=== PATIENT | female | born 1960 | race Hispanic/Latino ===

== ENCOUNTER 2019-09-16 14:41 | Outpatient (CLI) | payer OTHER, SELFPAY ==
--- NOTE | ~2019-09-16 | XR_ITS ---
EXAMINATION: XR abdomen/kub 1V DATE: 09/16/2019 15:12 INDICATION: Malfunctioning peritoneal dialysis catheter. TECHNIQUE: A supine view of the abdomen on 2 radiographs was obtained. COMPARISON: CT abdomen and pelvis 07/09/2017 FINDINGS: There are no dilated loops of bowel. There are phleboliths in the pelvis. A peritoneal dial ysis catheter overlies right pelvis. IMPRESSION: 1. Unremarkable peritoneal dialysis catheter. Reviewed, dictated and finalized at location A.
== END 2019-09-16 14:42 | disposition home or self-care (01) ==
LOC: ANHIMG 14:50
PROVIDERS: PCP Internal Medicine; Visit Provider Internal Medicine Nephrology
DX: T85.691A Other mechanical complication of intraperitoneal dialysis catheter, initial encounter (principal)
CPT/HCPCS: 74018

== ENCOUNTER 2020-05-30 14:43 | Inpatient (IN) | payer OTHER, SELFPAY ==
[2020-05-30] VITALS (25 sets, daily range): BP systolic 145–209; BP diastolic 48–135; PULSE 66–111; RESP 14–34; TEMP 36.6–37.1; O2SAT 95–100
--- NOTE | ~2020-05-30 | XR_ITS ---
XR chest 1V portable DATE: 05/30/2020 17:12 INDICATION: Shortness of breath. Covid-positive patient. TECHNIQUE: Portable AP chest on 05/30/2020 at 1708 hours COMPARISON: 07/23/2017 two-view chest FINDINGS: There are prominent diffuse patchy bilateral pulmonary infiltrates, greater in the lower sary ng zones. These are new since . Differential diagnosis includes pneumonia and less likely p ulmonary edema. There is minimal if any pleural effusion. No pneumothorax. Diffuse osteopenia. Heart size is likely within normal range considering magnification associated with AP projection. IMPRESSION: Extensive bilateral pulmonary infiltrates Reviewed, dictated and finalized at location A. 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
[2020-05-30] MEDS: NITROGLYCERIN SL 0.4 MG TABLET (14:57)
[2020-05-30] MEDS: NITROGLYCERIN SL 0.4 MG TABLET SUBLINGUAL (15:05)
[2020-05-30] MEDS: LABETALOL HCL INJ 100 MG/20 ML VIAL 20 MG IV PUSH ×3 (15:21→18:24)
[2020-05-30] MEDS: hydrALAZINE HCL 20 MG/ML VIAL 10 MG IV PUSH ×3 (15:21→17:33)
[2020-05-30] MEDS: FUROSEMIDE INJ 100 MG/10 ML VIAL 80 MG IV PUSH (15:21)
--- NOTE | 2020-05-30 16:21 | ECG_ITS ---
Measurements Intervals [place] Rate: 112 P: 40 DC: 132 QRS: 57 QRSD: 92 T: 90 QT: 349 QTc: 478 Interpretive Statements SINUS TACHYCARDIA BORDERLINE R WAVE PROGRESSION, ANTERIOR LEADS BORDERLINE ST-T WAVE ABNORMALITY- HIGH LATERAL LEADS BASELINE ARTIFACT- I, II, III, AVR, AVL, AVF, V1-V6 ABNORMAL ECG Electronically Signed On 05-30-2020 19:27:35 BACK SEAM STITCHER by Eric Domínguez D.O.
[2020-05-30] MEDS: NITROGLYCERIN OINTMENT 1 INCH DOSE TRANSDERM ×2 (16:26→23:28)
[2020-05-30 16:38] LABS: Basophils Absolute Auto 0.1 K/mm3 (0.0-0.1); Basophils Percent Auto 0.6 % (0.2-1.2); Eosinophils Absolute Auto 0.2 K/mm3 (0-0.3); Eosinophils Percent Auto 2.1 % (0-4.4); Hemoglobin 9.8 g/dL (12.0-15.0); Immature Granulocyte Absolute 0.04 K/mm3 (0.00-0.031); Immature Granulocyte Percent A 0.4 % (0-0.5); Lymphocytes Absolute Auto 1.95 K/mm3 (0.9-3.2); Lymphocytes Percent Auto 21.5 % (18.3-44.2); Mean Corpuscular Hemoglobin 32.3 pg (26-34); Mean Corpuscular Volume 92.4 fl (80-100); Mean Platelet Volume 10.1 fl (7.4-10.4); Monocytes Absolute Auto 0.5 K/mm3 (0.1-0.6); Monocytes Percent Auto 5.4 % (2.6-8.5); Neutrophils Absolute Auto 6.4 K/mm3 (1.3-6.7); Platelet Count Result 308 k/mm3 (150-375); Red Blood Count 3.03 M/mm3 (4.2-5.4); Red Cell Distribution Width 12.2 % (11.5-14.5); White Blood Count 9.1 K/mm3 (4.5-10.0)
[2020-05-30 16:51] LABS: Alanine Aminotransferase 21 U/L (4-35); Albumin Level 3.2 g/dL (3.5-5.1); Alkaline Phosphatase 137 U/L (38-126); Anion Gap 12 mmol/L (8-16); Aspartate Amino Transferase 47 U/L (14-36); Bilirubin,Total 0.5 mg/dL (0.2-1.3); Blood Urea Nitrogen 55 mg/dL (7-17); Calcium 6.7 mg/dL (8.4-10.2); Carbon Dioxide 26 mmol/L (22-30); Chloride 93 mmol/L (98-107); Estimated CRCL calculation 5 ml/min; Estimated Glomerular Filt Rate 4; Glucose 102 mg/dL (65-105); Potassium 3.6 mmol/L (3.4-5.0); Sodium 131 mmol/L (137-145)
[2020-05-30] MEDS: ONDANSETRON INJ 4 MG/2 ML VIAL IV PUSH (18:24)
--- NOTE | 2020-05-30 18:35 | ED.SOB ---
HPI - SOB/Dyspnea General Chief Complaint: Shortness of Breath/Dyspnea Stated Complaint: sob, elevated BP Time Seen by Provider: 05/30/20 14:46 Source: patient, family, EMS and other (PCP) Mode of arrival: EMS Limitations: clinical condition History of Present Illness HPI Narrative: 60-year-old female History of chronic renal failure on nightly peritoneal dialysis and hypertension Presented to the office today for a follow-up visit after a recent hospitalization She had been hospitalized about 10 days ago for hypoglycemia and was Covid positive at that time In the office her blood sugar was fine but her sats were 88 to 90% on room air she was tachypneic and dyspneic and her blood pressure was very high greater than 200 systolic over 100 diastolic and she was referred to the ER for evaluation and treatment Here, she is anxious and hyperventilating even has her sat on 2 L of oxygen is in the mid 90s She denies fever or cough, she denies increased pedal edema, and she denies chest pain She took labetalol this morning but she did not take her other blood pressure medicines MD elicited complaint: shortness of breath Severity: severe Related Data Home Medications Medication Instructions Recorded Confirmed insulin aspart U-100 [Novolog 1 sliding scale dose SUBCUT 04/29/19 05/30/20 PenFill U-100 Insulin] USEASDIRECTD aspirin 81 mg tablet,delayed 81 mg PO DAILY 10/11/19 05/30/20 release calcium acetate 667 mg tablet PO TID 01/10/20 05/30/20 diphenhydramine HCl 25 mg capsule 25 mg PO Q6H PRN 01/10/20 05/30/20 furosemide 40 mg tablet 40 mg PO BID 01/10/20 05/30/20 calcitriol 0.25 mcg capsule 0.25 mcg PO DAILY 05/30/20 05/30/20 ergocalciferol (vitamin D2) 1,250 1,250 mcg PO WEEKLY 05/30/20 05/30/20 mcg (50,000 unit) capsule ferric citrate 210 mg iron tablet 210 mg PO BID tablet 05/30/20 05/30/20 hydralazine 100 mg tablet 100 mg PO TID tablet 05/30/20 05/30/20 labetalol 200 mg tablet 200 mg PO BID tablet 05/30/20 05/30/20 ondansetron HCl 4 mg tablet 4 mg PO Q4H tablet 05/30/20 05/30/20 Allergies Allergy/AdvReac Type Severity Reaction Status Date / Time No Known Allergies Allergy Unknown Verified 05/30/20 13:27 Review of Systems Review of Systems: All systems reviewed & are unremarkable except as noted in HPI and below Constitutional: Constitutional: Denies chills, Reports fatigue, Denies fever(s), Denies headache(s) and Reports weakness Eyes: Eyes: Reports no additional eye complaints and Reports change in vision (Feels like her vision has been dark for a few days) ENT: Denies headache(s), Denies epistaxis, Denies nasal congestion and Denies sore throat Cardiovascular: Cardiovascular: Denies chest pain, Denies leg edema, Denies palpitations and Denies dyspnea Respiratory: Respiratory: Reports as per HPI Gastrointestinal: Gastrointestinal: Denies abdominal pain, Denies diarrhea, Denies nausea and Denies vomiting Genitourinary: Genitourinary: Denies hematuria, Denies urinary frequency and Denies dysuria Musculoskeletal: Musculoskeletal: Denies deformity, Denies arthralgias, Denies joint swelling, Denies muscle weakness and Denies numbness Integumentary/Breasts: Skin/Breast: Denies rash and Denies wounds Neurologic: Denies headache(s), Denies focal weakness, Denies numbness and Denies weakness Psychiatric: Psychiatric: Reports no additional psychiatric complaints and Reports anxiety Endocrine: Endocrine: Denies fatigue and Denies palpitations Hematologic/Lymphatic: Hematologic/Lymphatic: Denies easy bleeding and Denies easy bruising Allergic/Immunologic: Allergic/Immunologic: Denies wheezing PMFSH Past Medical History Medical History (Updated 05/30/20 @ 19:04 by Armando Rodgers MD) Bone spur DM renal manif type II End stage renal disease on dialysis Hemorrhoids History of Richmond's palsy HLD (hyperlipidemia) HTN (hypertension) Lumbar radiculopathy Mumps Osteoarthritis Pituitary abscess Surg
[2020-05-30] MEDS: metOLazone 5 MG TABLET PO (19:10)
[2020-05-30] MEDS: hydrALAZINE HCL 50 MG TABLET 100 MG PO (19:10)
[2020-05-30] MEDS: LABETALOL HCL 100 MG TABLET 200 MG PO (19:10)
[2020-05-30 19:29] LABS: Glucose Point of Care 162 (65-105)
[2020-05-30 20:55] LABS: NT Pro B Type Natriuretic Pept > 35000 PG/ML (5-100)
--- NOTE | 2020-05-30 22:38 | PM.IMHP ---
H&P: HPI History of Present Illness Date/Time: 05/30/20 22:38 Chief complaint: sob, elevated BP Narrative: Rufina Saravia is a 60 year old female who has end-stage renal disease. She has newly diagnosed this last September. She has been doing peritoneal dialysis since then. She does not every night. The patient stated that she recently was admitted to [facility]. She has multiple bruises to her abdomen where she had been given subcu heparin. Is also diabetic and has hypertension. The patient was hospitalized about 10 days ago for hypoglycemia and was COVID positive at that time. The patient presented to her regular primary care doctor's office today for a follow-up visit from hospitalization. In the office her blood sugars were okay per O2 saturations were 88-90% she was tachycardic and dyspneic. Her systolic blood pressures were over 200 and her diastolic was 100. She was sent to the emergency room for evaluation. She is very anxious and hyperventilating. She was placed on oxygen at 2 L per nasal cannula. No no cough no fever no chills. The patient took labetalol this morning for her blood pressure. The patient was given nitroglycerin, labetalol, hydralazine, Lasix, and Zofran in the emergency room. The patient is being boarded in the ER at this time. She is awaiting and IMU bed. Equipment with her for dialysis. Her chest x-ray was read as extensive bilateral pulmonary infiltrates. Nephrology has been consulted. The patient had been NPO for some time due to her high blood sugar and fluid overload and hypertension. Her blood pressure is now 176/80. Patient is currently on 3 L per nasal cannula. She typically is not on any oxygen at home. The patient is making some urine. She is asking to be able to eat. I explained that she could be on a renal diet but would have to limit her fluid intake. H&H is 9.8 and 28.0. Sodium was 131. BUN 55 creatinine is 10.9. GFR is 4. BNP is greater than 35,000. AST is 47 alkaline phosphatase 137. Repeat COVID is pending. She tested positive over 10 days ago. Is felt that this is more of a fluid overload and pulmonary emboli. Patient is outside the window for antiviral and Decadron. And plus she is diabetic as well. The patient is being admitted to inpatient status on the date of service of 05/30/2020 Review of Systems Review of Systems: All systems reviewed & are unremarkable except as noted in HPI and below Constitutional: Constitutional: Reports as per HPI and Reports no additional constitutional complaints Eyes: Eyes: Reports as per HPI and Reports no additional eye complaints ENT: Reports system reviewed and no additional complaints, except as documented and Reports Normal hearing present Cardiovascular: Cardiovascular: Reports no additional cardiovascular complaints Respiratory: Respiratory: Reports no additional respiratory complaints and Reports no additional respiratory complaints Gastrointestinal: Gastrointestinal: Reports as per HPI and Reports no additional gastrointestinal complaints Musculoskeletal: Musculoskeletal: Reports no additional musculoskeletal complaints Integumentary/Breasts: Skin/Breast: Reports system reviewed and no additional complaints, except as docu and Reports as per HPI Neurologic: Reports system reviewed and no additional complaints, except as documented, Reports as per HPI and Reports Normal hearing present Psychiatric: Psychiatric: Reports no additional psychiatric complaints and Reports as per HPI Endocrine: Endocrine: Reports no additional endocrine complaints Hematologic/Lymphatic: Hematologic/Lymphatic: Reports no additional hematologic/lymphatic complaints Allergic/Immunologic: Allergic/Immunologic: Reports no additional allergic/immunologic complaints [facility] Past Medical History Medical History (Updated 05/30/20 @ 22:46 by Jo Browne NP) Bone spur DM renal manif type II End stage renal disease on dialysis Hemorrhoids Hist
[2020-05-30] MEDS: FUROSEMIDE INJ 40 MG/4 ML VIAL 80 MG IV PUSH (23:27)
--- NOTE | 2020-05-30 23:31 | PC.NURSE ---
previous nitro patch removed and cleaned, new patch applied opposite chest area.
[2020-05-31] VITALS (18 sets, daily range): BP systolic 165–221; BP diastolic 68–85; PULSE 67–102; RESP 20–24; TEMP 35.8–36.5; O2SAT 96–100; BMI 37.8; BMI 38.3
--- NOTE | 2020-05-31 02:03 | ADMGEN ---
This patient, Rufina Saravia, was admitted to IMU Room 232-01. Patient/family oriented to hospital policies and general routines including ID bracelet, bed and alarms, visiting hours, pain management, procedures, bathroom and other care routines, personal items, smoking policy, room service/diet, and visiting hours. Information on how to activate the Rapid Response Team has been discussed. Patient/Family are encouraged to report perceived risks to care and to ask questions if they do not understand what they are told or what they should do. report from Jayne FERRARO approx [id number]
[2020-05-31 02:25] LABS: Hemoglobin A1C 4.8 % (<5.7)
[2020-05-31 05:21] LABS: Basophils Percent Auto 0.5 % (0.2-1.2); Eosinophils Absolute Auto 0.1 K/mm3 (0-0.3); Hematocrit 24.3 % (37.0-47.0); Hemoglobin 8.6 g/dL (12.0-15.0); Immature Granulocyte Absolute 0.04 K/mm3 (0.00-0.031); Immature Granulocyte Percent A 0.6 % (0-0.5); Lymphocytes Absolute Auto 1.21 K/mm3 (0.9-3.2); Lymphocytes Percent Auto 18.7 % (18.3-44.2); Mean Corpuscular HGB Conc 35.4 g/dl (32-36); Mean Corpuscular Hemoglobin 32.7 pg (26-34); Mean Corpuscular Volume 92.4 fl (80-100); Mean Platelet Volume 9.9 fl (7.4-10.4); Monocytes Absolute Auto 0.4 K/mm3 (0.1-0.6); Monocytes Percent Auto 6.6 % (2.6-8.5); Neutrophils Absolute Auto 4.6 K/mm3 (1.3-6.7); Neutrophils Percent Auto 71.6 % (45.5-73.1); Platelet Count Result 292 k/mm3 (150-375); Red Blood Count 2.63 M/mm3 (4.2-5.4); Red Cell Distribution Width 12.1 % (11.5-14.5); White Blood Count 6.5 K/mm3 (4.5-10.0)
[2020-05-31 05:39] LABS: Anion Gap 9 mmol/L (8-16); Blood Urea Nitrogen 57 mg/dL (7-17); Calcium 6.6 mg/dL (8.4-10.2); Carbon Dioxide 26 mmol/L (22-30); Chloride 96 mmol/L (98-107); Estimated CRCL calculation 5 ml/min; Estimated Glomerular Filt Rate 4; Glucose 152 mg/dL (65-105); Potassium 3.7 mmol/L (3.4-5.0); Sodium 131 mmol/L (137-145)
[2020-05-31] MEDS: NITROGLYCERIN OINTMENT 1 INCH DOSE TRANSDERM ×4 (06:02→23:35)
[2020-05-31] MEDS: HEPARIN SODIUM 5,000 UNITS/ML VIAL 5000 UNITS SUB-Q ×3 (06:02→21:11)
[2020-05-31 08:49] LABS: Glucose Point of Care 228 (65-105)
[2020-05-31] MEDS: INSULIN ASPART (*BKC) 100 UNITS/ML SUB-Q (10:35)
[2020-05-31] MEDS: FUROSEMIDE INJ 100 MG/10 ML VIAL 80 MG IV PUSH ×2 (11:00→21:11)
[2020-05-31 13:15] LABS: Glucose Point of Care 143 (65-105)
[2020-05-31 14:21] LABS: SARS-CoV-2 RNA PCR Negative
[2020-05-31 17:01] LABS: Glucose Point of Care 175 (65-105)
[2020-05-31] MEDS: hydrALAZINE HCL 20 MG/ML VIAL 10 MG IV PUSH ×2 (17:09→23:34)
--- NOTE | 2020-05-31 18:29 | P.CONNP_ITS ---
Assessment and Plan Assessment and plan (1) End stage renal disease: Code(s): N18.6 - End stage renal disease Status: Chronic Assessment and Plan: * continue CCPD tonight * adjust peritoneal dialysis for more aggressive fluid removal * continue IV diuretics for n * follow electrolytes, volume status, and clearance (2) Acute respiratory failure with hypoxia: Code(s): J96.01 - Acute respiratory failure with hypoxia Status: Acute Assessment and Plan: * likely due to a combination of pulmonary edema and possible COVID-19 * some improvement with IV diuretics and PD treatmement * continue supplement oxygen and wean as tolerated * follow CXR results (3) Severe hypertension: Code(s): I10 - Essential (primary) hypertension Status: Acute Assessment and Plan: * quite high on admission * element of flash pulmonary edema with her BP being so elevated on admission(?) * follow trend but will increase labetalol to 300mg bid * suspect may need another BP medication (terzosin perhaps) * follow trend of hemodynamics (4) Anemia: Code(s): D64.9 - Anemia, unspecified Status: Chronic Assessment and Plan: * due to ESRD * check iron studies * holding Epogen given her high BP * follow H/H (5) COVID-19: Code(s): U07.1 - COVID-19 Status: Acute Assessment and Plan: * was positive about 10 days ago * repeat testing in progress * supportive therapy Will continue to follow. History of Present Illness Reason for Consult Consult date: 05/31/20 Reason for consult: end stage renal disease Chief Complaint Chief complaint: pulmonary edema, severa hypertension History of Present Illness Narrative: The patient is a 60-year-old female with a significant past medical history as outlined below who presented to [facility] Emergency room from her primary care physician's office for further evaluation of shortness of breath. The patient was recently hospitalized about 10 days ago with issues relating to hypoglycemia as well as COVID 19 positivity. She was treated with supportive measures and eventually discharged from the hospital. She went to see her primary care physician today for routine follow-up after this hospitalization but it was discovered upon her presentation that she was tachycardic, tach ypneic, and had O2 saturations in the 88-90 percentile range on room air. Given these findings, she was referred to the ER for further evaluation. Workup and evaluation emergency room demonstrated the patient to be in [id number] respiratory distress complicated by her severe anxiety. Supple mental oxygen was applied which did improve her oxygen saturations but she was also noted to be severely hypertensive as well. She was given multiple rounds of IV medications to treat her blood pressure and eventually came down into the 180 systolic her overall respiratory status seemed to improve as well. Her chest x-ray demonstrated a combination of changes consistent with fluid overload as well as possible COVID-19. She was continued on IV diuretics and subsequent admitted to the hospital for further evaluation and therapy. Since her admission, she received peritoneal dialysis overnight and had about 1400 cc of fluid removal. Her breathing appears to be significantly better. Renal consultation was requested due to her end-stage renal disease. The patient is well familiar to me as I take care of her outpatient dialysis needs. She does nightly peritoneal dialysis under my care through [facility]
--- NOTE | 2020-05-31 18:29 | PM.CNNEP ---
Assessment and Plan Assessment and plan (1) End stage renal disease: Code(s): N18.6 - End stage renal disease Status: Chronic Assessment and Plan: continue CCPD tonight adjust peritoneal dialysis for more aggressive fluid removal continue IV diuretics for n follow electrolytes, volume status, and clearance (2) Acute respiratory failure with hypoxia: Code(s): J96.01 - Acute respiratory failure with hypoxia Status: Acute Assessment and Plan: likely due to a combination of pulmonary edema and possible COVID-19 some improvement with IV diuretics and PD treatmement continue supplement oxygen and wean as tolerated follow CXR results (3) Severe hypertension: Code(s): I10 - Essential (primary) hypertension Status: Acute Assessment and Plan: quite high on admission element of flash pulmonary edema with her BP being so elevated on admission(?) follow trend but will increase labetalol to 300mg bid suspect may need another BP medication (terzosin perhaps) follow trend of hemodynamics (4) Anemia: Code(s): D64.9 - Anemia, unspecified Status: Chronic Assessment and Plan: due to ESRD check iron studies holding Epogen given her high BP follow H/H (5) COVID-19: Code(s): U07.1 - COVID-19 Status: Acute Assessment and Plan: was positive about 10 days ago repeat testing in progress supportive therapy Will continue to follow. History of Present Illness Reason for Consult Consult date: 05/31/20 Reason for consult: end stage renal disease Chief Complaint Chief complaint: pulmonary edema, severa hypertension History of Present Illness Narrative: The patient is a 60-year-old female with a significant past medical history as outlined below who presented to [facility] Emergency room from her primary care physician's office for further evaluation of shortness of breath. The patient was recently hospitalized about 10 days ago with issues relating to hypoglycemia as well as COVID 19 positivity. She was treated with supportive measures and eventually discharged from the hospital. She went to see her primary care physician today for routine follow-up after this hospitalization but it was discovered upon her presentation that she was tachycardic, tachypneic, and had O2 saturations in the 88-90 percentile range on room air. Given these findings, she was referred to the ER for further evaluation. Workup and evaluation emergency room demonstrated the patient to be in [id number] respiratory distress complicated by her severe anxiety. Supplemental oxygen was applied which did improve her oxygen saturations but she was also noted to be severely hypertensive as well. She was given multiple rounds of IV medications to treat her blood pressure and eventually came down into the 180 systolic her overall respiratory status seemed to improve as well. Her chest x-ray demonstrated a combination of changes consistent with fluid overload as well as possible COVID-19. She was continued on IV diuretics and subsequent admitted to the hospital for further evaluation and therapy. Since her admission, she received peritoneal dialysis overnight and had about 1400 cc of fluid removal. Her breathing appears to be significantly better. Renal consultation was requested due to her end-stage renal disease. The patient is well familiar to me as I take care of her outpatient dialysis needs. She does nightly peritoneal dialysis under my care through [facility] and has been on dialysis for a little less than a year. From a dialysis perspective, she has had some issues and problems with excessive cramping during her dialysis treatments without a clear etiology as multiple interventions have been done to try in curb this problem/issue. Her blood pressure is always been somewhat difficult to control although her blood pressure readin
--- NOTE | 2020-05-31 18:29 | PM.IMPN ---
Progress Note: A&P Assessment and Plan (1) COVID-19: Code(s): U07.1 - COVID-19 Status: Acute Assessment and Plan: The patient was diagnosed over 10 days ago. She is now on oxygen but I believe this is more due to pulmonary edema. She is outside the window for antiviral and Decadron. Blood she is diabetic. I did not start her on any the medication. We continued with diuretics. The patient was hypoxic I doubt this to be related to the COVID most likely is pulmonary edema and I doubt that this is a PE is she had been on subcu heparin for DVT prophylaxis is at the previous hospital. (2) End stage renal disease on dialysis: Code(s): N18.6 - End stage renal disease; Z99.2 - Dependence on renal dialysis Status: Acute Assessment and Plan: The patient has peritoneal dialysis and she has a catheter to the left mid abdomen. She has been doing the treatments herself every night. Dr. Harrington has been consulted. Continue to monitor electrolytes. Patient is currently on oxygen due to the pulmonary edema. She does make some urine. (3) HTN (hypertension): Code(s): I10 - Essential (primary) hypertension Status: Chronic Assessment and Plan: Patient's blood pressure was very elevated today she was given multiple blood pressure medications. (4) DM renal manif type II: Qualifiers: Diabetes mellitus half-way insulin use: with terminal system operator use Diabetes mellitus complication detail: with chronic kidney disease Chronic kidney disease stage: stage 3 (moderate) Chronic kidney disease stage 3 subtype: stage 3a (GFR 45-59) Qualified Code(s): E11.21 - Type 2 diabetes mellitus with diabetic nephropathy; N18.31 - Chronic kidney disease, stage 3a; Z79.4 - long-term (current) use of insulin Code(s): E11.29 - Type 2 diabetes mellitus with other diabetic kidney complication Status: Chronic Assessment and Plan: Accu-Cheks AC and HS at this time. Check A1c. She has nephropathy due to her diabetes. She has anemia of chronic disease as well. (5) Pneumonia: Code(s): J18.9 - Pneumonia, unspecified organism Status: Acute Assessment and Plan: 05/31/20 18:29 Patient is 66-year-old female with end-stage renal disease on peritoneal dialysis patient was recently admitted and [facility] COVID-19 and was there for 2 weeks, patient was seen by her primary care physician yesterday and patient was quite distress with hypoxia no sent to emergency department for further evaluation, patient blood pressure was elevated patient states this he has not been compliant with home regimen, patient was tested for COVID-19 here and is negative, chest x-ray here showed extensive bilateral infiltrate, will start patient on levaquin, patient be seen by her ham facer and will have scheduled peritoneal dialysis daily. Will have a PT OT evaluate the patient and further recommendation to follow Subjective Date/time seen: 05/31/20 18:29 Patient is 66-year-old female with end-stage renal disease on peritoneal dialysis patient was recently admitted and [place] [id number] and was there for 2 weeks, patient was seen by her primary care physician yesterday and patient was quite distress with hypoxia no sent to emergency department for further evaluation, patient blood pressure was elevated patient states this he has not been compliant with home regimen, patient was tested for COVID-19 here and is negative, chest x-ray here showed extensive bilateral infiltrate, will start patient on levaquin, patient be seen by her ham facer and will have scheduled peritoneal dialysis daily. Will have a PT OT evaluate the patient and further recommendation to follow Review of Systems Review of Systems: All systems reviewed & are unremarkable except as noted in HPI and below Exam Narrative: Exam Narrative: Moderately obese Patient is comfortable, NAD HEENT: eyes are clear and none icter
[2020-05-31] MEDS: ONDANSETRON INJ 4 MG/2 ML VIAL IV PUSH (23:34)
[2020-06-01] VITALS (16 sets, daily range): BP systolic 180–214; BP diastolic 65–82; PULSE 70–97; RESP 18–22; TEMP 35.8–36.8; O2SAT 95–100
[2020-06-01 05:03] LABS: Hematocrit 24.4 % (37.0-47.0); Hemoglobin 8.7 g/dL (12.0-15.0); Mean Corpuscular HGB Conc 35.7 g/dl (32-36); Mean Corpuscular Hemoglobin 32.3 pg (26-34); Mean Corpuscular Volume 90.7 fl (80-100); Mean Platelet Volume 9.4 fl (7.4-10.4); Platelet Count Result 327 k/mm3 (150-375); Red Blood Count 2.69 M/mm3 (4.2-5.4); Red Cell Distribution Width 12.1 % (11.5-14.5); White Blood Count 7.9 K/mm3 (4.5-10.0)
[2020-06-01 05:16] LABS: Albumin Level 2.9 g/dL (3.5-5.1); Anion Gap 10 mmol/L (8-16); Blood Urea Nitrogen 56 mg/dL (7-17); Calcium 6.9 mg/dL (8.4-10.2); Carbon Dioxide 26 mmol/L (22-30); Chloride 95 mmol/L (98-107); Estimated CRCL calculation 5 ml/min; Estimated Glomerular Filt Rate 4; Glucose 200 mg/dL (65-105); Magnesium 1.9 mg/dL (1.6-2.3); Phosphorus 7.9 mg/dL (2.5-4.5); Potassium 3.6 mmol/L (3.4-5.0); Sodium 131 mmol/L (137-145)
[2020-06-01] MEDS: NITROGLYCERIN OINTMENT 1 INCH DOSE TRANSDERM ×4 (05:55→23:53)
[2020-06-01] MEDS: HEPARIN SODIUM 5,000 UNITS/ML VIAL 5000 UNITS SUB-Q ×3 (05:55→20:24)
[2020-06-01] MEDS: ONDANSETRON INJ 4 MG/2 ML VIAL IV PUSH (05:57)
[2020-06-01] MEDS: LABETALOL HCL INJ 100 MG/20 ML VIAL 10 MG IV PUSH (06:21)
[2020-06-01 09:26] LABS: Glucose Point of Care 147 (65-105)
[2020-06-01] MEDS: hydrALAZINE HCL 20 MG/ML VIAL 10 MG IV PUSH (09:52)
[2020-06-01] MEDS: FUROSEMIDE INJ 100 MG/10 ML VIAL 80 MG IV PUSH (09:52)
[2020-06-01 12:11] LABS: Glucose Point of Care 189 (65-105)
--- NOTE | 2020-06-01 13:11 | P.PNNP_ITS ---
Progress Note: A&P Assessment and Plan (1) End stage renal disease: Code(s): N18.6 - End stage renal disease Status: Chronic Assessment and Plan: * continue CCPD tonight * adjust peritoneal dialysis for more aggressive fluid removal * continue IV diuretics for now * follow electrolytes, volume status, and clearance (2) Acute respiratory failure with hypoxia: Code(s): J96.01 - Acute respiratory failure with hypoxia Status: Acute Assessment and Plan: * likely due to a combination of pulmonary edema and possible COVID-19 * some improvement with IV diuretics and PD treatmement * continue supplement oxygen and wean as tolerated * follow CXR results (3) Severe hypertension: Code(s): I10 - Essential (primary) hypertension Status: Acute Assessment and Plan: * quite high on admission * element of flash pulmonary edema with her BP being so elevated on admission(?) * follow trend but will increase labetalol to 300mg bid * suspect may need another BP medication (terzosin perhaps) - will start today * follow trend of hemodynamics (4) Anemia: Code(s): D64.9 - Anemia, unspecified Status: Chronic Assessment and Plan: * due to ESRD * check iron studies * holding Epogen given her high BP * follow H/H (5) COVID-19: Code(s): U07.1 - COVID-19 Status: Acute Assessment and Plan: * was positive about 10 days ago * repeat testing in progress * supportive therapy Will continue to follow. Subjective Date/time seen: 06/01/20 13:11 Tolerated peritoneal dialysis last night without any issues or problems; states she felt sick last night due to too much PD fluid with her dialysis treatment; however, her respiratory status has improved significantly but her blood pressuer still quite high Exam Narrative: Exam Narrative: General: WD/WN female in mild respiratory distress Heart: normal S1 and S2; no rub Lungs: coarse with bibasilar crackels Abdomen: soft, nontender, nondistended, positive bowel sounds Extremities: no cyanosis or clubbing; 1+ edema Skin: warm and dry Objective Data Vital Signs Vital Signs: Vital Signs Temp Pulse Resp BP Pulse Ox 06/01/20 11:30 35.8 C L 74 18 200/75 H 99 06/01/20 08:00 36.8 C 73 20 201/75 H 95 12/10/20 06:21 84 06/01/20 06:12 84 211/75 H 06/01/20 06:00 70 06/01/20 04:00 36.0 C L 82 22 H 207/82 H 97 06/01/20 02:00 81 06/01/20 00:00 82 20 98 05/31/20 23:31 35.8 C L 91 20 196/78 H 100 05/31/20 22:00 78 05/31/20 20:00 36.1 C L 95 22 H 191/69 H 97 05/31/20 18:43 183/69 H 05/31/20 18:00 89 05/31/20 17:17 36.3 C L 84 20 221/85 H 100 05/31/20 16:00 81 100 05/31/20 14:00 75 05/31/20 13:26 36.4 C L 73 24 H 165/81 H 100 Intake/Output Intake/Output: Intake & Output 05/29/20 05/30/20 05/31/20 06/01/20 23:59 23:59 23:59 23:59 Intake Total 600 200 Output Total 1025 Balance -425 200 Meds/Results Medications: Active Medications Generic Name Dose Route Start Last Admin Trade Name Freq PRN Reason Stop Dose Admin Acetaminophen 650 mg 05/30/20 18:30
--- NOTE | 2020-06-01 13:11 | PM.PNNEP ---
Progress Note: A&P Assessment and Plan (1) End stage renal disease: Code(s): N18.6 - End stage renal disease Status: Chronic Assessment and Plan: continue CCPD tonight adjust peritoneal dialysis for more aggressive fluid removal continue IV diuretics for now follow electrolytes, volume status, and clearance (2) Acute respiratory failure with hypoxia: Code(s): J96.01 - Acute respiratory failure with hypoxia Status: Acute Assessment and Plan: likely due to a combination of pulmonary edema and possible COVID-19 some improvement with IV diuretics and PD treatmement continue supplement oxygen and wean as tolerated follow CXR results (3) Severe hypertension: Code(s): I10 - Essential (primary) hypertension Status: Acute Assessment and Plan: quite high on admission element of flash pulmonary edema with her BP being so elevated on admission(?) follow trend but will increase labetalol to 300mg bid suspect may need another BP medication (terzosin perhaps) - will start today follow trend of hemodynamics (4) Anemia: Code(s): D64.9 - Anemia, unspecified Status: Chronic Assessment and Plan: due to ESRD check iron studies holding Epogen given her high BP follow H/H (5) COVID-19: Code(s): U07.1 - COVID-19 Status: Acute Assessment and Plan: was positive about 10 days ago repeat testing in progress supportive therapy Will continue to follow. Subjective Date/time seen: 06/01/20 13:11 Tolerated peritoneal dialysis last night without any issues or problems; states she felt sick last night due to too much PD fluid with her dialysis treatment; however, her respiratory status has improved significantly but her blood pressuer still quite high Exam Narrative: Exam Narrative: General: WD/WN female in mild respiratory distress Heart: normal S1 and S2; no rub Lungs: coarse with bibasilar crackels Abdomen: soft, nontender, nondistended, positive bowel sounds Extremities: no cyanosis or clubbing; 1+ edema Skin: warm and dry Objective Data Vital Signs Vital Signs: Vital Signs Temp Pulse Resp BP Pulse Ox 06/01/20 11:30 35.8 C L 74 18 200/75 H 99 06/01/20 08:00 36.8 C 73 20 201/75 H 95 06/01/20 06:21 84 06/01/20 06:12 84 211/75 H 06/01/20 06:00 70 06/01/20 04:00 36.0 C L 82 22 H 207/82 H 97 06/01/20 02:00 81 06/01/20 00:00 82 20 98 05/31/20 23:31 35.8 C L 91 20 196/78 H 100 05/31/20 22:00 78 05/31/20 20:00 36.1 C L 95 22 H 191/69 H 97 05/31/20 18:43 183/69 H 05/31/20 18:00 89 05/31/20 17:17 36.3 C L 84 20 221/85 H 100 05/31/20 16:00 81 100 05/31/20 14:00 75 05/31/20 13:26 36.4 C L 73 24 H 165/81 H 100 Intake/Output Intake/Output: Intake & Output 05/29/20 05/30/20 05/31/20 06/01/20 23:59 23:59 23:59 23:59 Intake Total 600 200 Output Total 1025 Balance -425 200 Meds/Results Medications: Active Medications Generic Name Dose Route Start Last Admin Trade Name Freq PRN Reason Stop Dose Admin Acetaminophen 650 mg 05/30/20 18:30 Acetaminophen 325 Mg Tablet PO Q4H PRN Mild Pain (1-3) or Fever Aspirin 81 mg 06/02/20 09:00 Aspirin 81 Mg Enteric Tablet PO DAILY [facility] Calcitriol 0.25 mcg 06/02/20 09:00 Calcitriol 0.25 Mcg Capsule PO DAILY [facility] Calcium Acetate 667 mg 06/01/20 12:00 Calcium Acetate 667 Mg Tablet PO TIDWM [facility] Dextrose 12.5 gm 05/30/20 22:51 Dextrose 50% 25 Gm/50 Ml Syringe IV PUSH PRN PRN Hypoglycemia Protocol Diphenhydramine HCl 25 mg 06/01/20 12:24 Diphenhydramine Hcl Cap 25 Mg Capsule PO Q6H PRN Allergic Reaction Ergocalciferol unit 06/08/20 09:00 Ergocalciferol 50,000 Unit Capsule PO WEEKLY [facility] Furosemide 80 mg 05/31/20 09:00 06/01/20 09:52 Furosemide Inj 10
[2020-06-01] MEDS: hydrALAZINE HCL 50 MG TABLET 100 MG PO ×2 (13:35→17:07)
[2020-06-01] MEDS: CALCIUM ACETATE 667 MG TABLET PO ×2 (13:36→17:06)
[2020-06-01 17:08] LABS: Glucose Point of Care 185 (65-105)
[2020-06-01] MEDS: FUROSEMIDE 40 MG TABLET PO (17:40)
--- NOTE | 2020-06-01 18:10 | PM.IMPN ---
Progress Note: A&P Assessment and Plan (1) COVID-19: Code(s): U07.1 - COVID-19 Status: Acute Assessment and Plan: The patient was diagnosed over 10 days ago. She is now on oxygen but I believe this is more due to pulmonary edema. She is outside the window for antiviral and Decadron. Blood she is diabetic. I did not start her on any the medication. We continued with diuretics. The patient was hypoxic I doubt this to be related to the COVID most likely is pulmonary edema and I doubt that this is a PE is she had been on subcu heparin for DVT prophylaxis is at the previous hospital. (2) End stage renal disease on dialysis: Code(s): N18.6 - End stage renal disease; Z99.2 - Dependence on renal dialysis Status: Acute Assessment and Plan: The patient has peritoneal dialysis and she has a catheter to the left mid abdomen. She has been doing the treatments herself every night. Dr. Harrington has been consulted. Continue to monitor electrolytes. Patient is currently on oxygen due to the pulmonary edema. She does make some urine. (3) HTN (hypertension): Code(s): I10 - Essential (primary) hypertension Status: Chronic Assessment and Plan: Patient's blood pressure was very elevated today she was given multiple blood pressure medications. (4) DM renal manif type II: Qualifiers: Diabetes mellitus prison insulin use: with prison use Diabetes mellitus complication detail: with chronic kidney disease Chronic kidney disease stage: stage 3 (moderate) Chronic kidney disease stage 3 subtype: stage 3a (GFR 45-59) Qualified Code(s): E11.21 - Type 2 diabetes mellitus with diabetic nephropathy; N18.31 - Chronic kidney disease, stage 3a; Z79.4 - senior care (current) use of insulin Code(s): E11.29 - Type 2 diabetes mellitus with other diabetic kidney complication Status: Chronic Assessment and Plan: Accu-Cheks AC and HS at this time. Check A1c. She has nephropathy due to her diabetes. She has anemia of chronic disease as well. (5) Pneumonia: Code(s): J18.9 - Pneumonia, unspecified organism Status: Acute Assessment and Plan: 06/01/20 18:10 Patient is 66-year-old female with end-stage renal disease on peritoneal dialysis patient was recently admitted and [id number] and was there for 2 weeks, patient was seen by her primary care physician yesterday and patient was quite distress with hypoxia no sent to emergency department for further evaluation, patient blood pressure was elevated patient states this he has not been compliant with home regimen, patient was tested for COVID-19 here and is negative, chest x-ray here on 05/31 showed extensive bilateral infiltrate, started patient on levaquin, also resume patient's home medical, today patient states feeling little better compared to when she arrived patient will be seen by her electronic field service engineer and will have scheduled peritoneal dialysis daily. Patient states unable to sleep very well during peritoneal dialysis at night, Will have a PT OT evaluate the patient and further recommendation to follow Subjective Date/time seen: 06/01/20 18:10 Patient is 66-year-old female with end-stage renal disease on peritoneal dialysis patient was recently admitted and [place] [id number] and was there for 2 weeks, patient was seen by her primary care physician yesterday and patient was quite distress with hypoxia no sent to emergency department for further evaluation, patient blood pressure was elevated patient states this he has not been compliant with home regimen, patient was tested for COVID-19 here and is negative, chest x-ray here on 05/31 showed extensive bilateral infiltrate, started patient on levaquin, also resume patient's home medical, today patient states feeling little better compared to when she arrived patient will be seen by her electronic field service engineer and will have scheduled peritoneal dialysis
[2020-06-01] MEDS: LABETALOL HCL 100 MG TABLET 300 MG PO (20:25)
[2020-06-01] MEDS: TERAZOSIN HCL 1 MG CAPSULE 2 MG PO (20:25)
[2020-06-01 21:23] LABS: Glucose Point of Care 197 (65-105)
[2020-06-01] MEDS: CALCIUM CARBONATE (TUMS) 500 MG (200 MG ELEMENTAL) 400 MG PO (21:49)
[2020-06-02] VITALS (11 sets, daily range): BP systolic 157–202; BP diastolic 64–74; PULSE 64–84; RESP 18; TEMP 36–36.6; O2SAT 94–99
[2020-06-02] MEDS: NITROGLYCERIN OINTMENT 1 INCH DOSE TRANSDERM (05:31)
[2020-06-02] MEDS: HEPARIN SODIUM 5,000 UNITS/ML VIAL 5000 UNITS SUB-Q (05:31)
[2020-06-02 05:43] LABS: Hematocrit 22.3 % (37.0-47.0); Hemoglobin 7.8 g/dL (12.0-15.0); Mean Corpuscular Hemoglobin 32.5 pg (26-34); Mean Corpuscular Volume 92.9 fl (80-100); Mean Platelet Volume 9.7 fl (7.4-10.4); Platelet Count Result 315 k/mm3 (150-375); Red Cell Distribution Width 12.3 % (11.5-14.5)
[2020-06-02 05:50] LABS: Albumin Level 2.6 g/dL (3.5-5.1); Anion Gap 10 mmol/L (8-16); Blood Urea Nitrogen 58 mg/dL (7-17); Calcium 7.2 mg/dL (8.4-10.2); Carbon Dioxide 28 mmol/L (22-30); Chloride 93 mmol/L (98-107); Estimated CRCL calculation 5 ml/min; Estimated Glomerular Filt Rate 4; Glucose 191 mg/dL (65-105); Phosphorus 7.3 mg/dL (2.5-4.5); Potassium 3.3 mmol/L (3.4-5.0); Sodium 131 mmol/L (137-145)
[2020-06-02 08:09] LABS: Glucose Point of Care 179 (65-105)
[2020-06-02] MEDS: calcitrioL 0.25 MCG CAPSULE PO (08:47)
[2020-06-02] MEDS: ASPIRIN 81 MG ENTERIC TABLET PO (08:48)
[2020-06-02] MEDS: CALCIUM ACETATE 667 MG TABLET PO ×2 (08:48→12:12)
[2020-06-02] MEDS: hydrALAZINE HCL 50 MG TABLET 100 MG PO ×2 (08:48→12:12)
[2020-06-02] MEDS: FUROSEMIDE 40 MG TABLET PO (08:48)
[2020-06-02] MEDS: LABETALOL HCL 100 MG TABLET 300 MG PO (08:48)
[2020-06-02] MEDS: POTASSIUM CHLORIDE 20 MEQ TABLET PO (11:00)
--- NOTE | 2020-06-02 11:35 | PM.PNNEP ---
Progress Note: A&P Assessment and Plan (1) End stage renal disease: Code(s): N18.6 - End stage renal disease Status: Chronic Assessment and Plan: continue CCPD have adjusted peritoneal dialysis for more aggressive fluid removal continue diuretics (on oral lasix) follow electrolytes, volume status, and clearance (2) Acute respiratory failure with hypoxia: Code(s): J96.01 - Acute respiratory failure with hypoxia Status: Acute Assessment and Plan: likely due to a combination of pulmonary edema and possible COVID-19 improvement with diuretics and PD treatment oxygen weaned off (3) Severe hypertension: Code(s): I10 - Essential (primary) hypertension Status: Acute Assessment and Plan: quite high on admission element of flash pulmonary edema with her BP being so elevated on admission(?) increased labetalol to 300mg bid started terazosin yesterday as well follow trend of hemodynamics (4) Anemia: Code(s): D64.9 - Anemia, unspecified Status: Chronic Assessment and Plan: due to ESRD dose with Epogen now that BP is better follow H/H (5) COVID-19: Code(s): U07.1 - COVID-19 Status: Acute Assessment and Plan: was positive about 10 days ago repeat testing negative supportive therapy Will continue to follow. Subjective Date/time seen: 06/02/20 11:35 Breathing continues to improve if not back to baseline; BP seems better controlled with the addition of terazosin and higher dose of labetalol; no other acute issue or problems voiced at this time; no acute distress. Exam Narrative: Exam Narrative: General: WD/WN female in NAD Heart: normal S1 and S2; no rub Lungs: clear but decreased at bases Abdomen: soft, nontender, nondistended, positive bowel sounds Extremities: no cyanosis or clubbing; trace edema Skin: warm and intact Objective Data Vital Signs Vital Signs: Vital Signs Temp Pulse Resp BP Pulse Ox 06/02/20 10:00 73 06/02/20 08:07 162/64 H 06/02/20 08:06 36.6 C 77 18 202/73 H 99 06/02/20 08:00 36.3 C L 76 18 174/72 H 06/02/20 06:00 81 06/02/20 05:32 76 174/72 H 06/02/20 04:00 36.0 C L 80 18 180/74 H 96 06/02/20 02:00 68 06/02/20 00:00 36.1 C L 72 18 176/69 H 95 06/01/20 22:00 77 06/01/20 20:25 97 06/01/20 20:00 36.0 C L 89 18 180/65 H 95 06/01/20 18:00 91 06/01/20 17:41 95 06/01/20 16:00 36.3 C L 87 18 214/74 H 100 06/01/20 14:00 89 Intake/Output Intake/Output: Intake & Output 05/30/20 05/31/20 06/01/20 06/02/20 23:59 23:59 23:59 23:59 Intake Total 600 960 400 Output Total 1022 906 -8163 Balance -897 84 0673 Meds/Results Medications: Active Medications Generic Name Dose Route Start Last Admin Trade Name Freq PRN Reason Stop Dose Admin Acetaminophen 650 mg 05/30/20 18:30 Acetaminophen 325 Mg Tablet PO Q4H PRN Mild Pain (1-3) or Fever Aspirin 81 mg 06/02/20 09:00 06/02/20 08:48 Aspirin 81 Mg Enteric Tablet PO 81 mg DAILY MICHAELA Administration Calcitriol 0.25 mcg 06/02/20 09:00 06/02/20 08:47 Calcitriol 0.25 Mcg Capsule PO 0.25 mcg DAILY MICHAELA Administration Calcium Acetate 667 mg 06/01/20 12:00 06/02/20 12:12 Calcium Acetate 667 Mg Tablet PO 667 mg TIDWM MICHAELA Administration Calcium Carbonate 400 mg 06/01/20 21:45 06/01/20 21:49 Calcium Carbonate (Tums) 500 Mg (200 Mg Elemental) PO 400 mg Q8H PRN Administration Indigestion Dextrose 12.5 gm 05/30/20 22:51 Dextrose 50% 25 Gm/50 Ml Syringe IV PUSH PRN PRN Hypoglycemia Protocol Diphenhydramine HCl 25 mg 06/01/20 12:24 Diphenhydramine Hcl Cap 25 Mg Capsule PO Q6H PRN Allergic Reaction Ergocalciferol 50,000 unit 06/07/20 09:00 Ergocalciferol 50,000 Unit Capsule PO We@0900 MICHAELA Furosemide 40 mg 06/01/20 17:00 1
--- NOTE | 2020-06-02 11:35 | P.PNNP_ITS ---
Progress Note: A&P Assessment and Plan (1) End stage renal disease: Code(s): N18.6 - End stage renal disease Status: Chronic Assessment and Plan: * continue CCPD * have adjusted peritoneal dialysis for more aggressive fluid removal * continue diuretics (on oral lasix) * follow electrolytes, volume status, and clearance (2) Acute respiratory failure with hypoxia: Code(s): J96.01 - Acute respiratory failure with hypoxia Status: Acute Assessment and Plan: * likely due to a combination of pulmonary edema and possible COVID-19 * improvement with diuretics and PD treatment * oxygen weaned off (3) Severe hypertension: Code(s): I10 - Essential (primary) hypertension Status: Acute Assessment and Plan: * quite high on admission * element of flash pulmonary edema with her BP being so elevated on admission(?) * increased labetalol to 300mg bid * started terazosin yesterday as well * follow trend of hemodynamics (4) Anemia: Code(s): D64.9 - Anemia, unspecified Status: Chronic Assessment and Plan: * due to ESRD * dose with Epogen now that BP is better * follow H/H (5) COVID-19: Code(s): U07.1 - COVID-19 Status: Acute Assessment and Plan: * was positive about 10 days ago * repeat testing negative * supportive therapy Will continue to follow. Subjective Date/time seen: 06/02/20 11:35 Breathing continues to improve if not back to baseline; BP seems better controlled with the addition of terazosin and higher dose of labetalol; no other acute issue or problems voiced at this time; no acute distress. Exam Narrative: Exam Narrative: General: WD/WN female in NAD Heart: normal S1 and S2; no rub Lungs: clear but decreased at bases Abdomen: soft, nontender, nondistended, positive bowel sounds Extremities: no cyanosis or clubbing; trace edema Skin: warm and intact Objective Data Vital Signs Vital Signs: Vital Signs Temp Pulse Resp BP Pulse Ox 06/02/20 10:00 73 06/02/20 08:07 162/64 H 06/02/20 08:06 36.6 C 77 18 202/73 H 99 06/02/20 08:00 36.3 C L 76 18 174/72 H 06/02/20 06:00 81 06/02/20 05:32 76 174/72 H 06/02/20 04:00 36.0 C L 80 18 180/74 H 96 06/02/20 02:00 68 06/02/20 00:00 36.1 C L 72 18 176/69 H 95 06/01/20 22:00 77 06/01/20 20:25 97 06/01/20 20:00 36.0 C L 89 18 180/65 H 95 06/01/20 18:00 91 06/01/20 17:41 95 06/01/20 16:00 36.3 C L 87 18 214/74 H 100 06/01/20 14:00 89 Intake/Output Intake/Output: Intake & Output 05/30/20 05/31/20 06/01/20 06/02/20 23:59 23:59 23:59 23:59 Intake Total 600 960 400 Output Total 1028 176 -7866 Balance -601 11 1034 Meds/Results Medications: Active Medications Generic Name Dose Route Start Last Admin Trade Name Freq PRN Reason Stop Dose Admin Acetaminophen 650 mg 05/30/20 18:30 Acetaminophen 325 Mg Tablet PO Q4H PRN Mild Pain (1-3) or Fever Aspirin 81 mg 06/02/20 09:00 06/02/20 08:48 Aspirin 81 Mg Enteric Tablet PO 81 mg DAILY MICHAELA Administration Calcitriol 0.2
--- NOTE | 2020-06-02 12:18 | PM.DS ---
DS: Admitting Diagnosis Admitting Diagnosis Admitting Diagnosis: pulmonary edema, severa hypertension DS: Discharge Diagnosis Discharge Diagnosis (1) COVID-19: Code(s): U07.1 - COVID-19 Status: Acute Assessment and Plan: The patient was diagnosed over 10 days ago. She is now on oxygen but I believe this is more due to pulmonary edema. She is outside the window for antiviral and Decadron. Blood she is diabetic. I did not start her on any the medication. We continued with diuretics. The patient was hypoxic I doubt this to be related to the COVID most likely is pulmonary edema and I doubt that this is a PE is she had been on subcu heparin for DVT prophylaxis is at the previous hospital. (2) End stage renal disease on dialysis: Code(s): N18.6 - End stage renal disease; Z99.2 - Dependence on renal dialysis Status: Acute Assessment and Plan: The patient has peritoneal dialysis and she has a catheter to the left mid abdomen. She has been doing the treatments herself every night. Dr. Harrington has been consulted. Continue to monitor electrolytes. Patient is currently on oxygen due to the pulmonary edema. She does make some urine. (3) HTN (hypertension): Code(s): I10 - Essential (primary) hypertension Status: Chronic Assessment and Plan: Patient's blood pressure was very elevated today she was given multiple blood pressure medications. (4) DM renal manif type II: Qualifiers: Chronic kidney disease stage: stage 3 (moderate) Chronic kidney disease stage 3 subtype: stage 3a (GFR 45-59) Diabetes mellitus complication detail: with chronic kidney disease Diabetes mellitus shelter insulin use: with shelter use Qualified Code(s): E11.21 - Type 2 diabetes mellitus with diabetic nephropathy; N18.31 - Chronic kidney disease, stage 3a; Z79.4 - termite control servicer (current) use of insulin Code(s): E11.29 - Type 2 diabetes mellitus with other diabetic kidney complication Status: Chronic Assessment and Plan: Accu-Cheks AC and HS at this time. Check A1c. She has nephropathy due to her diabetes. She has anemia of chronic disease as well. (5) Pneumonia: Code(s): J18.9 - Pneumonia, unspecified organism Status: Acute Assessment and Plan: 06/01/20 18:10 Patient is 66-year-old female with end-stage renal disease on peritoneal dialysis patient was recently admitted and [facility] COVID-19 and was there for 2 weeks, patient was seen by her primary care physician yesterday and patient was quite distress with hypoxia no sent to emergency department for further evaluation, patient blood pressure was elevated patient states this he has not been compliant with home regimen, patient was tested for COVID-19 here and is negative, chest x-ray here on 05/31 showed extensive bilateral infiltrate, started patient on levaquin, also resume patient's home medical, today patient states feeling little better compared to when she arrived patient will be seen by her coin purse assembler and will have scheduled peritoneal dialysis daily. Patient states unable to sleep very well during peritoneal dialysis at night, Will have a PT OT evaluate the patient and further recommendation to follow DS: Summary Hospital Course Reason for hospitalization: Chief complaint: sob, elevated BP Narrative: Rufina Saravia is a 60 year old female who has end-stage renal disease. She has newly diagnosed this last September. She has been doing peritoneal dialysis since then. She does not every night. The patient stated that she recently was admitted to [facility]. She has multiple bruises to her abdomen where she had been given subcu heparin. Is also diabetic and has hypertension. The patient was hospitalized about 10 days ago for hypoglycemia and was COVID positive at that time. The patient presented to her regular primary care doctor's office today for a follow-up visit from [facility]
== END 2020-06-02 13:24 | disposition home or self-care (01) | DRG 682 ==
LOC: ANHED 19:04 → ANHIMU 05-31 11:30
PROVIDERS: Nurse Practitioner; Admitting Provider Internal Medicine; Emergency Provider Emergency Medicine; PCP Internal Medicine; Visit Provider Family Medicine
DX: I12.0 Hypertensive chronic kidney disease with stage 5 chronic kidney disease or end stage renal disease (principal); N18.6 End stage renal disease; J96.01 Acute respiratory failure with hypoxia; J15.9 Unspecified bacterial pneumonia; J81.1 Chronic pulmonary edema; Z20.828 Contact with and (suspected) exposure to other viral communicable diseases; E11.22 Type 2 diabetes mellitus with diabetic chronic kidney disease; D63.1 Anemia in chronic kidney disease; Z99.2 Dependence on renal dialysis; Z79.4 Long term (current) use of insulin
CPT/HCPCS: 36415; 71045; 80048; 80053; 80069; 82948; 83036; 83735; 83880; 85025; 85027; 87635; 90945; 93005; 97161; 97165; 99285; A9270; C9803; J0360; J1644; J1815; J1940; J1956; J2405; U0003

== ENCOUNTER 2020-06-08 15:58 | Inpatient (IN) | payer OTHER, SELFPAY ==
[2020-06-08] VITALS (11 sets, daily range): BP systolic 179–263; BP diastolic 40–137; PULSE 73–105; RESP 16–32; TEMP 36.1–36.5; O2SAT 85–100; BMI 37.0
--- NOTE | ~2020-06-08 | NM_ITS ---
EXAMINATION: NM pulmonary perfusion DATE: 06/09/2020 13:23 INDICATION: Hypoxia. COVID-19 pneumonia. TECHNIQUE: 5 mCi Tc-99m MAA was administered intravenously for perfusion images. Scintigraphic image s of the chest were obtained. COMPARISON: Chest CT 06/09/2020, chest single view 06/08/2020 FINDINGS: Perfusion images show large defect in laterobasal segment left lower lobe. There are small defects in the lower lobes and upper lobes. ] IMPRESSION: 1. Nondiagnostic. (Intermediate probability for pulmonary embolism). Reviewed, dictated and finalized at location A. Y COUNTER CLERK
--- NOTE | ~2020-06-08 | CT_ITS ---
EXAMINATION:CT chest high resolution wo ms DATE: 06/09/2020 11:45 INDICATION: Interstitial lung disease. COVID-19 positive on 05/19/20 TECHNIQUE: Computed tomography (CT) of the chest was performed without intravenous contrast. Automate d exposure control and iterative reconstruction technique were employed. The dose-length product (DLP ) was 423.13 mGy-cm. COMPARISON: CT abdomen and pelvis 07/09/2017 FINDINGS: There are small pleural effusions. There is smooth septal thickening in the lungs, consiste nt with mild pulmonary edema. There are peripheral mild airspace opacities in all lobes with subpleur al bands. No bronchiectasis or honeycombing. There is a 2.7 cm nodule in left thyroid lobe. The heart size is normal. There is a small pericardial effusion. There are gallstones in the gallbladder. Ther e is a moderate volume of ascites. There is mild thoracic spondylosis. IMPRESSION: 1. Mild pulmonary edema. 2. Peripheral airspace opacities with subpleural bands in all lobes, consistent with pneumonia versus chronic lung disease. 3. Small pleural effusions. 4. Moderate volume of ascites. 5. Small pericardial effusion. 6. Left thyroid nodule. Consider thyroid ultrasound for stratification. Reviewed, dictated and finalized at location A. H WORK INSPECTOR
--- NOTE | ~2020-06-08 | US_ITS ---
EXAMINATION: US venous doppler LE EXAM DATE: 06/08/2020 17:18 INDICATION: elevated dimer, shortness of breath . TECHNIQUE: Multiple grayscale, color flow and Doppler images of the lower extremity deep venous syste ms bilaterally were obtained and reviewed. There is no prior study for comparison. FINDINGS: Right side: The right common femoral, femoral and profunda veins demonstrate normal color flow, respi ratory variation, augmentation and compressibility. Compressibility, color flow confirmed within the right popliteal, posterior tibial, peroneal, and greater saphenous veins. Left side: The left common femoral, femoral and profunda veins demonstrate normal color flow, respira tory variation, augmentation and compressibility. Compressibility, color flow confirmed within the l eft popliteal, posterior tibial, peroneal, and greater saphenous veins. IMPRESSION: No lower extremity deep venous thrombosis bilaterally. Reviewed, dictated and finalized at location A. R RELATIONS TEACHER
--- NOTE | ~2020-06-08 | XR_ITS ---
EXAMINATION: XR chest 1V portable EXAM DATE: 06/08/2020 16:55 INDICATION: sob/covid dx 14 days, unable to speak in sentences, hx HTN. TECHNIQUE: Portable AP frontal chest x-ray was obtained. Comparison is made to prior examination from 05/30/2020. FINDINGS: Again there is diffuse abnormal reticulation, with some more confluent peripheral opacities . Could be COVID 19 pneumonia given history provided. There is mild improvement compared to prior jennifer dy. No pneumothorax or pleural effusion. Cardiomediastinal silhouette is normal. IMPRESSION: Moderate amount of peripheral predominant airspace disease, abnormal reticulation. Could be COVID pneumonia given distribution. Mild interval improvement. Reviewed, dictated and finalized at location A. E CAMERA OPERATOR IMPRESSION: Moderate amount of peripheral predominant airspace disease, abnorma l reticulation. Could be COVID pneumonia given distribution. Mild interval impr ovement.
--- NOTE | 2020-06-08 16:09 | ECG_ITS ---
Measurements Intervals [place] Rate: 89 P: 48 VT: 179 QRS: -7 QRSD: 88 T: 97 QT: 387 QTc: 472 Interpretive Statements SINUS RHYTHM ANTERIOR INFARCT, AGE INDETERMIANTE BORDERLINE ST-T WAVE ABNORMALITY- HIGH LATERAL LEADS BASELINE ARTIFACT- I, III, AVR, AVL, V1, V4-V6 ABNORMAL ECG Electronically Signed On 06-08-2020 16:36:20 TURPENTINER by Eric Domínguez D.O.
[2020-06-08 16:35] LABS: Basophils Absolute Auto 0.1 K/mm3 (0.0-0.1); Basophils Percent Auto 0.7 % (0.2-1.2); Eosinophils Absolute Auto 0.2 K/mm3 (0-0.3); Eosinophils Percent Auto 1.8 % (0-4.4); Hematocrit 29.6 % (37.0-47.0); Hemoglobin 9.7 g/dL (12.0-15.0); Immature Granulocyte Absolute 0.06 K/mm3 (0.00-0.031); Immature Granulocyte Percent A 0.6 % (0-0.5); Lymphocytes Absolute Auto 1.85 K/mm3 (0.9-3.2); Lymphocytes Percent Auto 18.9 % (18.3-44.2); Mean Corpuscular HGB Conc 32.8 g/dl (32-36); Mean Corpuscular Hemoglobin 32.9 pg (26-34); Mean Corpuscular Volume 100.3 fl (80-100); Mean Platelet Volume 9.4 fl (7.4-10.4); Monocytes Absolute Auto 0.7 K/mm3 (0.1-0.6); Monocytes Percent Auto 7.3 % (2.6-8.5); Neutrophils Absolute Auto 6.9 K/mm3 (1.3-6.7); Neutrophils Percent Auto 70.7 % (45.5-73.1); Platelet Count Result 317 k/mm3 (150-375); Red Blood Count 2.95 M/mm3 (4.2-5.4); Red Cell Distribution Width 13.3 % (11.5-14.5); White Blood Count 9.8 K/mm3 (4.5-10.0)
[2020-06-08 16:38] LABS: Alveolar/Arterial O2 Gradient 120.6 mmHg; Base Excess ABG -2.2 mEq/l (+/-2.0); Carboxyhemoglobin 0.3 % THb (0-2.0); Fractional Inspired Oxygen 32 %; HCO3 ABG 21.8 mEq/l (22.0-26.0); Methemoglobin ABG 0.3 %THb (0-1.5); Oxygen Content ABG 12.7 %vol (16.0-22.0); Oxygen Saturation ABG 94.1 % (95.0-100.0); Oxyhemoglobin 91.5 % THb (90.0-100.0); PCO2 ABG 34.1 mmHg (35.0-45.0); PO2 ABG 67.7 mmHg (80.0-100.0); PO2 FiO2 Ratio Arterial Blood 2.12 %; Reduced Hemoglobin 7.9 %THb (0-5.0); Total Hemoglobin 9.8 g/dL (12.0-18.0); pH ABG 7.423 (7.350-7.450)
[2020-06-08 16:39] LABS: Device ROOM AIR; Modified Allen's Test Pass; Site Drawn LEFT RADIAL
[2020-06-08 16:45] LABS: Prothrombin Time 13.9 Seconds (11.1-14.7)
[2020-06-08 16:46] LABS: Partial Thromboplastin Time 35.6 SECONDS (22.3-36.8)
[2020-06-08 16:48] LABS: D Dimer 2.99 ug/mL (<0.48)
--- NOTE | 2020-06-08 16:51 | ED.SOB ---
HPI - SOB/Dyspnea General Chief Complaint: Shortness of Breath/Dyspnea <Indigo Lowery PA-C - Last Filed: 06/08/20 18:35> Stated Complaint: shortness of breath <Indigo Lowery PA-C - Last Filed: 06/08/20 18:35> Time Seen by Provider: 06/08/20 16:24 <Indigo Lowery PA-C - Last Filed: 06/08/20 18:35> Source: patient <NICK Henriquez Last Filed: 06/08/20 18:35> Mode of arrival: wheelchair <NICK Henriquez Last Filed: 06/08/20 18:35> Limitations: no limitations <Indigo Lowery PA-C - Last Filed: 06/08/20 18:35> History of Present Illness HPI Narrative: This is a 60 year old female that presents to the ER for worsening shortness of breath today. Reports she was recently admitted for fluid overload and pneumonia. Was discharged 6 days ago. Started feeling short of breath again today. Reports one episode of nausea and vomiting today. She is ESRD on peritoneal dialysis. Did complete for dialysis last night. Her grinder set up operator gear tool is Dr. Harrington. Reports a cough and lower extremity edema. Reports she recently had covid-19 in the end of April. Denies fever, or chest pain. <Indigo Lowery PA-C - Last Filed: 06/08/20 18:35> Related Data Home Medications: Home Medications Medication Instructions Recorded Confirmed insulin aspart U-100 [Novolog 1 sliding scale dose SUBCUT 04/29/19 05/31/20 PenFill U-100 Insulin] USEASDIRECTD aspirin 81 mg tablet,delayed 81 mg PO DAILY 10/11/19 05/31/20 release calcium acetate 667 mg tablet 667 tablet PO TID 01/10/20 05/31/20 diphenhydramine HCl 25 mg capsule 25 mg PO Q6H PRN 01/10/20 05/31/20 furosemide 40 mg tablet 40 mg PO BID 01/10/20 05/31/20 calcitriol 0.25 mcg capsule 0.25 mcg PO DAILY 05/30/20 05/31/20 ergocalciferol (vitamin D2) 1,250 1,250 mcg PO WEEKLY 05/30/20 05/31/20 mcg (50,000 unit) capsule ferric citrate 210 mg iron tablet 210 mg PO BID tablet 05/30/20 05/31/20 hydralazine 100 mg tablet 100 mg PO TID tablet 05/30/20 05/31/20 ondansetron HCl 4 mg tablet 4 mg PO Q4H tablet 05/30/20 05/31/20 <Indigo Lowery PA-C - Last Filed: 06/08/20 18:35> Allergies/Adverse Reactions: Allergies Allergy/AdvReac Type Severity Reaction Status Date / Time No Known Allergies Allergy Unknown Verified 05/30/20 13:27 <Indigo Lowery PA-C - Last Filed: 06/08/20 18:35> Review of Systems Review of Systems: Narrative: CONSTITUTIONAL: Denies fever CARDIOVASCULAR: Reports edema. Denies chest pain RESPIRATORY: Reports cough and dyspnea. GASTROINTESTINAL: Reports nausea and vomiting. Denies abdominal pain <Indigo Lowery PA-C - Last Filed: 06/08/20 18:35> All systems reviewed & are unremarkable except as noted in HPI and below <Indigo Lowery PA-C - Last Filed: 06/08/20 18:35> [facility] Past Medical History Medical History: Medical History (Updated 06/08/20 @ 17:48 by Indigo Lowery PA-C) Bone spur DM renal manif type II End stage renal disease on dialysis Hemorrhoids History of Richmond's palsy HLD (hyperlipidemia) HTN (hypertension) Lumbar radiculopathy Mumps Osteoarthritis Pituitary abscess <Indigo Lowery PA-C - Last Filed: 06/08/20 18:35> Surgical History Surgical History: Surgical History H/O: hysterectomy History of delivery X3 <Indigo Lowery PA-C - Last Filed: 06/08/20 18:35> Family History Family History: Family History Mother Diabetes mellitus Sibling Diabetes mellitus <Indigo Lowery PA-C - Last Filed: 06/08/20 18:35> Social History Social History: Social History (Updated 05/30/20 @ 22:47 by Jo Browne NP) 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 He is the durable power roller staker for healthcare. She has 3 children. Her 1 daughter works here. The patient was undecided but thinks she wants to be a full
[2020-06-08 16:52] LABS: Lactic Acid Reflex 2.7 mmol/L (0.7-2.1)
[2020-06-08] MEDS: LABETALOL HCL INJ 100 MG/20 ML VIAL 20 MG IV PUSH ×2 (16:53→18:38)
[2020-06-08] MEDS: hydrALAZINE HCL 20 MG/ML VIAL 10 MG IV PUSH (16:53)
--- NOTE | 2020-06-08 16:55 | PC.NURSE ---
patient resting on stretcher. on monitor car operator. BP meds given. patient then to ultrasound via wheelchair.
[2020-06-08 16:56] LABS: Anion Gap 14 mmol/L (8-16); Blood Urea Nitrogen 61 mg/dL (7-17); CRP 2.3 mg/dL (<1.0); Calcium 7.9 mg/dL (8.4-10.2); Carbon Dioxide 25 mmol/L (22-30); Chloride 99 mmol/L (98-107); Estimated CRCL calculation 5 ml/min; Estimated Glomerular Filt Rate 4; Glucose 132 mg/dL (65-105); Potassium 4.7 mmol/L (3.4-5.0); Sodium 138 mmol/L (137-145)
[2020-06-08 17:01] LABS: Alanine Aminotransferase 31 U/L (4-35); Albumin Level 3.5 g/dL (3.5-5.1); Alkaline Phosphatase 168 U/L (38-126); Aspartate Amino Transferase 62 U/L (14-36); Bilirubin,Total 0.5 mg/dL (0.2-1.3); Lactate Dehydrogenase 636 U/L (313-618); NT Pro B Type Natriuretic Pept > 35000 PG/ML (5-100)
[2020-06-08] MEDS: FUROSEMIDE INJ 100 MG/10 ML VIAL 80 MG IV PUSH (17:42)
--- NOTE | 2020-06-08 17:42 | PC.NURSE ---
lasix given as ordered. covid and flu swabs done. patient now has BSC next to [facility].
--- NOTE | 2020-06-08 18:41 | PC.NURSE ---
patient given labetalol as ordered. sitting on BSC right now. on environmental monitoring specialist. aware of plan for admission.
[2020-06-08 19:30] LABS: Reflex Lactic Acid Yes or No Add Lactic
[2020-06-08 20:10] LABS: Glucose Point of Care 140 (65-105)
[2020-06-08] MEDS: LABETALOL HCL 100 MG TABLET 300 MG PO (20:15)
--- NOTE | 2020-06-08 22:17 | PM.IMHP ---
H&P: HPI History of Present Illness Date/Time: 06/08/20 22:17 Chief Complaint: Shortness of breath Narrative: Rufina Saravia is a 60 year old femaleWho has end-stage renal disease. She was newly diagnosed this past September this year. She has been doing peritoneal dialysis every night since then. Recently they have changed her length of time that she does peritoneal dialysis. Her last admission here was 05/30/2020. She is also diabetic. Prior to the 05/30/2020 admission the patient was hospitalized 10 days prior to that with COVID-19. We recheck to her COVID status on 05/30/2020 and she was found to be negative. The patient stated that she has been tachypneic and dyspneic since then. The patient cannot lay down flat. She has been anxious and hyperventilating. The patient stated that she has been short of breath since then. The patient had been treated for a extensive bilateral fluid overload and hypertension was placed on oxygen per 3 L per nasal cannula last admission. Patient was outside the window for any antiviral or Decadron at that time. Today the patient return to this emergency room for where worsening shortness of breath the patient stated that she needs oxygen at home and feels like she needs to be evaluated by graining machine operator. Her gum scoring machine operator is Dr. magan knight. She has an have any fever chills. The patient was swabbed for influenza and was found to be negative. And her COVID test is negative for today. Today's chest x-ray was read as moderate amount of peripheral predominant airspace disease abnormal reticulation could be COVID pneumonia given distribution mild interval improvement. Patient had been given diuretics and she has been connected to her peritoneal dialysis. Patient is typically on oral Lasix at home. Blood pressures well as Apresoline and Lasix in the emergency room. Patient is being admitted to inpatient status on the date of service 06/08/2020 Review of Systems Review of Systems: All systems reviewed & are unremarkable except as noted in HPI and below Constitutional: Constitutional: Reports as per HPI and Reports no additional constitutional complaints Eyes: Eyes: Reports as per HPI and Reports no additional eye complaints ENT: Reports system reviewed and no additional complaints, except as documented and Reports Normal hearing present Cardiovascular: Cardiovascular: Reports no additional cardiovascular complaints Respiratory: Respiratory: Reports no additional respiratory complaints and Reports no additional respiratory complaints Gastrointestinal: Gastrointestinal: Reports as per HPI and Reports no additional gastrointestinal complaints Musculoskeletal: Musculoskeletal: Reports no additional musculoskeletal complaints Integumentary/Breasts: Skin/Breast: Reports system reviewed and no additional complaints, except as docu and Reports as per HPI Neurologic: Reports system reviewed and no additional complaints, except as documented, Reports as per HPI and Reports Normal hearing present Psychiatric: Psychiatric: Reports no additional psychiatric complaints and Reports as per HPI Endocrine: Endocrine: Reports no additional endocrine complaints Hematologic/Lymphatic: Hematologic/Lymphatic: Reports no additional hematologic/lymphatic complaints Allergic/Immunologic: Allergic/Immunologic: Reports no additional allergic/immunologic complaints [facility] Past Medical History Medical History Bone spur DM renal manif type II End stage renal disease on dialysis Hemorrhoids History of Richmond's palsy HLD (hyperlipidemia) HTN (hypertension) Lumbar radiculopathy Mumps Osteoarthritis Pituitary abscess Surgical History Surgical History H/O: hysterectomy History of delivery X3 Family History Family History Mother Diabetes mellitus Sibling
[2020-06-09] VITALS (21 sets, daily range): BP systolic 145–217; BP diastolic 72–92; PULSE 68–91; RESP 16–20; TEMP 35.9–36.6; O2SAT 95–100
[2020-06-09 06:04] LABS: Hemoglobin A1C 4.8 % (<5.7)
[2020-06-09] MEDS: hydrALAZINE HCL 20 MG/ML VIAL 10 MG IV PUSH (06:04)
[2020-06-09 07:56] LABS: Glucose Point of Care 296 (65-105)
--- NOTE | 2020-06-09 08:33 | PM.CNNEP ---
Assessment and Plan Assessment and plan (1) Pneumonia: Code(s): J18.9 - Pneumonia, unspecified organism Status: Acute Assessment and Plan: Rufina has pulmonary infiltrates on her chest x-ray. Her weight was only up 4 lb yesterday yet she was much more short of breath. I would think that if this were pulmonary edema she would have more swelling and more weight gain. Interestingly however doing dialysis with 4.25% Dianeal has made her feel better. This may be a combination of fluid plus some parenchymal lung disease whether it this is acute pneumonia or just left overs of COVID. We can take as much fluid off as possible and then recheck her chest x-ray and see if it is any better. Then we can recheck a chest x-ray to see if the infiltrates have cleared up. Then possibly a high-resolution CT if not. I am also going to order an echocardiogram to be sure she does not have a poor LV. (2) End-stage renal disease on peritoneal dialysis: Code(s): N18.6 - End stage renal disease; Z99.2 - Dependence on renal dialysis Status: Acute Assessment and Plan: Patient received dialysis last night. (3) Anemia: Code(s): D64.9 - Anemia, unspecified Status: Chronic Assessment and Plan: Patient has anemia. Treat with Epogen (4) Person under investigation for severe acute respiratory syndrome coronavirus 2 (SARS-CoV-2) infection: Code(s): Z20.828 - Contact with and (suspected) exposure to other viral communicable diseases Status: Acute Assessment and Plan: COVID test is pending (5) HTN (hypertension): Code(s): I10 - Essential (primary) hypertension Status: Chronic Assessment and Plan: Her blood pressure is high. The high blood pressure could be increasing afterload and causing some of the pulmonary infiltrates. Or the high fluid burden could be causing the high blood pressure. Or both. Will continue to remove fluid with dialysis. She is currently on labetalol, hydralazine, furosemide. Will add an Artemio inhibitor. See what the echocardiogram shows. (6) DM renal manif type II: Qualifiers: Diabetes mellitus ferry terminal supervisor insulin use: with ferry terminal supervisor use Diabetes mellitus complication detail: with chronic kidney disease Chronic kidney disease stage: stage 3 (moderate) Chronic kidney disease stage 3 subtype: stage 3a (GFR 45-59) Qualified Code(s): E11.21 - Type 2 diabetes mellitus with diabetic nephropathy; N18.31 - Chronic kidney disease, stage 3a; Z79.4 - group home (current) use of insulin Code(s): E11.29 - Type 2 diabetes mellitus with other diabetic kidney complication Status: Chronic Assessment and Plan: On Accu-Cheks and sliding-scale insulin History of Present Illness Reason for Consult Consult date: 06/09/20 Chief Complaint Chief complaint: Acute respiratory failure with hypoxia, History of Present Illness Narrative: Rufina is a very pleasant 60-year-old lady who has multiple medical problems including end-stage renal disease on peritoneal dialysis nightly, hypertension, hyperlipidemia, diabetes, pituitary abscess in the past. The patient was recently burdened with COVID. She was quite sick with that but improved and cleared. Since then she has had some weakness but that has been getting better. She also has had some shortness of breath. She was in the hospital a couple of weeks ago with volume overload. At that time she had been having cramps. To treat the cramps she was drinking quinine water, eating pickle juice, and using sea salt on her food. She was instructed to stop all of this. She weighs herself daily at home and her weight has been about 192. Yesterday her weight was 196. She became short of breath and so came to the emergency room. In the ER she was evaluated and found to have pulmonary infiltrates and signs of volume overload. She was admitted. She had peritoneal dialysis last night with 4.25% Dianeal
[2020-06-09] MEDS: FUROSEMIDE INJ 40 MG/4 ML VIAL IV PUSH ×2 (08:42→22:33)
[2020-06-09] MEDS: HEPARIN SODIUM 5,000 UNITS/ML VIAL 5000 UNITS SUB-Q ×2 (08:42→22:33)
[2020-06-09] MEDS: CALCIUM ACETATE 667 MG TABLET PO ×3 (08:43→17:47)
[2020-06-09] MEDS: LABETALOL HCL 100 MG TABLET 300 MG PO ×2 (08:43→22:33)
[2020-06-09] MEDS: calcitrioL 0.25 MCG CAPSULE PO (08:43)
[2020-06-09] MEDS: INSULIN ASPART (*BKC) 100 UNITS/ML SUB-Q (08:44)
[2020-06-09] MEDS: ASPIRIN 81 MG ENTERIC TABLET PO (08:44)
[2020-06-09] MEDS: hydrALAZINE HCL 50 MG TABLET 100 MG PO ×3 (08:44→17:48)
--- NOTE | 2020-06-09 08:51 | PM.EVENT ---
Event Note Event Note Event Note: Patient is on peritoneal dialysis. She is tolerating it well. Will continue 4.25% Dianeal. She was seen at 8:30 a.m.
[2020-06-09 11:11] LABS: Glucose Point of Care 190 (65-105)
--- NOTE | 2020-06-09 11:12 | PM.IMPN ---
Progress Note: A&P Assessment and Plan (1) ILD (interstitial lung disease): Code(s): J84.9 - Interstitial pulmonary disease, unspecified Status: Acute Assessment and Plan: Likely to have some exacerbation due to superimposed Covid 19 Novel SARS virus Breathing treatments. Stared Dexamethasone Continue to monitor. (2) Person under investigation for severe acute respiratory syndrome coronavirus 2 (SARS-CoV-2) infection: Code(s): Z20.828 - Contact with and (suspected) exposure to other viral communicable diseases Status: Acute (3) Acute respiratory failure with hypoxia: Code(s): J96.01 - Acute respiratory failure with hypoxia Status: Acute Assessment and Plan: Continue supplemental Oxygen Continue pulse ox (4) Pneumonia: Qualifiers: Laterality: bilateral Lung location: lower lobe of lung Pneumonia type: due to unspecified organism Qualified Code(s): J18.9 - Pneumonia, unspecified organism Code(s): J18.9 - Pneumonia, unspecified organism Status: Acute Assessment and Plan: Started Vanc + Cefepime due to recent hospitalization Chest xr reviewed as well CT high resolution reviewed as well ID consult for antibiotic choice (5) End-stage renal disease on peritoneal dialysis: Code(s): N18.6 - End stage renal disease; Z99.2 - Dependence on renal dialysis Status: Acute Assessment and Plan: On Peritoneal dialysis Appreciate Nephrology note (6) Pneumonia: Code(s): J18.9 - Pneumonia, unspecified organism Status: Acute (7) Severe hypertension: Code(s): I10 - Essential (primary) hypertension Status: Acute Assessment and Plan: Re start home meds Continue to monitor. Subjective Date/time seen: 06/09/20 11:12 I feel sob. No issues overnight. Review of Systems Review of Systems: Narrative: Worsening sob. Constitutional: Comments: no fevers, no rigors, no chills. Eyes: Comments: no vision changes. ENT: Reports nasal obstruction Comments: no ear ache, no throat pain. Cardiovascular: Cardiovascular: Reports dyspnea Respiratory: Respiratory: Reports cough Gastrointestinal: Gastrointestinal: Reports nausea Musculoskeletal: Comments: no muscle aches or pains. Integumentary/Breasts: Comments: No rashes. Neurologic: Comments: no sensory motor deficit. Hematologic/Lymphatic: Comments: No LAP Exam Narrative: Exam Narrative: Chronically ill looking. Const: General: comfortable, no acute distress, alert, awake, Physically active and ill appearing Nutritional Appearance: average body habitus Orientation/consciousness: patient oriented x3 Limitations: no limitations HENMT: Head: normal to inspection and normocephalic General nose exam: Normal external nose present Face and sinus: normal facial exam Eyes: General: appearance normal, both eyes and all related structures Pupils: Equal, round and reactive pupils present EOM: EOMs intact bilaterally Neck: Neck: normal visual inspection, no lymphadenopathy, supple and no JVD Resp: Auscultation: diminished lung sounds Cardio: Rate: regular rate Rhythm: regular rhythm GI: GI Palp: Yes Soft to palpation and Yes No hepatosplenomegaly present Skin: Rashes: no rashes Neuro: General: patient oriented x3 and CN's II-XI intact bilaterally Cranial nerves: Yes CN's II-XII intact bilaterally and Yes Equal, round and reactive pupils present Cognition (Neuro): normal cognition Speech: normal speech Gait exam (Neuro): Normal gait present Motor exam (neuro): 5/5 motor strength present throughout Extrem: General: pedal edema (2+) bilaterally Objective Data Vital Signs Vital Signs: Vital Signs - 24 hr 06/08/20 16:05 06/08/20 17:08 06/08/20 17:32 Temperature 97.2 F L Pulse Rate 105 H 102 H 78 Respiratory Rate 32 H 16 Blood Pressure 263/107 H 207/40 H Pulse Oximetry 85 L 98 06/08/20 17:33 06/08/20 18:34 06/08/20 18:57 Temper
--- NOTE | 2020-06-09 11:18 | PCRCNOTE ---
HOME O2 EVAL COMPLETE, NO REQUIREMENTS
--- NOTE | 2020-06-09 11:33 | PM.CNPUL ---
Assessment and Plan Assessment and plan (1) ILD (interstitial lung disease): Code(s): J84.9 - Interstitial pulmonary disease, unspecified Status: Acute Assessment and Plan: It is likely that she developed post COVID ILD/pulmonary fibrosis and the 5lb weight gain may have caused some pulmonary edema and exacerbated her breathing especially in light of diastolic dysfunction. - She is about 4 weeks out from her COVID infection and hence would not benefit from Dexamethsone at this point so I've discontinued this medication - peritoneal dialysate concentration has been increased to allow more fluid removal and a return to baseline weight - home oxygen assessment. If sats remain > 88% on RA she would not benefit from home oxygen therapy - she may benefit from pulmonary rehab which I will order for her as an outpatient. History of Present Illness History of Present Illness Consult date: 06/09/20 Chief complaint: Acute respiratory failure with hypoxia, Narrative: 60 y/o female who developed symptoms of COVID-19 on 05/13 and tested positive on 05/18 has come back to hospital with acute dyspnea and cough. She was not treated with Dexamethasone at last visit. She has ESRD and is on night peritoneal dialysis. She tells me that she gained about 5lbs on the day before she became short of breath. She denies any history of smoking or lung diseases prior to developing COVID-19. Her CXR shows bilateral interstitial opacities likely representing permanent ILD/pulmonary fibrosis from COVID-19 Review of Systems Review of Systems: All systems reviewed & are unremarkable except as noted in HPI and below PMFSH Past Medical History Medical History Bone spur DM renal manif type II End stage renal disease on dialysis Hemorrhoids History of Richmond's palsy HLD (hyperlipidemia) HTN (hypertension) Lumbar radiculopathy Mumps Osteoarthritis Pituitary abscess Surgical History Surgical History H/O: hysterectomy History of delivery X3 Family History Family History Mother Diabetes mellitus Sibling Diabetes mellitus Social History Social History 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 He is the durable power ip technology transactions attorney for healthcare. She has 4 children. Her 1 daughter works here. The patient thinks she wants to be a full code. She does not use alcohol or illicit drugs. Smoking status: Never smoker Alcohol intake: never Substance use: never Gender identity (if verbalized by the patient): Female Spiritual care concerns: No Meds Home Medications and Allergies Home Medications Medication Instructions Recorded Confirmed Type insulin aspart U-100 [Novolog 1 sliding scale dose SUBCUT 04/29/19 06/08/20 History PenFill U-100 Insulin] USEASDIRECTD aspirin 81 mg tablet,delayed 81 mg PO DAILY 10/11/19 06/08/20 History release calcium acetate 667 mg tablet 667 tablet PO TID 01/10/20 06/08/20 History diphenhydramine HCl 25 mg capsule 25 mg PO Q6H PRN 01/10/20 06/08/20 History furosemide 40 mg tablet 40 mg PO BID 01/10/20 06/08/20 History calcitriol 0.25 mcg capsule 0.25 mcg PO DAILY 05/30/20 06/08/20 History ergocalciferol (vitamin D2) 1,250 1,250 mcg PO WEEKLY 05/30/20 06/08/20 History mcg (50,000 unit) capsule ferric citrate 210 mg iron tablet 210 mg PO BID tablet 05/30/20 06/08/20 History hydralazine 100 mg tablet 100 mg PO TID tablet 05/30/20 06/08/20 History ondansetron HCl 4 mg tablet 4 mg PO Q4H tablet 05/30/20 06/08/20 History labetalol 300 mg PO Q12HR #180 tablet 06/02/20 06/08/20 Rx Allergies Allergy/AdvReac Type Severity Reaction Status Date / Time No Known Allergies Allergy Unknown Verified 05/30/20 13:27 Vital Signs Vital Signs - 24 hr
[2020-06-09] MEDS: lisinopriL 20 MG TABLET PO (12:43)
[2020-06-09 12:47] LABS: NT Pro B Type Natriuretic Pept > 35000 PG/ML (5-100)
--- NOTE | 2020-06-09 15:31 | WPDINFPN2 ---
Progress Note: A&P Assessment and Plan (1) COVID-19: Code(s): U07.1 - COVID-19 Status: Acute Assessment and Plan: 1. Recent CoVid infection with viral pneumonia, there is no active viral nor bacterial infection, her present illness is aseptic inflammatory 2. CRF REC No antibacterials, no antivirals nor adjunctive treatment. Call if other Qs Subjective Date/time seen: 06/09/20 15:31 Objective Data Vital Signs Vital Signs: Vital Signs - 24 hr 06/08/20 16:05 06/08/20 17:08 06/08/20 17:32 Temperature 36.2 C L Pulse Rate 105 H 102 H 78 Respiratory Rate 32 H 16 Blood Pressure 263/107 H 207/40 H Pulse Oximetry 85 L 98 06/08/20 17:33 06/08/20 18:34 06/08/20 18:57 Temperature Pulse Rate 80 89 82 Respiratory Rate 20 22 H 16 Blood Pressure 207/80 H 207/73 H 179/107 H Pulse Oximetry 97 98 98 06/08/20 19:38 06/08/20 20:05 06/08/20 20:15 Temperature 36.1 C L Pulse Rate 87 84 87 Respiratory Rate 27 H 22 H Blood Pressure 214/72 H 193/137 H Pulse Oximetry 97 100 06/08/20 22:00 06/08/20 23:53 06/09/20 00:00 Temperature 36.5 C Pulse Rate 73 73 74 Respiratory Rate 20 Blood Pressure 213/78 H Pulse Oximetry 100 06/09/20 02:00 06/09/20 04:00 06/09/20 06:00 Temperature 36.1 C L Pulse Rate 76 78 85 Respiratory Rate 20 Blood Pressure 217/81 H Pulse Oximetry 100 06/09/20 08:00 06/09/20 08:43 06/09/20 10:00 Temperature 36.6 C Pulse Rate 86 87 73 Respiratory Rate 18 Blood Pressure 181/92 H Pulse Oximetry 100 06/09/20 10:30 06/09/20 10:35 06/09/20 10:45 Temperature Pulse Rate 76 88 71 Respiratory Rate Blood Pressure Pulse Oximetry 95 97 95 06/09/20 11:04 06/09/20 12:00 06/09/20 14:00 Temperature Pulse Rate 68 71 73 Respiratory Rate 16 Blood Pressure 145/72 H Pulse Oximetry 98 Intake/Output Intake/Output: Intake & Output 06/06/20 06/07/20 06/08/20 06/09/20 23:59 23:59 23:59 23:59 Intake Total 440 Output Total 100 2840 Balance -100 -2400 Meds/Results Medications: Active Medications Generic Name Dose Route Start Last Admin Trade Name Freq PRN Reason Stop Dose Admin Albuterol 2 puff 06/08/20 22:21 Albuterol Sulfate (*Sp) Aerosol 1 Puff INHALATION Q6HRT PRN Shortness Of Breath Aspirin 81 mg 06/09/20 09:00 06/09/20 08:44 Aspirin 81 Mg Enteric Tablet PO 81 mg DAILY MICHAELA Administration Calcitriol 0.25 mcg 06/09/20 09:00 06/09/20 08:43 Calcitriol 0.25 Mcg Capsule PO 0.25 mcg DAILY MICHAELA Administration Calcium Acetate 667 mg 06/09/20 08:00 06/09/20 12:42 Calcium Acetate 667 Mg Tablet PO 667 mg TIDWM MICHAELA Administration Dextrose 12.5 gm 06/08/20 22:22 Dextrose 50% 25 Gm/50 Ml Syringe IV PUSH PRN PRN Hypoglycemia Protocol Diphenhydramine HCl 25 mg 06/08/20 22:32 Diphenhydramine Hcl Cap 25 Mg Capsule PO Q6H PRN Allergic Reaction Ergocalciferol 50,000 unit 06/14/20 09:00 Ergocalciferol 50,000 Unit Capsule PO WEEKLY MICHAELA Furosemide 40 mg 06/09/20 09:00 06/09/20 08:42 Furosemide Inj 40 Mg/4 Ml Vial IV PUSH 40 mg Q12HR MICHAELA Administration Glucagon 1 mg 06/08/20 22:22 Glucagon For Inj 1 Mg Vial IM PRN PRN Hypoglycemia Protocol Glucose 15 gm 06/08/20 22:22 Glucose Oral Gel 15 Gm Of Glucse In 37.5 Gm Tube PO PRN PRN Hypoglycemia Protocol Heparin Sodium (Porcine) 5,000 units 06/09/20 09:00 06/09/20 08:42 Heparin Sodium 5,000 Units/Ml Vial SUB-Q 5,000 units Q12HR MICHAELA Administration Hydralazine HCl 100 mg 06/09/20 08:00 06/09/20 12:42 Hydralazine Hcl 50 Mg Tablet PO 100 mg TIDWM MICHAELA Administration Dextrose 1,000 mls @ 100 mls/hr 12/17/20 22:22 Dextrose 5% 1,000 Ml IVPB PRN PRN Hypoglycemia Protocol Cefepime HCl 1 gm in 50 mls @ 100 mls/hr 06/09/20 13:30 Maxipime 1 Gm/D5w 50 Ml IVPB Q8H [facility] Cefepime HCl
[2020-06-09 16:33] LABS: Glucose Point of Care 166 (65-105)
[2020-06-09 20:01] LABS: SARS-CoV-2 RNA PCR Negative
[2020-06-09 20:08] LABS: Glucose Point of Care 265 (65-105)
--- NOTE | 2020-06-09 20:42 | CONS_ITS ---
DATE OF CONSULTATION: 06/08/2020 REASON FOR CONSULTATION: Coronavirus infection. HISTORY OF PRESENT ILLNESS: A 60-year-old female with a history of Richmond's palsy. She was originally diagnosed with coronavirus infection approximately 05/19. She did use oxygen while there, apparently was discharged home. She does not recall receiving steroids at home. She presented to the hospital here on 05/30 with 1 day of shortness of breath, dyspnea on exertion, sensation of air hunger, and elevated blood pressure. She was hyperventilating on admission here and was given labetalol. Our initial impression here was one of pulmonary edema and she had been treated accordingly. She was discharged on 06/02, but then returned here 6 days later with recurrent shortness of breath, her influenza screen was nonreactive. The patient has been started on cefepime and vancomycin and consultation requested. She has had some sputum production. No hemoptysis. She has had no desaturations. No chest pain and no fever, chills, or sweats. No prior history of pneumonia. ALLERGIES: NONE KNOWN. HABITS: No alcohol. No illicit drugs and nonsmoker. MEDICATIONS: Present medications: Single dose of dexamethasone has been given, not ongoing. PAST MEDICAL HISTORY: Hysterectomy, , osteoarthritis, Richmond's palsy affecting the right side, lumbar radiculopathy, hypertension, hyperlipidemia, peritoneal dialysis, type 2 diabetes mellitus. REVIEW OF SYSTEMS: Edema, easy bruisability, generalized weakness 14-point review otherwise negative. FAMILY HISTORY: Not pertinent to her present illness. SOCIAL HISTORY: She lives locally. . Does not work outside the home. Four children. PHYSICAL EXAMINATION: GENERAL: This is a middle-aged female who appears her actual age. No acute distress, afebrile since arrival. VITAL SIGNS: 68, 16, 145/72, and saturations all normal except for a single reading of 85%, and IR in 17 minutes later was 98% without intervention. SKIN: No rashes, warm and dry. EENT: The pupils equal, round, reactive. The conjunctivae are normal. Mucous membranes well hydrated. NECK: No masses, thyromegaly, or stridor. LUNGS: Clear to auscultation and percussion. No egophony, no fremitus changes. Breath sounds are vesicular. CARDIAC: Regular rate and rhythm without murmur, gallop, or rub. ABDOMEN: Obese, nontender. No masses. No organomegaly. EXTREMITIES: No clubbing, cyanosis, edema. NEUROLOGIC: She is awake, alert, oriented, appropriate. RADIOLOGY: I personally reviewed her chest x-rays. She has bilateral peripheral interstitial marking increase. I also reviewed the radiologist's interpretation of the chest x-ray as well as her chest CT, which shows some peripheral infiltrates bilaterally. Her perfusion scan shows nondiagnostic for PE. LABORATORY DATA: Blood cultures, no growth after 1 day's incubation. Her white blood cell count consistently normal 9.8 yesterday, hemoglobin 9.7, platelets are 317. D-dimer is elevated. Blood gases 7.42, 34, 68, 22, 94%. AA gradient of 121. Chemistry panel normal except for BUN 21, creatinine 10.2, glucose 132. Hemoglobin A1c 4.8%. Ferritin, AST, alkaline phosphatase, LDH all high. CRP 2.3. BNP greater than the upper limits of normal. ASSESSMENT: 1. Recent coronavirus infection with viral pneumonia, this was several weeks ago and I do not believe that she has active viral replication in the nasopharynx nor in the lung parenchyma. 2. Dyspnea and lung infiltrates as a result of her recent monroy virus pneumonia. She has no bacterial superinfection. 3. Chronic renal failure. 4. Obesity. 5. Past Richmond's palsy. RECOMMENDATIONS: 1. No further antibacterials. 2. Similarly, I see no benefi
[2020-06-10] VITALS (16 sets, daily range): BP systolic 143–196; BP diastolic 57–86; PULSE 66–87; RESP 18; TEMP 36.1–36.5; O2SAT 95–100
--- NOTE | 2020-06-10 | ECHO_ITS ---
Patient Info Name: Rufina Saravia Age: 60 years : 1960 Gender: Female Ht: 60 in Wt: 190 lbs BSA: 1.96 m2 HR: 71 bpm BP: 196 / 61 mmHg Heart Rhythm: Sinus Rhythm Technical Quality: Good Exam Date: 06/10/2020 9:28 AM Exam Location: [facility] Pulmonary Exam Room: 210 Patient Status: Inpatient Admit Date: 06/08/2020 Staff Ordering Physician: Les Anguiano MD Tube Fitter: Jewels Harmon RDCS Attending Provider: Ravin Patel MD Referring Physician: Silvio TORRES; Exam Type: CA echo doppler color flow Study Info Indications - COVID - VOLUME OVERLOAD DIALYSIS ESRD HYPOXIA RAMIREZ Complete two-dimensional, color flow and Doppler transthoracic echocardiogram is performed. Summary 1. Complete two-dimensional, color flow and Doppler transthoracic echocardiogram is performed. 2. Left ventricular chamber dimension is normal. 3. Left ventricular systolic function is hyperdynamic, estimated at >70%. 4. There is moderately increased left ventricular wall thickness. 5. The left ventricular diastolic function is grade II diastolic dysfunction. 6. Left atrial chamber dimension is mildly enlarged. 7. There is mild mitral valve regurgitation. 8. There is mild tricuspid valve regurgitation. 9. Mild pulmonary hypertension, estimated pulmonary arterial systolic pressure is 43 mmHg. 10. There is mild pulmonic regurgitation. 11. Cannot rule out aortic valve vegetation visualized. 12. Thickening of the aortic valve leaflets and possible vegetation is seen on the aortic valve. Clinical correlation and transesophageal echocardiogram is recommended if clinically indicated. Left Ventricle Left ventricular chamber dimension is normal. Left ventricular systolic function is hyperdynamic, estimated at >70%. There is moderately increased left ventricular wall thickness. The left ventricular diastolic function is grade II diastolic dysfunction. Right Ventricle Right ventricular chamber dimension is normal. Right ventricular systolic function is normal. Left Atria Left atrial chamber dimension is mildly enlarged. Right Atria Right atrial chamber dimension is normal. Atrial Septum Intact interatrial septum visualized by color flow imaging. Aortic Valve The aortic valve is trileaflet. There is no aortic valve stenosis. There is trace aortic valve regurgitation. Cannot rule out aortic valve vegetation visualized. Thickening of the aortic valve leaflets and possible vegetation is seen on the aortic valve. Clinical correlation and transesophageal echocardiogram is recommended if clinically indicated. Pulmonic Valve The pulmonic valve is normal. There is no pulmonic valve stenosis. There is mild pulmonic regurgitation. Mitral Valve The mitral valve has calcified annulus. There is no mitral valve stenosis. There is mild mitral valve regurgitation. Tricuspid Valve The tricuspid valve leaflets are normal. There is no significant tricuspid valve stenosis. There is mild tricuspid valve regurgitation. Mild pulmonary hypertension, estimated pulmonary arterial systolic pressure is 43 mmHg. Pericardium/Pleural The pericardium appears normal. There is trivial pericardial effusion. Inferior Vena Cava Normal inferior vena cava with >50% collapse upon inspiration consistent with elevated right atrial pressure, 10 mmHg. Aorta The aortic root size at the sinus of Valsalva is normal. The prox ascending aorta size is normal. Le
[2020-06-10] MEDS: hydrALAZINE HCL 20 MG/ML VIAL 10 MG IV PUSH (05:04)
[2020-06-10 06:27] LABS: Albumin Level 2.9 g/dL (3.5-5.1); Anion Gap 11 mmol/L (8-16); Blood Urea Nitrogen 52 mg/dL (7-17); Calcium 8.2 mg/dL (8.4-10.2); Carbon Dioxide 26 mmol/L (22-30); Chloride 102 mmol/L (98-107); Estimated CRCL calculation 5 ml/min; Estimated Glomerular Filt Rate 4; Glucose 253 mg/dL (65-105); Potassium 4.2 mmol/L (3.4-5.0); Sodium 139 mmol/L (137-145)
[2020-06-10 08:06] LABS: Glucose Point of Care 263 (65-105)
[2020-06-10] MEDS: ONDANSETRON HCL ODT 4 MG TABLET PO (08:20)
[2020-06-10] MEDS: LABETALOL HCL 100 MG TABLET 300 MG PO ×2 (08:21→20:19)
[2020-06-10] MEDS: CALCIUM ACETATE 667 MG TABLET PO ×3 (08:22→16:48)
[2020-06-10] MEDS: FUROSEMIDE INJ 40 MG/4 ML VIAL IV PUSH ×2 (08:22→20:18)
[2020-06-10] MEDS: hydrALAZINE HCL 50 MG TABLET 100 MG PO ×3 (08:22→16:24)
[2020-06-10] MEDS: HEPARIN SODIUM 5,000 UNITS/ML VIAL 5000 UNITS SUB-Q ×2 (08:22→20:16)
[2020-06-10] MEDS: INSULIN ASPART (*BKC) 100 UNITS/ML SUB-Q ×2 (08:22→12:58)
[2020-06-10] MEDS: ASPIRIN 81 MG ENTERIC TABLET PO (08:22)
[2020-06-10] MEDS: calcitrioL 0.25 MCG CAPSULE PO (08:22)
[2020-06-10] MEDS: LOSARTAN POTASSIUM 25 MG TABLET PO (10:48)
[2020-06-10 13:35] LABS: Glucose Point of Care 234 (65-105)
--- NOTE | 2020-06-10 14:33 | PC.NURSE ---
This patient, Rufina Saravia, was received from IMU on 06/10/20 at 1433. Patient/family oriented to unit policies and routines. Report received from JASMINE Upton.
--- NOTE | 2020-06-10 14:45 | PM.PNPUL ---
Progress Note: A&P Assessment and Plan (1) ILD (interstitial lung disease): Code(s): J84.9 - Interstitial pulmonary disease, unspecified Status: Acute Assessment and Plan: It is likely that she developed post COVID ILD/pulmonary fibrosis and the 5lb weight gain may have caused some pulmonary edema and exacerbated her breathing, especially in light of diastolic dysfunction. - She is about 4 weeks out from her COVID infection and hence would not benefit from Dexamethsone. - peritoneal dialysate concentration has been increased to allow more fluid removal and a return to baseline weight - home oxygen assessment. She is now on room air; If sats remain > 88% on RA she would not benefit from home oxygen therapy - she may benefit from pulmonary rehab which I will order for her as an outpatient. (2) Murmur: Code(s): R01.1 - Cardiac murmur, unspecified Status: Acute Assessment and Plan: She has a new cardiac murmur and an echo showing possible vegetation on the aortic valve. I am ordering blood cultures for concerns about endocarditis. I have spoken with Dr Vasquez, and she agrees. She is requesting a cardiology consult for a JOLANTA. She is contacting Dr Peter regarding vanco or other treatment while we await the blood cultures. Subjective Date/time seen: 06/10/20 14:45 This 60 year-old female is seen for shortness of breath and infiltrates due to recent COVID pneumonia with post-COVID interstitial lung disease.She is on peritoneal dialysis, has moderate effusions on her chest CT. Echo today shows a possible vegetation on her aortic valve and hseh as a new murmur. Echo Jun 10, 2020 Complete two-dimensional, color flow and Doppler transthoracic echocardiogram is performed. 2. Left ventricular chamber dimension is normal. 3. Left ventricular systolic function is hyperdynamic, estimated at >70%. 4. There is moderately increased left ventricular wall thickness. 5. The left ventricular diastolic function is grade II diastolic dysfunction. 6. Left atrial chamber dimension is mildly enlarged. 7. There is mild mitral valve regurgitation. 8. There is mild tricuspid valve regurgitation. 9. Mild pulmonary hypertension, estimated pulmonary arterial systolic pressure is 43 mmHg. 10. There is mild pulmonic regurgitation. 11. Cannot rule out aortic valve vegetation visualized. 12. Thickening of the aortic valve leaflets and possible vegetation is seen on the aortic valve. Clinical correlation and transesophageal echocardiogram is recommended if clinically indicated. Review of Systems Review of Systems: All systems reviewed & are unremarkable except as noted in HPI and below Exam Const: General: cooperative, healthy appearing, comfortable, no acute distress, well developed, alert, awake and Physically active Nutritional Appearance: average body habitus and well nourished Orientation/consciousness: oriented to person, oriented to place, oriented to time and patient oriented x3 Limitations: no limitations HENMT: Head: normal to inspection, normocephalic and atraumatic Eyes: General: appearance normal, both eyes and all related structures Neck: Neck: normal visual inspection, trachea midline and supple Resp: Effort & Inspection: normal respiratory effort, able to speak in complete sentences and Actively coughing Auscultation: diminished lung sounds Cardio: Jugular venous distension: no JVD Rate: regular rate Rhythm: regular rhythm Heart sounds: S1 normal heart sound present, S2 normal heart sound present and Murmur heart sound present (III/ across precordium) systolic GI: Inspection: normal to inspection Auscultation: normal bowel sounds Skin: General skin exam: normal color and no rashes or lesions noted Neuro: General: oriented to person, oriented to pl
--- NOTE | 2020-06-10 15:27 | PC.NURSE ---
This patient, Rufina Saravia, was transferred to [facility] on 06/10/20 at 1428. Personal belongings sent with patient. Report given to Bhakti FERRARO. Appropriate documentation sent with patient.
[2020-06-10 16:39] LABS: Glucose Point of Care 170 (65-105)
[2020-06-10 16:57] LABS: Basophils Absolute Auto 0.1 K/mm3 (0.0-0.1); Basophils Percent Auto 0.7 % (0.2-1.2); Eosinophils Absolute Auto 0.2 K/mm3 (0-0.3); Eosinophils Percent Auto 2.2 % (0-4.4); Hematocrit 25.9 % (37.0-47.0); Hemoglobin 8.3 g/dL (12.0-15.0); Immature Granulocyte Absolute 0.03 K/mm3 (0.00-0.031); Immature Granulocyte Percent A 0.4 % (0-0.5); Lymphocytes Percent Auto 15.3 % (18.3-44.2); Mean Corpuscular Hemoglobin 32.7 pg (26-34); Mean Platelet Volume 9.2 fl (7.4-10.4); Monocytes Absolute Auto 0.6 K/mm3 (0.1-0.6); Monocytes Percent Auto 8.6 % (2.6-8.5); Neutrophils Absolute Auto 5.2 K/mm3 (1.3-6.7); Neutrophils Percent Auto 72.8 % (45.5-73.1); Platelet Count Result 268 k/mm3 (150-375); Red Blood Count 2.54 M/mm3 (4.2-5.4); Red Cell Distribution Width 13.5 % (11.5-14.5); White Blood Count 7.2 K/mm3 (4.5-10.0)
--- NOTE | 2020-06-10 16:59 | PM.IMPN ---
Progress Note: A&P Assessment and Plan (1) ILD (interstitial lung disease): Code(s): J84.9 - Interstitial pulmonary disease, unspecified Status: Acute Assessment and Plan: Continue present management Appreciate Pulmonology note. (2) Murmur: Code(s): R01.1 - Cardiac murmur, unspecified Status: Acute Assessment and Plan: 2DECHO with possible AV vegetation Blood cx x 2 if positive will obtain JOLANTA Discussed with Dr. Peter. (3) Acute respiratory failure with hypoxia: Code(s): J96.01 - Acute respiratory failure with hypoxia Status: Acute Assessment and Plan: Improved Follow Pulmonology recs. (4) End-stage renal disease on peritoneal dialysis: Code(s): N18.6 - End stage renal disease; Z99.2 - Dependence on renal dialysis Status: Acute Assessment and Plan: Continue PD Follow Nephro recs. Subjective Date/time seen: 06/10/20 16:59 I feel much better. Review of Systems Review of Systems: Narrative: Having cramps in her hands and feet. Constitutional: Comments: no fevers. Eyes: Comments: no vision changes. ENT: Comments: no ear ache, no throat pain. Cardiovascular: Comments: no chest pain. Respiratory: Comments: some sob. Gastrointestinal: Comments: no n/v/abdominal pain. Musculoskeletal: Comments: cramps in b/l hands and legs. Integumentary/Breasts: Comments: no rashes. Neurologic: Comments: b/l le and hands paresthesia Hematologic/Lymphatic: Comments: no LAP. Exam Narrative: Exam Narrative: Lying in bed. Const: General: other (Chronically ill looking.) Nutritional Appearance: average body habitus Limitations: no limitations HENMT: Head: normal to inspection and normocephalic Ears: hearing grossly normal bilaterally General nose exam: Normal external nose present Face and sinus: normal facial exam Mouth: Yes Normal oral and palatal mucosa present Eyes: General: appearance normal, both eyes and all related structures Pupils: Equal, round and reactive pupils present EOM: EOMs intact bilaterally Neck: Neck: no lymphadenopathy, supple and no JVD Resp: Auscultation: clear to auscultation bilaterally and diminished lung sounds Cardio: Rate: regular rate Rhythm: regular rhythm GI: GI Palp: Yes Soft to palpation and Yes No hepatosplenomegaly present Skin: Lesions: no lesions Wounds: no wounds Neuro: General: patient oriented x3 and CN's II-XI intact bilaterally Cranial nerves: Yes CN's II-XII intact bilaterally and Yes Equal, round and reactive pupils present Cognition (Neuro): normal cognition Speech: normal speech Motor exam (neuro): 5/5 motor strength present throughout Extrem: General: pedal edema (1+) bilaterally Objective Data Vital Signs Vital Signs: Vital Signs - 24 hr 06/09/20 18:00 06/09/20 18:22 06/09/20 19:40 Temperature 96.7 F L Pulse Rate 76 84 81 Respiratory Rate 20 18 Blood Pressure 202/73 H Pulse Oximetry 96 96 06/09/20 20:00 06/09/20 22:00 06/09/20 22:33 Temperature 96.7 F L Pulse Rate 82 85 88 Respiratory Rate 18 Blood Pressure 202/73 H Pulse Oximetry 97 95 06/09/20 23:39 06/10/20 00:00 06/10/20 02:00 Temperature 96.9 F L Pulse Rate 80 66 67 Respiratory Rate 18 Blood Pressure 164/78 H Pulse Oximetry 96 06/10/20 04:00 06/10/20 06:00 06/10/20 07:38 Temperature 97.1 F L 97.7 F Pulse Rate 76 82 72 Respiratory Rate 18 18 Blood Pressure 196/61 H 144/63 H Pulse Oximetry 95 100 06/10/20 08:00 06/10/20 08:17 06/10/20 08:21 Temperature 97.1 F L Pulse Rate 80 76 75 Respiratory Rate 18 Blood Pressure 196/61 H Pulse Oximetry 06/10/20 10:00 06/10/20 11:51 06/10/20 12:00 Temperature 97.4 F L Pulse Rate 71 68 71 Respiratory Rate 18 Blood Pressure 143/61 H Pulse Oximetry 99 06/10/20 16:00 Temperature 96.9 F L Pulse Rate 71 Respiratory Rate 18 Blood Pressure 168/65 H Pulse Oximetry 98 Intake/Output Intake/Ou
--- NOTE | 2020-06-10 17:03 | P.PNNP_ITS ---
Progress Note: A&P Assessment and Plan (1) End stage renal disease: Code(s): N18.6 - End stage renal disease Status: Chronic Assessment and Plan: * continue nightly peritoneal dialysis * adjusting dialysis prescription for more aggressive fluid removal * follow electrolytes, clearance, and volume status (2) Shortness of breath: Code(s): R06.02 - Shortness of breath Status: Acute Assessment and Plan: * multifactorial etiology: - fluid/pulmonary edema - resolving COVID-19 infection/lung changes - diastolic heart dysfunction with mild pulmonary HTN - pneumonia (?) - possible endocarditis (TTE results noted) -- Cardiology consulted for JOLANTA -- follow blood cultures * imaging (CXR and CT of chest) results noted * Pulmonary recommendations noted * continue current therapy/care (3) Anemia: Code(s): D64.9 - Anemia, unspecified Status: Chronic Assessment and Plan: * due to ESRD and acute illness * Epogen SQ while hosptialized * follow trend of H/H (4) Person under investigation for severe acute respiratory syndrome coronavirus 2 (SARS-CoV-2) infection: Code(s): Z20.828 - Contact with and (suspected) exposure to other viral communicable diseases Status: Acute Assessment and Plan: * repeat COVID testing is negative (5) HTN (hypertension): Code(s): I10 - Essential (primary) hypertension Status: Chronic Assessment and Plan: * appears to be doing better * suspect fluid removal and addition of losartan helping * follow trend of hemodynamics (6) DM renal manif type II: Qualifiers: Diabetes mellitus senior care insulin use: with senior care use Diabetes mellitus complication detail: with chronic kidney disease Chronic kidney disease stage: stage 3 (moderate) Chronic kidney disease stage 3 subtype: stage 3a (GFR 45-59) Qualified Code(s): E11.21 - Type 2 diabetes mellitus with diabetic nephropathy; N18.31 - Chronic kidney disease, stage 3a; Z79.4 - [facility] (current) use of 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 Subjective Date/time seen: 06/10/20 17:03 Tolerated peritoneal dialysis last night but had significant cramping with the treatment; breathing has improved significantly since admission (on room air); no acute distress voiced at this time; no events earlier today to report. Exam Narrative: Exam Narrative: General: WD/WN female in NAD Heart: normal S1 and S2; no rub Lungs: decreased at the bases Abdomen: soft, nontender, nondistended, positive bowel sounds Extremities: no cyanosis or clubbing; trace edema Skin: warm and dry Objective Data Vital Signs Vital Signs: Vital Signs Temp Pulse Resp BP Pulse Ox 06/10/20 16:00 36.1 C L 71 18 168/65 H 98 06/10/20 12:00 71 06/10/20 11:51 36.3 C L 68 18 143/61 H 99 06/10/20 10:00 71 06/10/20 08:21 75 06/10/20 08:17 36.2 C L 76 18 196/61 H 06/10/20 08:00 80 06/10/20 07:38 36.5 C 72 18 144/63 H 100 06/10/20 06:00 82 06/10/20 04:00 36.2 C L 76 18 196/61 H 95
--- NOTE | 2020-06-10 17:03 | PM.PNNEP ---
Progress Note: A&P Assessment and Plan (1) End stage renal disease: Code(s): N18.6 - End stage renal disease Status: Chronic Assessment and Plan: continue nightly peritoneal dialysis adjusting dialysis prescription for more aggressive fluid removal follow electrolytes, clearance, and volume status (2) Shortness of breath: Code(s): R06.02 - Shortness of breath Status: Acute Assessment and Plan: multifactorial etiology: - fluid/pulmonary edema - resolving COVID-19 infection/lung changes - diastolic heart dysfunction with mild pulmonary HTN - pneumonia (?) - possible endocarditis (TTE results noted) -- Cardiology consulted for JOLANTA -- follow blood cultures imaging (CXR and CT of chest) results noted Pulmonary recommendations noted continue current therapy/care (3) Anemia: Code(s): D64.9 - Anemia, unspecified Status: Chronic Assessment and Plan: due to ESRD and acute illness Epogen SQ while hosptialized follow trend of H/H (4) Person under investigation for severe acute respiratory syndrome coronavirus 2 (SARS-CoV-2) infection: Code(s): Z20.828 - Contact with and (suspected) exposure to other viral communicable diseases Status: Acute Assessment and Plan: repeat COVID testing is negative (5) HTN (hypertension): Code(s): I10 - Essential (primary) hypertension Status: Chronic Assessment and Plan: appears to be doing better suspect fluid removal and addition of losartan helping follow trend of hemodynamics (6) DM renal manif type II: Qualifiers: 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 Subjective Date/time seen: 06/10/20 17:03 Tolerated peritoneal dialysis last night but had significant cramping with the treatment; breathing has improved significantly since admission (on room air); no acute distress voiced at this time; no events earlier today to report. Exam Narrative: Exam Narrative: General: WD/WN female in NAD Heart: normal S1 and S2; no rub Lungs: decreased at the bases Abdomen: soft, nontender, nondistended, positive bowel sounds Extremities: no cyanosis or clubbing; trace edema Skin: warm and dry Objective Data Vital Signs Vital Signs: Vital Signs Temp Pulse Resp BP Pulse Ox 06/10/20 16:00 36.1 C L 71 18 168/65 H 98 06/10/20 12:00 71 06/10/20 11:51 36.3 C L 68 18 143/61 H 99 06/10/20 10:00 71 06/10/20 08:21 75 06/10/20 08:17 36.2 C L 76 18 196/61 H 06/10/20 08:00 80 06/10/20 07:38 36.5 C 72 18 144/63 H 100 06/10/20 06:00 82 06/10/20 04:00 36.2 C L 76 18 196/61 H 95 06/10/20 02:00 67 06/10/20 00:00 66 06/09/20 23:39 36.1 C L 80 18 164/78 H 96 06/09/20 22:33 88 06/09/20 22:00 85 95 06/09/20 20:00 35.9 C L 82 18 202/73 H 97 06/09/20 19:40 35.9 C L 81 18 202/73 H 96 06/09/20 18:22 84 20 96 06/09/20 18:00 76 Intake/Output Intake/Output: Intake & Output 06/07/20 06/08/20 06/09/20 06/10/20 23:59 23:59 23:59 23:59 Intake Total 1630 1770 Output Total 100 2840 822.0 Balance -100 -1210 948.0 Meds/Results Medications: Active Medications Generic Name Do
[2020-06-10 17:08] LABS: Anion Gap 11 mmol/L (8-16); Blood Urea Nitrogen 51 mg/dL (7-17); Calcium 8.1 mg/dL (8.4-10.2); Carbon Dioxide 28 mmol/L (22-30); Chloride 98 mmol/L (98-107); Estimated CRCL calculation 6 ml/min; Estimated Glomerular Filt Rate 4; Glucose 182 mg/dL (65-105); Potassium 4.2 mmol/L (3.4-5.0); Sodium 137 mmol/L (137-145)
[2020-06-10 21:26] LABS: Glucose Point of Care 160 (65-105)
[2020-06-11] VITALS (13 sets, daily range): BP systolic 133–173; BP diastolic 50–63; PULSE 64–77; RESP 16–20; TEMP 36.1–36.6; O2SAT 96–99
[2020-06-11] MEDS: diphenhydrAMINE HCl CAP 25 MG CAPSULE PO (03:40)
[2020-06-11 06:33] LABS: Anion Gap 4 mmol/L (8-16); Blood Urea Nitrogen 46 mg/dL (7-17); Calcium 8.1 mg/dL (8.4-10.2); Carbon Dioxide 32 mmol/L (22-30); Chloride 100 mmol/L (98-107); Estimated CRCL calculation 6 ml/min; Estimated Glomerular Filt Rate 4; Glucose 138 mg/dL (65-105); Potassium 4.3 mmol/L (3.4-5.0); Sodium 136 mmol/L (137-145)
[2020-06-11 07:43] LABS: Hepatitis B Surface Antigen Negative (Negative)
[2020-06-11 08:06] LABS: Hepatitis B Surface Anti Res Positive
[2020-06-11] MEDS: LABETALOL HCL 100 MG TABLET 300 MG PO ×2 (08:55→22:27)
[2020-06-11] MEDS: CALCIUM ACETATE 667 MG TABLET PO ×3 (08:55→16:27)
[2020-06-11] MEDS: hydrALAZINE HCL 50 MG TABLET 100 MG PO ×3 (08:56→16:27)
[2020-06-11] MEDS: LOSARTAN POTASSIUM 25 MG TABLET PO (08:57)
[2020-06-11] MEDS: calcitrioL 0.25 MCG CAPSULE PO (08:57)
[2020-06-11] MEDS: HEPARIN SODIUM 5,000 UNITS/ML VIAL 5000 UNITS SUB-Q ×2 (08:57→22:26)
[2020-06-11] MEDS: ASPIRIN 81 MG ENTERIC TABLET PO (08:57)
[2020-06-11] MEDS: FUROSEMIDE INJ 40 MG/4 ML VIAL IV PUSH ×2 (08:57→22:27)
[2020-06-11 08:59] LABS: Glucose Point of Care 105 (65-105)
--- NOTE | 2020-06-11 10:24 | PM.CNCAR ---
Assessment and Plan Assessment and plan (1) Abnormal echocardiogram: Code(s): R93.1 - Abnormal findings on diagnostic imaging of heart and coronary circulation Status: Acute Assessment and Plan: Cannot exclude vegetation on the aortic valve. I did talk to her about the risks benefits alternatives of the JOLANTA to define her aortic valve anatomy. She wishes to talk to her in think it over. Will tentatively keep her NPO for scheduled JOLANTA tomorrow unless she refuses. (2) HTN (hypertension): Code(s): I10 - Essential (primary) hypertension Status: Chronic Assessment and Plan: Still above goal but better than previous (3) End stage renal disease on dialysis: Code(s): N18.6 - End stage renal disease; Z99.2 - Dependence on renal dialysis Status: Acute Assessment and Plan: Followed by Nephrology (4) History of 2019 novel coronavirus disease (COVID-19): Code(s): Z86.19 - Personal history of other infectious and parasitic diseases Status: Acute Assessment and Plan: Her dyspnea is likely related to underlying COVID lung disease but if her symptoms do not improve, she obviously does have multiple risk factors for coronary disease and her dyspnea on exertion could be an anginal equivalent. Could consider eventual stress testing History of Present Illness History of Present Illness Consult date/time: 06/11/20 10:24 Requesting physician: Reid Vasquez MD Consult reason: Other (Abnormal echo, aortic valve mass) Reason For Visit: Acute respiratory failure with hypoxia, Narrative: Date of service 06/11/2020 Reason consultation: Abnormal echocardiogram History: Patient is a 60-year-old female who has a recent diagnosis of Coronavirus. She was admitted and discharged. Initial diagnosis was made on 05/19/2020. She started feeling poorly on 05/13/2020. She initially felt better but more recently has been progressively more short of breath with activity. This is progressively worsened to the point that she needed to come back to hospital for further evaluation. She did have an echocardiogram performed yesterday showed an abnormal appearing aortic valve. Endocarditis cannot be excluded. She has no clinical syndrome for endocarditis however with no fevers or chills. She denies any chest pain, syncope, presyncope, orthopnea, edema or palpitations. She does have occasional paroxysmal nocturnal dyspnea and states that she has sleep apnea but this is not being treated at this point. Review of Systems Review of Systems: All systems reviewed & are unremarkable except as noted in HPI and below Constitutional: Constitutional: Reports weakness Eyes: Eyes: Denies blurry vision ENT: Reports Normal hearing present Cardiovascular: Cardiovascular: Denies chest pain Respiratory: Respiratory: Reports dyspnea Gastrointestinal: Gastrointestinal: Denies abdominal pain Genitourinary: Genitourinary: Denies flank pain Musculoskeletal: Musculoskeletal: Denies neck pain Integumentary/Breasts: Skin/Breast: Denies dry skin Neurologic: Denies headache(s) Psychiatric: Psychiatric: Denies anxiety and Denies confusion Endocrine: Endocrine: Denies fatigue and Denies flushing Hematologic/Lymphatic: Hematologic/Lymphatic: Denies easy bleeding Allergic/Immunologic: Allergic/Immunologic: Denies GI upset with certain foods PMFSH Past Medical History Medical History Bone spur DM renal manif type II End stage renal disease on dialysis Hemorrhoids History of Richmond's palsy HLD (hyperlipidemia) HTN (hypertension) Lumbar radiculopathy Mumps Osteoarthritis Pituitary abscess Surgical History Surgical History H/O: hysterectomy History of delivery X3 Family History Family History Mother
[2020-06-11 12:13] LABS: Glucose Point of Care 146 (65-105)
--- NOTE | 2020-06-11 13:40 | P.PNNP_ITS ---
Progress Note: A&P Assessment and Plan (1) End stage renal disease: Code(s): N18.6 - End stage renal disease Status: Chronic Assessment and Plan: * continue nightly peritoneal dialysis * s/p aggressive fluid removal on day of admission and day after * adjusting dialysis prescription now for more consistent fluid removal * follow electrolytes, clearance, and volume status (2) Shortness of breath: Code(s): R06.02 - Shortness of breath Status: Acute Assessment and Plan: * multifactorial etiology: - fluid/pulmonary edema - resolving COVID-19 infection/lung changes - diastolic heart dysfunction with mild pulmonary HTN - pneumonia (?) - possible endocarditis (TTE results noted) -- Cardiology consulted for JOLANTA - recommendations noted -- follow blood cultures * imaging (CXR and CT of chest) results noted * Pulmonary recommendations reviewed * continue current therapy/care (3) Anemia: Code(s): D64.9 - Anemia, unspecified Status: Chronic Assessment and Plan: * due to ESRD and acute illness * Epogen SQ while hosptialized * follow trend of H/H (4) Person under investigation for severe acute respiratory syndrome coronavirus 2 (SARS-CoV-2) infection: Code(s): Z20.828 - Contact with and (suspected) exposure to other viral communicable diseases Status: Acute Assessment and Plan: * repeat COVID testing is negative (5) HTN (hypertension): Code(s): I10 - Essential (primary) hypertension Status: Chronic Assessment and Plan: * appears to be doing better * suspect fluid removal and addition of losartan helping - titrate losartan as needed (not using lisinopril due to cough per patient history) * follow trend of hemodynamics (6) DM renal manif type II: Qualifiers: Chronic kidney disease stage: stage 3 (moderate) Chronic kidney disease stage 3 subtype: stage 3a (GFR 45-59) Diabetes mellitus complication detail: with chronic kidney disease Diabetes mellitus half-way insulin use: with half-way use Qualified Code(s): E11.21 - Type 2 diabetes mellitus with diabetic nephropathy; N18.31 - Chronic kidney disease, stage 3a; 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 Subjective Date/time seen: 06/11/20 13:4 Tolerated peritoneal dialysis last night better than the night before; states that she feels that she is improving each day; breathing as well as hemodynamic have improved since admission; no other acute events overnight or earlier this AM. Exam Narrative: Exam Narrative: General: WD/WN female in NAD Heart: normal S1 and S2; no rub Lungs: decreased at the bases Abdomen: soft, nontender, nondistended, positive bowel sounds Extremities: no cyanosis or clubbing; trace edema Skin: warm and intact Objective Data Vital Signs Vital Signs: Vital Signs Temp Pulse Resp BP Pulse Ox 06/11/20 12:04 67 06/11/20 11:47 64 150/50 H 99 06/11/20 09:00 99 06/11/20 08:55 70 06/11/20 08:00 73 06/11/20 04:48 36.2 C L 65 16 158/54 H 96
--- NOTE | 2020-06-11 13:40 | PM.PNNEP ---
Progress Note: A&P Assessment and Plan (1) End stage renal disease: Code(s): N18.6 - End stage renal disease Status: Chronic Assessment and Plan: continue nightly peritoneal dialysis s/p aggressive fluid removal on day of admission and day after adjusting dialysis prescription now for more consistent fluid removal follow electrolytes, clearance, and volume status (2) Shortness of breath: Code(s): R06.02 - Shortness of breath Status: Acute Assessment and Plan: multifactorial etiology: - fluid/pulmonary edema - resolving COVID-19 infection/lung changes - diastolic heart dysfunction with mild pulmonary HTN - pneumonia (?) - possible endocarditis (TTE results noted) -- Cardiology consulted for JOLANTA - recommendations noted -- follow blood cultures imaging (CXR and CT of chest) results noted Pulmonary recommendations reviewed continue current therapy/care (3) Anemia: Code(s): D64.9 - Anemia, unspecified Status: Chronic Assessment and Plan: due to ESRD and acute illness Epogen SQ while hosptialized follow trend of H/H (4) Person under investigation for severe acute respiratory syndrome coronavirus 2 (SARS-CoV-2) infection: Code(s): Z20.828 - Contact with and (suspected) exposure to other viral communicable diseases Status: Acute Assessment and Plan: repeat COVID testing is negative (5) HTN (hypertension): Code(s): I10 - Essential (primary) hypertension Status: Chronic Assessment and Plan: appears to be doing better suspect fluid removal and addition of losartan helping - titrate losartan as needed (not using lisinopril due to cough per patient history) follow trend of hemodynamics (6) DM renal manif type II: Qualifiers: Chronic kidney disease stage: stage 3 (moderate) Chronic kidney disease stage 3 subtype: stage 3a (GFR 45-59) Diabetes mellitus complication detail: with chronic kidney disease Diabetes mellitus [facility] use: with [facility] use Qualified Code(s): E11.21 - Type 2 diabetes mellitus with diabetic nephropathy; N18.31 - Chronic kidney disease, stage 3a; Z79.4 - senior living (current) use of insulin Code(s): E11.29 - Type 2 diabetes mellitus with other diabetic kidney complication Status: Chronic Assessment and Plan: follow accu-cheks on sliding-scale insulin Will continue to follow. Subjective Date/time seen: 06/11/20 13:4 Tolerated peritoneal dialysis last night better than the night before; states that she feels that she is improving each day; breathing as well as hemodynamic have improved since admission; no other acute events overnight or earlier this AM. Exam Narrative: Exam Narrative: General: WD/WN female in NAD Heart: normal S1 and S2; no rub Lungs: decreased at the bases Abdomen: soft, nontender, nondistended, positive bowel sounds Extremities: no cyanosis or clubbing; trace edema Skin: warm and intact Objective Data Vital Signs Vital Signs: Vital Signs Temp Pulse Resp BP Pulse Ox 06/11/20 12:04 67 06/11/20 11:47 64 150/50 H 99 06/11/20 09:00 99 06/11/20 08:55 70 06/11/20 08:00 73 06/11/20 04:48 36.2 C L 65 16 158/54 H 96 06/11/20 04:00 67 06/11/20 00:00 36.2 C L 65 20 133/51 L 97 06/10/20 22:27 36.1 C L 72 18 179/86 H 100 06/10/20 20:19 72 06/10/20 20:00 72 06/10/20 18:39 152/57 H 06/10/20 16:00 36.1 C L 76 18 168/65 H 98 Intake/Output Intake/Output: Intake & Output 06/08/20 06/09/20 06/10/20 06/11/20 23:59 23:59 23:59 23:59 Intake Total 1630 2250 550 Output Total 100 2840 922.0 981 Balance -100 -1210 1328.0 -431 Meds/Results Medications: Active Medications Generic Name Dose Route Star
[2020-06-11] MEDS: polyethylene glycoL 3350 17 GM POWD.PACK PO (13:58)
[2020-06-11] MEDS: EPOETIN ALFA-EPBX 20,000 UNITS/ML VIAL 20000 UNITS SUB-Q (16:07)
[2020-06-11 16:25] LABS: Glucose Point of Care 118 (65-105)
--- NOTE | 2020-06-11 16:48 | PM.IMPN ---
Progress Note: A&P Assessment and Plan (1) History of 2019 novel coronavirus disease (COVID-19): Code(s): Z86.19 - Personal history of other infectious and parasitic diseases Status: Acute Assessment and Plan: Patient had recent Covid 19 infection. Stable (2) Abnormal echocardiogram: Code(s): R93.1 - Abnormal findings on diagnostic imaging of heart and coronary circulation Status: Acute Assessment and Plan: Questionable AV mass Blood cx are negative thus far Hold off JOLANTA Discussed with Dr. Peter (3) Shortness of breath: Code(s): R06.02 - Shortness of breath Status: Acute Assessment and Plan: Resolved. (4) End stage renal disease: Code(s): N18.6 - End stage renal disease Status: Chronic Assessment and Plan: On peritoneal dialysis. (5) ILD (interstitial lung disease): Code(s): J84.9 - Interstitial pulmonary disease, unspecified Status: Acute Assessment and Plan: Continue present management Follow Pulmonary recs. (6) Acute respiratory failure with hypoxia: Code(s): J96.01 - Acute respiratory failure with hypoxia Status: Acute Assessment and Plan: Resolved Continue to monitor. Subjective Date/time seen: 06/11/20 16:48 I feel fine. Review of Systems Review of Systems: Narrative: States that she feels much better. Constitutional: Comments: no fevers. no rigors, no chills. ENT: Comments: no throat pain, no ear ache, no nasal congestion. Cardiovascular: Comments: no chest pain. Gastrointestinal: Comments: Constipation. Musculoskeletal: Comments: cramps in b/l ue and le Integumentary/Breasts: Comments: no rashes. Neurologic: Comments: paresthesia Exam Narrative: Exam Narrative: Sitting in bed. Const: General: other (Chronically ill looking.) Nutritional Appearance: average body habitus HENMT: Head: normal to inspection and normocephalic Ears: hearing grossly normal bilaterally General nose exam: Normal external nose present Face and sinus: normal facial exam Eyes: General: appearance normal, both eyes and all related structures Pupils: Equal, round and reactive pupils present EOM: EOMs intact bilaterally Neck: Neck: no lymphadenopathy, supple and no JVD Resp: Effort & Inspection: normal respiratory effort Auscultation: clear to auscultation bilaterally and diminished lung sounds Cardio: Rate: regular rate GI: Inspection: normal to inspection and other (Peritoneal catheter in place.) GI Palp: Yes Soft to palpation and Yes No hepatosplenomegaly present Skin: General skin exam: normal color Lesions: no lesions Rashes: no rashes Neuro: General: patient oriented x3 and CN's II-XI intact bilaterally Cranial nerves: Yes CN's II-XII intact bilaterally and Yes Equal, round and reactive pupils present Cognition (Neuro): normal cognition Motor exam (neuro): 5/5 motor strength present throughout Extrem: General: no pedal edema Objective Data Vital Signs Vital Signs: Vital Signs - 24 hr 06/10/20 18:39 06/10/20 20:00 06/10/20 20:19 Temperature Pulse Rate 72 72 Respiratory Rate Blood Pressure 152/57 H Pulse Oximetry 06/10/20 22:27 06/11/20 00:00 06/11/20 04:00 Temperature 97 F L 97.2 F L Pulse Rate 72 65 67 Respiratory Rate 18 20 Blood Pressure 179/86 H 133/51 L Pulse Oximetry 100 97 06/11/20 04:48 06/11/20 08:00 06/11/20 08:55 Temperature 97.2 F L Pulse Rate 65 73 70 Respiratory Rate 16 Blood Pressure 158/54 H Pulse Oximetry 96 06/11/20 09:00 06/11/20 11:47 06/11/20 12:04 Temperature Pulse Rate 64 67 Respiratory Rate Blood Pressure 150/50 H Pulse Oximetry 99 99 06/11/20 14:00 Temperature 97.8 F Pulse Rate 68 Respiratory Rate 16 Blood Pressure 160/63 H Pulse Oximetry 98 Intake/Output Intake/Output: Intake & Output 06/08/20 06/09/20 06/10/20 06/11/20 23:59 23:59 23:59 23:59 Intake Total 1630 225
[2020-06-11 17:30] LABS: Basophils Absolute Auto 0.1 K/mm3 (0.0-0.1); Basophils Percent Auto 0.9 % (0.2-1.2); Eosinophils Absolute Auto 0.2 K/mm3 (0-0.3); Hematocrit 24.7 % (37.0-47.0); Hemoglobin 7.9 g/dL (12.0-15.0); Immature Granulocyte Absolute 0.02 K/mm3 (0.00-0.031); Immature Granulocyte Percent A 0.2 % (0-0.5); Lymphocytes Absolute Auto 1.39 K/mm3 (0.9-3.2); Lymphocytes Percent Auto 17.2 % (18.3-44.2); Mean Corpuscular Hemoglobin 32.8 pg (26-34); Mean Corpuscular Volume 102.5 fl (80-100); Mean Platelet Volume 9.3 fl (7.4-10.4); Monocytes Absolute Auto 0.7 K/mm3 (0.1-0.6); Monocytes Percent Auto 8.6 % (2.6-8.5); Neutrophils Absolute Auto 5.7 K/mm3 (1.3-6.7); Neutrophils Percent Auto 70.1 % (45.5-73.1); Platelet Count Result 243 k/mm3 (150-375); Red Blood Count 2.41 M/mm3 (4.2-5.4); Red Cell Distribution Width 13.5 % (11.5-14.5); White Blood Count 8.1 K/mm3 (4.5-10.0)
[2020-06-11 17:41] LABS: Anion Gap 9 mmol/L (8-16); Blood Urea Nitrogen 49 mg/dL (7-17); Calcium 7.8 mg/dL (8.4-10.2); Carbon Dioxide 29 mmol/L (22-30); Chloride 97 mmol/L (98-107); Estimated CRCL calculation 5 ml/min; Estimated Glomerular Filt Rate 4; Glucose 151 mg/dL (65-105); Potassium 4.8 mmol/L (3.4-5.0); Sodium 135 mmol/L (137-145)
[2020-06-11 22:57] LABS: Glucose Point of Care 138 (65-105)
[2020-06-12] VITALS (8 sets, daily range): BP systolic 146–186; BP diastolic 53–63; PULSE 67–73; RESP 16; TEMP 36.2–36.8; O2SAT 92–99
[2020-06-12 08:15] LABS: Glucose Point of Care 115 (65-105)
--- NOTE | 2020-06-12 08:27 | PM.PNCARD ---
Progress Note: A&P Additional Plan 60-year-old lady with abnormal appearing aortic valve on transthoracic echocardiogram. The patient has no clinical evidence of subacute bacterial endocarditis and no symptoms to suggest this. Transesophageal echocardiogram was discussed after the patient was seen in consultation yesterday by Dr. Driscoll. The patient is at this point reasonably making the decision to defer further evaluation of this if her blood cultures remain negative. At this point I am going to sign off of her case. Her physicians including her folder and notcher and primary care physician should follow up on these cultures and if they remain negative I do not believe that it is necessary to push this lady to have an esophageal echo done. Maxime Nguyen MD [facility] Subjective Date/time seen: Date of service: 06/12/20 08:27 Interval history: Follow-up visit in this 60-year-old female with: Abnormality on her aortic valve raising the question of infectious vegetation. She has no clinical evidence of endocarditis and thus far negative blood cultures. Patient has decided that she will defer transesophageal echocardiogram if her blood cultures remain negative. If her cultures do become positive then she will consider this. She has no car other cardiovascular symptoms or concerns today. Exam Const: General: no acute distress Eyes: General: appearance normal, both eyes and all related structures Neck: Neck: supple Resp: Auscultation: clear to auscultation bilaterally Cardio: Rate: regular rate Rhythm: regular rhythm Other: No diastolic murmur GI: GI Palp: Yes Soft to palpation Auscultation: normal bowel sounds Neuro: Cognition (Neuro): normal cognition Extrem: General: normal to inspection Objective Data Vital Signs Vital Signs: Vital Signs - 24 hr 06/11/20 08:55 06/11/20 09:00 06/11/20 11:47 Temperature Pulse Rate 70 64 Respiratory Rate Blood Pressure 150/50 H Pulse Oximetry 99 99 06/11/20 12:04 06/11/20 14:00 06/11/20 16:00 Temperature 36.6 C Pulse Rate 67 68 65 Respiratory Rate 16 Blood Pressure 160/63 H Pulse Oximetry 98 06/11/20 20:00 06/11/20 22:00 06/11/20 22:27 Temperature 36.1 C L Pulse Rate 77 72 72 Respiratory Rate 16 Blood Pressure 173/61 H Pulse Oximetry 97 06/12/20 00:00 06/12/20 04:00 06/12/20 06:00 Temperature 36.8 C 36.3 C L Pulse Rate 70 73 72 Respiratory Rate 16 16 Blood Pressure 146/53 H 186/63 H Pulse Oximetry 92 97 06/12/20 07:41 Temperature Pulse Rate Respiratory Rate Blood Pressure Pulse Oximetry 97 Intake/Output Intake/Output: Intake & Output 06/09/20 06/10/20 06/11/20 06/12/20 23:59 23:59 23:59 23:59 Intake Total 1630 2250 1270 200 Output Total 2840 922.0 1181 500 Balance -1210 1328.0 89 -300 Meds/Results Medications: Active Medications Generic Name Dose Route Start Last Admin Trade Name Freq PRN Reason Stop Dose Admin Albuterol 2 puff 06/08/20 22:21 Albuterol Sulfate (*Sp) Aerosol 1 Puff INHALATION Q6HRT PRN Shortness Of Breath Aspirin 81 mg 06/09/20 09:00 06/11/20 08:57 Aspirin 81 Mg Enteric Tablet PO 81 mg DAILY MICHAELA Administration Calcitriol 0.25 mcg 06/09/20 09:00 06/11/20 08:57 Calcitriol 0.25 Mcg Capsule PO 0.25 mcg DAILY MICHAELA Administration Calcium Acetate 667 mg 06/09/20 08:00 06/11/20 16:27 Calcium Acetate 667 Mg Tablet PO 667 mg TIDWM MICHAELA Administration Dextrose 12.5 gm 06/08/20 22:22 Dextrose 50% 25 Gm/50 Ml Syringe IV PUSH PRN PRN Hypoglycemia Protocol Diphenhydramine HCl 25 mg 06/08/20 22:32 06/11/20 03:40 Diphenhydramine Hcl Cap 25 Mg Capsule PO 25 mg Q6H PRN Administration Allergic Reaction Epoetin Eber-epbx 10,000 units 06/12/20 10:00 Epoetin Eber-Epbx 10,000 Units/Ml Vial SUB-Q MOWEFR MICHAELA Ergocalciferol 50,000 unit 06/14/20 09:00 Ergocalciferol 50,000 Unit Capsule PO WE
[2020-06-12] MEDS: CALCIUM ACETATE 667 MG TABLET PO (09:29)
[2020-06-12] MEDS: LABETALOL HCL 100 MG TABLET 300 MG PO (09:29)
[2020-06-12] MEDS: hydrALAZINE HCL 50 MG TABLET 100 MG PO (09:29)
[2020-06-12] MEDS: calcitrioL 0.25 MCG CAPSULE PO (09:29)
[2020-06-12] MEDS: ASPIRIN 81 MG ENTERIC TABLET PO (09:29)
[2020-06-12] MEDS: LOSARTAN POTASSIUM 25 MG TABLET PO (09:30)
[2020-06-12] MEDS: FUROSEMIDE INJ 40 MG/4 ML VIAL IV PUSH (09:32)
--- NOTE | 2020-06-12 10:32 | PM.DS ---
DS: Admitting Diagnosis Admitting Diagnosis Admitting Diagnosis: Worsening sob Fluid overload ESRD on peritoneal dialysis T2DM Peripheral diabetic neuropathy. DS: Discharge Diagnosis Discharge Diagnosis (1) History of 2019 novel coronavirus disease (COVID-19): Code(s): Z86.19 - Personal history of other infectious and parasitic diseases Status: Acute Assessment and Plan: Patient was re tested negative for Covid 19 (2) Abnormal echocardiogram: Code(s): R93.1 - Abnormal findings on diagnostic imaging of heart and coronary circulation Status: Acute Assessment and Plan: Patient was found to have abnromality of the aortic valve Blood cx were sent ID had been on the case (3) Shortness of breath: Code(s): R06.02 - Shortness of breath Status: Acute Assessment and Plan: Likely secondary to fluid overload and recent Covid pneumonia. (4) End stage renal disease: Code(s): N18.6 - End stage renal disease Status: Chronic Assessment and Plan: On peritoneal dialysis (5) Murmur: Code(s): R01.1 - Cardiac murmur, unspecified Status: Acute Assessment and Plan: On auscultation (6) ILD (interstitial lung disease): Code(s): J84.9 - Interstitial pulmonary disease, unspecified Status: Acute Assessment and Plan: Likely secondary to Covid pneumonia. (7) Acute respiratory failure with hypoxia: Code(s): J96.01 - Acute respiratory failure with hypoxia Status: Acute Assessment and Plan: Patient required BiPAP initially but then was weaned off to RA (8) End-stage renal disease on peritoneal dialysis: Code(s): N18.6 - End stage renal disease; Z99.2 - Dependence on renal dialysis Status: Acute Assessment and Plan: To continue peritoneal dialysis (9) Pneumonia: Qualifiers: Laterality: bilateral Lung location: lower lobe of lung Pneumonia type: due to unspecified organism Qualified Code(s): J18.9 - Pneumonia, unspecified organism Code(s): J18.9 - Pneumonia, unspecified organism Status: Acute Assessment and Plan: ID felt no acute infection. Antibiotics wre discontinued. (10) Severe hypertension: Code(s): I10 - Essential (primary) hypertension Status: Acute Assessment and Plan: Better controlled at the time of discharge. 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 The patient was recently diagnosed with COVID. She was sick but improved and cleared. Since then she has had some weakness but that has been getting better. She also has had some shortness of breath. She was in the hospital 2 weeks ago with volume overload. At that time she had been having cramps. To treat the cramps she was drinking quinine water, eating pickle juice, and using sea salt on her food. She was instructed to stop all of this. She weighs herself daily at home and her weight has been about 192. Yesterday her weight was up to 196. She got short of breath and so came to the emergency room. In the ER she was evaluated and found to have pulmonary infiltrates and signs of volume overload. She was admitted. Patient was continued on her peritoneal dialysis. Was aggressively treated for fluid overload and responded very well to it. Cardiology was consulted and discussion for JOLANTA took place as it was felt that there was need to further evaluate the anatomy of her AV however in view that blood cx remained negative patient decided to have it done in the outpatient setting. Patient was discharged home to follow up in the outpatient setting. Summary 1. Complete two-dimensional, color flow and Doppler transthoracic echocardiogram is performed. 2. Left ventricular annabella
[2020-06-12 11:52] LABS: Glucose Point of Care 176 (65-105)
[2020-06-12] MEDS: EPOETIN ALFA-EPBX 10,000 UNITS/ML VIAL 10000 UNITS SUB-Q (12:05)
== END 2020-06-12 14:27 | disposition home or self-care (01) | DRG 640 ==
LOC: ANHED 17:48 → ANHIMU 06-09 07:27 → ANH2MED 06-11 10:49 → ANHIMU 06-14 19:00
PROVIDERS: Family Medicine; Internal Medicine Nephrology; Nurse Practitioner; Physician Assistant; Admitting Provider Internal Medicine; Emergency Provider Emergency Medicine; PCP Internal Medicine; Visit Provider Internal Medicine
DX: E87.79 Other fluid overload (principal); N18.6 End stage renal disease; J96.01 Acute respiratory failure with hypoxia; I12.0 Hypertensive chronic kidney disease with stage 5 chronic kidney disease or end stage renal disease; J84.9 Interstitial pulmonary disease, unspecified; B94.8 Sequelae of other specified infectious and parasitic diseases; Z20.828 Contact with and (suspected) exposure to other viral communicable diseases; J84.89 Other specified interstitial pulmonary diseases; E11.22 Type 2 diabetes mellitus with diabetic chronic kidney disease; D63.1 Anemia in chronic kidney disease; E11.21 Type 2 diabetes mellitus with diabetic nephropathy; E78.5 Hyperlipidemia, unspecified; R93.1 Abnormal findings on diagnostic imaging of heart and coronary circulation; M19.90 Unspecified osteoarthritis, unspecified site; R01.1 Cardiac murmur, unspecified; M54.16 Radiculopathy, lumbar region; E66.9 Obesity, unspecified; Z99.2 Dependence on renal dialysis; Z68.39 Body mass index [BMI] 39.0-39.9, adult; Z90.710 Acquired absence of both cervix and uterus; Z79.4 Long term (current) use of insulin
CPT/HCPCS: 36415; 36600; 71045; 71250; 78580; 80048; 80069; 80076; 82375; 82728; 82805; 82948; 83036; 83050; 83605; 83615; 83735; 83880; 85025; 85380; 85610; 85730; 86140; 86706; 87040; 87340; 87635; 87804; 90945; 93005; 93306; 93970; 94618; 96374; 96375; 97110; 97116; 97161; 97165; 99285; A9270; A9540; C9803; J0360; J1644; J1815; J1940; Q5106; U0003

== ENCOUNTER 2020-07-10 09:10 | Outpatient (CLI) | payer OTHER, SELFPAY ==
--- NOTE | ~2020-07-10 | NM_ITS ---
EXAMINATION: NM aubree stress w perfusion DATE: 07/10/2020 11:49 INDICATION: Congestive heart failure. TECHNIQUE: Rest images were obtained following intravenous administration of 9.4 mCi Tc99m tetrofosmi n (Myoview). The patient was infused intravenously with Lexiscan (regadenoson). Then, 30.1 mCi Tc99m tetrofosmin (Myoview) was administered intravenously, and stress images were obtained. Data was recon structed into short axis and horizontal and vertical long axis SPECT images. Gated SPECT images were also obtained. COMPARISON: Myocardial perfusion imaging 03/13/2011, chest CT 06/09/2020 FINDINGS: There is a moderate-sized, mild, fixed perfusion defect involving left ventricular anterior wall and mid anteroseptal segment, consistent with infarct. There is a moderate-sized, mild, fixed p erfusion defect involving mid to basal anterolateral wall and basal inferolateral segment of left norberto tricle, consistent with infarct. No reversible component to suggest ischemia. There is no segmental wall motion abnormality. Left ventricular ejection fraction measures 44%. IMPRESSION: 1. Moderate-sized area of mild infarct involving anterior wall and mid anteroseptal segment of left v entricle. 2. Moderate-sized area of mild infarct involving mid to basal anterolateral wall and basal inferolate ral segment of left ventricle. 3. Decreased left ventricular ejection fraction measuring 44%. Reviewed, dictated and finalized at location B. /DC REWINDER IMPRESSION: 1. Moderate-sized area of mild infarct involving anterior wall and mid anterose ptal segment of left ventricle. 2. Moderate-sized area of mild infarct involving mid to basal anterolateral wal l and basal inferolateral segment of left ventricle. 3. Decreased left ventricular ejection fraction measuring 44%.
--- NOTE | 2020-07-10 09:48 | EST_ITS ---
Patient Info Name: Rufina Saravia Age: 60 years : 1960 Gender: Female Ht: 60 in Wt: 181 lbs BSA: 1.90 m2 Exam Date: 07/10/2020 10:16 AM Exam Location: [facility] Stress Patient Status: Outpatient Admit Date: 07/10/2020 Staff Ordering Physician: Jayjay Love DO Attending Provider: Jayjay Love DO Exercise Technologist: Gia Soriano RDCS Exercise Physician: Eric Domínguez DO Exam Type: CA stress aubree w NM Study Info Indications I50.9 - Heart failure, unspecified J96.01 - Acute respiratory failure with hypoxia A regadenoson stress test was performed. Summary 1. 1. Negative lexiscan stress test for ischemic ST changes by ECG criteria. 2. 2. Baseline hypertension. 3. 3. Nuclear scan to follow and will be reported separately. Please correlate with it. 4. 4. Patient informed of the above results. Protocol: Lexiscan Stress ECG Details Stage: REST Duration (min): 9 min : 27 sec HR (bpm): 65 SBP (mmHg): 232 DBP (mmHg): 86 Stage: REST Duration (min): 12 min : 56 sec HR (bpm): 68 SBP (mmHg): 232 DBP (mmHg): 86 Stage: STAGE 1 Duration (min): 1 min : 0 sec HR (bpm): 77 SBP (mmHg): 232 DBP (mmHg): 86 Stage: RECOVERY Duration (min): 1 min : 0 sec HR (bpm): 83 SBP (mmHg): 191 DBP (mmHg): 79 Stage: RECOVERY Duration (min): 2 min : 0 sec HR (bpm): 84 SBP (mmHg): 190 DBP (mmHg): 81 Stage: RECOVERY Duration (min): 3 min : 0 sec HR (bpm): 82 SBP (mmHg): 193 DBP (mmHg): 82 Stage: RECOVERY Duration (min): 3 min : 3 sec HR (bpm): 82 SBP (mmHg): 193 DBP (mmHg): 82 Rest HR: 68 bpm Peak HR: 84 bpm Rest Sys BP: 232 mmHg Peak Sys BP: 193 mmHg Max Pred HR: 158 bpm % Max Pred HR: 53 % Target HR: 134 bpm Max RPP: 16,212 bpm*mmHg Termination Reason: Completed protocol Cardiac Symptoms: Shortness of breath Total Time: 1 min : 0 sec Rest Zaman BP: 86 mmHg Peak Zaman BP: 82 mmHg Total Dose: 0.4 mg Resting ECG Sinus rhythm, borderline ST-T wave in high lateral leads. Stress ECG No ST changes. Arrhythmias None. Report Signatures
== END 2020-07-10 09:11 | disposition home or self-care (01) ==
PROVIDERS: PCP Internal Medicine; Visit Provider Internal Medicine
DX: J96.01 Acute respiratory failure with hypoxia (principal); I50.9 Heart failure, unspecified
CPT/HCPCS: 78452; 93017; A9502; J2785

== ENCOUNTER 2020-07-14 12:16 | Inpatient (IN) | payer OTHER, SELFPAY ==
[2020-07-14] VITALS (11 sets, daily range): BP systolic 167–252; BP diastolic 64–128; PULSE 65–98; RESP 16–18; TEMP 36–36.9; O2SAT 96–100; BMI 36.1
--- NOTE | ~2020-07-14 | CT_ITS ---
EXAMINATION: CT brain wo con DATE: 07/14/2020 14:52 INDICATION: Syncope. TECHNIQUE: Computed tomography (CT) of the head was performed without intravenous contrast. The mA wa s adjusted according to patient size. Iterative reconstruction technique was employed. The dose-lengt h product was 605.33 mGy-cm. COMPARISON: Head CT 04/18/2019 FINDINGS: There is no intracranial hemorrhage, acute infarction, or abnormal intracranial mass lesion . The pituitary is now normal in size. The ventricles are normal in size. There is mild mucosal thick ening in sphenoid sinus. The mastoid air cells are normal. The orbits are normal. IMPRESSION: 1. Normal brain. Reviewed, dictated and finalized at location B. ITE PROJECT MANAGER IMPRESSION: 1. Normal brain.
--- NOTE | 2020-07-14 12:38 | ECG_ITS ---
Measurements Intervals [place] Rate: 70 P: 24 DC: 192 QRS: -11 QRSD: 84 T: 93 QT: 441 QTc: 477 Interpretive Statements SINUS RHYTHM BORDERLINE R WAVE PROGRESSION, ANTERIOR LEADS ST-T WAVE ABNORMALITY IN HIGH LATERAL LEADS- CONSIDER ISCHEMIA PEAKED T WAVES- CONSIDER HYPERKALEMIA OR ISCHEMIA BASELINE ARTIFACT- I, II, AVR, AVF ABNORMAL ECG Electronically Signed On 07-14-2020 13:04:30 SALVAGE WINDER by Eric Domínguez D.O.
[2020-07-14 13:03] LABS: Basophils Absolute Auto 0.1 K/mm3 (0.0-0.1); Basophils Percent Auto 0.9 % (0.2-1.2); Eosinophils Absolute Auto 0.2 K/mm3 (0-0.3); Eosinophils Percent Auto 2.6 % (0-4.4); Hematocrit 35.3 % (37.0-47.0); Immature Granulocyte Absolute 0.04 K/mm3 (0.00-0.031); Immature Granulocyte Percent A 0.4 % (0-0.5); Lymphocytes Absolute Auto 1.28 K/mm3 (0.9-3.2); Lymphocytes Percent Auto 13.9 % (18.3-44.2); Mean Corpuscular Hemoglobin 33.5 pg (26-34); Mean Corpuscular Volume 98.6 fl (80-100); Mean Platelet Volume 10.2 fl (7.4-10.4); Monocytes Absolute Auto 0.6 K/mm3 (0.1-0.6); Monocytes Percent Auto 6.3 % (2.6-8.5); Neutrophils Percent Auto 75.9 % (45.5-73.1); Platelet Count Result 308 k/mm3 (150-375); Red Blood Count 3.58 M/mm3 (4.2-5.4); Red Cell Distribution Width 13.4 % (11.5-14.5); White Blood Count 9.2 K/mm3 (4.5-10.0)
[2020-07-14 13:08] LABS: Add Urine Microscopic? YES; Appearance Urine Clear (Clear); Bacteria Urine Trace /hpf; Bilirubin Urine Negative (Negative); Blood Urine Negative (Negative); Color Urine Straw (Yellow); Glucose Urine UA 3+ mg/dL (Negative); Ketones Urine Negative (Negative); Leukocyte Esterase Ur Negative LEU/UL (Negative); Mucus Urine Rare /lpf; Nitrate Urine Negative (Negative); Protein Urine 3+ mg/dL (Negative); Specific Grav Ur 1.012 (1.001-1.035); Squamous Epithelial Cell Urine Rare /hpf (Few); Urobilinogen Urine Negative mg/dL (<2.0)
[2020-07-14 13:17] LABS: Anion Gap 12 mmol/L (8-16); Blood Urea Nitrogen 66 mg/dL (7-17); Calcium 7.8 mg/dL (8.4-10.2); Carbon Dioxide 28 mmol/L (22-30); Chloride 92 mmol/L (98-107); Estimated Glomerular Filt Rate 4; Glucose 180 mg/dL (65-105); Potassium 5.4 mmol/L (3.4-5.0); Sodium 132 mmol/L (137-145)
[2020-07-14] MEDS: hydrALAZINE HCL 20 MG/ML VIAL 10 MG IV PUSH (14:10)
[2020-07-14 14:25] LABS: Lactic Acid Reflex 0.9 mmol/L (0.7-2.1)
[2020-07-14 14:26] LABS: Alanine Aminotransferase 13 U/L (4-35); Albumin Level 3.5 g/dL (3.5-5.1); Alkaline Phosphatase 106 U/L (38-126); Aspartate Amino Transferase 28 U/L (14-36); Bilirubin,Total 0.5 mg/dL (0.2-1.3)
[2020-07-14 14:38] LABS: Troponin I 0.024 ng/mL (0.000-0.034)
--- NOTE | 2020-07-14 15:16 | ED.GENADULT ---
HPI - General Adult General Chief complaint: Recheck/Abnormal Lab/Rx Stated complaint: high blood pressure Time Seen by Provider: 07/14/20 13:28 History of Present Illness HPI narrative: Patient is a 60-year-old female who presents the emergency department with chief complaint of head tingling and passing out. The patient states that she has history of hypertension noticed that her blood pressure was running in the 250s today and but also reports that she has been having episodes where she keeps passing out. Patient states has been worse over the last several days states that she had a tingling sensation over her body this morning. Patient denies shortness of breath reports that she is a peritoneal dialysis patient Related Data Home Medications Medication Instructions Recorded Confirmed insulin aspart U-100 [Novolog 1 sliding scale dose SUBCUT 04/29/19 06/26/20 PenFill U-100 Insulin] USEASDIRECTD aspirin 81 mg tablet,delayed 81 mg PO DAILY 10/11/19 06/26/20 release calcium acetate 667 mg tablet 667 tablet PO TID 01/10/20 06/26/20 diphenhydramine HCl 25 mg capsule 25 mg PO Q6H PRN 01/10/20 06/26/20 furosemide 40 mg tablet 40 mg PO BID 01/10/20 06/26/20 calcitriol 0.25 mcg capsule 0.25 mcg PO DAILY 05/30/20 06/26/20 ergocalciferol (vitamin D2) 1,250 1,250 mcg PO WEEKLY 05/30/20 06/26/20 mcg (50,000 unit) capsule ferric citrate 210 mg iron tablet 210 mg PO BID tablet 05/30/20 06/26/20 hydralazine 100 mg tablet 100 mg PO TID tablet 05/30/20 06/26/20 ondansetron 8 mg disintegrating 8 mg PO Q12H 06/30/20 tablet Allergies Allergy/AdvReac Type Severity Reaction Status Date / Time No Known Allergies Allergy Unknown Verified 07/14/20 12:22 Review of Systems Review of Systems: Narrative: A 10 system review of systems was completed on the patient and is negative except for what is stated in the HPI. Nursing and ancillary documentation was reviewed. 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 He is the durable power commercial attorney for healthcare. She has 4 children. Her 1 daughter works here. The patient thinks she wants to be a full code. She does not use alcohol or illicit drugs. Smoking status: Never smoker Alcohol intake: never Substance use: never Gender identity (if verbalized by the patient): Female Spiritual care concerns: No Exam Narrative: Exam Narrative: GENERAL: Well-appearing, well-nourished, and in no acute distress. HEAD: Normocephalic, atraumatic. EYES: PERRLA and EOMI. ENT: Nares clear, no rhinorrhea or epistaxis. Mucous membranes moist. NECK: Supple. CHEST: Clear to auscultation. No respiratory distress. HEART: Regular rate and rhythm. No murmur heard. Normal peripheral pulses. ABDOMEN: Soft, nontender, nondistended, normal active bowel sounds. EXTREMITIES: Normal range of motion. No edema. SKIN: Warm, dry, no rash. NEURO: No focal deficits. Alert and oriented x3. PSYCH: Normal mood and affect. Course Vital Signs Vital signs: Vital Signs Temperature 36.4 C 07/14/20 12:19 Pulse Rate 68 07/14/20 12:19 Respiratory Rate 16 07/14/20 12:19 Blood Pressure 252/88 H 07/14/20 12:19 Pulse Oximetry 100 07/14/20 12:19 Temperature 36.4
--- NOTE | 2020-07-14 16:30 | PM.EVENT ---
Event Note Event Note Event Note: On PD bentley it well. seen at 4:30pm
--- NOTE | 2020-07-14 16:33 | PM.CNNEP ---
Assessment and Plan Assessment and plan (1) End stage kidney disease: Code(s): N18.6 - End stage renal disease Status: Acute Assessment and Plan: the patient has end-stage renal disease. She is on peritoneal dialysis nightly. I talked with the dialysis nurses and they will come to night to hook her up. (2) Syncope: Qualifiers: Syncope type: unspecified Qualified Code(s): R55 - Syncope and collapse Code(s): R55 - Syncope and collapse Status: Acute Assessment and Plan: The patient fainted several times. This has been thought to be due to the low sugars. Her sugars are high while she is on PD but then during the day her belly is empty and so her sugars rely on her eating and gluconeogenesis to keep the sugars up. The patient has renal failure which is a major organ of gluconeogenesis and so she relies solely on her liver for this. She has no history of liver disease and no history of drinking or hepatitis. So I do not think this is the issue. She probably just needs less insulin. I wonder of Program in the pump to give her insulin only at night might work. Or possibly just shot of NPH at night to cover the sugar from the peritoneal dialysis. The other issue was that there was no warning for her fainting. This might be because of labetalol inhibiting the adrenergic mechanism for the symptoms of impending hypoglycemia. So will start to wean the labetalol. We cannot suddenly stop this. So I will cut it back from 200 twice a day to 100 3 times a day and continue to wean. 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 Will leave on hydralazine and on her furosemide. Will add lisinopril 40 daily. She used to be on this. Consider nifedipine if this is not enough, especially as we wean the labetalol. (5) Congestive heart failure: Code(s): I50.9 - Heart failure, unspecified Status: Acute Assessment and Plan: This is well compensated ri (6) Anemia: Code(s): D64.9 - Anemia, unspecified Status: Chronic Assessment and Plan: Hemoglobin is 12. We do not need Epogen and with her blood pressure like this we probably should not give it anyway. History of Present Illness Reason for Consult Consult date: 07/14/20 Chief Complaint Chief complaint: high blood pressure History of Present Illness Narrative: Rufina is a very pleasant 60-year-old lady who has multiple medical problems including end-stage renal disease on peritoneal dialysis, diabetes, hypertension, Richmond's palsy, and hyperlipidemia. The patient has been having problems with her blood sugars. Her sugars are high when she wakes up in the morning because she has been on peritoneal dialysis all night. However during the day the sugars were low and she constantly has to eat skittles to keep the sugar up. She has cut back on her insulin pump but still get some insulin during the day. She says that occasionally her blood sugars will drop into the 70s and then she faints. This has happened several times over the last few weeks. She says that she has no warning when h
--- NOTE | 2020-07-14 18:39 | PM.IMHP ---
H&P: HPI History of Present Illness Date/Time: 07/14/20 18:39 Chief Complaint: Dizziness Narrative: Rufina Saravia is a 60 year old female female with history of end-stage renal disease on peritoneal dialysis as well as type 1 diabetes on insulin pump patient presented emergency department with a complaint being dizzy syncopal episode and feels tingling all over her body, was seen by her ocular care technologist and suspect most likely patient has gets into hypoglycemia due to peritoneal dialysis during daytime as patient is not able remove excess insulin until during peritoneal dialysis at nighttime and over correction by her insulin pump, becomes hyperglycemic patient feels dizzy and has syncopal episode similarly patient gets very anxious and may developed elevated blood pressure, while in the hospital will turn off her insulin pump, also patient is on beta-meliza labetalol this will block adrenergic neuroendocrine mechanism and patient may not able to sense hypoglycemia resulting dizziness, became anxious this may also elevate her blood pressure, Dr. Anguiano has decided to taper patient's labetalol 200 mg BID to 100 mg t.i.d. and gradually wean the patient off the labetalol, compensated her blood pressure patient being treated with hydralazine, lisinopril, Lasix and clonidine. Will continue to monitor, will consult diabetes educator further recommendation to manage her diabetes. Will start the patient on low sliding scale and monitor patient blood sugar, Patient was seen by Dr. Anguiano and has scheduled PD tonight, will monitor patient in the morning and further recommendation to follow Review of Systems Review of Systems: All systems reviewed & are unremarkable except as noted in HPI and below PMFSH Past Medical History Medical History (Updated 07/15/20 @ 12:57 by Leta Lyman MD) Bone spur DM renal manif type II End stage renal disease on dialysis Peritoneal dialysis since September 2019 Hemorrhoids History of Richmond's palsy HLD (hyperlipidemia) HTN (hypertension) Lumbar radiculopathy Mumps Osteoarthritis Pituitary abscess Surgical History Surgical History H/O: hysterectomy History of delivery X3 Family History Family History (Updated 07/15/20 @ 12:46 by Leta Lyman MD) Mother Diabetes mellitus of complications of diabetes, no heart disease Sibling Diabetes mellitus Father Motor vehicle accident Social History Social History 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 He is the durable power insurance defense attorney for healthcare. She has 4 children. Her 1 daughter works here. The patient thinks she wants to be a full code. She does not use alcohol or illicit drugs. Smoking status: Never smoker Alcohol intake: never Substance use: never Substance use type: does not use Gender identity (if verbalized by the patient): Female Spiritual care concerns: No Meds Home Medications and Allergies Home Medications Medication Instructions Recorded Confirmed Type insulin aspart U-100 [Novolog 1 sliding scale dose SUBCUT 04/29/19 07/14/20 History PenFill U-100 Insulin] USEASDIRECTD aspirin 81 mg tablet,delayed 81 mg PO DAILY 10/11/19 07/14/20 History release calcium acetate 667 mg tablet 667 tablet PO TID 01/10/20 07/14/20 History diphenhydramine HCl 25 mg capsule 25 mg PO Q6H PRN 01/10/20 07/14/20 History furosemide 40 mg tablet 40 mg PO BID 01/10/20 07/14/20 History calcitriol 0.25 mcg capsule 0.25 mcg PO DAILY 05/30/20 07/14/20 History ergocalciferol (vitamin D2) 1,250 1,250 mcg PO WEEKLY 05/30/20 07/14/20 History mcg (50,000 unit) capsule ferric citrate 210 mg iron tablet 210 mg PO BID tablet 05/30/20 07/14/20 History hydralazine 100 mg tablet 100 mg PO TID tablet 05/30/20 07/14/20 History labetalol 300 mg PO Q12HR #180 tablet 06/02/20 07/14/20
[2020-07-14] MEDS: LABETALOL HCL 100 MG TABLET PO (18:55)
[2020-07-14] MEDS: hydrALAZINE HCL 50 MG TABLET 100 MG PO (18:55)
[2020-07-14] MEDS: FUROSEMIDE 80 MG TABLET PO (18:56)
[2020-07-14 19:04] LABS: Troponin I 0.021 ng/mL (0.000-0.034)
[2020-07-14 19:13] LABS: Glucose Point of Care 114 (65-105)
--- NOTE | 2020-07-14 19:38 | ADMGEN ---
This patient, Rufina Saravia, was admitted to 2 Medical Room 257-01 @ 1902 Patient/family oriented to hospital policies and general routines including ID bracelet, bed and alarms, visiting hours, pain management, procedures, bathroom and other care routines, personal items, smoking policy, room service/diet, and visiting hours. Information on how to activate the Rapid Response Team has been discussed. Patient/Family are encouraged to report perceived risks to care and to ask questions if they do not understand what they are told or what they should do.
[2020-07-14 20:16] LABS: Hepatitis B Surface Antigen Negative (Negative)
[2020-07-14 20:35] LABS: Hepatitis B Surface Anti Res Positive
[2020-07-14 21:52] LABS: Troponin I 0.022 ng/mL (0.000-0.034)
[2020-07-15] VITALS (18 sets, daily range): BP systolic 160–216; BP diastolic 50–76; PULSE 60–80; RESP 14–23; TEMP 36.1–37.1; O2SAT 93–100
[2020-07-15 00:03] LABS: Glucose Point of Care 186 (65-105)
[2020-07-15] MEDS: diphenhydrAMINE HCl CAP 25 MG CAPSULE PO ×2 (00:36→22:05)
[2020-07-15] MEDS: hydrALAZINE HCL 50 MG TABLET 100 MG PO ×3 (04:17→21:55)
[2020-07-15] MEDS: LABETALOL HCL 100 MG TABLET PO ×3 (04:17→21:54)
[2020-07-15 06:05] LABS: Hematocrit 30.9 % (37.0-47.0); Hemoglobin 10.5 g/dL (12.0-15.0); Mean Corpuscular Hemoglobin 32.8 pg (26-34); Mean Corpuscular Volume 96.6 fl (80-100); Mean Platelet Volume 10.1 fl (7.4-10.4); Platelet Count Result 300 k/mm3 (150-375); Red Cell Distribution Width 13.3 % (11.5-14.5); White Blood Count 7.9 K/mm3 (4.5-10.0)
[2020-07-15 06:17] LABS: Albumin Level 3.4 g/dL (3.5-5.1); Anion Gap 10 mmol/L (8-16); Blood Urea Nitrogen 58 mg/dL (7-17); Calcium 8.1 mg/dL (8.4-10.2); Carbon Dioxide 27 mmol/L (22-30); Chloride 96 mmol/L (98-107); Estimated CRCL calculation 5 ml/min; Estimated Glomerular Filt Rate 3; Glucose 170 mg/dL (65-105); Magnesium 2.7 mg/dL (1.6-2.3); Potassium 4.7 mmol/L (3.4-5.0); Sodium 133 mmol/L (137-145)
[2020-07-15 07:28] LABS: Glucose Point of Care 146 (65-105)
[2020-07-15] MEDS: lisinopriL 20 MG TABLET 40 MG PO (08:00)
[2020-07-15] MEDS: FUROSEMIDE 80 MG TABLET PO ×2 (08:00→16:30)
--- NOTE | 2020-07-15 11:31 | PM.CNCAR ---
Assessment and Plan Assessment and plan (1) Syncope: Qualifiers: Syncope type: unspecified Qualified Code(s): R55 - Syncope and collapse Code(s): R55 - Syncope and collapse Status: Acute Assessment and Plan: Patient has had a couple episodes of syncope recently with prodrome. They certainly sound like they could be from hypoglycemia but of course we should rule out arrhythmia since she has an abnormal stress test, and orthostasis since she has had nausea and anorexia and could have a neuropathy 2nd long standing DM. So far no arrhythmias showed up on telemetry. She may have a degree of left ventricular dysfunction which can be associated w/ arrhythmias but test results are discrepant. Echo showed EF greater than 70% by Lexiscan showed EF of 44%. Check orthostatics. Outpatient 2 week monitor. (2) Hypertension: Qualifiers: Hypertension type: unspecified Qualified Code(s): I10 - Essential (primary) hypertension Code(s): I10 - Essential (primary) hypertension Status: Acute Assessment and Plan: Systolic blood pressure running greater than 200 at home. Unclear if the patient is taking labetalol 300 mg b.i.d. but currently on 100 mg q.8 hours. Can add amlodipine if blood pressure remains elevated. (3) End stage kidney disease: Code(s): N18.6 - End stage renal disease Status: Acute Assessment and Plan: On peritoneal dialysis (4) Hypoglycemia: Code(s): E16.2 - Hypoglycemia, unspecified Status: Acute Assessment and Plan: Recurrent hypoglycemia, management per hospitalist. (5) Abnormal stress test: Code(s): R94.39 - Abnormal result of other cardiovascular function study Status: Acute Assessment and Plan: Stress test showed no ischemia but a couple fixed defects. No history consistent with old OK an EKG does not show any signs of old OK but patient has risk factors for CAD. However this may be artifact secondary to obesity or scars related hypertension etc. (6) Hyperkalemia: Code(s): E87.5 - Hyperkalemia Status: Acute Assessment and Plan: Veyr mild hyperkalemia on admission w/ slight T wave changed and peaking of T waves, resolved. History of Present Illness History of Present Illness Consult date/time: 07/15/20 11:31 Requesting physician: Tino Scott MD Reason For Visit: syncope, hypertension, ESRD Narrative: Date of service: 07/15/2020 Mrs. Rufina Queen is a 60-year-old white female dialysis patient with hypertension whom we were asked to see at the request of Dr. Scott for advice and opinion regarding her recurrent syncope, in consultation. Patient states that when her blood sugar is less than 80, she has to ?watch out.? Apparently she is very sensitive to hypoglycemia. Her found her last urine conscious with a blood sugar of 34 another time last year she had a syncopal episode while sitting on the toilet, and she fell forward. Her blood sugar was low then. A week ago on Friday the patient was cooking and felt bad. She does not describe any dizziness, but felt funny in her head, her arms felt weak and she could not control them well. She then realized that she was passing out, feeling her face hit the floor in front of her, and loss consciousness. When she woke she sat up in 8 some sugar, and later got up. She had minor injuries with a bruise from her glasses over nose, and her right upper extremity bruise. Blood sugar was 64. Last Friday she was taking her lunch to the table and she felt funny and felt like she had hold on to things.. Was eating chocolate and candy b
[2020-07-15 11:42] LABS: Glucose Point of Care 177 (65-105)
--- NOTE | 2020-07-15 13:29 | PM.PNNEP ---
Progress Note: A&P Assessment and Plan (1) End stage kidney disease: Code(s): N18.6 - End stage renal disease Status: Acute Assessment and Plan: the patient has end-stage renal disease. She is on peritoneal dialysis nightly. Continue the same dialysis. (2) Syncope: Qualifiers: Syncope type: unspecified Qualified Code(s): R55 - Syncope and collapse Code(s): R55 - Syncope and collapse Status: Acute Assessment and Plan: The patient fainted several times. This has been thought to be due to the low sugars. No more fainting spells but also no more low sugars while here. Evaluation in progress (3) DM renal manif type II: Qualifiers: Diabetes mellitus alf insulin use: with terminal superintendent use Diabetes mellitus complication detail: with chronic kidney disease Chronic kidney disease stage: stage 3 (moderate) Chronic kidney disease stage 3 subtype: stage 3a (GFR 45-59) Qualified Code(s): E11.21 - Type 2 diabetes mellitus with diabetic nephropathy; N18.31 - Chronic kidney disease, stage 3a; Z79.4 - skilled nursing (current) use of insulin Code(s): E11.29 - Type 2 diabetes mellitus with other diabetic kidney complication Status: Chronic Assessment and Plan: sugars doing pretty well. On Accu-Cheks plus sliding scale. (4) Hypertension: Qualifiers: Hypertension type: unspecified Qualified Code(s): I10 - Essential (primary) hypertension Code(s): I10 - Essential (primary) hypertension Status: Acute Assessment and Plan: blood pressure is better. It is in the 170s. Continue to wean the labetalol. Will start nifedipine tomorrow (5) Congestive heart failure: Code(s): I50.9 - Heart failure, unspecified Status: Acute Assessment and Plan: This is well compensated (6) Anemia: Code(s): D64.9 - Anemia, unspecified Status: Chronic Assessment and Plan: Hemoglobin is 10.5 today. See what it is tomorrow. And if still below 11 And if the blood pressure is betterwe can give her some EPO. Subjective Date/time seen: 07/15/20 13:29 Interval history: patient is feeling okay today. No chest pain or shortness of Breath dialysis went well last night. Review of Systems Cardiovascular: Cardiovascular: Reports no additional cardiovascular complaints Respiratory: Respiratory: Reports no additional respiratory complaints Gastrointestinal: Gastrointestinal: Reports no additional gastrointestinal complaints Genitourinary: Genitourinary: Reports no additional female genitourinary complaints Exam Narrative: Exam Narrative: WDWN in NAD skin no rash head ncat lungs clear cor reg no rub abd BS+ nontender and soft ext no edema. Objective Data Vital Signs Vital Signs: Vital Signs - 24 hr 07/14/20 14:15 07/14/20 15:30 07/14/20 16:27 Temperature Pulse Rate 74 69 73 Respiratory Rate 16 17 16 Blood Pressure 222/70 H 235/90 H 214/75 H Pulse Oximetry 98 97 98 07/14/20 17:02 07/14/20 18:55 07/14/20 19:01 Temperature Pulse Rate 77 98 72 Respiratory Rate 16 16 Blood Pressure 195/128 H 212/88 H Pulse Oximetry 98 96 07/14/20 19:28 07/14/20 20:00 07/14/20 22:00 Temperature 36.9 C 36.0 C L Pulse Rate 72 66 65 Respiratory Rate 16 18 Blood Pressure 212/88 H 167/64 H Pulse Oximetry 96 07/15/20 00:00 07/15/20 04:00 07/15/20 04:17 Temperature Pulse Rate 66 73 68 Respiratory Rate Blood Pressure Pulse Oximetry 07/15/20 05:59 07/15/20 08:00 07/15/20 11:03 Temperature 36.3 C L 36.1 C L Pulse Rate 68 67 62 Respiratory Rate 20 19 Blood Pressure 173/76 H 172/63 H Pulse Oximetry 100 99 Intake/Output Intake/Output: Intake & Output 07/12/20 07/13/20 07/14/20 07/15/20 23:59 23:59 23:59 23:59 Intake Total 640 Output Total 1698 Balance -1058 Meds/Results Medications: Active Medicati
[2020-07-15] MEDS: HEPARIN SODIUM 5,000 UNITS/ML VIAL 5000 UNITS SUB-Q ×2 (14:57→21:54)
[2020-07-15 15:48] LABS: Glucose Point of Care 196 (65-105)
[2020-07-15] MEDS: CALCIUM ACETATE 667 MG TABLET PO (16:30)
[2020-07-15] MEDS: clonazePAM (*CRX) 0.5 MG TABLET PO (16:30)
--- NOTE | 2020-07-15 16:31 | PM.IMPN ---
Progress Note: A&P Assessment and Plan (1) Hypoglycemia: Code(s): E16.2 - Hypoglycemia, unspecified Status: Acute Assessment and Plan: 07/15/20 16:31 07/14 Rufina Saravia is a 60 year old female female with history of end-stage renal disease on peritoneal dialysis as well as type 1 diabetes on insulin pump patient presented emergency department with a complaint being dizzy syncopal episode and feels tingling all over her body, was seen by her database administration project manager and suspect most likely patient has gets into hypoglycemia due to peritoneal dialysis during daytime as patient is not able remove excess insulin until during peritoneal dialysis at nighttime and over correction by her insulin pump, becomes hyperglycemic patient feels dizzy and has syncopal episode similarly patient gets very anxious and may developed elevated blood pressure, while in the hospital will turn off her insulin pump, also patient is on beta-meliza labetalol this will block adrenergic neuroendocrine mechanism and patient may not able to sense hypoglycemia resulting dizziness, became anxious this may also elevate her blood pressure, Dr. Anguiano has decided to taper patient's labetalol 200 mg BID to 100 mg t.i.d. and gradually wean the patient off the labetalol, compensated her blood pressure patient being treated with hydralazine, lisinopril, Lasix and clonidine. Will continue to monitor, will consult health educator further recommendation to manage her diabetes. Will start the patient on low sliding scale and monitor patient blood sugar, Patient was seen by Dr. Anguiano and has scheduled PD tonight, will monitor patient in the morning and further recommendation to follow 07/15 today patient still feels anxious and complains of numbness and tingling in her arms and legs however patient blood sugars a close to normal as we have stopped insulin pump started the patient low-dose sliding scale, patient seen by database administration project manager and will have scheduled PD, patient also seen by head golf professional for syncopal episode and workup is in progress and further recommendation to follow, consult health educator for further recommendation (2) Hyperkalemia: Code(s): E87.5 - Hyperkalemia Status: Acute Assessment and Plan: Most likely secondary to end-stage renal disease, patient will have PD tonight and will monitor and plan. (3) Hypertension: Qualifiers: Hypertension type: unspecified Qualified Code(s): I10 - Essential (primary) hypertension Code(s): I10 - Essential (primary) hypertension Status: Acute Assessment and Plan: Patient seen by Dr. Anguiano and and her medications are being adjusted (4) End stage kidney disease: Code(s): N18.6 - End stage renal disease Status: Acute Assessment and Plan: Patient on peritoneal dialysis seen by Dr. Anguiano. (5) DM renal manif type II: Qualifiers: Diabetes mellitus senior care insulin use: with senior care use Diabetes mellitus complication detail: with chronic kidney disease Chronic kidney disease stage: stage 3 (moderate) Chronic kidney disease stage 3 subtype: stage 3a (GFR 45-59) Qualified Code(s): E11.21 - Type 2 diabetes mellitus with diabetic nephropathy; N18.31 - Chronic kidney disease, stage 3a; Z79.4 - alf (current) use of insulin Code(s): E11.29 - Type 2 diabetes mellitus with other diabetic kidney complication Status: Chronic Assessment and Plan: Patient on insulin pump which is on hold will place the patient low sliding scale will have health educator for further recommendation. Subjective Date/time seen: 07/15/20 16:31 07/14 Rufina Saravia is a 60 year old female female with history of end-stage renal disease on peritoneal dialysis as well as type 1 diabetes on insulin pump patient presented emergency department with a complaint being dizzy syncopal episode and feels tingling all over her body, was seen by her database administration project manager and
[2020-07-15 17:07] LABS: Glucose Point of Care 160 (65-105)
--- NOTE | 2020-07-15 20:55 | PHAR ---
The patient's home med of Ferric Citrate [Auryxia] 210 mg iron tablet has been verified.
[2020-07-15 22:20] LABS: Glucose Point of Care 196 (65-105)
[2020-07-15] MEDS: ACETAMINOPHEN 325 MG TABLET 650 MG PO (22:49)
[2020-07-16] VITALS (18 sets, daily range): BP systolic 152–205; BP diastolic 53–66; PULSE 66–91; RESP 18–21; TEMP 36.2–37.1; O2SAT 97–100
[2020-07-16 05:56] LABS: Hematocrit 30.6 % (37.0-47.0); Hemoglobin 10.5 g/dL (12.0-15.0); Mean Corpuscular HGB Conc 34.3 g/dl (32-36); Mean Corpuscular Hemoglobin 33.7 pg (26-34); Mean Corpuscular Volume 98.1 fl (80-100); Platelet Count Result 317 k/mm3 (150-375); Red Blood Count 3.12 M/mm3 (4.2-5.4); Red Cell Distribution Width 13.4 % (11.5-14.5); White Blood Count 7.5 K/mm3 (4.5-10.0)
[2020-07-16] MEDS: hydrALAZINE HCL 50 MG TABLET 100 MG PO ×3 (06:10→21:00)
[2020-07-16] MEDS: LABETALOL HCL 100 MG TABLET PO (06:11)
[2020-07-16 06:12] LABS: Albumin Level 3.3 g/dL (3.5-5.1); Anion Gap 15 mmol/L (8-16); Blood Urea Nitrogen 57 mg/dL (7-17); Calcium 7.7 mg/dL (8.4-10.2); Carbon Dioxide 24 mmol/L (22-30); Chloride 92 mmol/L (98-107); Estimated CRCL calculation 5 ml/min; Estimated Glomerular Filt Rate 4; Glucose 169 mg/dL (65-105); Magnesium 2.6 mg/dL (1.6-2.3); Phosphorus 12.1 mg/dL (2.5-4.5); Potassium 4.7 mmol/L (3.4-5.0); Sodium 131 mmol/L (137-145)
[2020-07-16 08:14] LABS: Glucose Point of Care 150 (65-105)
[2020-07-16] MEDS: ASPIRIN 81 MG ENTERIC TABLET PO (09:00)
[2020-07-16] MEDS: calcitrioL 0.25 MCG CAPSULE PO (09:01)
[2020-07-16] MEDS: CALCIUM ACETATE 667 MG TABLET PO (09:01)
[2020-07-16] MEDS: HEPARIN SODIUM 5,000 UNITS/ML VIAL 5000 UNITS SUB-Q ×2 (09:01→20:57)
[2020-07-16] MEDS: FUROSEMIDE 80 MG TABLET PO ×2 (09:01→17:24)
[2020-07-16] MEDS: lisinopriL 20 MG TABLET 40 MG PO (09:01)
--- NOTE | 2020-07-16 09:40 | ECG_ITS ---
Measurements Intervals [place] Rate: 70 P: 46 OK: 182 QRS: -3 QRSD: 90 T: 107 QT: 464 QTc: 502 Interpretive Statements SINUS RHYTHM POSSIBLE LEFT ATRIAL ENLARGEMENT DELAYED PRECORDIAL R/S TRANSITION VOLTAGE CRITERIA FOR LVH ST-T WAVE ABNORMALITY IN HIGH LATERAL LEADS- CONSIDER ISCHEMIA ABNORMAL ECG Electronically Signed On 07-16-2020 10:00:51 VENDOR ANALYST by Eric Domínguez D.O.
--- NOTE | 2020-07-16 11:05 | PM.IMPN ---
Progress Note: A&P Assessment and Plan (1) Hypoglycemia: Code(s): E16.2 - Hypoglycemia, unspecified Status: Acute Assessment and Plan: 07/16/20 11:05 07/14 Rufina Saravia is a 60 year old female female with history of end-stage renal disease on peritoneal dialysis as well as type 1 diabetes on insulin pump patient presented emergency department with a complaint being dizzy syncopal episode and feels tingling all over her body, was seen by her wheel mill operator and suspect most likely patient has gets into hypoglycemia due to peritoneal dialysis during daytime as patient is not able remove excess insulin until during peritoneal dialysis at nighttime and over correction by her insulin pump, becomes hyperglycemic patient feels dizzy and has syncopal episode similarly patient gets very anxious and may developed elevated blood pressure, while in the hospital will turn off her insulin pump, also patient is on beta-meliza labetalol this will block adrenergic neuroendocrine mechanism and patient may not able to sense hypoglycemia resulting dizziness, became anxious this may also elevate her blood pressure, Dr. Anguiano has decided to taper patient's labetalol 200 mg BID to 100 mg t.i.d. and gradually wean the patient off the labetalol, compensated her blood pressure patient being treated with hydralazine, lisinopril, Lasix and clonidine. Will continue to monitor, will consult chemical educator further recommendation to manage her diabetes. Will start the patient on low sliding scale and monitor patient blood sugar, Patient was seen by Dr. Anguiano and has scheduled PD tonight, will monitor patient in the morning and further recommendation to follow 07/15 today patient still feels anxious and complains of numbness and tingling in her arms and legs however patient blood sugars a close to normal as we have stopped insulin pump started the patient low-dose sliding scale, patient seen by wheel mill operator and will have scheduled PD, patient also seen by import customs clearing agent for syncopal episode and workup is in progress and further recommendation to follow, consult chemical educator for further recommendation. 07/16 patient did get her PD last night, today patient states feeling much better denies any dizziness, numbness or tingling, blood pressure is trending down, her blood sugars are stable and patient is not received any insulin, we have consulted staff development educator to assist and managing her diabetes educate the patient, will continue present management patient will be seen by Dr. Anguiano and further recommendation to follow (2) Hyperkalemia: Code(s): E87.5 - Hyperkalemia Status: Acute Assessment and Plan: Most likely secondary to end-stage renal disease, patient will have PD tonight and will monitor and plan. (3) Hypertension: Qualifiers: Hypertension type: unspecified Qualified Code(s): I10 - Essential (primary) hypertension Code(s): I10 - Essential (primary) hypertension Status: Acute Assessment and Plan: Patient seen by Dr. Anguiano and and her medications are being adjusted (4) End stage kidney disease: Code(s): N18.6 - End stage renal disease Status: Acute Assessment and Plan: Patient on peritoneal dialysis seen by Dr. Anguiano. (5) DM renal manif type II: Qualifiers: Chronic kidney disease stage: stage 3 (moderate) Chronic kidney disease stage 3 subtype: stage 3a (GFR 45-59) Diabetes mellitus complication detail: with chronic kidney disease Diabetes mellitus precision jig grinder insulin use: with precision jig grinder use Qualified Code(s): E11.21 - Type 2 diabetes mellitus with diabetic nephropathy; N18.31 - Chronic kidney disease, stage 3a; Z79.4 - halfway (current) use of insulin Code(s): E11.29 - Type 2 diabetes mellitus with other diabetic kidney complication Status: Chronic Assessment and Plan: Patient on insulin pump which is on hold will place the patient low s
--- NOTE | 2020-07-16 11:17 | PM.PNNEP ---
Progress Note: A&P Assessment and Plan (1) End stage kidney disease: Code(s): N18.6 - End stage renal disease Status: Acute Assessment and Plan: the patient has end-stage renal disease. She is on peritoneal dialysis every day. Continue the same dialysis. (2) Syncope: Qualifiers: Syncope type: unspecified Qualified Code(s): R55 - Syncope and collapse Code(s): R55 - Syncope and collapse Status: Acute Assessment and Plan: The patient fainted several times. This has been thought to be due to the low sugars. Sugars have been good. (3) DM renal manif type II: Qualifiers: Diabetes mellitus laborer marine terminal insulin use: with senior care use Diabetes mellitus complication detail: with chronic kidney disease Chronic kidney disease stage: stage 3 (moderate) Chronic kidney disease stage 3 subtype: stage 3a (GFR 45-59) Qualified Code(s): E11.21 - Type 2 diabetes mellitus with diabetic nephropathy; N18.31 - Chronic kidney disease, stage 3a; Z79.4 - prison (current) use of insulin Code(s): E11.29 - Type 2 diabetes mellitus with other diabetic kidney complication Status: Chronic Assessment and Plan: sugars doing pretty well. On Accu-Cheks plus sliding scale. (4) Hypertension: Qualifiers: Hypertension type: unspecified Qualified Code(s): I10 - Essential (primary) hypertension Code(s): I10 - Essential (primary) hypertension Status: Acute Assessment and Plan: blood pressure is better. It is in the 150s. Change labetalol to 50 twice a day and add nifedipine 30 (5) Congestive heart failure: Code(s): I50.9 - Heart failure, unspecified Status: Acute Assessment and Plan: This is well compensated (6) Anemia: Code(s): D64.9 - Anemia, unspecified Status: Chronic Assessment and Plan: Hemoglobin is 10.5 today. Start EPO (7) Renal osteodystrophy: Code(s): N25.0 - Renal osteodystrophy Status: Acute Assessment and Plan: Phosphorus is a whopping 12.5. We discussed how dangerous it is to have high phosphorus levels. This leads to vascular disease thin bones pathologic fractures and calciphylaxis. Dialysis patients live longer if the phosphorus is controlled. Aurixia gives her diarrhea she tells me. She was given a new binder at home but she has not started taking it yet. I believe it is probably Velphoro. Will give her PhosLo 3 tabs and sevelamer 3 tabs with every meal. Subjective Date/time seen: 07/16/20 11:17 Interval history: patient is feeling okay today. No chest pain or shortness of Breath On peritoneal dialysis and tolerating well. She was seen at 10:30 a.m. Review of Systems Cardiovascular: Cardiovascular: Reports no additional cardiovascular complaints Respiratory: Respiratory: Reports no additional respiratory complaints Gastrointestinal: Gastrointestinal: Reports no additional gastrointestinal complaints Genitourinary: Genitourinary: Reports no additional female genitourinary complaints Exam Narrative: Exam Narrative: WDWN in NAD skin no rash head ncat lungs clear cor reg no rub abd BS+ nontender and soft ext no edema. Objective Data Vital Signs Vital Signs: Vital Signs - 24 hr 07/15/20 12:00 07/15/20 14:00 07/15/20 14:21 Temperature 36.2 C L Pulse Rate 72 66 60 Respiratory Rate 14 Blood Pressure 207/65 H Pulse Oximetry 99 07/15/20 14:47 07/15/20 15:42 07/15/20 15:43 Temperature Pulse Rate 64 74 Respiratory Rate 23 H Blood Pressure 160/65 H 216/66 H 214/56 H Pulse Oximetry 100 07/15/20 16:00 07/15/20 17:00 07/15/20 18:00 Temperature 37.1 C 37.1 C Pulse Rate 69 66 66 Respiratory Rate 15 15 Blood Pressure 199/50 H 199/50 H Pulse Oximetry 93 93 07/15/20 20:00 07/15/20 21:52 07/15/20 21:54 Temperature 36.2 C L Pulse Rate 80 77 66 Respiratory Rate 1
[2020-07-16 11:47] LABS: Glucose Point of Care 172 (65-105)
[2020-07-16] MEDS: CALCIUM ACETATE 667 MG TABLET 2001 MG PO ×2 (12:06→17:24)
[2020-07-16] MEDS: SEVELAMER CARBONATE 800 MG TABLET 2400 MG PO ×2 (12:06→17:24)
--- NOTE | 2020-07-16 13:09 | PM.PNCARD ---
Progress Note: A&P Assessment and Plan (1) Syncope: Qualifiers: Syncope type: unspecified Qualified Code(s): R55 - Syncope and collapse Code(s): R55 - Syncope and collapse Status: Acute Assessment and Plan: Patient has had a couple episodes of syncope recently with prodrome. They certainly sound like they could be from hypoglycemia but also was demonstrated to have a degree of orthostasis this morning and apparently has noted a drop in blood pressure at home as well. Rule out arrhythmia since she has an abnormal stress test. So far no arrhythmias showed up on telemetry. She may have a degree of left ventricular dysfunction which can be associated w/ arrhythmias but test results are discrepant. Echo showed EF greater than 70% by Lexiscan showed EF of 44%. Discussed orthostatic hypotension with the patient. Cont to check orthostatics. Outpatient 2 week monitor. (2) Hypoglycemia: Code(s): E16.2 - Hypoglycemia, unspecified Status: Acute Assessment and Plan: Recurrent hypoglycemia, management per hospitalist. (3) Orthostasis: Code(s): I95.1 - Orthostatic hypotension Status: Acute Assessment and Plan: Noted this morning though standing SBP was still 150 mmHg. (4) Hypertension: Qualifiers: Hypertension type: unspecified Qualified Code(s): I10 - Essential (primary) hypertension Code(s): I10 - Essential (primary) hypertension Status: Acute Assessment and Plan: SEvere HTN, a bit better so far today. (5) Abnormal stress test: Code(s): R94.39 - Abnormal result of other cardiovascular function study Status: Acute Assessment and Plan: Stress test showed no ischemia but a couple fixed defects. No history consistent with old MA an EKG does not show any signs of old MA but patient has risk factors for CAD. However this may be artifact secondary to obesity or scars related hypertension etc. Subjective Date/time seen: 07/16/20 13:09 Follow-up for syncope, probably secondary to hyper pro glycemia and/or orthostasis. Patient with longstanding diabetes, on peritoneal dialysis with hypertension. Date of service 07/16/2020: Patient is doing well, had some numbness of her hands and fingers earlier today. When orthostatics were checked this morning her SBP dropped from 200-150 mmHg. The patient tells me that always happens; her blood pressure always is lower when she stands up. Dr. Anguiano changed her labetalol from: 300 mg b.i.d. to 50 mg b.i.d. plus Nifedipine 30 mg q.d. telemetry has shown normal sinus rhythm. Review of Systems Constitutional: Constitutional: Reports fatigue Eyes: Eyes: Reports no additional eye complaints ENT: Denies nasal congestion Cardiovascular: Cardiovascular: Denies chest pain, Denies leg edema, Denies lightheadedness and Denies palpitations Respiratory: Respiratory: Denies cough, Denies dyspnea and Denies dyspnea on exertion Gastrointestinal: Gastrointestinal: Denies abdominal pain and Reports constipation Genitourinary: Genitourinary: Denies hematuria Musculoskeletal: Musculoskeletal: Reports stiffness Integumentary/Breasts: Skin/Breast: Denies rash Neurologic: Denies confusion Psychiatric: Psychiatric: Reports no additional psychiatric complaints Exam Const: General: comfortable and no acute distress HENMT: Mouth: Yes moist mucous membranes Eyes: EOM: EOMs intact bilaterally Neck: Neck: supple Resp: Effort & Inspection: normal respiratory effort Auscultation: clear to auscultation bilaterally Cardio: Rate: regular rate Rhythm: regular rhythm Heart sounds: Murmur heart sound present (2-6 SUDHIR upper sternal border and left sternal border) GI: Inspection: non-distended GI Pal
[2020-07-16] MEDS: NIFEdipine 30 MG TAB.ER.24 PO (14:23)
[2020-07-16 17:04] LABS: Glucose Point of Care 164 (65-105)
[2020-07-16] MEDS: LABETALOL HCL 50 MG TABLET PO (20:58)
[2020-07-16 21:20] LABS: Glucose Point of Care 165 (65-105)
[2020-07-17] VITALS (23 sets, daily range): BP systolic 128–187; BP diastolic 50–74; PULSE 60–85; RESP 16–21; TEMP 36.4–37.1; O2SAT 98–100
[2020-07-17] MEDS: diphenhydrAMINE HCl CAP 25 MG CAPSULE PO ×2 (02:05→22:23)
[2020-07-17] MEDS: ONDANSETRON HCL ODT 4 MG TABLET 8 MG PO (02:09)
[2020-07-17 05:20] LABS: Hemoglobin 10.5 g/dL (12.0-15.0); Mean Corpuscular HGB Conc 33.9 g/dl (32-36); Mean Corpuscular Hemoglobin 33.5 pg (26-34); Mean Platelet Volume 9.5 fl (7.4-10.4); Platelet Count Result 309 k/mm3 (150-375); Red Blood Count 3.13 M/mm3 (4.2-5.4); Red Cell Distribution Width 13.4 % (11.5-14.5); White Blood Count 7.3 K/mm3 (4.5-10.0)
[2020-07-17] MEDS: hydrALAZINE HCL 50 MG TABLET 100 MG PO ×3 (05:24→20:42)
[2020-07-17 05:34] LABS: Albumin Level 3.3 g/dL (3.5-5.1); Anion Gap 13 mmol/L (8-16); Blood Urea Nitrogen 53 mg/dL (7-17); Calcium 8.4 mg/dL (8.4-10.2); Carbon Dioxide 26 mmol/L (22-30); Chloride 91 mmol/L (98-107); Estimated CRCL calculation 5 ml/min; Estimated Glomerular Filt Rate 4; Glucose 213 mg/dL (65-105); Magnesium 2.5 mg/dL (1.6-2.3); Phosphorus 11.5 mg/dL (2.5-4.5); Potassium 4.7 mmol/L (3.4-5.0); Sodium 130 mmol/L (137-145)
[2020-07-17] MEDS: CALCIUM ACETATE 667 MG TABLET 2001 MG PO ×3 (08:53→16:55)
[2020-07-17] MEDS: LABETALOL HCL 50 MG TABLET PO ×2 (08:53→20:42)
[2020-07-17] MEDS: HEPARIN SODIUM 5,000 UNITS/ML VIAL 5000 UNITS SUB-Q ×2 (08:54→20:42)
[2020-07-17] MEDS: calcitrioL 0.25 MCG CAPSULE PO (08:55)
[2020-07-17] MEDS: ASPIRIN 81 MG ENTERIC TABLET PO (08:55)
[2020-07-17] MEDS: SEVELAMER CARBONATE 800 MG TABLET 2400 MG PO ×3 (08:55→16:53)
[2020-07-17] MEDS: lisinopriL 20 MG TABLET 40 MG PO (08:56)
[2020-07-17] MEDS: NIFEdipine 30 MG TAB.ER.24 PO (08:56)
[2020-07-17] MEDS: FUROSEMIDE 80 MG TABLET PO ×2 (08:56→16:54)
[2020-07-17] MEDS: FLUTICASONE PROPIONATE 0.05% NA SPR 16 GM BTL (*BKC) 2 SPRAY NASAL (08:57)
[2020-07-17 09:45] LABS: Glucose Point of Care 198 (65-105)
[2020-07-17 12:01] LABS: Glucose Point of Care 182 (65-105)
--- NOTE | 2020-07-17 14:54 | P.PNNP_ITS ---
Progress Note: A&P Assessment and Plan (1) End stage kidney disease: Code(s): N18.6 - End stage renal disease Status: Chronic Assessment and Plan: * continue nightly CCPD while hospitalized * follow electrolytes, volume status, and clearance (2) Syncope: Qualifiers: Syncope type: unspecified Qualified Code(s): R55 - Syncope and collapse Code(s): R55 - Syncope and collapse Status: Acute Assessment and Plan: * presumably precipitated by hypoglycemia * Cardiology recommendations noted * I also wonder if she has a component of autonomic dysfunction/neuropathy (secondary to her diabetes) that is playing a role * continue supportive therapy (3) Hypertension: Qualifiers: Hypertension type: unspecified Qualified Code(s): I10 - Essential (primary) hypertension Code(s): I10 - Essential (primary) hypertension Status: Chronic Assessment and Plan: * doing better at this time * on labetolol (lower dose) and nifedipine * can titrate nifedipine dose if necessary * follow trend of hemodynamics (4) Anemia: Code(s): D64.9 - Anemia, unspecified Status: Chronic Assessment and Plan: * H/H in range for ESRD * on Epogen while hospitalized (5) Congestive heart failure: Code(s): I50.9 - Heart failure, unspecified Status: Chronic Assessment and Plan: * compensated with dialysis and diuretics * follow volume status (6) Renal osteodystrophy: Code(s): N25.0 - Renal osteodystrophy Status: Chronic Assessment and Plan: * extremely high phosphorus noted * on PhosLo 3 tabs and sevelamer 3 tabs with every meal while hospitalized * follow trend of phosphorus and calcium (7) DM renal manif type II: Qualifiers: Chronic kidney disease stage: stage 3 (moderate) Chronic kidney disease stage 3 subtype: stage 3a (GFR 45-59) Diabetes mellitus complication detail: with chronic kidney disease Diabetes mellitus merchandiser seasonal insulin use: with merchandiser seasonal use Qualified Code(s): E11.21 - Type 2 diabetes mellitus with diabetic nephropathy; N18.31 - Chronic kidney disease, stage 3a; Z79.4 - FDC (current) use of insulin Code(s): E11.29 - Type 2 diabetes mellitus with other diabetic kidney complication Status: Chronic Assessment and Plan: * blood sugars doing well * recreation program specialist following * follow Accu-Cheks * on sliding scale Will continue to follow. Subjective Date/time seen: 07/17/20 14:54 Tolerated peritoneal dialysis reasonably well last evening without any issue or problems; overall, she states she feels significantly better; noted adjustment in BP medications since admission; no other events overnight or earlier this AM. Exam Narrative: Exam Narrative: General: WD/WN female in NAD Heart: normal S1 and S2; no rub Lungs: clear to auscultation Abdomen: soft, nontender, nondistended, positive bowel sounds Extremities: no cyanosis or clubbing; no edema Skin: warm and dry Objective Data Vital Signs Vital Signs: Vital Signs Temp Pulse Resp BP Pulse Ox 07/17/20 12:00 69 07/17/20 11:09 73 128/50 L 100 07/17/20 11:05 80 136/63 100 07/17/20 09:00 80 172/58 H 98 07/17/20 08:57 20 98 07/17/20 08:53 71 07/17/20 08:00 68 07/17/20 06:05 36.7 C 68 20 147/74 H 98
--- NOTE | 2020-07-17 14:54 | PM.PNNEP ---
Progress Note: A&P Assessment and Plan (1) End stage kidney disease: Code(s): N18.6 - End stage renal disease Status: Chronic Assessment and Plan: continue nightly CCPD while hospitalized follow electrolytes, volume status, and clearance (2) Syncope: Qualifiers: Syncope type: unspecified Qualified Code(s): R55 - Syncope and collapse Code(s): R55 - Syncope and collapse Status: Acute Assessment and Plan: presumably precipitated by hypoglycemia Cardiology recommendations noted I also wonder if she has a component of autonomic dysfunction/neuropathy (secondary to her diabetes) that is playing a role continue supportive therapy (3) Hypertension: Qualifiers: Hypertension type: unspecified Qualified Code(s): I10 - Essential (primary) hypertension Code(s): I10 - Essential (primary) hypertension Status: Chronic Assessment and Plan: doing better at this time on labetolol (lower dose) and nifedipine can titrate nifedipine dose if necessary follow trend of hemodynamics (4) Anemia: Code(s): D64.9 - Anemia, unspecified Status: Chronic Assessment and Plan: H/H in range for ESRD on Epogen while hospitalized (5) Congestive heart failure: Code(s): I50.9 - Heart failure, unspecified Status: Chronic Assessment and Plan: compensated with dialysis and diuretics follow volume status (6) Renal osteodystrophy: Code(s): N25.0 - Renal osteodystrophy Status: Chronic Assessment and Plan: extremely high phosphorus noted on PhosLo 3 tabs and sevelamer 3 tabs with every meal while hospitalized follow trend of phosphorus and calcium (7) DM renal manif type II: Qualifiers: Chronic kidney disease stage: stage 3 (moderate) Chronic kidney disease stage 3 subtype: stage 3a (GFR 45-59) Diabetes mellitus complication detail: with chronic kidney disease Diabetes mellitus longterm insulin use: with longterm use Qualified Code(s): E11.21 - Type 2 diabetes mellitus with diabetic nephropathy; N18.31 - Chronic kidney disease, stage 3a; Z79.4 - technician terminal and repeater (current) use of insulin Code(s): E11.29 - Type 2 diabetes mellitus with other diabetic kidney complication Status: Chronic Assessment and Plan: blood sugars doing well organizational consultant following follow Accu-Cheks on sliding scale Will continue to follow. Subjective Date/time seen: 07/17/20 14:54 Tolerated peritoneal dialysis reasonably well last evening without any issue or problems; overall, she states she feels significantly better; noted adjustment in BP medications since admission; no other events overnight or earlier this AM. Exam Narrative: Exam Narrative: General: WD/WN female in NAD Heart: normal S1 and S2; no rub Lungs: clear to auscultation Abdomen: soft, nontender, nondistended, positive bowel sounds Extremities: no cyanosis or clubbing; no edema Skin: warm and dry Objective Data Vital Signs Vital Signs: Vital Signs Temp Pulse Resp BP Pulse Ox 07/17/20 12:00 69 07/17/20 11:09 73 128/50 L 100 07/17/20 11:05 80 136/63 100 07/17/20 09:00 80 172/58 H 98 07/17/20 08:57 20 98 07/17/20 08:53 71 07/17/20 08:00 68 07/17/20 06:05 36.7 C 68 20 147/74 H 98 07/17/20 06:03 36.4 C 70 20 156/62 H 98 07/17/20 06:00 36.5 C 60 20 158/66 H 99 07/17/20 04:00 79 07/17/20 00:00 85 07/16/20 22:00 36.4 C L 74 21 H 180/59 H 100 07/16/20 20:58 77 07/16/20 20:20 37.1 C 69 18 156/53 H 07/16/20 20:00 74 07/16/20 16:00 68 Intake/Output Intake/Output: Intake & Output 07/14/20 07/15/20 07/16/20 07/17/20 23:59 23:59 23:59 23:59 Intake Total 1570 1350 1330 Output Total 2042 7180 9767 Balance -[phone] -[phone] -77 Meds/Results Medications: Active Medications Generic Name Dose Route Start Las
[2020-07-17 16:31] LABS: Glucose Point of Care 150 (65-105)
--- NOTE | 2020-07-17 17:44 | PM.IMPN ---
Progress Note: A&P Assessment and Plan (1) Hypoglycemia: Code(s): E16.2 - Hypoglycemia, unspecified Status: Acute Assessment and Plan: 07/17/20 17:44 07/14 Rufina Saravia is a 60 year old female female with history of end-stage renal disease on peritoneal dialysis as well as type 1 diabetes on insulin pump patient presented emergency department with a complaint being dizzy syncopal episode and feels tingling all over her body, was seen by her automatic spinning lathe operator and suspect most likely patient has gets into hypoglycemia due to peritoneal dialysis during daytime as patient is not able remove excess insulin until during peritoneal dialysis at nighttime and over correction by her insulin pump, becomes hyperglycemic patient feels dizzy and has syncopal episode similarly patient gets very anxious and may developed elevated blood pressure, while in the hospital will turn off her insulin pump, also patient is on beta-meliza labetalol this will block adrenergic neuroendocrine mechanism and patient may not able to sense hypoglycemia resulting dizziness, became anxious this may also elevate her blood pressure, Dr. Anguiano has decided to taper patient's labetalol 200 mg BID to 100 mg t.i.d. and gradually wean the patient off the labetalol, compensated her blood pressure patient being treated with hydralazine, lisinopril, Lasix and clonidine. Will continue to monitor, will consult ict educator further recommendation to manage her diabetes. Will start the patient on low sliding scale and monitor patient blood sugar, Patient was seen by Dr. Anguiano and has scheduled PD tonight, will monitor patient in the morning and further recommendation to follow 07/15 today patient still feels anxious and complains of numbness and tingling in her arms and legs however patient blood sugars a close to normal as we have stopped insulin pump started the patient low-dose sliding scale, patient seen by automatic spinning lathe operator and will have scheduled PD, patient also seen by brain surgeon for syncopal episode and workup is in progress and further recommendation to follow, consult ict educator for further recommendation. 07/16 patient did get her PD last night, today patient states feeling much better denies any dizziness, numbness or tingling, blood pressure is trending down, her blood sugars are stable and patient is not received any insulin, we have consulted nurse informatics educator to assist and managing her diabetes educate the patient, will continue present management patient will be seen by Dr. Anguiano and further recommendation to follow 07/17 patient did cared PD last night again, patient blood sugar are more close to normal and stable sliding scale patient will be seen ict educator with recommendation to follow however patient phosphorus persistently elevated 11.5 normal high is 4.5 patient is seen by Nephrology and dietary consult to help decrease her phosphorus, patient blood pressure is still fluctuating again patient is seen by Nephrology and further recommendation to follow will continue to monitor the patient will have a PT OT evaluate the patient. (2) Hyperkalemia: Code(s): E87.5 - Hyperkalemia Status: Acute Assessment and Plan: Most likely secondary to end-stage renal disease, patient will have PD tonight and will monitor and plan. (3) Hypertension: Qualifiers: Hypertension type: unspecified Qualified Code(s): I10 - Essential (primary) hypertension Code(s): I10 - Essential (primary) hypertension Status: Chronic Assessment and Plan: Patient seen by Dr. Anguiano and and her medications are being adjusted (4) End stage kidney disease: Code(s): N18.6 - End stage renal disease Status: Chronic Assessment and Plan: Patient on peritoneal dialysis seen by Dr. Anguiano. (5) DM renal manif type II: Qualifiers: Diabetes mellitus custodial insulin use: with salvage determiner use Diabetes mellitus c
[2020-07-17 21:04] LABS: Glucose Point of Care 225 (65-105)
[2020-07-18] VITALS (9 sets, daily range): BP systolic 151–192; BP diastolic 51–89; PULSE 64–97; RESP 18–21; TEMP 36.4–36.6; O2SAT 100; BMI 38.5
[2020-07-18 05:26] LABS: Hematocrit 30.2 % (37.0-47.0); Hemoglobin 10.2 g/dL (12.0-15.0); Mean Corpuscular HGB Conc 33.8 g/dl (32-36); Mean Corpuscular Hemoglobin 33.6 pg (26-34); Mean Corpuscular Volume 99.3 fl (80-100); Mean Platelet Volume 9.8 fl (7.4-10.4); Platelet Count Result 311 k/mm3 (150-375); Red Blood Count 3.04 M/mm3 (4.2-5.4); Red Cell Distribution Width 13.4 % (11.5-14.5); White Blood Count 7.5 K/mm3 (4.5-10.0)
[2020-07-18 05:45] LABS: Albumin Level 3.2 g/dL (3.5-5.1); Anion Gap 13 mmol/L (8-16); Blood Urea Nitrogen 47 mg/dL (7-17); Calcium 8.5 mg/dL (8.4-10.2); Carbon Dioxide 26 mmol/L (22-30); Chloride 91 mmol/L (98-107); Estimated CRCL calculation 5 ml/min; Estimated Glomerular Filt Rate 4; Glucose 183 mg/dL (65-105); Magnesium 2.4 mg/dL (1.6-2.3); Phosphorus 10.5 mg/dL (2.5-4.5); Potassium 4.2 mmol/L (3.4-5.0); Sodium 130 mmol/L (137-145)
[2020-07-18] MEDS: hydrALAZINE HCL 50 MG TABLET 100 MG PO ×2 (05:59→14:31)
[2020-07-18 07:58] LABS: Glucose Point of Care 128 (65-105)
[2020-07-18] MEDS: SEVELAMER CARBONATE 800 MG TABLET 2400 MG PO ×3 (07:59→17:10)
[2020-07-18] MEDS: CALCIUM ACETATE 667 MG TABLET 2001 MG PO ×3 (08:00→17:10)
[2020-07-18] MEDS: lisinopriL 20 MG TABLET 40 MG PO (08:01)
[2020-07-18] MEDS: calcitrioL 0.25 MCG CAPSULE PO (08:01)
[2020-07-18] MEDS: ASPIRIN 81 MG ENTERIC TABLET PO (08:01)
[2020-07-18] MEDS: NIFEdipine 30 MG TAB.ER.24 PO (08:02)
[2020-07-18] MEDS: LABETALOL HCL 50 MG TABLET PO (08:02)
[2020-07-18] MEDS: HEPARIN SODIUM 5,000 UNITS/ML VIAL 5000 UNITS SUB-Q (08:03)
[2020-07-18] MEDS: FUROSEMIDE 80 MG TABLET PO ×2 (08:03→17:11)
[2020-07-18] MEDS: DOCUSATE SODIUM 100 MG CAPSULE PO (10:47)
[2020-07-18] MEDS: polyethylene glycoL 3350 17 GM POWD.PACK PO (10:47)
[2020-07-18 11:23] LABS: Glucose Point of Care 163 (65-105)
--- NOTE | 2020-07-18 11:46 | P.PNNP_ITS ---
Progress Note: A&P Assessment and Plan (1) End stage kidney disease: Code(s): N18.6 - End stage renal disease Status: Chronic Assessment and Plan: * continue nightly CCPD while hospitalized * follow electrolytes, volume status, and clearance (2) Syncope: Qualifiers: Syncope type: unspecified Qualified Code(s): R55 - Syncope and collapse Code(s): R55 - Syncope and collapse Status: Acute Assessment and Plan: * presumably precipitated by hypoglycemia * Cardiology recommendations noted * I also wonder if she has a component of autonomic dysfunction/neuropathy (secondary to her diabetes) that is playing a role * continue supportive therapy (3) Hypertension: Qualifiers: Hypertension type: unspecified Qualified Code(s): I10 - Essential (primary) hypertension Code(s): I10 - Essential (primary) hypertension Status: Chronic Assessment and Plan: * doing better at this time * on labetolol (lower dose) and nifedipine * can titrate nifedipine dose if necessary * follow trend of hemodynamics (4) Anemia: Code(s): D64.9 - Anemia, unspecified Status: Chronic Assessment and Plan: * H/H in range for ESRD * on Epogen while hospitalized (5) Congestive heart failure: Code(s): I50.9 - Heart failure, unspecified Status: Chronic Assessment and Plan: * compensated with dialysis and diuretics * follow volume status (6) Renal osteodystrophy: Code(s): N25.0 - Renal osteodystrophy Status: Chronic Assessment and Plan: * extremely high phosphorus noted * on PhosLo 3 tabs and sevelamer 3 tabs with every meal while hospitalized * follow trend of phosphorus and calcium (7) DM renal manif type II: Qualifiers: Diabetes mellitus rn long term care insulin use: with rn long term care use Diabetes mellitus complication detail: with chronic kidney disease Chronic kidney disease stage: stage 3 (moderate) Chronic kidney disease stage 3 subtype: stage 3a (GFR 45-59) Qualified Code(s): E11.21 - Type 2 diabetes mellitus with diabetic nephropathy; N18.31 - Chronic kidney disease, stage 3a; Z79.4 - director long term care (current) use of insulin Code(s): E11.29 - Type 2 diabetes mellitus with other diabetic kidney complication Status: Chronic Assessment and Plan: * blood sugars doing well * mud mixer following * follow Accu-Cheks * on sliding scale Will continue to follow. Subjective Date/time seen: 07/18/20 11:46 Exam Narrative: Exam Narrative: General: WD/WN female in NAD Heart: normal S1 and S2; no rub Lungs: clear to auscultation Abdomen: soft, nontender, nondistended, positive bowel sounds Extremities: no cyanosis or clubbing; no edema Skin: warm and intact Objective Data Vital Signs Vital Signs: Vital Signs Temp Pulse Resp BP Pulse Ox 07/18/20 09:00 36.4 C 64 18 192/51 H 100 07/18/20 08:02 68 07/18/20 06:00 36.4 C 97 21 H 172/61 H 100 07/18/20 04:00 80 07/18/20 00:00 71 07/17/20 22:08 36.7 C 73 21 H 161/63 H 100 07/17/20 22:05 36.8 C 74 21 H 187/62 H 100 07/17/20 22:00 37.1 C 76 21 H 185/65 H 100 07/17/20 20:42 82 07/17/20 20:00 74 16 100 07/17/20 18:40 36.8 C 74 16 146/65 H 07/17/20 18:12 74 146/65 H 100 07/17/20 18:
--- NOTE | 2020-07-18 11:46 | PM.PNNEP ---
Progress Note: A&P Assessment and Plan (1) End stage kidney disease: Code(s): N18.6 - End stage renal disease Status: Chronic Assessment and Plan: continue nightly CCPD while hospitalized follow electrolytes, volume status, and clearance (2) Syncope: Qualifiers: Syncope type: unspecified Qualified Code(s): R55 - Syncope and collapse Code(s): R55 - Syncope and collapse Status: Acute Assessment and Plan: presumably precipitated by hypoglycemia Cardiology recommendations noted I also wonder if she has a component of autonomic dysfunction/neuropathy (secondary to her diabetes) that is playing a role continue supportive therapy (3) Hypertension: Qualifiers: Hypertension type: unspecified Qualified Code(s): I10 - Essential (primary) hypertension Code(s): I10 - Essential (primary) hypertension Status: Chronic Assessment and Plan: doing better at this time on labetolol (lower dose) and nifedipine can titrate nifedipine dose if necessary follow trend of hemodynamics (4) Anemia: Code(s): D64.9 - Anemia, unspecified Status: Chronic Assessment and Plan: H/H in range for ESRD on Epogen while hospitalized (5) Congestive heart failure: Code(s): I50.9 - Heart failure, unspecified Status: Chronic Assessment and Plan: compensated with dialysis and diuretics follow volume status (6) Renal osteodystrophy: Code(s): N25.0 - Renal osteodystrophy Status: Chronic Assessment and Plan: extremely high phosphorus noted on PhosLo 3 tabs and sevelamer 3 tabs with every meal while hospitalized follow trend of phosphorus and calcium (7) DM renal manif type II: Qualifiers: Diabetes mellitus director long term care insulin use: with director long term care use Diabetes mellitus complication detail: with chronic kidney disease Chronic kidney disease stage: stage 3 (moderate) Chronic kidney disease stage 3 subtype: stage 3a (GFR 45-59) Qualified Code(s): E11.21 - Type 2 diabetes mellitus with diabetic nephropathy; N18.31 - Chronic kidney disease, stage 3a; Z79.4 - termination clerk (current) use of insulin Code(s): E11.29 - Type 2 diabetes mellitus with other diabetic kidney complication Status: Chronic Assessment and Plan: blood sugars doing well workers compensation examiner following follow Accu-Cheks on sliding scale Will continue to follow. Subjective Date/time seen: 07/18/20 11:46 Exam Narrative: Exam Narrative: General: WD/WN female in NAD Heart: normal S1 and S2; no rub Lungs: clear to auscultation Abdomen: soft, nontender, nondistended, positive bowel sounds Extremities: no cyanosis or clubbing; no edema Skin: warm and intact Objective Data Vital Signs Vital Signs: Vital Signs Temp Pulse Resp BP Pulse Ox 07/18/20 09:00 36.4 C 64 18 192/51 H 100 07/18/20 08:02 68 07/18/20 06:00 36.4 C 97 21 H 172/61 H 100 07/18/20 04:00 80 07/18/20 00:00 71 07/17/20 22:08 36.7 C 73 21 H 161/63 H 100 07/17/20 22:05 36.8 C 74 21 H 187/62 H 100 07/17/20 22:00 37.1 C 76 21 H 185/65 H 100 07/17/20 20:42 82 07/17/20 20:00 74 16 100 07/17/20 18:40 36.8 C 74 16 146/65 H 07/17/20 18:12 74 146/65 H 100 07/17/20 18:11 74 176/60 H 100 07/17/20 17:00 74 169/54 H 98 07/17/20 16:00 80 07/17/20 14:00 36.8 C 78 16 185/63 H 98 07/17/20 12:00 69 Intake/Output Intake/Output: Intake & Output 07/15/20 07/16/20 07/17/20 07/18/20 23:59 23:59 23:59 23:59 Intake Total 1570 1350 1330 940 Output Total 2198 1877 1407 1704 [facility] -[phone] Meds/Results Medications: Active Medications Generic Name Dose Route Start Last Admin Trade Name Freq PRN Reason Stop Dose Admin Acetaminophen 650 mg 07/15/20 22:08 07/15/20 22:49 Acetaminophen 325 Mg Tablet PO 650 mg Q4H PRN Ad
--- NOTE | 2020-07-18 13:25 | PCNSR ---
On 07/18/20, the student, Nancy Ma, provided care and completed [facility] documentation on this patient. I have reviewed the student's documentation and agree with the findings.
--- NOTE | 2020-07-18 14:18 | PM.IMPN ---
Progress Note: A&P Assessment and Plan (1) Hypoglycemia: Code(s): E16.2 - Hypoglycemia, unspecified Status: Acute Assessment and Plan: 07/18/20 14:18 07/14 Rufina Saravia is a 60 year old female female with history of end-stage renal disease on peritoneal dialysis as well as type 1 diabetes on insulin pump patient presented emergency department with a complaint being dizzy syncopal episode and feels tingling all over her body, was seen by her laborer plumbing and suspect most likely patient has gets into hypoglycemia due to peritoneal dialysis during daytime as patient is not able remove excess insulin until during peritoneal dialysis at nighttime and over correction by her insulin pump, becomes hyperglycemic patient feels dizzy and has syncopal episode similarly patient gets very anxious and may developed elevated blood pressure, while in the hospital will turn off her insulin pump, also patient is on beta-meliza labetalol this will block adrenergic neuroendocrine mechanism and patient may not able to sense hypoglycemia resulting dizziness, became anxious this may also elevate her blood pressure, Dr. Anguiano has decided to taper patient's labetalol 200 mg BID to 100 mg t.i.d. and gradually wean the patient off the labetalol, compensated her blood pressure patient being treated with hydralazine, lisinopril, Lasix and clonidine. Will continue to monitor, will consult public information specialist further recommendation to manage her diabetes. Will start the patient on low sliding scale and monitor patient blood sugar, Patient was seen by Dr. Anguiano and has scheduled PD tonight, will monitor patient in the morning and further recommendation to follow 07/15 today patient still feels anxious and complains of numbness and tingling in her arms and legs however patient blood sugars a close to normal as we have stopped insulin pump started the patient low-dose sliding scale, patient seen by laborer plumbing and will have scheduled PD, patient also seen by grocery sacker for syncopal episode and workup is in progress and further recommendation to follow, consult public information specialist for further recommendation. 07/16 patient did get her PD last night, today patient states feeling much better denies any dizziness, numbness or tingling, blood pressure is trending down, her blood sugars are stable and patient is not received any insulin, we have consulted account management specialist to assist and managing her diabetes educate the patient, will continue present management patient will be seen by Dr. Anguiano and further recommendation to follow 07/17 patient did cared PD last night again, patient blood sugar are more close to normal and stable sliding scale patient will be seen public information specialist with recommendation to follow however patient phosphorus persistently elevated 11.5 normal high is 4.5 patient is seen by Nephrology and dietary consult to help decrease her phosphorus, patient blood pressure is still fluctuating again patient is seen by Nephrology and further recommendation to follow will continue to monitor the patient will have a PT OT evaluate the patient. 07/18 patient is receiving nightly PD, patient blood sugars are close to target patient is receiving low sliding scale, and has no hypoglycemic episodes, and no syncopal episode while in the hospital, her blood pressure patient is remains high as patient is weaned off labetalol and Nifedipine is added, patient is seen by laborer plumbing and being titrated, patient phosphorus still way above normal however still better than yesterday today patient is phosphorus 10.5 compared to 11.5 being treated with PhosLo 3 tabs and sevelamer 3 tabs with every meal while hospitalized, again patient is seen by dietitian as well as laborer plumbing and further recommendation to follow, today patient is feeling better however he does complaint of constipation will give the patient Colace and MiraLax this may also help reduce patient's phosphorus, will encourage patient
--- NOTE | 2020-07-18 16:17 | PM.DS ---
DS: Admitting Diagnosis Admitting Diagnosis Admitting Diagnosis: Chief Complaint: Dizziness DS: Discharge Diagnosis Discharge Diagnosis (1) Hypoglycemia: Code(s): E16.2 - Hypoglycemia, unspecified Status: Acute Assessment and Plan: 07/18/20 14:18 07/14 Rufina Saravia is a 60 year old female female with history of end-stage renal disease on peritoneal dialysis as well as type 1 diabetes on insulin pump patient presented emergency department with a complaint being dizzy syncopal episode and feels tingling all over her body, was seen by her machine clipper and suspect most likely patient has gets into hypoglycemia due to peritoneal dialysis during daytime as patient is not able remove excess insulin until during peritoneal dialysis at nighttime and over correction by her insulin pump, becomes hyperglycemic patient feels dizzy and has syncopal episode similarly patient gets very anxious and may developed elevated blood pressure, while in the hospital will turn off her insulin pump, also patient is on beta-meliza labetalol this will block adrenergic neuroendocrine mechanism and patient may not able to sense hypoglycemia resulting dizziness, became anxious this may also elevate her blood pressure, Dr. Anguiano has decided to taper patient's labetalol 200 mg BID to 100 mg t.i.d. and gradually wean the patient off the labetalol, compensated her blood pressure patient being treated with hydralazine, lisinopril, Lasix and clonidine. Will continue to monitor, will consult head of biology further recommendation to manage her diabetes. Will start the patient on low sliding scale and monitor patient blood sugar, Patient was seen by Dr. Anguiano and has scheduled PD tonight, will monitor patient in the morning and further recommendation to follow 07/15 today patient still feels anxious and complains of numbness and tingling in her arms and legs however patient blood sugars a close to normal as we have stopped insulin pump started the patient low-dose sliding scale, patient seen by machine clipper and will have scheduled PD, patient also seen by optometric coordinator for syncopal episode and workup is in progress and further recommendation to follow, consult head of biology for further recommendation. 07/16 patient did get her PD last night, today patient states feeling much better denies any dizziness, numbness or tingling, blood pressure is trending down, her blood sugars are stable and patient is not received any insulin, we have consulted railroad crossing protection maintainer to assist and managing her diabetes educate the patient, will continue present management patient will be seen by Dr. Anguiano and further recommendation to follow 07/17 patient did cared PD last night again, patient blood sugar are more close to normal and stable sliding scale patient will be seen head of biology with recommendation to follow however patient phosphorus persistently elevated 11.5 normal high is 4.5 patient is seen by Nephrology and dietary consult to help decrease her phosphorus, patient blood pressure is still fluctuating again patient is seen by Nephrology and further recommendation to follow will continue to monitor the patient will have a PT OT evaluate the patient. 07/18 patient is receiving nightly PD, patient blood sugars are close to target patient is receiving low sliding scale, and has no hypoglycemic episodes, and no syncopal episode while in the hospital, her blood pressure patient is remains high as patient is weaned off labetalol and Nifedipine is added, patient is seen by machine clipper and being titrated, patient phosphorus still way above normal however still better than yesterday today patient is phosphorus 10.5 compared to 11.5 being treated with PhosLo 3 tabs and sevelamer 3 tabs with every meal while hospitalized, again patient is seen by dietitian as well as machine clipper and further recommendation to follow, today patient is feeling better however he does complaint of constipation will give
[2020-07-18 17:07] LABS: Glucose Point of Care 123 (65-105)
[2020-07-18 21:32] LABS: Hepatitis B Core Ab Total Nonreactive (Nonreactive)
== END 2020-07-18 17:55 | disposition home or self-care (01) | DRG 638 ==
LOC: ANHED 15:19 → ANH2MED 17:07
PROVIDERS: Emergency Medicine; Internal Medicine Nephrology; Admitting Provider Family Medicine; Emergency Provider Emergency Medicine; PCP Internal Medicine; Visit Provider Family Medicine
DX: E11.649 Type 2 diabetes mellitus with hypoglycemia without coma (principal); I12.0 Hypertensive chronic kidney disease with stage 5 chronic kidney disease or end stage renal disease; R55 Syncope and collapse; N18.6 End stage renal disease; E11.22 Type 2 diabetes mellitus with diabetic chronic kidney disease; E11.42 Type 2 diabetes mellitus with diabetic polyneuropathy; E11.21 Type 2 diabetes mellitus with diabetic nephropathy; E87.5 Hyperkalemia; M19.90 Unspecified osteoarthritis, unspecified site; N25.0 Renal osteodystrophy; M54.16 Radiculopathy, lumbar region; E78.5 Hyperlipidemia, unspecified; Z99.2 Dependence on renal dialysis; Z90.710 Acquired absence of both cervix and uterus; Z79.4 Long term (current) use of insulin; E66.9 Obesity, unspecified; Z68.38 Body mass index [BMI] 38.0-38.9, adult; D63.1 Anemia in chronic kidney disease
CPT/HCPCS: 36415; 70450; 80048; 80069; 80076; 81001; 83605; 83735; 84484; 85025; 85027; 86704; 86706; 87086; 87340; 90945; 93005; 96372; 96374; 97161; 97165; 99285; A9270; G0378; J0360; J1644

== ENCOUNTER 2020-07-31 14:37 | Outpatient (CLI) | payer OTHER, SELFPAY ==
--- NOTE | 2020-08-01 07:49 | WPDSIXMINUTE ---
Six Minute Walk This is a 6 minutes walk test. The test was performed and interpreted in accordance with the 2014 ERS/ATS task force guidelines. Findings: The patient's resting room air oxygen saturation measured by pulse oximetry was 98% and her heart rate was 86 bpm. Patient ambulated for 152 meters and oxygen saturation remained 91 to 96%. Heart rate at the end of the study was 95 bpm. There are no prior studies for comparison.
--- NOTE | 2020-08-01 07:50 | WPDPFTINT ---
PFT Interpretation This is a pulmonary function test with pre and post-bronchodilator spirometry, plethysmography and diffusing capacity. The test was performed and results interpreted in accordance with the 2019 and 2005 ATS/ERS Task Force guidelines respectively using the Juan/Poloneida reference equations. Findings: Spirometry: The contour the inspiratory and expiratory flow tracing are normal. The pre bronchodilator FVC is 2.74 L, 107% predicted. The pre bronchodilator FEV1 is 1.99 L, 1 a 107% predicted. The FEV1: FVC ratio is 73%. The post bronchodilator FVC is 2.58 L, representing a 6% decrease. The post bronchodilator FEV1 is 2.10 L, representing a 5% increase. Plethysmography: The total lung capacity is 3.77 L, 93% predicted. The functional residual capacity is 2.02 L, 102% predicted. The residual volume is 1.03 L, 67% predicted. Diffusing capacity: The absolute diffusion capacity is 9.9, 48% predicted. The diffusing capacity corrected for alveolar volume is 3.06, 81% predicted. Impression: The spirometry is normal without evidence of an obstructive abnormality. There is no significant improvement after inhaling a single dose of albuterol. There is an isolated decrease in the residual volume of uncertain significance. The absolute diffusing capacity is moderately decreased and is normal when corrected for alveolar volume. There are no prior studies for comparison
== END 2020-07-31 14:38 | disposition home or self-care (01) ==
LOC: ANHPFT 14:38
PROVIDERS: PCP Internal Medicine; Visit Provider Internal Medicine Critical Care Medicine
DX: J84.9 Interstitial pulmonary disease, unspecified (principal)
CPT/HCPCS: 94060; 94618; 94726; 94729

== ENCOUNTER 2020-08-01 08:35 | Outpatient (CLI) | payer OTHER, SELFPAY ==
--- NOTE | 2020-08-13 10:23 | WPDHOMESLEEP ---
Sleep Study - Home Unattended Date of Study: 08/01/20 Ordering Provider: Tesha Sanchez MD Interpreting Provider: Tesha Sanchez MD Home Sleep Study Type: Apnea Link Air Height: 1.52 m Weight: 81.193 kg Body Mass Index: 34.9 Neck Circumference (inches): 17.5 [place]: 16 Reason for Sleep Study loud snoring, witnessed apnea, excessive sleepiness Sleep History Rufina Saravia is a 60-year-old woman with a long history of severe snoring and witnessed apnea. She wakes herself up snoring. Her uvula becomes irritated and enlarged when she sleeps. She has insomnia. There is a family history with her son having sleep apnea on CPAP. The patient has a difficult time falling asleep, she wakes throughout the night including the long chain beamer hours and has excessive daytime sleepiness. She occasionally snores and is occasionally loud enough that others complain about it. She occasionally awakens at night with heartburn, belching or coughing. She occasionally awakens from sleep feeling short of breath. She constantly has trouble sleeping with a cold. She occasionally wakes up gasping during the night, occasionally has witnessed apneas reported to her by others. She occasionally sweats excessively at night and notices her heart pounding or beating irregularly at night. She constantly falls asleep during the day. She occasionally falls asleep involuntarily and frequently falls asleep while driving a car. She rarely falls asleep while exerting physical effort. She occasionally has loss of muscle tone was strong emotion. She does not have daytime difficulties due to excessive sleepiness. 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 She rarely feels paralyzed on waking or falling asleep. She frequently has vivid dreamlike scenes upon awakening or falling asleep. She constantly feels afraid to go to sleep. She occasionally has nightmares. She constantly remembers her dreams. She constantly has racing thoughts. She frequently feels sad and depressed. She constantly has anxiety. She constantly has muscular tension, notices parts of her body jerking, kicks at night and has crawling and aching feelings in her legs. She constantly has leg pain at night. She rarely has morning jaw pain she occasionally grinds her teeth during sleep. She constantly is bothered by pain during the day as well as awakened by pain at night. She constantly wakes up feeling stiff in the morning with sore achy muscles. She frequently wakes up with pain in the neck and spine. She has fatigue, memory problems, insomnia, depression, and feels unable to relax. Normal bedtime 8:30 or 9:00 p.m. falling asleep within an hour but sometimes taking longer, typically waking 5 times at night to go to the bathroom, have a snack or get comfortable, sometimes has itching. It may take her 45 minutes to return to sleep. She wakes the morning at 7:00 a.m.. On the weekends, she goes to bed later, 10:00 p.m. and wakes at 10:00 a.m.. She takes naps in the afternoon or evening. A short nap is not refreshing. She is usually drowsy in the morning for 3 hours or longer. She feels better in the afternoon compared to the morning. only on occasion that she awaken feeling refreshed. She does not have morning headache. Habits: Never smoked tobacco. Caffeine 1 cup of hot tea in the morning. No alcohol or recreational drugs. REPLACED BY [facility] Past Medical History Medical History Bone spur DM renal manif type II End stage renal disease on dialysis Peritoneal dialysis since September 2019 Hemorrhoids History of Richmond's palsy HLD (hyperlipidemia) HTN (hypertension) Lumbar radiculopathy Mumps Osteoarthritis Pituitary abscess Renal osteodystrophy Surgical History Surgical History H/O: hysterectomy History of delivery X3 Family History Family History Moth
[2020-08-13 10:34] VITALS: BMI 34.9
== END 2020-08-01 08:36 | disposition home or self-care (01) ==
LOC: ANHCSM 08:35
PROVIDERS: PCP Internal Medicine; Visit Provider Internal Medicine Critical Care Medicine
DX: G47.10 Hypersomnia, unspecified (principal); G47.33 Obstructive sleep apnea (adult) (pediatric)
CPT/HCPCS: 95806

== ENCOUNTER 2020-08-03 14:50 | Emergency (ER) | payer OTHER, SELFPAY ==
--- NOTE | ~2020-08-03 | XR_ITS ---
XR chest 2V 08/03/2020 16:18 Indication: Hypertension. Lethargy. Procedure: PA and lateral views of the chest Comparison: 06/08/2020 Findings: Borderline heart size. Bibasilar interstitial infiltrates, likely atelectasis or scarring. No acute focal pneumonia, pleural effusion, edema or pneumothorax. No acute osseous abnormality. Impression: 1: Subtle basilar infiltrates, most likely atelectasis or scarring. Reviewed, dictated and finalized at location B. EWAY OPERATOR Impression: 1: Subtle basilar infiltrates, most likely atelectasis or scarring.
[2020-08-03 15:34] VITALS: BP 241/94; PULSE 93; RESP 20; TEMP 36.2; O2SAT 99
--- NOTE | 2020-08-03 15:38 | ECG_ITS ---
Measurements Intervals [place] Rate: 90 P: 52 NM: 171 QRS: -21 QRSD: 88 T: 91 QT: 400 QTc: 492 Interpretive Statements SINUS RHYTHM POSSIBLE LEFT ATRIAL ENLARGEMENT VOLTAGE CRITERIA FOR LVH BORDERLINE R WAVE PROGRESSION, ANTERIOR LEADS ST-T WAVE ABNORMALITY IN HIGH LATERAL LEADS- CONSIDER ISCHEMIA BASELINE WANDER- I, II, III, V6 ABNORMAL ECG Electronically Signed On 08-03-2020 16:05:25 AIRCRAFT MECHANIC by Eric Domínguez D.O.
[2020-08-03 15:51] LABS: Basophils Absolute Auto 0.1 K/mm3 (0.0-0.1); Basophils Percent Auto 0.6 % (0.2-1.2); Eosinophils Absolute Auto 0.2 K/mm3 (0-0.3); Eosinophils Percent Auto 2.3 % (0-4.4); Hemoglobin 9.6 g/dL (12.0-15.0); Immature Granulocyte Absolute 0.02 K/mm3 (0.00-0.031); Immature Granulocyte Percent A 0.3 % (0-0.5); Lymphocytes Absolute Auto 1.62 K/mm3 (0.9-3.2); Lymphocytes Percent Auto 20.7 % (18.3-44.2); Mean Corpuscular HGB Conc 35.6 g/dl (32-36); Mean Corpuscular Hemoglobin 33.7 pg (26-34); Mean Corpuscular Volume 94.7 fl (80-100); Mean Platelet Volume 9.4 fl (7.4-10.4); Monocytes Absolute Auto 0.6 K/mm3 (0.1-0.6); Monocytes Percent Auto 8.2 % (2.6-8.5); Neutrophils Absolute Auto 5.3 K/mm3 (1.3-6.7); Neutrophils Percent Auto 67.9 % (45.5-73.1); Platelet Count Result 274 k/mm3 (150-375); Red Blood Count 2.85 M/mm3 (4.2-5.4); Red Cell Distribution Width 12.2 % (11.5-14.5); White Blood Count 7.8 K/mm3 (4.5-10.0)
[2020-08-03 16:01] LABS: Prothrombin Time 13.8 Seconds (11.1-14.7)
[2020-08-03 16:02] LABS: Partial Thromboplastin Time 35.1 SECONDS (22.3-36.8)
[2020-08-03 16:03] LABS: Anion Gap 14 mmol/L (8-16); Blood Urea Nitrogen 57 mg/dL (7-17); Calcium 7.9 mg/dL (8.4-10.2); Carbon Dioxide 26 mmol/L (22-30); Chloride 96 mmol/L (98-107); Estimated CRCL calculation 5 ml/min; Estimated Glomerular Filt Rate 4; Glucose 203 mg/dL (65-105); Potassium 4.3 mmol/L (3.4-5.0); Sodium 136 mmol/L (137-145)
[2020-08-03 16:21] LABS: Troponin I 0.062 ng/mL (0.000-0.034)
[2020-08-03] MEDS: hydrALAZINE HCL 20 MG/ML VIAL IV PUSH (18:12)
[2020-08-03] MEDS: ASPIRIN 81 MG CHEWABLE TABLET 324 MG PO (18:13)
[2020-08-03 18:22] VITALS: BP 233/91; PULSE 83; RESP 20; O2SAT 98
[2020-08-03 18:49] LABS: Troponin I 0.058 ng/mL (0.000-0.034)
--- NOTE | 2020-08-03 19:04 | ED.GENADULT ---
HPI - General Adult General Chief complaint: Recheck/Abnormal Lab/Rx Stated complaint: htn Time Seen by Provider: 08/03/20 17:07 Source: patient Mode of arrival: ambulatory Limitations: no limitations History of Present Illness HPI narrative: 60-year-old with a history of ESRD on peritoneal dialysis here with complaints of elevated blood pressure since this morning. Patient states that she gets nauseated and has dry heaves every time her blood pressure is high. She also complains of mild headache. No history of fever or chills or blurred vision. Denies any chest pain. She also mentions that she has spoken to Dr. Méndez who recommended her to take clonidine 0.2 which she did about 1 hour ago prior to coming to the ER. Onset (ago): day(s) (1) Exacerbating factors: none Associated symptoms: denies other symptoms Related Data Home Medications Medication Instructions Recorded Confirmed insulin aspart U-100 [Novolog 1 sliding scale dose SUBCUT 04/29/19 07/14/20 PenFill U-100 Insulin] USEASDIRECTD aspirin 81 mg tablet,delayed 81 mg PO DAILY 10/11/19 07/14/20 release calcium acetate 667 mg tablet 667 tablet PO TID 01/10/20 07/14/20 diphenhydramine HCl 25 mg capsule 25 mg PO Q6H PRN 01/10/20 07/14/20 calcitriol 0.25 mcg capsule 0.25 mcg PO DAILY 05/30/20 07/14/20 ergocalciferol (vitamin D2) 1,250 1,250 mcg PO WEEKLY 05/30/20 07/14/20 mcg (50,000 unit) capsule ferric citrate 210 mg iron tablet 210 mg PO BID tablet 05/30/20 07/14/20 hydralazine 100 mg tablet 100 mg PO TID tablet 05/30/20 07/14/20 ondansetron 8 mg disintegrating 8 mg PO Q12H PRN 06/30/20 07/14/20 tablet Allergies Allergy/AdvReac Type Severity Reaction Status Date / Time No Known Allergies Allergy Unknown Verified 07/14/20 12:22 Review of Systems Review of Systems: All systems reviewed & are unremarkable except as noted in HPI and below Constitutional: Constitutional: Reports no additional constitutional complaints Eyes: Eyes: Reports no additional eye complaints ENT: Reports system reviewed and no additional complaints, except as documented Cardiovascular: Cardiovascular: Reports no additional cardiovascular complaints Respiratory: Respiratory: Reports no additional respiratory complaints Gastrointestinal: Gastrointestinal: Reports nausea Musculoskeletal: Musculoskeletal: Reports no additional musculoskeletal complaints Neurologic: Reports headache(s) Endocrine: Endocrine: Reports no additional endocrine complaints Hematologic/Lymphatic: Hematologic/Lymphatic: Reports no additional hematologic/lymphatic complaints PMFSH Past Medical History Medical History Bone spur DM renal manif type II End stage renal disease on dialysis Peritoneal dialysis since September 2019 Hemorrhoids History of Richmond's palsy HLD (hyperlipidemia) HTN (hypertension) Lumbar radiculopathy Mumps Osteoarthritis Pituitary abscess Renal osteodystrophy Surgical History Surgical History H/O: hysterectomy History of delivery X3 Family History Family History Mother Diabetes mellitus of complications of diabetes, no heart disease Sibling Diabetes mellitus Father Motor vehicle accident Social History Social History 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 He is the durable power contracts attorney for healthcare. She has 4 children. Her 1 daughter works here. The patient thinks she wants to be a full code. She does not use alcohol or illicit drugs. Smoking status: Never smoker Alcohol intake: never Substance use: never Substance use type: does not use Gender identity (if verbalized by the patient): Female Spiritual care concerns: No Exam Narrative: Exam Narrative: GENERAL: Well
[2020-08-03 19:35] VITALS: BP 131/68
[2020-08-03] MEDS: ONDANSETRON INJ 4 MG/2 ML VIAL IV PUSH (19:35)
[2020-08-03 20:09] VITALS: BP 147/69; PULSE 82; RESP 18; O2SAT 98
== END 2020-08-03 20:11 | disposition home or self-care (01) ==
PROVIDERS: Emergency Medicine; Emergency Provider Family Medicine; PCP Internal Medicine
DX: I16.0 Hypertensive urgency (principal); E78.5 Hyperlipidemia, unspecified; M19.90 Unspecified osteoarthritis, unspecified site; E11.22 Type 2 diabetes mellitus with diabetic chronic kidney disease; I12.0 Hypertensive chronic kidney disease with stage 5 chronic kidney disease or end stage renal disease; N18.6 End stage renal disease; Z99.2 Dependence on renal dialysis; N25.0 Renal osteodystrophy; Z79.4 Long term (current) use of insulin; Z79.82 Long term (current) use of aspirin
CPT/HCPCS: 36415; 71046; 80048; 84484; 85025; 85610; 85730; 93005; 96374; 96375; 99284; A9270; J0360; J2405

== ENCOUNTER → 2020-08-16 15:39 | Outpatient (CLI) | payer OTHER, SELFPAY ==
--- NOTE | ~2020-08-16 | MR_ITS ---
EXAMINATION: MR hand RT wo con DATE: 08/16/2020 19:13 INDICATION: Right hand cellulitis and pain. TECHNIQUE: Magnetic resonance imaging (MRI) of the right hand was performed without intravenous contr ast. Sequences included axial, coronal, and sagittal T2-weighted FS FSE and T1-weighted FSE. COMPARISON: None FINDINGS: Motion artifact is noted. There is a skin marker dorsal to the third digit. Bone alignment is normal. No fracture. There is no bone marrow edema to suggest osteomyelitis. The flexor and extens or tendons are normal. IMPRESSION: 1. No evidence of osteomyelitis. Reviewed, dictated and finalized at location A. PARTS HANDLER
== END ==
PROVIDERS: PCP Internal Medicine; Visit Provider Nurse Practitioner
DX: L03.90 Cellulitis, unspecified (principal)
CPT/HCPCS: 73218

== ENCOUNTER → 2020-08-21 02:31 | Outpatient (CLI) | payer OTHER, SELFPAY ==
[2020-08-21 18:21] LABS: SARS-CoV-2 RNA PCR Negative
== END ==
PROVIDERS: PCP Internal Medicine; Visit Provider Internal Medicine Critical Care Medicine
DX: Z01.812 Encounter for preprocedural laboratory examination (principal); Z20.822 Contact with and (suspected) exposure to COVID-19
CPT/HCPCS: C9803; U0003; U0005

== ENCOUNTER 2020-08-23 09:10 | Outpatient (CLI) | payer OTHER, SELFPAY ==
--- NOTE | 2020-08-24 01:21 | SLEEP ---
Patient was unable to obtain and maintain sleep wearing CPAP. Multiple masks attempted. BiPap was attempted but patient refused BiPAP immediately. Patient decided to end her sleep study and called her to pick her up after attempting to wear CPAp for a few hours.
== END 2020-08-23 09:11 | disposition home or self-care (01) ==
LOC: ANHCSM 09:11
PROVIDERS: PCP Internal Medicine; Visit Provider Nurse Practitioner
DX: G47.33 Obstructive sleep apnea (adult) (pediatric) (principal)
CPT/HCPCS: 95811

== ENCOUNTER 2020-08-30 17:03 | Inpatient (IN) | payer OTHER, SELFPAY ==
[2020-08-30] VITALS (29 sets, daily range): BP systolic 157–267; BP diastolic 70–115; PULSE 76–120; RESP 10–29; TEMP 36.1–36.6; O2SAT 91–99; BMI 35.2
--- NOTE | ~2020-08-30 | XR_ITS ---
EXAMINATION: XR chest port-a-cath/central INDICATION: Dialysis catheter placement TECHNIQUE: Portable AP chest at 1209 hours COMPARISON: 08/03/2020 FINDINGS: A left internal jugular dialysis catheter has been placed which ends with its tip in the pr oximal superior vena cava. A mild diffuse interstitial pattern is present. Cardiomegaly is noted. The re is no pleural effusion or pneumothorax. IMPRESSION: 1. Left internal jugular dialysis catheter ending in the proximal superior vena cava. 2. Cardiomegaly with mild pulmonary edema. Reviewed, dictated and finalized at location A. ELAIN ENAMEL LABORER
--- NOTE | ~2020-08-30 | US_ITS ---
EXAMINATION: US venous doppler E DATE: 08/31/2020 10:20 INDICATION: Upper limb swelling. TECHNIQUE: Grayscale ultrasound images without and with compression and Doppler ultrasound images of the bilateral upper extremity veins were obtained. COMPARISON: None. FINDINGS: The visualized portions of the right internal jugular vein, subclavian vein, axillary vein, brachial veins, basilic vein, cephalic vein, radial vein, and ulnar vein are patent. The visualized portions of the left internal jugular vein, subclavian vein, axillary vein, brachial v eins, basilic vein, cephalic vein, radial vein, and ulnar vein are patent. IMPRESSION: 1. No deep venous thrombosis. Reviewed, dictated and finalized at location A. H FIXER
--- NOTE | ~2020-08-30 | XR_ITS ---
EXAMINATION: XR chest 1V portable DATE: 09/02/2020 05:36 INDICATION: Pulmonary edema. TECHNIQUE: A single frontal view of the chest was obtained. COMPARISON: Chest single view 09/01/2020, CT abdomen and pelvis 08/30/2020 FINDINGS: There are small pleural effusions. There are interstitial and airspace opacities in the mid and lower lung zones with a peripheral predominance. No pneumothorax. Cardiomegaly is noted. A left internal jugular central venous catheter is seen with tip in the superior vena cava. IMPRESSION: 1. Small pleural effusions. 2. Interstitial and airspace opacities in the mid and lower lung zones with worsening on the left, li bautista a combination of pulmonary edema and atelectasis. 3. Cardiomegaly. Reviewed, dictated and finalized at location A. ING HAND IMPRESSION: 1. Small pleural effusions. 2. Interstitial and airspace opacities in the mid and lower lung zones with wor sening on the left, likely a combination of pulmonary edema and atelectasis. 3. Cardiomegaly.
--- NOTE | ~2020-08-30 | XR_ITS ---
EXAMINATION: XR hand RT 2V EXAM DATE: 08/31/2020 08:58 INDICATION: Swelling, tenderness, erythema, lesions/2ND,3RD,4TH digits. TECHNIQUE: Frontal and lateral projections of the right hand. Correlation is made to contralateral h and same date. FINDINGS: There are no acute fractures or dislocations identified. There is no subcutaneous gas. Ex tensive arterial sclerosis. There are no bony erosions identified. There is mild polyarticular primar y osteoarthritis. There are no radiopaque foreign bodies. IMPRESSION: 1. XR hand RT 2V exam without acute osseous findings. Reviewed, dictated and finalized at location B. D STAFF
--- NOTE | ~2020-08-30 | XR_ITS ---
EXAMINATION: XR fl guide central line place DATE: 09/07/2020 17:07 INDICATION: Tunnel dialysis catheter insertion TECHNIQUE: 3 fluoroscopic images of the right upper chest were obtained during procedure performed by Dr. Esquivel. Radiologist was not present for the imaging or procedure. The amount of fluoroscopy time u sed during this procedure was 1.4 minutes. COMPARISON: 09/03/2020 FINDINGS: Interval placement of a large-bore dual-lumen right internal jugular central venous catheter with dis radha tip in the cephalad superior vena cava near the tip of a prior unchanged left internal jugular ce ntral venous catheter. A wire is seen extending alongside the right internal jugular central venous c atheter and into the more distal right atrium. No pneumothorax. IMPRESSION: 1. Fluoroscopy utilized during placement of a tunneled right internal jugular central venous catheter with distal tip at the cephalad superior vena cava. See procedure note for further detail. Reviewed, dictated and finalized at location A. IMPRESSION: 1. Fluoroscopy utilized during placement of a tunneled right internal jugular c entral venous catheter with distal tip at the cephalad superior vena cava. See procedure note for further detail.
--- NOTE | ~2020-08-30 | US_ITS ---
EXAMINATION: US retroperitoneal duplex ltd DATE: 09/01/2020 09:40 INDICATION: Hypertension. TECHNIQUE: Multiple grayscale, color Doppler, and pulsed Doppler images of the kidneys and renal bud abdiel were obtained. COMPARISON: CT abdomen and pelvis 06/01/2017 FINDINGS: The aorta peak systolic velocity is 121 cm/s. The right renal artery peak systolic velocity is 118 cm /s in the proximal segment, 125 cm/s in the mid segment, and 90 cm/s in the distal segment. The left renal artery peak systolic velocity is 63 cm/s in the proximal segment, 62 cm/s in the mid segment, a nd 60 cm/s in the distal segment. IMPRESSION: 1. No Doppler evidence of renal artery stenosis. The prior CT similarly shows no significant renal a rtery stenosis. Reviewed, dictated and finalized at location A. ING ROUTE SERVICER IMPRESSION: 1. No Doppler evidence of renal artery stenosis. The prior CT similarly shows no significant renal artery stenosis.
--- NOTE | ~2020-08-30 | XR_ITS ---
EXAMINATION: XR hand LT 2V EXAM DATE: 08/31/2020 08:58 INDICATION: Swelling, erythema, rule out [id number] 3RD digits distally. TECHNIQUE: Frontal and lateral projections of the left hand. Correlation is made to contralateral billy nd same date. FINDINGS: There are no acute left hand fractures or dislocations identified. Possible old 5th metacar pal fracture. There is no subcutaneous gas. Extensive arterial sclerosis. There are no bony erosions identified. There is mild polyarticular primary osteoarthritis. There are no radiopaque foreign bodi es. IMPRESSION: 1. XR hand LT 2V exam without acute osseous findings. Reviewed, dictated and finalized at location B. M BOX HAND
--- NOTE | ~2020-08-30 | XR_ITS ---
EXAMINATION: XR chest 2V DATE: 09/03/2020 14:15 INDICATION: Dyspnea. TECHNIQUE: Frontal and lateral views of the chest were obtained. COMPARISON: Chest single view 09/02/2020 FINDINGS: There are airspace opacities in the mid and lower lung zones with a peripheral predominance . There are small pleural effusions. No pneumothorax. The heart size is normal. A left internal jugul ar central venous catheter is seen with tip in the superior vena cava. IMPRESSION: 1. Improved airspace opacities in the mid and lower lung zones with a peripheral predominance, consis tent with atelectasis versus pneumonia. 2. Small pleural effusions. Reviewed, dictated and finalized at location A. IMPRESSION: 1. Improved airspace opacities in the mid and lower lung zones with a periphera l predominance, consistent with atelectasis versus pneumonia. 2. Small pleural effusions.
--- NOTE | ~2020-08-30 | CT_ITS ---
EXAMINATION: CT brain wo con DATE: 09/01/2020 17:22 INDICATION: Altered mental status TECHNIQUE: Computed tomography (CT) of the abdomen and pelvis was performed without intravenous contr ast. The dose-length product was 605.33 mGy-cm. Automated exposure control and iterative reconstructi on technique were employed. COMPARISON: CT dated 08/30/2020. FINDINGS: There are scattered mild periventricular and subcortical white matter changes, most likely related to small vessel ischemic disease (microangiopathy). No acute intracranial hemorrhage, infarct ion, mass or mass effect. No midline shift. Mild mucosal thickening right sphenoid sinus. Mastoids ar e pneumatized. No depressed skull fractures. IMPRESSION: 1. No acute intracranial abnormality. Reviewed, dictated and finalized at location A. RESIDENTIAL SERVICE TECHNICIAN
--- NOTE | ~2020-08-30 | XR_ITS ---
XR chest port-a-cath/central DATE: 09/07/2020 17:37 INDICATION: Dialysis catheter placement TECHNIQUE: Portable AP view on 09/07/2020 at 1739 hours COMPARISON: 09/03/2020 2 view chest FINDINGS: There is removal of the left internal jugular central venous catheter. There is interval placement of a right internal jugular right internal jugular dual lumen central norberto ous catheter, distal tip overlying upper right atrium. There is cardiomegaly and mild to moderate pulmonary vascular congestion. There is pulmonary interst itial prominence including Frances B lines, consistent with pulmonary interstitial edema. Very small pleural effusions are suggested. No pneumothorax. IMPRESSION: Interval placement of right internal jugular dual lumen dialysis catheter Cardiomegaly, congestive changes Reviewed, dictated and finalized at Location A. Reviewed, dictated and finalized at location A. IMPRESSION: Interval placement of right internal jugular dual lumen dialysis ca theter Cardiomegaly, congestive changes
--- NOTE | ~2020-08-30 | CT_ITS ---
EXAMINATION: CT abdomen pelvis wo con DATE: 08/30/2020 19:06 INDICATION: Abdomen pain. TECHNIQUE: Computed tomography (CT) of the abdomen and pelvis was performed without intravenous contr ast. The dose-length product was 854.60 mGy-cm. Automated exposure control and iterative reconstructi on technique were employed. COMPARISON: CT dated 07/09/2017. FINDINGS: Small pericardial effusion. Moderate bilateral pleural effusions. There is lingular, right middle lobe and left lower lobe atelectasis. Gallstones. The liver, spleen, pancreas, adrenal glands and kidneys are unremarkable. There are are r enal arterial calcifications. No hydronephrosis. There is a catheter extending into the right mid abd omen. Colonic diverticulosis without evidence for diverticulitis. There is mild osteoarthritis of the hips. Mild lumbar spondylosis. IMPRESSION: 1. Moderate bilateral pleural effusions with atelectasis of the lung bases. 2: Small pericardial effusion. 3: Cholelithiasis. Reviewed, dictated and finalized at location A. EMIC TUTOR
--- NOTE | ~2020-08-30 | CT_ITS ---
EXAMINATION: CT brain wo con DATE: 08/30/2020 19:06 INDICATION: Dizziness TECHNIQUE: Computed tomography (CT) of the head was performed without intravenous contrast. The dose- length product was 605.33 mGy-cm. Automated exposure control and iterative reconstruction technique w ere employed. COMPARISON: 07/14/2020 FINDINGS: No acute intracranial hemorrhage, infarction, mass or mass effect. No ventriculomegaly or m idline shift. Basilar cisterns are patent. There is intracranial atherosclerosis. There are scattered mild periventricular and subcortical white matter changes, most likely related to small vessel ische jw disease (microangiopathy). There is mucosal thickening of the right sphenoid sinus. Mastoids are pneumatized. No depressed skull fractures. IMPRESSION: 1. No acute intracranial abnormality. 2: Mild right sphenoid sinus disease. 3: Mild age-related findings. Reviewed, dictated and finalized at location A. MOMETER TUNER
[2020-08-30 17:31] LABS: Basophils Percent Auto 0.2 % (0.2-1.2); Eosinophils Absolute Auto 0.4 K/mm3 (0-0.3); Eosinophils Percent Auto 2.8 % (0-4.4); Hematocrit 29.6 % (37.0-47.0); Hemoglobin 10.3 g/dL (12.0-15.0); Immature Granulocyte Absolute 0.05 K/mm3 (0.00-0.031); Immature Granulocyte Percent A 0.4 % (0-0.5); Lymphocytes Absolute Auto 1.64 K/mm3 (0.9-3.2); Mean Corpuscular HGB Conc 34.8 g/dl (32-36); Mean Corpuscular Hemoglobin 33.4 pg (26-34); Mean Corpuscular Volume 96.1 fl (80-100); Mean Platelet Volume 9.1 fl (7.4-10.4); Monocytes Percent Auto 7.2 % (2.6-8.5); Neutrophils Absolute Auto 10.6 K/mm3 (1.3-6.7); Neutrophils Percent Auto 77.4 % (45.5-73.1); Platelet Count Result 356 k/mm3 (150-375); Red Blood Count 3.08 M/mm3 (4.2-5.4); Red Cell Distribution Width 13.7 % (11.5-14.5); White Blood Count 13.7 K/mm3 (4.5-10.0)
[2020-08-30 17:44] LABS: Alanine Aminotransferase 19 U/L (4-35); Albumin Level 3.4 g/dL (3.5-5.1); Alkaline Phosphatase 93 U/L (38-126); Anion Gap 10 mmol/L (8-16); Aspartate Amino Transferase 36 U/L (14-36); Bilirubin,Total 0.9 mg/dL (0.2-1.3); Blood Urea Nitrogen 85 mg/dL (7-17); Calcium 8.6 mg/dL (8.4-10.2); Carbon Dioxide 27 mmol/L (22-30); Chloride 91 mmol/L (98-107); Estimated CRCL calculation 5 ml/min; Estimated Glomerular Filt Rate 4; Glucose 161 mg/dL (65-105); Lipase 211 U/L (23-300); Potassium 4.7 mmol/L (3.4-5.0); Sodium 128 mmol/L (137-145)
--- NOTE | 2020-08-30 19:01 | ED.GENADULT ---
HPI - General Adult General Chief complaint: Nausea/Vomiting/Diarrhea Stated complaint: htn/headache Time Seen by Provider: 08/30/20 18:22 Source: patient Mode of arrival: ambulatory Limitations: no limitations History of Present Illness HPI narrative: Patient is a 60-year-old female complaining of elevated blood pressure at home accompanied by dizziness and nausea. Patient states that her blood pressure was 252/123 prior to arrival. Patient states that right after she vomited earlier that causes her to have upper abdominal pain briefly and now resolved. Patient denies any speech or visual disturbance, chest pain, shortness of breath, diarrhea, fever or chills. Patient denies any unsteady gait. Related Data Home Medications Medication Instructions Recorded Confirmed insulin aspart U-100 [Novolog 1 sliding scale dose SUBCUT 04/29/19 08/15/20 PenFill U-100 Insulin] USEASDIRECTD aspirin 81 mg tablet,delayed 81 mg PO DAILY 10/11/19 08/15/20 release calcium acetate 667 mg tablet 667 tablet PO TID 01/10/20 08/15/20 diphenhydramine HCl 25 mg capsule 25 mg PO Q6H PRN 01/10/20 08/15/20 calcitriol 0.25 mcg capsule 0.25 mcg PO DAILY 05/30/20 08/15/20 ergocalciferol (vitamin D2) 1,250 1,250 mcg PO WEEKLY 05/30/20 08/15/20 mcg (50,000 unit) capsule ondansetron 8 mg disintegrating 8 mg PO Q12H PRN 06/30/20 08/15/20 tablet Allergies Allergy/AdvReac Type Severity Reaction Status Date / Time No Known Allergies Allergy Unknown Verified 08/10/20 13:12 Review of Systems Review of Systems: All systems reviewed & are unremarkable except as noted in HPI and below Constitutional: Constitutional: Denies body ache(s), Denies chills, Denies excessive sweating, Denies fatigue, Denies fever(s), Denies headache(s), Denies lethargy, Denies malaise, Denies weakness and Denies weight loss Eyes: Eyes: Denies blurry vision, Denies change in vision and Denies loss of vision ENT: Denies ear discharge, Denies headache(s), Denies lip swelling, Denies epistaxis, Denies nasal congestion, Denies neck pain, Denies throat swelling and Denies tongue swelling Cardiovascular: Cardiovascular: Denies chest pain, Denies chest pain at rest, Denies chest pain with activity, Denies diaphoresis, Denies rapid heart rate, Denies edema, Denies irregular heart rhythm, Denies lightheadedness, Denies palpitations, Denies dyspnea and Denies dyspnea on exertion Respiratory: Respiratory: Denies chest congestion, Denies cough, Denies hemoptysis, Denies dyspnea and Denies dyspnea on exertion Gastrointestinal: Gastrointestinal: Denies abdominal pain, Denies melena, Denies hematochezia, Denies diarrhea, Denies vomiting and Denies hematemesis Musculoskeletal: Musculoskeletal: Denies abnormal gait, Denies deformity, Denies joint swelling, Denies limited range of motion, Denies neck pain and Denies numbness Neurologic: Denies Abnormal speech present, Denies abnormal gait, Denies confusion, Denies headache(s), Denies focal weakness, Denies loss of vision, Denies numbness, Denies Other visual disturbances, Denies Sensory deficit (Neuro) and Denies weakness Psychiatric: Psychiatric: Denies confusion, Denies depression, Denies auditory hallucinations, Denies homicidal ideation and Denies suicidal ideation Endocrine: Endocrine: Denies cold intolerance, Denies excessive sweating, Denies fatigue, Denies heat intolerance and Denies palpitations Hematologic/Lymphatic: Hematologic/Lymphatic: Denies easy bleeding and Denies easy bruising Allergic/Immunologic: Allergic/Immunologic: Denies lip swelling, Denies throat swelling and Denies tongue swelling PMFSH Past Medical History Medical History Bone spur DM renal manif type II End stage renal disease on dialysis Peritoneal dialysis since September 2019 Hemorrhoids History of Richmond's palsy HLD (hyperlipidemia) HTN (hypertension) Lumbar radiculopathy Mumps Osteoarthritis Pituitary abscess
--- NOTE | 2020-08-30 19:22 | PC.NURSE ---
Pt updated on need for urine, pt states she makes minimal amounts of urine, refusing cath at this time, will attempt lilibeth.
[2020-08-30] MEDS: hydrALAZINE HCL 20 MG/ML VIAL IV PUSH (19:30)
[2020-08-30] MEDS: PROMETHAZINE HCL 25 MG/ML AMPUL 12.5 MG IV PUSH (19:30)
--- NOTE | 2020-08-30 19:58 | PC.NURSE ---
Pt art sales consultant light asking for pain medication, edp perez informed, verbal order given for 5-325 [place] PO Stat.
--- NOTE | 2020-08-30 20:00 | PC.NURSE ---
pT UNABLE TO PRODUCE URINE SAMPLE, REFUSING CATH.
--- NOTE | 2020-08-30 20:00 | PC.NURSE ---
EPD updated on no change in pt BP, states he will placed order for Labetolol, awaiting new orders.
--- NOTE | 2020-08-30 20:00 | PC.NURSE ---
Verbal order given by DANDRE perez for 20mg Labetolol IVP stat.
[2020-08-30] MEDS: HYDROcodone/acetaminophen (*CRX) 5-325 MG TABLET 1 TAB PO (20:05)
[2020-08-30] MEDS: LABETALOL HCL INJ 100 MG/20 ML VIAL 20 MG IV PUSH (20:05)
--- NOTE | 2020-08-30 20:30 | PC.NURSE ---
pT UNABLE TO PRODUCE URINE SAMPLE, REFUSING CATH.
--- NOTE | 2020-08-30 20:43 | ECG_ITS ---
Measurements Intervals [place] Rate: 95 P: 46 VT: 174 QRS: 9 QRSD: 89 T: 101 QT: 339 QTc: 427 Interpretive Statements SINUS RHYTHM POSSIBLE LEFT ATRIAL ENLARGEMENT VOLTAGE CRITERIA FOR LVH BORDERLINE R WAVE PROGRESSION, ANTERIOR LEADS ST-T WAVE ABNORMALITY IN HIGH LATERAL LEADS- CONSIDER ISCHEMIA BASELINE WANDER- V3, V6 ABNORMAL ECG Electronically Signed On 08-31-2020 7:03:05 BUZZSAW OPERATOR HELPER by Eric Domínguez D.O.
[2020-08-30] MEDS: niCARdipine 20 MG/200 ML 20 MG/200 ML BAG 50 MG IV CONT (20:52)
--- NOTE | 2020-08-30 20:55 | PC.NURSE ---
pT ACTIVELY HAVING BOUTS OF EMESIS, VERBAL ORDER GIVEN BY DANDRE DENNIS FOR 4MG ZOFRAN IVP STAT.
--- NOTE | 2020-08-30 20:56 | PC.NURSE ---
pT UNABLE TO PRODUCE URINE SAMPLE, REFUSING CATH.
[2020-08-30] MEDS: ONDANSETRON INJ 4 MG/2 ML VIAL (21:05)
[2020-08-30 21:17] LABS: Glucose Point of Care 149 (65-105)
--- NOTE | 2020-08-30 21:24 | PC.NURSE ---
Pt up using commode at this time attempting urine sample.
[2020-08-30 21:42] LABS: Add Urine Microscopic? YES; Appearance Urine Cloudy (Clear); Bacteria Urine Trace /hpf; Bilirubin Urine Negative (Negative); Blood Urine Negative (Negative); Color Urine Yellow (Yellow); Glucose Urine UA 3+ mg/dL (Negative); Ketones Urine Negative (Negative); Leukocyte Esterase Ur Trace LEU/UL (Negative); Mucus Urine Rare /lpf; Nitrate Urine Negative (Negative); Protein Urine 3+ mg/dL (Negative); Specific Grav Ur 1.013 (1.001-1.035); Squamous Epithelial Cell Urine Occasional /hpf (Few); Transitional Epi Cells Urine Occasional /hpf (None Seen); Urobilinogen Urine Negative mg/dL (<2.0); WBC Urine >75 /hpf
[2020-08-30] MEDS: ONDANSETRON INJ 4 MG/2 ML VIAL IV PUSH (22:01)
--- NOTE | 2020-08-30 22:44 | ADMGEN ---
This patient, Rufina Saravia, was admitted to Intensive Care Unit-5 at 2230 on 08/30/2020 . Patient/family oriented to hospital policies and general routines including ID bracelet, bed and alarms, visiting hours, pain management, procedures, bathroom and other care routines, personal items, smoking policy, room service/diet, and visiting hours. Information on how to activate the Rapid Response Team has been discussed. Patient/Family are encouraged to report perceived risks to care and to ask questions if they do not understand what they are told or what they should do.
--- NOTE | 2020-08-30 22:54 | PM.IMHP ---
H&P: HPI History of Present Illness Date/Time: 08/30/20 22:54 Chief Complaint: Fungal infection on fingers Narrative: 60-year-old female with a past medical history of end-stage renal disease on peritoneal dialysis, insulin-dependent diabetes mellitus, and difficult to control hypertension who presented to the ER with a chief complaint of infection in her fingers. The patient reports that she has been having an infection in her fingers for the last 3 months. She was prescribed Keflex and early July and Augmentin in late July for symptoms. She does not give me much detail regarding her hand pain. She reported to the nursing staff that the pain in her hands is tingling in nature and neck stents to the wrists. At the time my evaluation she told me the pain was severe in nature special palpation. She does have some swelling to her hands. She is post follow-up with Dr. Hanna on 09/05/2020 regarding her ring fingers. She had an MRI of her right hand July 2020 which demonstrated no evidence of osteomyelitis. She also has a small scab to the posterior middle finger. She has limited range of motion to her hands due to swelling and discomfort. She denies any fevers or chills. In the ER the patient was dry heaving and having some emesis. She reported severe abdominal pain to the nursing staff. However she did not mention or abdominal pain at the time of my evaluation. She states that she has been having nausea and vomiting every day since she had COVID in April. Her emesis that is mostly of clear liquid. She has been having normal bowel movements. In the ER she was markedly hypertensive blood pressures 250/123. She had accompanying dizziness and nausea. She reports being compliant with her antihypertensive therapy. May not have gotten her afternoon doses of antihypertensive prior to coming to the ER. She denies having any cough or congestion. She has been having some shortness of breath. Scan of her abdomen demonstrated moderate bilateral pleural effusions with atelectasis at the lung bases. She also had a small pericardial effusion and cholelithiasis. She reports that she has been doing her peritoneal dialysis as directed. She still makes urine. Review of systems was somewhat limited as the patient was actively dry heaving and vomiting at the time of my interview. Review of Systems Review of Systems: Narrative: 12 systems were reviewed with pertinent positives and negatives per HPI. Except as documented in the HPI, all other systems were reviewed and are negative. 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 He is the durable power ip technology transactions attorney for healthcare. She has 4 children. Her 1 daughter works here. The patient thinks she wants to be a full code. She does not use alcohol or illicit drugs. Smoking status: Never smoker Alcohol inta
[2020-08-31] VITALS (25 sets, daily range): BP systolic 134–204; BP diastolic 48–81; PULSE 57–107; RESP 13–24; TEMP 36–36.9; O2SAT 94–100
[2020-08-31] MEDS: PROMETHAZINE HCL 25 MG/ML AMPUL IM (00:31)
[2020-08-31] MEDS: niCARdipine 20 MG/200 ML 20 MG/200 ML BAG 50 MG IV CONT (03:24)
[2020-08-31 04:50] LABS: Hemoglobin 9.3 g/dL (12.0-15.0); Mean Corpuscular HGB Conc 34.4 g/dl (32-36); Mean Corpuscular Hemoglobin 33.7 pg (26-34); Mean Corpuscular Volume 97.8 fl (80-100); Platelet Count Result 338 k/mm3 (150-375); Red Blood Count 2.76 M/mm3 (4.2-5.4); Red Cell Distribution Width 13.9 % (11.5-14.5); White Blood Count 13.1 K/mm3 (4.5-10.0)
[2020-08-31 05:16] LABS: Anion Gap 11 mmol/L (8-16); Blood Urea Nitrogen 91 mg/dL (7-17); Calcium 8.1 mg/dL (8.4-10.2); Carbon Dioxide 26 mmol/L (22-30); Chloride 93 mmol/L (98-107); Estimated CRCL calculation 5 ml/min; Estimated Glomerular Filt Rate 4; Glucose 175 mg/dL (65-105); Magnesium 2.4 mg/dL (1.6-2.3); Phosphorus 6.7 mg/dL (2.5-4.5); Potassium 4.7 mmol/L (3.4-5.0); Sodium 130 mmol/L (137-145)
[2020-08-31] MEDS: hydrALAZINE HCL 50 MG TABLET 100 MG PO ×3 (05:48→21:04)
[2020-08-31 06:43] LABS: Uric Acid 6.8 mg/dL (2.5-7.5)
[2020-08-31] MEDS: HYDROcodone/acetaminophen (*CRX) 5-325 MG TABLET 1 TAB PO ×3 (07:07→16:18)
[2020-08-31] MEDS: ONDANSETRON INJ 4 MG/2 ML VIAL IV PUSH (08:10)
[2020-08-31 08:15] LABS: Glucose Point of Care 164 (65-105)
--- NOTE | 2020-08-31 08:39 | WPDCNINT ---
Assessment and Plan Assessment and plan (1) Hypertensive urgency: Code(s): I16.0 - Hypertensive urgency Status: Acute Assessment and Plan: Patient does have a history of labile blood pressures, presented the ED on 08/30/2020 with hypertensive urgency along with nausea and vomiting -patient systolic blood pressures with 267/94, patient was given multiple doses of hydralazine despite which the blood pressures remained elevated and was started on nicardipine infusion -nicardipine infusion was held this morning after being given hydralazine and the blood pressures were in the 130s systolic. -patient will be resumed on home medications, clonidine, Lasix, hydralazine, lisinopril (2) Cellulitis: Qualifiers: Site of cellulitis: extremity Site of cellulitis of extremity: upper extremity Laterality: right Qualified Code(s): L03.113 - Cellulitis of right upper limb Code(s): L03.90 - Cellulitis, unspecified Status: Acute Assessment and Plan: Right hand swelling, erythema, discoloration with multiple lesions. Patient did stated that she was at her daughter's house who has pets -patient has been started on Keflex -will obtain x-rays of the hands - order upper extremity venous and arterial Dopplers -infectious disease consult (3) End stage renal disease on dialysis: Code(s): N18.6 - End stage renal disease; Z99.2 - Dependence on renal dialysis Status: Acute Assessment and Plan: Significant elevation in creatinine and BUN, patient seems to be uremic given her symptoms of nausea and vomiting and anasarca with generalized swelling -follows with Dr. Harrington -patient to get peritoneal dialysis today -will discuss with Nephrology regarding hemodialysis (4) DVT prophylaxis: Code(s): Z29.9 - Encounter for prophylactic measures, unspecified Status: Acute Assessment and Plan: SCDs for now Additional Plan Discussed with and updated her with condition and plan of care. I answered all questions patient is aware that we will be obtaining x-rays of the hands, Dopplers, infectious disease will be evaluating the patient. Code status: Full code Critical care time spent code 44 minutes This dictation may have been done utilizing a voice recognition system. Attempts have been made to correct errors. However, there may be uncorrected grammatical, spelling, and recognition errors present. Due to a high probability of clinically significant, life threatening deterioration, the patient required my highest level of preparedness to intervene emergently and I personally spent this critical care time directly and personally managing the patient. This critical care time included obtaining a history; examining the patient; pulse oximetry; ordering and review of studies; arranging urgent treatment with development of a management plan; evaluation of patient's response to treatment; frequent reassessment; and discussions with other providers. It was exclusive of separately billable procedures and treating other patients and teaching time. Please see Assessment and Plan section and the rest of the note for further information on patient assessment and treatment Homeland Security Program Specialist Consult Note Consult date: 08/31/20 Time Seen: 07:09 Reason for consult: Hypertensive urgency, nausea, vomiting, uremia, right hand swelling and erythema HPI: Rufina Saravia is a 60 year old female with past medical history of end-stage renal disease on peritoneal dialysis since September 2019, history of Richmond's passing of hyperlipidemia, essential hypertension, lumbar radiculopathy, osteoarthritis, pituitary abscess, renal osteodystrophy presented the ED with complains of nausea, vomiting, diarrhea along with elevated blood pressures/hypertensive urgency with systolic blood pressure in the 260s. Patient also complained of right hand redness, pain and swelling. In the ER patient remained hypotensive was started on nicardipine infusion
[2020-08-31] MEDS: cloNIDine HCL 0.2 MG TABLET PO ×3 (09:02→17:13)
[2020-08-31] MEDS: calcitrioL 0.25 MCG CAPSULE PO (09:02)
[2020-08-31] MEDS: FUROSEMIDE 80 MG TABLET PO ×2 (09:03→17:13)
[2020-08-31] MEDS: ASPIRIN 81 MG ENTERIC TABLET PO (09:03)
[2020-08-31] MEDS: CALCIUM ACETATE 667 MG TABLET PO ×3 (09:03→17:12)
[2020-08-31] MEDS: lisinopriL 20 MG TABLET 40 MG PO (09:03)
[2020-08-31] MEDS: hydrALAZINE HCL 20 MG/ML VIAL 10 MG IV PUSH ×3 (10:32→22:19)
[2020-08-31 12:04] LABS: Glucose Point of Care 156 (65-105)
--- NOTE | 2020-08-31 13:02 | PM.IMPN ---
Progress Note: A&P Assessment and Plan (1) Hypertensive urgency, malignant: Code(s): I16.0 - Hypertensive urgency Status: Acute Assessment and Plan: Nicardipine drip iv hydralazine in admission back on home medications, clonidine, Lasix, hydralazine, lisinopril seen by ICU MD, cardiology MD and nephrology MD (2) Obstructive sleep apnea: Code(s): G47.33 - Obstructive sleep apnea (adult) (pediatric) Status: Acute (3) Cellulitis: Qualifiers: Site of cellulitis: extremity Site of cellulitis of extremity: upper extremity Laterality: right Qualified Code(s): L03.113 - Cellulitis of right upper limb Code(s): L03.90 - Cellulitis, unspecified Status: Acute Assessment and Plan: ID consulted (4) End stage renal disease on dialysis: Code(s): N18.6 - End stage renal disease; Z99.2 - Dependence on renal dialysis Status: Acute Assessment and Plan: Pt missed peritoneal dialysis yesterday, seen by Nephrology. for dialysis today. Subjective Date/time seen: 08/31/20 13:02 Interval history: 60-year-old female with a past medical history of end-stage renal disease on peritoneal dialysis, insulin-dependent diabetes mellitus, and difficult to control hypertension who presented to the ER with a chief complaint of infection in her fingers. Pts BP was very high on admission. 240/ 90 coming down pt back on her oral medications, was on a nicardipine drip. Review of Systems Review of Systems: All systems reviewed & are unremarkable except as noted in HPI and below Exam Const: General: cooperative, healthy appearing and other (swollen face and body ); No in distress Nutritional Appearance: overweight Orientation/consciousness: oriented to person HENMT: Head: normal to inspection Resp: Effort & Inspection: no respiratory distress Auscultation: no rhonchi and no wheezes Cardio: Rate: regular rate Rhythm: regular rhythm GI: Inspection: normal to inspection GI Palp: No abdominal tenderness, No Guarding due to palpation present (GI) and No Hepatomegaly present Auscultation: normal bowel sounds Skin: Trauma: other (swollen extremities ) Neuro: General: oriented to person Objective Data Vital Signs Vital Signs: Vital Signs - 24 hr 08/30/20 17:17 08/30/20 18:21 08/30/20 19:00 Temperature 36.1 C L Pulse Rate 106 H 100 Respiratory Rate 20 19 17 Blood Pressure 267/94 H 260/103 H Pulse Oximetry 95 99 08/30/20 19:01 08/30/20 19:04 08/30/20 19:28 Temperature Pulse Rate 97 103 H 91 Respiratory Rate 18 20 29 H Blood Pressure 244/115 H Pulse Oximetry 98 08/30/20 19:30 08/30/20 19:45 08/30/20 19:46 Temperature Pulse Rate 92 114 H 114 H Respiratory Rate 21 H 13 15 Blood Pressure 242/94 H Pulse Oximetry 98 99 08/30/20 19:47 08/30/20 20:00 08/30/20 20:01 Temperature Pulse Rate 113 H 119 H 120 H Respiratory Rate 17 18 21 H Blood Pressure 228/99 H Pulse Oximetry 99 08/30/20 20:16 08/30/20 20:17 08/30/20 20:38 Temperature Pulse Rate 82 83 82 Respiratory Rate 11 L 16 24 H Blood Pressure 191/82 H Pulse Oximetry 91 96 08/30/20 20:52 08/30/20 20:56 08/30/20 21:00 Temperature Pulse Rate 87 84 76 Respiratory Rate 21 H 19 Blood Pressure 195/72 H Pulse Oximetry 08/30/20 21:02 08/30/20 21:03 08/30/20 21:15 Temperature Pulse Rate 100 97 89 Respiratory Rate 26 H 20 10 L Blood Pressure 244/80 H Pulse Oximetry 94 08/30/20 21:30 08/30/20 21:33 08/30/20 21:45 Temperature Pulse Rate 88 86 87 Respiratory Rate 20 10 L Blood Pressure 157/81 H Pulse Oximetry 99 97 08/30/20 22:01 08/30/20 22:03 08/30/20 22:30 Temperature 36.6 C Pulse Rate 89 87 93 Respiratory Rate 18 18 19 Blood Pressure 165/80 H 165/80 H 175/70 H Pulse Oximetry 97 97 92 08/30/20 22:40 08/30/20 23:00 08/31/20 00:00 Temperature 36.9 C Pulse Rate 107 H Respiratory Rate 19 Blood Pressu
--- NOTE | 2020-08-31 14:43 | WPDINFPN2 ---
Progress Note: A&P Assessment and Plan (1) Finger lesion: Code(s): L98.9 - Disorder of the skin and subcutaneous tissue, unspecified Status: Acute Assessment and Plan: digital lesions, non infectious. Consider calciphylaxis, vasculitis, or other vascular occlusion REC No further antibiotics, call if other Qs Subjective Date/time seen: 08/31/20 14:43 Objective Data Vital Signs Vital Signs: Vital Signs - 24 hr 08/30/20 17:17 08/30/20 18:21 08/30/20 19:00 Temperature 36.1 C L Pulse Rate 106 H 100 Respiratory Rate 20 19 17 Blood Pressure 267/94 H 260/103 H Pulse Oximetry 95 99 08/30/20 19:01 08/30/20 19:04 08/30/20 19:28 Temperature Pulse Rate 97 103 H 91 Respiratory Rate 18 20 29 H Blood Pressure 244/115 H Pulse Oximetry 98 08/30/20 19:30 08/30/20 19:45 08/30/20 19:46 Temperature Pulse Rate 92 114 H 114 H Respiratory Rate 21 H 13 15 Blood Pressure 242/94 H Pulse Oximetry 98 99 08/30/20 19:47 08/30/20 20:00 08/30/20 20:01 Temperature Pulse Rate 113 H 119 H 120 H Respiratory Rate 17 18 21 H Blood Pressure 228/99 H Pulse Oximetry 99 08/30/20 20:16 08/30/20 20:17 08/30/20 20:38 Temperature Pulse Rate 82 83 82 Respiratory Rate 11 L 16 24 H Blood Pressure 191/82 H Pulse Oximetry 91 96 08/30/20 20:52 08/30/20 20:56 08/30/20 21:00 Temperature Pulse Rate 87 84 76 Respiratory Rate 21 H 19 Blood Pressure 195/72 H Pulse Oximetry 08/30/20 21:02 08/30/20 21:03 08/30/20 21:15 Temperature Pulse Rate 100 97 89 Respiratory Rate 26 H 20 10 L Blood Pressure 244/80 H Pulse Oximetry 94 08/30/20 21:30 08/30/20 21:33 08/30/20 21:45 Temperature Pulse Rate 88 86 87 Respiratory Rate 20 10 L Blood Pressure 157/81 H Pulse Oximetry 99 97 08/30/20 22:01 08/30/20 22:03 08/30/20 22:30 Temperature 36.6 C Pulse Rate 89 87 93 Respiratory Rate 18 18 19 Blood Pressure 165/80 H 165/80 H 175/70 H Pulse Oximetry 97 97 92 08/30/20 22:40 08/30/20 23:00 08/31/20 00:00 Temperature 36.9 C Pulse Rate 107 H Respiratory Rate 19 Blood Pressure 169/71 H 169/71 H Pulse Oximetry 95 96 08/31/20 01:15 08/31/20 02:00 08/31/20 04:00 Temperature 36.8 C Pulse Rate 88 94 Respiratory Rate 17 19 Blood Pressure 187/79 H 162/72 H 157/70 H Pulse Oximetry 95 95 08/31/20 04:49 08/31/20 05:30 08/31/20 06:00 Temperature Pulse Rate 85 Respiratory Rate 15 Blood Pressure 151/60 H 149/56 H 196/69 H Pulse Oximetry 99 08/31/20 06:15 08/31/20 06:24 08/31/20 07:15 Temperature Pulse Rate Respiratory Rate Blood Pressure 196/69 H 184/66 H 135/57 L Pulse Oximetry 08/31/20 07:30 08/31/20 07:40 08/31/20 08:00 Temperature 36.8 C Pulse Rate 82 Respiratory Rate 19 Blood Pressure 134/48 L 160/59 H Pulse Oximetry 94 98 08/31/20 08:34 08/31/20 10:00 08/31/20 12:00 Temperature Pulse Rate 87 74 87 Respiratory Rate 15 21 H Blood Pressure 175/74 H 178/70 H Pulse Oximetry 95 96 100 08/31/20 14:00 Temperature Pulse Rate 92 Respiratory Rate 24 H Blood Pressure 204/80 H Pulse Oximetry 100 Intake/Output Intake/Output: Intake & Output 08/28/20 08/29/20 08/30/20 08/31/20 23:59 23:59 23:59 23:59 Intake Total 450 Output Total 150 Balance 300 Meds/Results Medications: Active Medications Generic Name Dose Route Start Last Admin Trade Name Freq PRN Reason Stop Dose Admin Hydrocodone Bitart/Acetaminophen 1 tab 08/30/20 22:56 08/31/20 12:29 Hydrocodone/Acetaminophen (*Crx) 5-325 Mg Tablet PO 1 tab Q4H PRN Administration pain 7-10 Aspirin 81 mg 08/31/20 09:00 08/31/20 09:03 Aspirin 81 Mg Enteric Tablet PO 81 mg DAILY MICHAELA Administration Calcitriol 0.25 mcg 08/31/20 09:00 08/31/20 09:02 Calcitriol 0.25 Mcg Capsule PO 0.25 mcg DAILY MICHAELA Administration Calcium Acetate 667 mg 08/31/20 08:00 08/31/20 13:42 Calcium Artemio
--- NOTE | 2020-08-31 15:39 | PM.CNNEP ---
Assessment and Plan Assessment and plan (1) End stage renal disease: Code(s): N18.6 - End stage renal disease Status: Chronic Assessment and Plan: resume CCPD tonight follow trend of electrolytes, volume status, and clearance (2) Hypertensive urgency: Code(s): I16.0 - Hypertensive urgency Status: Acute Assessment and Plan: doing better at this time precipitated by her right hand pain(?) follow trend of hemodynamics (3) Cellulitis of hand: Code(s): L03.119 - Cellulitis of unspecified part of limb Status: Acute Assessment and Plan: less likely infection per Infectious Disease assessment possible calciphylaxis??? -- she does have poor phosphorus control at baseline but calcium and PTH under reasonable control will consult Dr. Hanna for his opinion (4) Anemia: Code(s): D64.9 - Anemia, unspecified Status: Chronic Assessment and Plan: likely due to ESRD and acute illness hesitant to give Epogen until BP better controlled follow BP readings (5) Renal osteodystrophy: Code(s): N25.0 - Renal osteodystrophy Status: Chronic Assessment and Plan: check phosphorus and PTH follow parameters (6) Diabetes: Code(s): E11.9 - Type 2 diabetes mellitus without complications Status: Acute Assessment and Plan: follow accuchecks glycemic control Long and extensive discussion (> 20 minutes) with daughter, , and patient regarding the above issue particularly related to her right hand/finger issues and my concern for possible calciphylaxis -- if this is indeed the case, sodium thiosulfate is a potential option but may be difficult to give with peritoneal dialysis; another option would be switch to hemodialysis for more clearance/ dialysis to hopefully improve her renal osteodystrophy parameters and if uremia is playing a role with regard to her mental status, that theoretically should help as well. Will consult Dr. Hanna for further evaluation of right hand lesions and follow the trend of labs with peritoneal dialysis prior to considering a trial of hemodialysis. Will continue to follow. History of Present Illness Reason for Consult Consult date: 08/31/20 Reason for consult: end stage renal disease Chief Complaint Chief complaint: HTN URGENCY, ESRD ON DIALYSIS History of Present Illness Narrative: The patient is a 60-year-old female with extensive past medical history as outlined below who presented to [facility] Emergency room with complaints of pain in her right hand/fingers. The patient reports that she has been having this issue and problems for the last 3 months without any clear improvement in her symptoms. Initially it was thought that this was some type of cellulitis and she was treated with outpatient antibiotic therapy in the hopes this would improve her symptoms. However, the pain persists in association with swelling and edema. She apparently had an MRI of her hand in early July 2020 which demonstrated no evidence of osteomyelitis. However she continues to have limited range of motion due to the swelling and severe discomfort. Workup and evaluation emergency room was significant for the fact that the patient was quite hypertensive on presentation with a blood pressure in the 250-270 systolic range. Accompanying symptoms included dizziness, nausea, and dry heaves with occasional episodes of vomiting. She gives no symptoms of overt fevers, chills diarrhea, palpitations, or syncope and reports that she has been compliant with her blood pressure medications. It should be noted that she has had several hospitalizations in the last few months for hypertensive urgency both [facility] as well as [facility]. In the emergency room, she was given multiple doses of IV hydralazine but her blood pressure failed to improve and there was some concern that the ongoing natty
[2020-08-31 16:56] LABS: Glucose Point of Care 171 (65-105)
--- NOTE | 2020-08-31 18:45 | CONS_ITS ---
DATE OF CONSULTATION: 08/31/2020 REASON FOR CONSULTATION: Finger lesions. HISTORY OF PRESENT ILLNESS: A 60-year-old female who has been on dialysis for about a year. For the last 3 months, she notes pain in her fingers with skin lesions. She reported to her primary care physician in July that these have been present for only 3 weeks. This began as an ulceration over the dorsum of the right third middle phalanx and soon thereafter purple discoloration over the ulnar aspect of the adjacent fourth fingernail. Since then, she has developed lesions over the left third finger appearing as a scabbed ulcer subcentimeter. There is associated pain which is unremitting along with edema of the fingers x10. No fever, chills, or sweats. She has been on cephalexin and Augmentin at various times without any relief. Her primary physician also gave her prednisone 2 pills once daily for 10 days, and she is unsure if this had any effect. She was admitted to the hospital several days ago with hypertension and was admitted, she has been given cefazolin and consultation requested. White blood cell count had been elevated on arrival, previously normal on 08/03/2020. No previous operations and she knows of no vascular compromise. She has also noted easy bruisability over the torso and extremities. ALLERGIES: NONE KNOWN. PRESENT MEDICATIONS: No ongoing immunosuppressants. HABITS: No tobacco. No alcohol. PAST MEDICAL HISTORY: In addition to the above, diabetes mellitus, Richmond palsy, hyperlipidemia, hypertension, ILD, lumbar radiculopathy, restless legs, BURT, renal osteodystrophy, previous coronavirus infection, pituitary mass, details not available, osteoarthritis. FAMILY HISTORY: Not pertinent to her present illness. SOCIAL HISTORY: She is , lives locally and does not work outside the home. REVIEW OF SYSTEMS: Constitutional, musculoskeletal, skin, respiratory, cardiovascular, otherwise negative. PHYSICAL EXAMINATION: GENERAL: Middle-aged female appears her actual age. No acute distress. VITAL SIGNS: Afebrile, 204/80, 24, 92, 100% room air. SKIN: Shows several ecchymotic lesions over her skin, lower extremities as well as the upper extremities and the abdominal wall. No generalized rashes. EENT: Conjunctivae are clear. Pupils equal and round. The oropharynx, oral mucosa normal. NECK: No masses or thyromegaly. LUNGS: Clear to auscultation. CARDIAC: Regular rate and rhythm. No gallops. ABDOMEN: Morbidly obese, nontender. No masses. No organomegaly. EXTREMITIES: 1+ ankle edema. MUSCULOSKELETAL: She has an ulcer over the right third finger, which is a partial thickness and otherwise skin discoloration around the nails other digits. Edema of the fingers is diffuse across all phalanges. Her skin is exquisitely tender to the touch. Capillary refill is diminished. LABORATORY DATA: White blood cell count as above. Differential is normal. Hemoglobin 10.3, platelets 356. She has hyponatremia, BUN 91, creatinine 10.5, glucose 175, magnesium high, phosphorus high, calcium low, albumin 3.4. Urinalysis greater than 75 white cells, but occasional squamous cells as well. Blood cultures have no growth today, not done earlier. Urine culture from last evening in process. RADIOLOGY: Hand MRI showed no abnormalities, 08/16/2020. Hand x-rays, right side normal, left side normal other than old fracture. Arteriosclerosis seen. ASSESSMENT: 1. Finger lesions, suspect vasculitis, medium vessel vascular occlusion, or calciphylaxis. She has no evidence of infection. 2. Leukocytosis, reactive. 3. Chronic renal failure. RECOMMENDATIONS: 1. No further antibiotics. 2. Further evaluation and treatment at your discretion. Thank you very much for
--- NOTE | 2020-08-31 19:04 | WPDCN ---
Assessment and Plan Assessment and plan (1) Finger lesion: Code(s): L98.9 - Disorder of the skin and subcutaneous tissue, unspecified Status: Acute Assessment and Plan: Patient has end stage renal disease due to diabetes. She had Covid19 earlier this year. Her cold, hypersensitive fingers with small areas of skin necrosis seem most compatible with her diabetic condition, not cellulitis. She might do well with application of Nitro-Bid ointment 2% applied to the digits that have ulcers or that are most painful, 0.5 inches to 1 inch to the entire finger 3-4 times daily. Will check with [facility] regarding an order for that. (2) End stage renal disease: Code(s): N18.6 - End stage renal disease Status: Chronic HPI Data of Consult Date/Time: 08/31/20 19:04 Requesting Physician: Priscila Briones DO Primary Care Provider: Jayjay Love DO Consult Narrative Narrative: Rufina Saravia is a 60 year old female with end-stage renal disease. She has been in the hospital frequently in the past months. Se does peritoneal dialysis at home. She is admitted on this occasion with dry heaves, hypertension uncontrolled, pain in her fingers with small ulcerations, elevated white count, anasarca. She is in the ICU with the nasal prong oxygen. She normally has CPAP, that is being held because of the emesis. Tonight she speaks eagerly and rapidly and repeats herself and has trouble focusing on a single problem. She is a patient I have seen in the past for bilateral carpal tunnel release. She thought those procedures were very helpful to her. I believe we have also done a trigger finger release recently. She had no trouble healing these wounds. She had an appointment to see me soon regarding the painful darkened skin ulcerations on several fingers. These have been treated elsewhere for cellulitis and she has had 2 or 3 rounds of antibiotics none of which have improved her condition. Regarding her hands she says several of her fingers are numb. She has two dry darkened ulcers on different fingers of her right hand and 1 on her left hand. These are roughly 4-6 mm. She says the fingers are very sensitive and she does not enjoy having them handled. She says her fingers are swollen and she has trouble flexing 2 of them on the right-hand. Most of her fingers feel cold to touch. 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 He is the durable power traffic law attorney for healthcare. She has 4 children. Her 1 daughter works here. The patient thinks she wants to be a full code. She does not use alcohol or illicit drugs. Smoking status: Never smoker Alcohol intake: never Substance use: never Substance use type: does not use Gender identity (if verbalized by the patient): Female Spiritual care concerns: No
[2020-08-31 21:12] LABS: Glucose Point of Care 249 (65-105)
[2020-09-01] VITALS (43 sets, daily range): BP systolic 128–221; BP diastolic 48–109; PULSE 54–93; RESP 16–28; TEMP 36.4–37; O2SAT 97–100
[2020-09-01] MEDS: diphenhydrAMINE HCl CAP 25 MG CAPSULE PO (00:16)
[2020-09-01 00:52] LABS: Glucose Point of Care 211 (65-105)
[2020-09-01] MEDS: LABETALOL HCL INJ 100 MG/20 ML VIAL 20 MG IV PUSH (01:13)
[2020-09-01] MEDS: hydrALAZINE HCL 20 MG/ML VIAL 10 MG IV PUSH ×2 (02:38→15:56)
[2020-09-01 04:28] LABS: Basophils Percent Auto 0.2 % (0.2-1.2); Eosinophils Absolute Auto 0.3 K/mm3 (0-0.3); Hematocrit 28.3 % (37.0-47.0); Hemoglobin 9.7 g/dL (12.0-15.0); Immature Granulocyte Absolute 0.06 K/mm3 (0.00-0.031); Immature Granulocyte Percent A 0.6 % (0-0.5); Lymphocytes Absolute Auto 1.16 K/mm3 (0.9-3.2); Mean Corpuscular HGB Conc 34.3 g/dl (32-36); Mean Corpuscular Hemoglobin 33.3 pg (26-34); Mean Corpuscular Volume 97.3 fl (80-100); Mean Platelet Volume 9.8 fl (7.4-10.4); Monocytes Absolute Auto 0.9 K/mm3 (0.1-0.6); Monocytes Percent Auto 8.3 % (2.6-8.5); Neutrophils Absolute Auto 8.1 K/mm3 (1.3-6.7); Neutrophils Percent Auto 76.9 % (45.5-73.1); Platelet Count Result 326 k/mm3 (150-375); Red Blood Count 2.91 M/mm3 (4.2-5.4); White Blood Count 10.5 K/mm3 (4.5-10.0)
[2020-09-01] MEDS: niCARdipine 20 MG/200 ML 20 MG/200 ML BAG 25 MG IV CONT (04:30)
[2020-09-01] MEDS: ONDANSETRON INJ 4 MG/2 ML VIAL IV PUSH ×2 (04:32→08:57)
[2020-09-01 04:44] LABS: Alanine Aminotransferase 15 U/L (4-35); Albumin Level 3.1 g/dL (3.5-5.1); Alkaline Phosphatase 74 U/L (38-126); Anion Gap 13 mmol/L (8-16); Aspartate Amino Transferase 31 U/L (14-36); Bilirubin,Total 0.7 mg/dL (0.2-1.3); Blood Urea Nitrogen 87 mg/dL (7-17); Calcium 8.8 mg/dL (8.4-10.2); Carbon Dioxide 25 mmol/L (22-30); Chloride 91 mmol/L (98-107); Estimated CRCL calculation 5 ml/min; Estimated Glomerular Filt Rate 4; Glucose 219 mg/dL (65-105); Magnesium 2.4 mg/dL (1.6-2.3); Phosphorus 7.2 mg/dL (2.5-4.5); Potassium 4.5 mmol/L (3.4-5.0); Sodium 129 mmol/L (137-145)
[2020-09-01] MEDS: hydrALAZINE HCL 50 MG TABLET 100 MG PO ×3 (05:44→21:12)
[2020-09-01 07:52] LABS: Anion Gap 11 mmol/L (8-16); Blood Urea Nitrogen 84 mg/dL (7-17); Calcium 8.7 mg/dL (8.4-10.2); Carbon Dioxide 27 mmol/L (22-30); Chloride 93 mmol/L (98-107); Estimated CRCL calculation 5 ml/min; Estimated Glomerular Filt Rate 4; Glucose 184 mg/dL (65-105); Potassium 4.7 mmol/L (3.4-5.0); Sodium 131 mmol/L (137-145)
[2020-09-01 08:58] LABS: Complement C3 72 mg/dL (88-165)
[2020-09-01 09:38] LABS: Glucose Point of Care 192 (65-105)
[2020-09-01 10:34] LABS: Hepatitis B Surface Antigen Negative (Negative)
[2020-09-01] MEDS: niCARdipine 20 MG/200 ML 20 MG/200 ML BAG 50 MG IV CONT (10:37)
--- NOTE | 2020-09-01 10:44 | WPDINTPN ---
Progress Note: A&P Assessment and Plan (1) Hypertensive urgency: Code(s): I16.0 - Hypertensive urgency Status: Acute Assessment and Plan: Patient does have a history of labile blood pressures, presented the ED on 08/30/2020 with hypertensive urgency along with nausea and vomiting -patient systolic blood pressures with 267/94, patient was given multiple doses of hydralazine despite which the blood pressures remained elevated and was started on nicardipine infusion -nicardipine infusion at [facility] started early this morning -continue Lasix, hydralazine and lisinopril -will increase clonidine and add amlodipine -cardiology has been consulted -discussed with Nephrology in details, will order workup for secondary hypertension (2) Cellulitis: Qualifiers: Site of cellulitis: extremity Site of cellulitis of extremity: upper extremity Laterality: right Qualified Code(s): L03.113 - Cellulitis of right upper limb Code(s): L03.90 - Cellulitis, unspecified Status: Acute Assessment and Plan: Right hand swelling, erythema, discoloration with multiple lesions. Patient did stated that she was at her daughter's house who has pets -infectious disease and plastic surgery evaluation -likely vasculitis related or calciphylaxis per Nephrology -x-ray of hands bilaterally are negative for fractures or bony erosions or infection -bilateral upper extremity venous Dopplers are negative for DVT -who plastic surgery recommended Nitro-Bid ointment to fingers and lesion (3) End stage renal disease on dialysis: Code(s): N18.6 - End stage renal disease; Z99.2 - Dependence on renal dialysis Status: Acute Assessment and Plan: Significant elevation in creatinine and BUN, patient seems to be uremic given her symptoms of nausea and vomiting and anasarca with generalized swelling -follows with Dr. Harrington -patient to get peritoneal dialysis today -discuss with Nephrology at length also discuss with patient and daughter regarding hemodialysis to which all of them are agreeable -I think hemodialysis will benefit the patient more so than peritoneal dialysis -will place hemodialysis catheter (4) DVT prophylaxis: Code(s): Z29.9 - Encounter for prophylactic measures, unspecified Status: Acute Assessment and Plan: SCDs for now Additional Plan Discussed with patient and the daughter, Wilian, and updated with patient's condition and plan of care. I did update them regarding my discussion with the net manager and that he recommended hemodialysis, both of them agreeable. They are aware that I will be placing a hemodialysis catheter and patient will start dialysis today. I did update them with the recommendations given by infectious disease and plastic surgery. I answered all questions Code status: Full code Critical care time spent: 35 minutes This dictation may have been done utilizing a voice recognition system. Attempts have been made to correct errors. However, there may be uncorrected grammatical, spelling, and recognition errors present. Due to a high probability of clinically significant, life threatening deterioration, the patient required my highest level of preparedness to intervene emergently and I personally spent this critical care time directly and personally managing the patient. This critical care time included obtaining a history; examining the patient; pulse oximetry; ordering and review of studies; arranging urgent treatment with development of a management plan; evaluation of patient's response to treatment; frequent reassessment; and discussions with other providers. It was exclusive of separately billable procedures and treating other patients and teaching time. Please see Assessment and Plan section and the rest of the note for further information on patient assessment and treatment Subjective Date/time seen: 09/01/20 10:44 Interval history: 60-year-old female with a past medical
[2020-09-01 10:57] LABS: Hepatitis B Surface Anti Res Positive
[2020-09-01] MEDS: HYDROcodone/acetaminophen (*CRX) 5-325 MG TABLET 1 TAB PO ×2 (11:00→17:30)
[2020-09-01] MEDS: lisinopriL 20 MG TABLET 40 MG PO (11:04)
[2020-09-01] MEDS: cloNIDine HCL 0.1 MG TABLET 0.3 MG PO ×2 (11:05→17:32)
[2020-09-01] MEDS: FUROSEMIDE 80 MG TABLET PO ×2 (11:07→17:32)
[2020-09-01] MEDS: amLODIPine BESYLATE 5 MG TABLET PO (11:08)
[2020-09-01] MEDS: ASPIRIN 81 MG ENTERIC TABLET PO (11:09)
[2020-09-01] MEDS: NITROGLYCERIN OINTMENT 1 INCH DOSE TOPICAL ×2 (11:09→16:06)
--- NOTE | 2020-09-01 11:41 | PC.NURSE ---
Dr. Staples at bedside for dialysis catheter placement.
[2020-09-01] MEDS: LORazepam INJ (*CRX) 2 MG/ML VIAL IV PUSH (11:51)
--- NOTE | 2020-09-01 12:13 | P.PCNBED_ITS ---
Procedures Hemodialysis Catheter Placement Left IJ: Discussed w/ patient and/or surrogate, the non-emergent placement of a hemodialysis catheter, including it's clinincal necessity/indication & associated potential risks & complications.: Yes The patient and/or surrogate understand(s) and acknowledge(s) the need to proceed with hemodialysis catheter insertion as an important element of the patient's clinical management.: Yes HD Catheter Date: 09/01/20 HD Catheter Time: 11:56 Pre-procedural Time-Out was completed immediately before starting the p rocedure and confirmed: Patient Identification, Site, Procedure, Patient Position and the Availability of Requisite Equipment.: Yes Patient Position: supine Patient Placed on Monitor/Pulse Ox: Yes Provider Prep: mask, sterile gown, sterile gloves, Max. sterile barrier precautions, cap and hand hygiene Hemodialysis Catheter Prep: Chlorhexidine scrub Local Anesthesia Used: lidocaine 1% Amount of anesthesia used (mL): 4 Ultrasound Used for Placement: Yes Guatemalan: 8 Length (cm): 16 Depth of Insertion (cm): 16 Post Procedure: sutured in place, good blood return, all ports aspirated, flushed, capped, transparent dressing, hemostatic product, antimicrobial product, securement product and aseptic technique maintained throughout procedure Post Procedure X-Ray: tip of catheter in good position and no pneumothorax seen Patient Tolerated Procedure: well Complications: none
[2020-09-01 12:38] LABS: Glucose Point of Care 190 (65-105)
[2020-09-01] MEDS: CALCIUM ACETATE 667 MG TABLET PO ×2 (13:46→18:19)
[2020-09-01] MEDS: CENTRAL LINE FLUSH 10 ML IV PUSH ×2 (13:47→21:13)
--- NOTE | 2020-09-01 14:37 | P.PNNP_ITS ---
Progress Note: A&P Assessment and Plan (1) End stage renal disease: Code(s): N18.6 - End stage renal disease Status: Chronic Assessment and Plan: * trial of hemodialysis today and likely tomorrow * optimize electrolytes, volume status, and clearance as tolerated * reassess with patient regarding dialysis options (continuing HD versus PD) (2) Hypertensive urgency: Code(s): I16.0 - Hypertensive urgency Status: Acute Assessment and Plan: * doing better at this time * possible rebound HTN from missed doses of clonidine?? * possible secondary cause?? - previous CT scan without renal artery stenosis - renal duplex today without BLAIR as well - follow-up on pending hormone testing (renin, aldosterone, metanephrines...etc) * interestingly, her BP became more problematic AFTER dialysis was initiated (as opposed to vice versa) * follow trend of hemodynamics (3) Swelling of right hand: Code(s): M79.89 - Other specified soft tissue disorders Status: Acute Assessment and Plan: * initially thought to be cellulitis but less likely - Infectious Disease and Plastic Surgery assessment noted - no improvement with previous antibiotic therapy * suspicion falls on possible vasculitis versus calciphlaxis * follow-up on extensive serologies done (so far only results are a low C3) * consider biopsy if serologies negative(?) (4) Anemia: Code(s): D64.9 - Anemia, unspecified Status: Chronic Assessment and Plan: * likely due to ESRD and acute illness * dose with Epogen now that BP better controlled * follow hemodynamics (5) Renal osteodystrophy: Code(s): N25.0 - Renal osteodystrophy Status: Chronic Assessment and Plan: * phosphorus better * PTH was stable by outpatient labs * follow parameters (6) Diabetes: Code(s): E11.9 - Type 2 diabetes mellitus without complications Status: Acute Assessment and Plan: * follow accuchecks * glycemic control Will continue to follow. Subjective Date/time seen: 09/01/20 14:37 Informed by nursing and Dr. Staples that she is a bit frustrated by the lack of improvement in status with peritoneal dialysis and is willing now to do a trial of hemodialysis -- s/p temporary HD catheter placement and tolerating dialysis at the time of my visit (seen on HD at 2:15PM); sleepy at this time but required ativan during placement of HD catheter; discussed case with daughter at bedside. Exam Narrative: Exam Narrative: General: WD/WN female in NAD Heart: normal S1 and S2; no rub Lungs: decreased at breath sounds Abdomen: soft, nontender, nondistended, positive bowel sounds Extremities: no cyanosis or clubbing; no edema Skin: finger lesions/right hand edema noted Objective Data Vital Signs Vital Signs: Vital Signs Temp Pulse Resp BP Pulse Ox 09/01/20 14:35 63 128/60 09/01/20 14:17 36.9 C 78 18 148/57 H 09/01/20 14:15 77 155/62 H 09/01/20 14:00 74 20 164/59 H 100 09/01/20 13:10 89 131/64 09/01/20 12:00 36.9 C 77 21 H 143/109 H 100 09/01/20 10:37 90 168/63 H 09/01/20 10:28 90 168/63 H 09/01/20 10:00 89 18 165/65 H 100 09/01/20 08:00 90 18 171/60 H 100 09/01/20 07:07 36.6 C 75 18 177/63 H 09/01/20 07:00 88 211/72
--- NOTE | 2020-09-01 14:37 | PM.PNNEP ---
Progress Note: A&P Assessment and Plan (1) End stage renal disease: Code(s): N18.6 - End stage renal disease Status: Chronic Assessment and Plan: trial of hemodialysis today and likely tomorrow optimize electrolytes, volume status, and clearance as tolerated reassess with patient regarding dialysis options (continuing HD versus PD) (2) Hypertensive urgency: Code(s): I16.0 - Hypertensive urgency Status: Acute Assessment and Plan: doing better at this time possible rebound HTN from missed doses of clonidine?? possible secondary cause?? - previous CT scan without renal artery stenosis - renal duplex today without BLAIR as well - follow-up on pending hormone testing (renin, aldosterone, metanephrines...etc) interestingly, her BP became more problematic AFTER dialysis was initiated (as opposed to vice versa) follow trend of hemodynamics (3) Swelling of right hand: Code(s): M79.89 - Other specified soft tissue disorders Status: Acute Assessment and Plan: initially thought to be cellulitis but less likely - Infectious Disease and Plastic Surgery assessment noted - no improvement with previous antibiotic therapy suspicion falls on possible vasculitis versus calciphlaxis follow-up on extensive serologies done (so far only results are a low C3) consider biopsy if serologies negative(?) (4) Anemia: Code(s): D64.9 - Anemia, unspecified Status: Chronic Assessment and Plan: likely due to ESRD and acute illness dose with Epogen now that BP better controlled follow hemodynamics (5) Renal osteodystrophy: Code(s): N25.0 - Renal osteodystrophy Status: Chronic Assessment and Plan: phosphorus better PTH was stable by outpatient labs follow parameters (6) Diabetes: Code(s): E11.9 - Type 2 diabetes mellitus without complications Status: Acute Assessment and Plan: follow accuchecks glycemic control Will continue to follow. Subjective Date/time seen: 09/01/20 14:37 Informed by nursing and Dr. Staples that she is a bit frustrated by the lack of improvement in status with peritoneal dialysis and is willing now to do a trial of hemodialysis -- s/p temporary HD catheter placement and tolerating dialysis at the time of my visit (seen on HD at 2:15PM); sleepy at this time but required ativan during placement of HD catheter; discussed case with daughter at bedside. Exam Narrative: Exam Narrative: General: WD/WN female in NAD Heart: normal S1 and S2; no rub Lungs: decreased at breath sounds Abdomen: soft, nontender, nondistended, positive bowel sounds Extremities: no cyanosis or clubbing; no edema Skin: finger lesions/right hand edema noted Objective Data Vital Signs Vital Signs: Vital Signs Temp Pulse Resp BP Pulse Ox 09/01/20 14:35 63 128/60 09/01/20 14:17 36.9 C 78 18 148/57 H 09/01/20 14:15 77 155/62 H 09/01/20 14:00 74 20 164/59 H 100 09/01/20 13:10 89 131/64 09/01/20 12:00 36.9 C 77 21 H 143/109 H 100 09/01/20 10:37 90 168/63 H 09/01/20 10:28 90 168/63 H 09/01/20 10:00 89 18 165/65 H 100 09/01/20 08:00 90 18 171/60 H 100 09/01/20 07:07 36.6 C 75 18 177/63 H 09/01/20 07:00 88 211/72 H 09/01/20 06:45 186/64 H 09/01/20 06:00 75 18 177/63 H 100 09/01/20 05:31 164/53 H 09/01/20 05:20 147/57 H 09/01/20 05:15 147/57 H 09/01/20 05:00 161/53 H 09/01/20 04:45 164/58 H 09/01/20 04:30 176/48 H 09/01/20 04:15 221/66 H 09/01/20 04:00 36.6 C 84 20 221/66 H 99 09/01/20 03:00 175/66 H 09/01/20 02:30 197/65 H 09/01/20 02:00 54 L 16 177/50 H 100 09/01/20 01:30 175/69 H 09/01/20 01:13 76 09/01/20 01:00 196/70 H 09/01/20 00:48 202/75 H 09/01/20 00:00 3
--- NOTE | 2020-09-01 16:36 | PM.CNCAR ---
Assessment and Plan Assessment and plan (1) Hypertensive urgency: Code(s): I16.0 - Hypertensive urgency Status: Acute Assessment and Plan: Currently BP 145/80 mmHg. Reviewed BP medications and she is on Amlodipine 5 mg daily, Lisinopril 40 mg daily, Clonidine 0.3 mg TID, Hydralazine 100 mg PO TID, Nicardipine drip. Will increase Amlodipine 10 mg daily. Hopefully can stop IV BP medications including Nicardipine. Continue to monitor. (2) HLD (hyperlipidemia): Code(s): E78.5 - Hyperlipidemia, unspecified Status: Chronic Assessment and Plan: On Atorvastatin. (3) End stage renal disease: Code(s): N18.6 - End stage renal disease Status: Chronic Assessment and Plan: On hemodialysis. History of Present Illness History of Present Illness Consult date/time: 09/01/20 16:36 Reason for consult: Hypertensive urgency. 60 yr old woman who's PCP is Dr. Love and who I saw for the first time a few weeks ago presnted to hospital with right finger pain, high BP and dry heaves. She has a history of DM, hypertension, ESRD on PD (started September [address] Harrington), Covid infection in May 2020. She is currently sedated after receiving Ativan, and receiving hemodialysis as a catheter was started changing PD to HD. She did wake up and said a few words but did not make sense. 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 CT abd shows Mod bilateral pleural effusions and small pericardial effusion, cholelithiasis. EKG shows Sinus rhythm, BRWP, ST-T wave abnormality in high lateral leads. Cardiovascular Procedures Echo/MUGA:: 06/10/20 Echo: EF >70%, mod LVH, grade II diastolic dysfunction, mild LAE, mild MR/TR/PI, RVSP 43 mmHg, thickening of Aortic valve, possible vegetation. Electrophysiology:: 08/03/20 EKG: Sinus rhythm, LVH, BRWP, ST-T wave abnormality in high lateral leads- consider ischemia. Stress Tests:: 07/10/20 Lexiscan myoview: Negative for ischemia; mod infarct of ant/anteroseptal/inferolat hall; EF 44%. 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 He is the durable power [employer] [place] attorney for healthcare. She has 4 children. Her 1 daughter works here. The patient thinks she wants to be a full code. She does not use alcohol or illicit drugs. Smoking status: Never smoker Alcohol intake: never Substance use: never Substance use type: does not use Gender identity (if verbalized by the patient): Female Spiritual care concerns: No Meds Home Medications and Allergies
[2020-09-01] MEDS: HEPARIN SODIUM 1,000 UNITS/ML VIAL 4000 UNITS (16:45)
--- NOTE | 2020-09-01 17:05 | PM.IMPN ---
Progress Note: A&P Assessment and Plan (1) Hypertensive urgency, malignant: Code(s): I16.0 - Hypertensive urgency Status: Acute Assessment and Plan: Nicardipine drip back on iv hydralazine in admission back on home medications, clonidine, Lasix, hydralazine, lisinopril (2) Obstructive sleep apnea: Code(s): G47.33 - Obstructive sleep apnea (adult) (pediatric) Status: Chronic (3) Cellulitis: Qualifiers: Site of cellulitis: extremity Site of cellulitis of extremity: upper extremity Laterality: right Qualified Code(s): L03.113 - Cellulitis of right upper limb Code(s): L03.90 - Cellulitis, unspecified Status: Acute Assessment and Plan: ID consulted and plastic surgery (4) End stage renal disease on dialysis: Code(s): N18.6 - End stage renal disease; Z99.2 - Dependence on renal dialysis Status: Acute Assessment and Plan: Sp hemodialysis catheter and hemodialysis at the bedside Subjective Date/time seen: 09/01/20 17:05 Interval history: 60-year-old female with a past medical history of end-stage renal disease on peritoneal dialysis, insulin-dependent diabetes mellitus, and difficult to control hypertension who presented to the ER with a chief complaint of infection in her fingers. Pts BP was very high on admission. Pt back on the drip today. Bp slightly better now, having hemodialysis at the bed side. SEen by cardiology and ICU. Daughter explained that she missed her blood pressure medications. Review of Systems Review of Systems: All systems reviewed & are unremarkable except as noted in HPI and below Exam Const: General: cooperative, healthy appearing and other (swollen face and body ); No in distress Nutritional Appearance: overweight Orientation/consciousness: oriented to person HENMT: Head: normal to inspection Resp: Effort & Inspection: no respiratory distress Auscultation: no rhonchi and no wheezes Cardio: Rate: regular rate Rhythm: regular rhythm GI: Inspection: normal to inspection Auscultation: normal bowel sounds Skin: Trauma: other (swollen arms, bandage on her right hand ) Neuro: General: oriented to person Objective Data Vital Signs Vital Signs: Vital Signs - 24 hr 08/31/20 18:00 08/31/20 18:52 08/31/20 20:00 Temperature 36.8 C 36.0 C L Pulse Rate 57 L 81 68 Respiratory Rate 18 16 13 Blood Pressure 163/59 H 199/81 H 174/58 H Pulse Oximetry 100 99 100 08/31/20 20:30 08/31/20 22:00 08/31/20 23:00 Temperature Pulse Rate 74 Respiratory Rate 13 Blood Pressure 163/64 H 203/62 H 187/70 H Pulse Oximetry 100 08/31/20 23:30 09/01/20 00:00 09/01/20 00:48 Temperature 36.4 C L Pulse Rate 85 Respiratory Rate 19 Blood Pressure 178/61 H 200/67 H 202/75 H Pulse Oximetry 99 09/01/20 01:00 09/01/20 01:13 09/01/20 01:30 Temperature Pulse Rate 76 Respiratory Rate Blood Pressure 196/70 H 175/69 H Pulse Oximetry 09/01/20 02:00 09/01/20 02:30 09/01/20 03:00 Temperature Pulse Rate 54 L Respiratory Rate 16 Blood Pressure 177/50 H 197/65 H 175/66 H Pulse Oximetry 100 09/01/20 04:00 09/01/20 04:15 09/01/20 04:30 Temperature 36.6 C Pulse Rate 84 Respiratory Rate 20 Blood Pressure 221/66 H 221/66 H 176/48 H Pulse Oximetry 99 09/01/20 04:45 09/01/20 05:00 09/01/20 05:15 Temperature Pulse Rate Respiratory Rate Blood Pressure 164/58 H 161/53 H 147/57 H Pulse Oximetry 09/01/20 05:20 09/01/20 05:31 09/01/20 06:00 Temperature Pulse Rate 75 Respiratory Rate 18 Blood Pressure 147/57 H 164/53 H 177/63 H Pulse Oximetry 100 09/01/20 06:45 09/01/20 07:00 09/01/20 07:07 Temperature 36.6 C Pulse Rate 88 75 Respiratory Rate 18 Blood Pressure 186/64 H 211/72 H 177/63 H Pulse Oximetry 09/01/20 08:00 09/01/20 10:00 09/01/20 10:28 Temperature Pulse Rate 90 89 90 Respiratory Rate 18 18 Blood Press
[2020-09-01 17:50] LABS: Glucose Point of Care 141 (65-105)
--- NOTE | 2020-09-01 18:05 | PC.NURSE ---
Dr. Staples updated on increased confusion. Head CT completed, no acute findings. MD also aware of increased pain to right hand post nitro treatment. Ok to update Dr. Hanna. Dr. Hanna notified of hand pain. Reevaluate nitro paste use in the AM. Night Rn to be updated on plan of care. daughter at bedside updated on plan of care.
[2020-09-01 21:23] LABS: Glucose Point of Care 133 (65-105)
[2020-09-02] VITALS (32 sets, daily range): BP systolic 127–231; BP diastolic 54–107; PULSE 46–90; RESP 13–25; TEMP 36.1–37.9; O2SAT 94–99
[2020-09-02] MEDS: hydrALAZINE HCL 20 MG/ML VIAL 10 MG IV PUSH (05:10)
[2020-09-02] MEDS: CENTRAL LINE FLUSH 10 ML IV PUSH ×2 (05:20→20:51)
[2020-09-02] MEDS: hydrALAZINE HCL 50 MG TABLET 100 MG PO ×3 (06:05→20:50)
[2020-09-02 06:22] LABS: Basophils Percent Auto 0.4 % (0.2-1.2); Eosinophils Absolute Auto 0.3 K/mm3 (0-0.3); Eosinophils Percent Auto 3.4 % (0-4.4); Hematocrit 24.6 % (37.0-47.0); Hemoglobin 8.2 g/dL (12.0-15.0); Immature Granulocyte Absolute 0.01 K/mm3 (0.00-0.031); Immature Granulocyte Percent A 0.1 % (0-0.5); Lymphocytes Absolute Auto 1.14 K/mm3 (0.9-3.2); Lymphocytes Percent Auto 14.5 % (18.3-44.2); Mean Corpuscular HGB Conc 33.3 g/dl (32-36); Mean Corpuscular Hemoglobin 33.1 pg (26-34); Mean Corpuscular Volume 99.2 fl (80-100); Mean Platelet Volume 9.6 fl (7.4-10.4); Monocytes Absolute Auto 0.8 K/mm3 (0.1-0.6); Monocytes Percent Auto 9.9 % (2.6-8.5); Neutrophils Absolute Auto 5.7 K/mm3 (1.3-6.7); Neutrophils Percent Auto 71.7 % (45.5-73.1); Platelet Count Result 251 k/mm3 (150-375); Red Blood Count 2.48 M/mm3 (4.2-5.4); Red Cell Distribution Width 14.1 % (11.5-14.5); White Blood Count 7.9 K/mm3 (4.5-10.0)
[2020-09-02 06:36] LABS: Anion Gap 3 mmol/L (8-16); Blood Urea Nitrogen 50 mg/dL (7-17); Carbon Dioxide 30 mmol/L (22-30); Chloride 97 mmol/L (98-107); Estimated CRCL calculation 7 ml/min; Estimated Glomerular Filt Rate 5; Glucose 109 mg/dL (65-105); Magnesium 2.2 mg/dL (1.6-2.3); Potassium 4.5 mmol/L (3.4-5.0); Sodium 130 mmol/L (137-145)
[2020-09-02] MEDS: cloNIDine HCL 0.1 MG TABLET 0.3 MG PO ×3 (08:06→17:50)
[2020-09-02] MEDS: amLODIPine BESYLATE 5 MG TABLET 10 MG PO (08:07)
[2020-09-02] MEDS: CALCIUM ACETATE 667 MG TABLET PO ×3 (08:08→17:50)
[2020-09-02] MEDS: calcitrioL 0.25 MCG CAPSULE PO (08:08)
[2020-09-02] MEDS: ASPIRIN 81 MG ENTERIC TABLET PO (08:08)
[2020-09-02] MEDS: FUROSEMIDE 80 MG TABLET PO ×2 (08:10→17:50)
[2020-09-02] MEDS: lisinopriL 20 MG TABLET 40 MG PO (08:10)
[2020-09-02] MEDS: DOCUSATE SODIUM 100 MG CAPSULE PO ×2 (08:16→20:50)
[2020-09-02] MEDS: NEBIVOLOL HCL 5 MG TABLET 20 MG PO (08:17)
--- NOTE | 2020-09-02 08:35 | WPDINTPN ---
Progress Note: A&P Assessment and Plan (1) Hypertensive urgency: Code(s): I16.0 - Hypertensive urgency Status: Acute Assessment and Plan: Patient does have a history of labile blood pressures, presented the ED on 08/30/2020 with hypertensive urgency along with nausea and vomiting -patient systolic blood pressures with 267/94, patient was given multiple doses of hydralazine despite which the blood pressures remained elevated and was started on nicardipine infusion -nicardipine infusion has been weaned off. -continue Lasix, hydralazine and lisinopril. She is still making urine. -continue amlodipine and clonidine. -cardiology has been consulted. Nebivolol has been aided by cardiology service. -Workup for secondary hypertension as an outpatient. Renin Level and activity has been sent which is pending. (2) Cellulitis: Qualifiers: Laterality: right Site of cellulitis: extremity Site of cellulitis of extremity: upper extremity Qualified Code(s): L03.113 - Cellulitis of right upper limb Code(s): L03.90 - Cellulitis, unspecified Status: Acute Assessment and Plan: Right hand swelling, erythema, discoloration with multiple lesions. Patient did stated that she was at her daughter's house who has pets -infectious disease and plastic surgery evaluation -likely vasculitis related or calciphylaxis per Nephrology. Several logical workup for vasculitis is pending. Complement 3 level is a bit on the lower side. -x-ray of hands bilaterally are negative for fractures or bony erosions or infection -bilateral upper extremity venous Dopplers are negative for DVT -Plastic surgery recommended Nitro-Bid ointment to fingers and lesion (3) End stage renal disease on dialysis: Code(s): N18.6 - End stage renal disease; Z99.2 - Dependence on renal dialysis Status: Acute Assessment and Plan: Significant elevation in creatinine and BUN, patient seems to be uremic given her symptoms of nausea and vomiting and anasarca with generalized swelling -follows with Dr. Harrington and was getting peritoneal dialysis before admission to the hospital. -peritoneal dialysis has been on hold for now. -dialysis catheter has been placed on 09/01 . She has been dialyzed on 09/01. Nephrology follow-up and dialysis as per nephrology. Continue calcitriol. (4) DVT prophylaxis: Code(s): Z29.9 - Encounter for prophylactic measures, unspecified Status: Acute Assessment and Plan: SCDs for now (5) Constipation: Code(s): K59.00 - Constipation, unspecified Status: Acute Assessment and Plan: Will start her on Colace. She is on MiraLax on p.r.n. basis as well. (6) Diabetes: Code(s): E11.9 - Type 2 diabetes mellitus without complications Status: Acute Assessment and Plan: Continue insulin sliding scale. Continue to monitor fingerstick sugars closely. Additional Plan Code status: Full code She can be transferred out of ICU to telemetry/IMU today. This dictation may have been done utilizing a voice recognition system. Attempts have been made to correct errors. However, there may be uncorrected grammatical, spelling, and recognition errors present. Subjective Date/time seen: 09/02/20 08:35 Dialysis catheter was placed yesterday. She was dialyzed yesterday. She was given a dose of Ativan because of her anxiety during placement of dialysis catheter. She was more sleepy and confused after the procedure. CT scan of the head was negative for any acute intracranial findings. She is back to baseline and was alert oriented x3 with no confusion. She did not have any recollection of the events yesterday including with that she has been dialyzed on not. She is currently off nicardipine drip. Blood pressure systolic in 160s and 170s. She denied have any symptoms of chest pain shortness of breath headache focal neurological weakness visual symptoms nausea and vomiti
--- NOTE | 2020-09-02 08:37 | PM.PNCARD ---
Progress Note: A&P Assessment and Plan (1) Hypertensive urgency: Code(s): I16.0 - Hypertensive urgency Status: Acute Assessment and Plan: Currently BP 215/115 mmHg but she has not taken any PO BP medications as they are laid out in front of her since she is waiting for her breakfast to arrive. Reviewed BP medications and she is on Amlodipine 10 mg daily, Lisinopril 40 mg daily, Clonidine 0.3 mg TID, Hydralazine 100 mg PO TID, Nicardipine drip. Start Bystolic 20 mg daily. Hopefully can stop IV BP medications including Nicardipine. Continue to monitor. (2) HLD (hyperlipidemia): Code(s): E78.5 - Hyperlipidemia, unspecified Status: Chronic Assessment and Plan: On Atorvastatin. (3) End stage renal disease: Code(s): N18.6 - End stage renal disease Status: Chronic Assessment and Plan: On hemodialysis. Subjective Date/time seen: 09/02/20 08:37 Patient is alert and oriented. Complains of dry heaves currently and some sob. No chest pain. Exam Const: General: cooperative, healthy appearing, comfortable and other Resp: Auscultation: clear to auscultation bilaterally, no crackles, no rales, no rhonchi and no wheezes Cardio: Jugular venous distension: no JVD Rate: regular rate Rhythm: regular rhythm Heart sounds: no murmurs Peripheral pulses: dorsalis pedis present GI: GI Palp: No abdominal tenderness and Yes Soft to palpation Neuro: General: confusion Extrem: Right lower extremity: no edema Left lower extremity: no edema Objective Data Vital Signs Vital Signs: Vital Signs - 24 hr 09/01/20 10:00 09/01/20 10:28 09/01/20 10:37 Temperature Pulse Rate 89 90 90 Respiratory Rate 18 Blood Pressure 165/65 H 168/63 H 168/63 H Pulse Oximetry 100 09/01/20 12:00 09/01/20 13:10 09/01/20 14:00 Temperature 98.4 F Pulse Rate 77 89 82 Respiratory Rate 21 H 20 Blood Pressure 143/109 H 131/64 164/59 H Pulse Oximetry 100 100 09/01/20 14:15 09/01/20 14:17 09/01/20 14:35 Temperature 98.4 F Pulse Rate 77 78 63 Respiratory Rate 18 Blood Pressure 155/62 H 148/57 H 128/60 Pulse Oximetry 09/01/20 14:45 09/01/20 15:00 09/01/20 15:15 Temperature Pulse Rate 72 70 78 Respiratory Rate Blood Pressure 159/62 H 145/60 H 147/56 H Pulse Oximetry 09/01/20 15:30 09/01/20 15:45 09/01/20 16:00 Temperature 98.3 F Pulse Rate 76 85 74 Respiratory Rate 16 Blood Pressure 161/64 H 181/67 H 153/50 H Pulse Oximetry 100 09/01/20 16:15 09/01/20 16:30 09/01/20 18:00 Temperature Pulse Rate 74 81 93 Respiratory Rate 28 H Blood Pressure 148/57 H 167/51 H 167/59 H Pulse Oximetry 97 09/01/20 20:00 09/01/20 21:39 09/01/20 23:46 Temperature 98.2 F 98.2 F Pulse Rate 63 84 70 Respiratory Rate 16 25 H 17 Blood Pressure 147/52 H 168/61 H Pulse Oximetry 97 100 98 09/02/20 00:00 09/02/20 01:34 09/02/20 04:00 Temperature 98 F 98 F 98.5 F Pulse Rate 71 62 63 Respiratory Rate 16 14 15 Blood Pressure 180/59 H 163/71 H 178/61 H Pulse Oximetry 99 98 97 09/02/20 06:00 09/02/20 08:17 Temperature Pulse Rate 75 78 Respiratory Rate 19 Blood Pressure 177/64 H Pulse Oximetry 97 Intake/Output Intake/Output: Intake & Output 08/30/20 08/31/20 09/01/20 09/02/20 23:59 23:59 23:59 23:59 Intake Total 1290 1470 Output Total 550 741 400 Balance 740 729 -400 Meds/Results Medications: Active Medications Generic Name Dose Route Start Last Admin Trade Name Luisq PRN Reason Stop Dose Admin Amlodipine Besylate 10 mg 09/02/20 09:00 09/02/20 08:07 Amlodipine Besylate 5 Mg Tablet PO 10 mg QAM MICHAELA Administration Aspirin 81 mg 08/31/20 09:00 09/02/20 08:08 Aspirin 81 Mg Enteric Tablet PO 81 mg DAILY MICHAELA Administration Calcitriol 0.25 mcg 08/31/20 09:00 03/13/21 08:08 Calcitriol 0.25 Mcg Capsule PO 0.25 mcg DAILY MICHAELA Administration Calcium Acetate 667 mg 08/31/20 08:00 09/02/20 08:
[2020-09-02 08:57] LABS: Glucose Point of Care 113 (65-105)
--- NOTE | 2020-09-02 09:05 | WPDPN ---
Progress Note: A&P Assessment and Plan (1) End stage renal disease: Code(s): N18.6 - End stage renal disease Status: Chronic Assessment and Plan: This seems to be the source of most of her problems. (2) Finger lesion: Code(s): L98.9 - Disorder of the skin and subcutaneous tissue, unspecified Status: Acute Assessment and Plan: There is no cellulites. Hand pain may be calciphylaxis. Surgical intervention for biopsy can be provided if necessary. Objective Data Vital Signs Vital Signs: Vital Signs - 24 hr 09/01/20 10:00 09/01/20 10:28 09/01/20 10:37 Temperature Pulse Rate 89 90 90 Respiratory Rate 18 Blood Pressure 165/65 H 168/63 H 168/63 H Pulse Oximetry 100 09/01/20 12:00 09/01/20 13:10 09/01/20 14:00 Temperature 36.9 C Pulse Rate 77 89 82 Respiratory Rate 21 H 20 Blood Pressure 143/109 H 131/64 164/59 H Pulse Oximetry 100 100 09/01/20 14:15 09/01/20 14:17 09/01/20 14:35 Temperature 36.9 C Pulse Rate 77 78 63 Respiratory Rate 18 Blood Pressure 155/62 H 148/57 H 128/60 Pulse Oximetry 09/01/20 14:45 09/01/20 15:00 09/01/20 15:15 Temperature Pulse Rate 72 70 78 Respiratory Rate Blood Pressure 159/62 H 145/60 H 147/56 H Pulse Oximetry 09/01/20 15:30 09/01/20 15:45 09/01/20 16:00 Temperature 36.8 C Pulse Rate 76 85 74 Respiratory Rate 16 Blood Pressure 161/64 H 181/67 H 153/50 H Pulse Oximetry 100 09/01/20 16:15 09/01/20 16:30 09/01/20 18:00 Temperature Pulse Rate 74 81 93 Respiratory Rate 28 H Blood Pressure 148/57 H 167/51 H 167/59 H Pulse Oximetry 97 09/01/20 20:00 09/01/20 21:39 09/01/20 23:46 Temperature 36.8 C 36.8 C Pulse Rate 63 84 70 Respiratory Rate 16 25 H 17 Blood Pressure 147/52 H 168/61 H Pulse Oximetry 97 100 98 09/02/20 00:00 09/02/20 01:34 09/02/20 04:00 Temperature 36.6 C 36.6 C 36.9 C Pulse Rate 71 62 63 Respiratory Rate 16 14 15 Blood Pressure 180/59 H 163/71 H 178/61 H Pulse Oximetry 99 98 97 09/02/20 06:00 09/02/20 08:00 09/02/20 08:17 Temperature 36.9 C Pulse Rate 75 86 78 Respiratory Rate 19 19 Blood Pressure 177/64 H 231/80 H Pulse Oximetry 97 96 Intake/Output Intake/Output: Intake & Output 08/30/20 08/31/20 09/01/20 09/02/20 23:59 23:59 23:59 23:59 Intake Total 1290 1470 Output Total 550 741 400 Balance 740 729 -400 Meds/Results Medications: Active Medications Generic Name Dose Route Start Last Admin Trade Name Freq PRN Reason Stop Dose Admin Amlodipine Besylate 10 mg 09/02/20 09:00 09/02/20 08:07 Amlodipine Besylate 5 Mg Tablet PO 10 mg QAM MICHAELA Administration Aspirin 81 mg 08/31/20 09:00 09/02/20 08:08 Aspirin 81 Mg Enteric Tablet PO 81 mg DAILY MICHAELA Administration Calcitriol 0.25 mcg 08/31/20 09:00 09/02/20 08:08 Calcitriol 0.25 Mcg Capsule PO 0.25 mcg DAILY MICHAELA Administration Calcium Acetate 667 mg 08/31/20 08:00 09/02/20 08:08 Calcium Acetate 667 Mg Tablet PO 667 mg TIDWM MICHAELA Administration Clonidine HCl 0.3 mg 09/01/20 09:00 09/02/20 08:06 Clonidine Hcl 0.1 Mg Tablet PO 0.3 mg TID MICHAELA Administration Dextrose 12.5 gm 08/30/20 22:57 Dextrose 50% 25 Gm/50 Ml Syringe IV PUSH PRN PRN Hypoglycemia Protocol Diphenhydramine HCl 25 mg 08/30/20 22:56 09/01/20 00:16 Diphenhydramine Hcl Cap 25 Mg Capsule PO 25 mg Q6H PRN Administration Itching Docusate Sodium 100 mg 09/02/20 09:00 09/02/20 08:16 Docusate Sodium 100 Mg Capsule PO 100 mg Q12HR MICHAELA Administration Epoetin Eber-epbx 10,000 units 09/02/20 18:00 Epoetin Eber-Epbx 10,000 Units/Ml Vial IV PUSH 09/02/20 18:01 ONCE ONE Furosemide 80 mg 08/31/20 09:00 09/02/20 08:10 Furosemide 80 Mg Tablet PO 80 mg BID MICHAELA Administration Glucagon 1 mg 08/30/20 22:57 Glucagon For Inj 1 Mg Vial IM PRN PRN Hypoglycemia Protocol Glucose 15 gm 0
[2020-09-02] MEDS: HEPARIN SODIUM 5,000 UNITS/ML VIAL 5000 UNITS SUB-Q ×2 (11:39→20:50)
[2020-09-02 11:55] LABS: Glucose Point of Care 155 (65-105)
--- NOTE | 2020-09-02 12:11 | P.PNNP_ITS ---
Progress Note: A&P Assessment and Plan (1) End stage renal disease: Code(s): N18.6 - End stage renal disease Status: Chronic Assessment and Plan: * trial of hemodialysis yesterday and today * optimize electrolytes, volume status, and clearance as tolerated * reassess with patient regarding dialysis options (continuing HD versus PD) - she reports constipation which may explain why PD did not work when done on evening of 08/31/20 - will start bowel regimen (2) Hypertensive urgency: Code(s): I16.0 - Hypertensive urgency Status: Acute Assessment and Plan: * doing better at this time * BP was quite high this AM before she took her medications * possible rebound HTN from missed doses of clonidine?? * possible secondary cause?? - previous CT scan without renal artery stenosis - renal duplex on this admission without BLAIR as well - follow-up on pending hormone testing (renin, aldosterone, metanephrines...etc) * interestingly, her BP became more problematic AFTER dialysis was initiated - usually BP gets with dialytic intervention * follow trend of hemodynamics (3) Altered mental status: Code(s): R41.82 - Altered mental status, unspecified Status: Acute Assessment and Plan: * still does not appear back to baseline * possibly related to #2 (i.e. hypertensive encephalopathy??) * CT of brain negative * follow mentation -- need Neurology consult +/- MRI of brain(?) (4) Swelling of right hand: Code(s): M79.89 - Other specified soft tissue disorders Status: Acute Assessment and Plan: * initially thought to be cellulitis but less likely - Infectious Disease and Plastic Surgery assessment noted - no improvement with previous antibiotic therapy * suspicion falls on possible vasculitis versus calciphlaxis * follow-up on extensive serologies done (so far only results are a low C3) * consider biopsy if serologies negative(?) versus doing now... - it may be worth doing a biopsy sooner than later if patient is willing - whatever it shows, it may determine next step in management (5) Anemia: Code(s): D64.9 - Anemia, unspecified Status: Chronic Assessment and Plan: * likely due to ESRD and acute illness * dose with Epogen now that BP better controlled * follow hemodynamics (6) Renal osteodystrophy: Code(s): N25.0 - Renal osteodystrophy Status: Chronic Assessment and Plan: * phosphorus better * stop calcium based binders given concerns for calciphylaxis * PTH was stable by outpatient labs * follow parameters (7) Diabetes: Code(s): E11.9 - Type 2 diabetes mellitus without complications Status: Acute Assessment and Plan: * follow accuchecks * on SSI Long and extensive discussion (> 20 minutes) with patient as well as nursing regarding her mentation and multitude of complaints as noted; difficult to assess if there is a unifying problem or are there multiple separate issues at play given the problems she relates. Will continue to follow. Subjective Date/time seen: 09/02/20 12:11 Patient tolerated hemodialysis treatment yesterday but continued to have ongoing issues with confusion/altered mental status even post-HD treatment; she numerous complaints on my visit today with regard to weakness, cramping, difficulty breathing/shortness of breath and her primary concern -- pain in her
--- NOTE | 2020-09-02 12:11 | PM.PNNEP ---
Progress Note: A&P Assessment and Plan (1) End stage renal disease: Code(s): N18.6 - End stage renal disease Status: Chronic Assessment and Plan: trial of hemodialysis yesterday and today optimize electrolytes, volume status, and clearance as tolerated reassess with patient regarding dialysis options (continuing HD versus PD) - she reports constipation which may explain why PD did not work when done on evening of 08/31/20 - will start bowel regimen (2) Hypertensive urgency: Code(s): I16.0 - Hypertensive urgency Status: Acute Assessment and Plan: doing better at this time BP was quite high this AM before she took her medications possible rebound HTN from missed doses of clonidine?? possible secondary cause?? - previous CT scan without renal artery stenosis - renal duplex on this admission without BLAIR as well - follow-up on pending hormone testing (renin, aldosterone, metanephrines...etc) interestingly, her BP became more problematic AFTER dialysis was initiated - usually BP gets with dialytic intervention follow trend of hemodynamics (3) Altered mental status: Code(s): R41.82 - Altered mental status, unspecified Status: Acute Assessment and Plan: still does not appear back to baseline possibly related to #2 (i.e. hypertensive encephalopathy??) CT of brain negative follow mentation -- need Neurology consult +/- MRI of brain(?) (4) Swelling of right hand: Code(s): M79.89 - Other specified soft tissue disorders Status: Acute Assessment and Plan: initially thought to be cellulitis but less likely - Infectious Disease and Plastic Surgery assessment noted - no improvement with previous antibiotic therapy suspicion falls on possible vasculitis versus calciphlaxis follow-up on extensive serologies done (so far only results are a low C3) consider biopsy if serologies negative(?) versus doing now... - it may be worth doing a biopsy sooner than later if patient is willing - whatever it shows, it may determine next step in management (5) Anemia: Code(s): D64.9 - Anemia, unspecified Status: Chronic Assessment and Plan: likely due to ESRD and acute illness dose with Epogen now that BP better controlled follow hemodynamics (6) Renal osteodystrophy: Code(s): N25.0 - Renal osteodystrophy Status: Chronic Assessment and Plan: phosphorus better stop calcium based binders given concerns for calciphylaxis PTH was stable by outpatient labs follow parameters (7) Diabetes: Code(s): E11.9 - Type 2 diabetes mellitus without complications Status: Acute Assessment and Plan: follow accuchecks on SSI Long and extensive discussion (> 20 minutes) with patient as well as nursing regarding her mentation and multitude of complaints as noted; difficult to assess if there is a unifying problem or are there multiple separate issues at play given the problems she relates. Will continue to follow. Subjective Date/time seen: 09/02/20 12:11 Patient tolerated hemodialysis treatment yesterday but continued to have ongoing issues with confusion/altered mental status even post-HD treatment; she numerous complaints on my visit today with regard to weakness, cramping, difficulty breathing/shortness of breath and her primary concern -- pain in her right hand. She still does not appear back to baseline with her mental status during my conversation with her. Nursing reports that are times when she suddenly yells out which the patient states is necessary for her to blow out her CO2. Exam Narrative: Exam Narrative: General: WD/WN female in NAD Heart: normal S1 and S2; no rub Lungs: decreased at breath sounds Abdomen: soft, nontender,
[2020-09-02] MEDS: EPOETIN ALFA-EPBX 10,000 UNITS/ML VIAL 10000 UNITS IV PUSH (15:30)
--- NOTE | 2020-09-02 16:01 | PM.IMPN ---
Progress Note: A&P Assessment and Plan (1) Hypertensive urgency, malignant: Code(s): I16.0 - Hypertensive urgency Status: Acute Assessment and Plan: Pt Bp is better 130/80 iv hydralazine prn high bps back on home medications, clonidine, Lasix, hydralazine, lisinopril (2) Obstructive sleep apnea: Code(s): G47.33 - Obstructive sleep apnea (adult) (pediatric) Status: Chronic (3) Cellulitis: Qualifiers: Site of cellulitis: extremity Site of cellulitis of extremity: upper extremity Laterality: right Qualified Code(s): L03.113 - Cellulitis of right upper limb Code(s): L03.90 - Cellulitis, unspecified Status: Acute Assessment and Plan: ID consulted and plastic surgery ? ischemic finger tips pt does not like topical treatment (4) End stage renal disease on dialysis: Code(s): N18.6 - End stage renal disease; Z99.2 - Dependence on renal dialysis Status: Acute Assessment and Plan: Sp hemodialysis catheter and hemodialysis at the bedside Subjective Date/time seen: 09/02/20 16:01 Interval history: 60-year-old female with a past medical history of end-stage renal disease on peritoneal dialysis, insulin-dependent diabetes mellitus, and difficult to control hypertension who presented to the ER with a chief complaint of infection in her fingers. Pts BP was very high on admission. Pt back on the drip today. Bp slightly better now, having hemodialysis at the bed side. Pt is off the drip can be transferred to the medical floor. Review of Systems Review of Systems: All systems reviewed & are unremarkable except as noted in HPI and below Exam Const: General: cooperative, healthy appearing and other (swollen face and body ); No in distress Nutritional Appearance: overweight Orientation/consciousness: oriented to person HENMT: Head: normal to inspection Resp: Effort & Inspection: no respiratory distress Auscultation: no rhonchi and no wheezes Cardio: Rate: regular rate Rhythm: regular rhythm GI: Inspection: normal to inspection Auscultation: normal bowel sounds Skin: Trauma: other (swollen hands ) Neuro: General: oriented to person Objective Data Vital Signs Vital Signs: Vital Signs - 24 hr 09/01/20 16:15 09/01/20 16:30 09/01/20 18:00 Temperature Pulse Rate 74 81 93 Respiratory Rate 28 H Blood Pressure 148/57 H 167/51 H 167/59 H Pulse Oximetry 97 09/01/20 20:00 09/01/20 21:39 09/01/20 23:46 Temperature 36.8 C 36.8 C Pulse Rate 63 84 70 Respiratory Rate 16 25 H 17 Blood Pressure 147/52 H 168/61 H Pulse Oximetry 97 100 98 09/02/20 00:00 09/02/20 01:34 09/02/20 04:00 Temperature 36.6 C 36.6 C 36.9 C Pulse Rate 71 62 63 Respiratory Rate 16 14 15 Blood Pressure 180/59 H 163/71 H 178/61 H Pulse Oximetry 99 98 97 09/02/20 06:00 09/02/20 08:00 09/02/20 08:17 Temperature 36.9 C Pulse Rate 75 90 78 Respiratory Rate 19 19 Blood Pressure 177/64 H 231/80 H Pulse Oximetry 97 96 09/02/20 10:00 09/02/20 12:00 09/02/20 14:00 Temperature 36.9 C Pulse Rate 76 55 L 61 Respiratory Rate 19 21 H 14 Blood Pressure 179/58 H 169/76 H 159/67 H Pulse Oximetry 97 97 98 09/02/20 14:18 09/02/20 14:30 09/02/20 14:45 Temperature Pulse Rate 50 L 50 L 50 L Respiratory Rate Blood Pressure 171/66 H 174/72 H 169/76 H Pulse Oximetry 09/02/20 15:00 09/02/20 15:15 09/02/20 15:30 Temperature Pulse Rate 50 L 51 L 48 L Respiratory Rate Blood Pressure 156/67 H 150/59 H 149/58 H Pulse Oximetry 09/02/20 15:45 09/02/20 15:50 Temperature Pulse Rate 48 L 51 L Respiratory Rate Blood Pressure 127/56 L 142/57 H Pulse Oximetry Intake/Output Intake/Output: Intake & Output 08/30/20 08/31/20 09/01/20 09/02/20 23:59 23:59 23:59 23:59 Intake Total 1290 1470 220 Output Total 550 741 400 Balance 740 729 -180 Meds/Results Medications: Active Medications Generic Name Dose Route
[2020-09-02 17:36] LABS: Glucose Point of Care 110 (65-105)
[2020-09-02] MEDS: HEPARIN SODIUM 1,000 UNITS/ML VIAL 1000 UNITS IV PUSH (17:38)
--- NOTE | 2020-09-02 20:38 | PC.NURSE ---
This patient, Rufina Harperaint, was received from [ icu 5] on 09/02/20 at 2037. Patient/family oriented to unit policies and routines
--- NOTE | 2020-09-02 20:39 | PC.NURSE ---
This patient, Rufina Saravia, was transferred to [facility] on 09/02/20 at 2035. Personal belongings sent with patient. Report given to JASMINE Gallagher. Appropriate documentation sent with patient.
[2020-09-02 20:49] LABS: Glucose Point of Care 149 (65-105)
[2020-09-02] MEDS: BISACODYL 10 MG SUPPOSITORY RECTAL (23:51)
[2020-09-02] MEDS: polyethylene glycoL 3350 17 GM POWD.PACK PO (23:52)
[2020-09-03] VITALS (20 sets, daily range): BP systolic 176–235; BP diastolic 57–68; PULSE 52–111; RESP 16–18; TEMP 36.1–36.8; O2SAT 92–99
--- NOTE | 2020-09-03 03:02 | PC.NURSE ---
Daylight Savings Time For Daylight Savings Time Ending in the Fall - Clocks are moved back. For Daylight Savings Time Beginning in the Spring - Clocks are moved ahead. For [facility], the time of change occurs at 0200 hrs. Time is taken from the sql server architect. This entry on the patient's chart recognizes the change in time reflected during documentation. Example: 2 entries for vital signs may be charted for 0200 hrs.
[2020-09-03 04:04] LABS: Glucose Point of Care 175 (65-105)
[2020-09-03] MEDS: hydrALAZINE HCL 50 MG TABLET 100 MG PO ×3 (05:35→21:14)
[2020-09-03] MEDS: CENTRAL LINE FLUSH 10 ML IV PUSH ×3 (05:36→21:15)
[2020-09-03 07:12] LABS: Glucose Point of Care 125 (65-105)
[2020-09-03] MEDS: hydrALAZINE HCL 20 MG/ML VIAL 10 MG IV PUSH (07:19)
[2020-09-03] MEDS: polyethylene glycoL 3350 17 GM POWD.PACK PO (08:04)
[2020-09-03] MEDS: CALCIUM ACETATE 667 MG TABLET PO ×2 (08:05→13:37)
[2020-09-03] MEDS: ASPIRIN 81 MG ENTERIC TABLET PO (08:06)
[2020-09-03] MEDS: amLODIPine BESYLATE 5 MG TABLET 10 MG PO (08:06)
[2020-09-03] MEDS: cloNIDine HCL 0.1 MG TABLET 0.3 MG PO ×2 (08:07→13:36)
[2020-09-03] MEDS: calcitrioL 0.25 MCG CAPSULE PO (08:07)
[2020-09-03] MEDS: FUROSEMIDE 80 MG TABLET PO ×2 (08:08→17:51)
[2020-09-03] MEDS: HEPARIN SODIUM 5,000 UNITS/ML VIAL 5000 UNITS SUB-Q ×2 (08:08→21:14)
[2020-09-03] MEDS: lisinopriL 20 MG TABLET 40 MG PO (08:09)
[2020-09-03] MEDS: NEBIVOLOL HCL 5 MG TABLET 20 MG PO (08:09)
[2020-09-03] MEDS: DOCUSATE SODIUM 100 MG CAPSULE PO ×2 (08:13→21:14)
--- NOTE | 2020-09-03 09:44 | PM.IMPN ---
Progress Note: A&P Assessment and Plan (1) Hypertensive urgency, malignant: Code(s): I16.0 - Hypertensive urgency Status: Acute Assessment and Plan: Amlodipine 10 mg daily, Lisinopril 40 mg daily, Clonidine 0.3 mg TID, Hydralazine 100 mg PO TID, Bystolic 20 mg daily. Controlled fair: 09/03 176/67 Continue to monitor (2) Obstructive sleep apnea: Code(s): G47.33 - Obstructive sleep apnea (adult) (pediatric) Status: Chronic Assessment and Plan: Check ApneaLink (3) Cellulitis: Qualifiers: Site of cellulitis: extremity Site of cellulitis of extremity: upper extremity Laterality: right Qualified Code(s): L03.113 - Cellulitis of right upper limb Code(s): L03.90 - Cellulitis, unspecified Status: Acute Assessment and Plan: ID consulted and plastic surgery and likely ischemic finger tips and NOT infection 09/03: d/w Dr. Hanna and he plans bx today. (4) End stage renal disease on dialysis: Code(s): N18.6 - End stage renal disease; Z99.2 - Dependence on renal dialysis Status: Acute Assessment and Plan: Sp hemodialysis catheter and hemodialysis tolerated well Dr. Len taylor fluid balance 09/03: D/w Daughter by phone with patient at bedside Subjective Date/time seen: 09/03/20 09:44 Interval history: 09/03: C/o painful fingers, right 3-4, left 2. No change in lesions. C/o constipation and mild lower abdominal cramps. Takes senokot at home. C/o sob at night. Hx BURT but unable to tolerate cpap mask or nasal pillows. Review of Systems Review of Systems: All systems reviewed & are unremarkable except as noted in HPI and below Exam Narrative: Exam Narrative: HEENT: PERRL, sclerae nonicteric, pharyngeal mucosa pink and intact NECK: No JVD CHEST: Clear to auscultation. Normal effort. HEART: NL S1/S2, regular, no murmur ABDOMEN: BS+, soft, nontender, no mass, no bruits EXTREMITIES: No cyanosis, edema, or clubbing. 2-3 MM NECTOTIC LESIONS WITH SURROUNDING MILD ERYTHEMA AND TENDERNESS RIGHT 3RD DORSAL PIP, 4TH MEDIAL FINGER, RIGHT 2ND FINGER PAD. NEUROLOGIC: CN intact and symmetric to inspection. MUSCULOSKELETAL: Tone and strength symmetric. PSYCH: Alert. Oriented to person, place, and time. Objective Data Vital Signs Vital Signs: Vital Signs - 24 hr 09/02/20 10:00 09/02/20 12:00 09/02/20 14:00 Temperature 98.5 F Pulse Rate 76 55 L 61 Respiratory Rate 19 21 H 14 Blood Pressure 179/58 H 169/76 H 159/67 H Pulse Oximetry 97 97 98 09/02/20 14:18 09/02/20 14:30 09/02/20 14:45 Temperature Pulse Rate 50 L 50 L 50 L Respiratory Rate Blood Pressure 171/66 H 174/72 H 169/76 H Pulse Oximetry 09/02/20 15:00 09/02/20 15:15 09/02/20 15:30 Temperature Pulse Rate 50 L 51 L 48 L Respiratory Rate Blood Pressure 156/67 H 150/59 H 149/58 H Pulse Oximetry 09/02/20 15:45 09/02/20 15:50 09/02/20 16:00 Temperature Pulse Rate 48 L 51 L 55 L Respiratory Rate 19 Blood Pressure 127/56 L 142/57 H 131/58 L Pulse Oximetry 98 09/02/20 16:15 09/02/20 16:30 09/02/20 16:45 Temperature Pulse Rate 52 L 51 L 51 L Respiratory Rate Blood Pressure 173/57 H 154/68 H 185/62 H Pulse Oximetry 09/02/20 17:00 09/02/20 17:15 09/02/20 17:20 Temperature Pulse Rate 50 L 47 L 47 L Respiratory Rate Blood Pressure 154/61 H 153/61 H 158/54 H Pulse Oximetry 09/02/20 17:30 09/02/20 18:00 09/02/20 19:41 Temperature 98.4 F Pulse Rate 54 L 58 L 49 L Respiratory Rate 18 16 15 Blood Pressure 175/58 H 145/107 H Pulse Oximetry 98 96 98 09/02/20 20:00 09/02/20 21:00 09/02/20 22:00 Temperature 97.6 F 97.6 F Pulse Rate 53 L 53 L 56 L Respiratory Rate 16 16 Blood Pressure 187/54 H 187/54 H Pulse Oximetry 94 94 98 09/02/20 23:38 09/03/20 00:00 09/03/20 03:00 Temperature 97 F L Pulse Rate 53 L 61 52 L Respiratory Rate 16 Blood Pressure 160/72 H Pulse Oximetry 98 96 09/03/20 03:04
--- NOTE | 2020-09-03 10:18 | PM.PNCARD ---
Progress Note: A&P Assessment and Plan (1) Hypertensive urgency: Code(s): I16.0 - Hypertensive urgency Status: Acute Assessment and Plan: Currently BP is very high but was better yesterday, could be labile hypertension related to discomfort such as lack of sleep, constipation, right finger discomfort. Reviewed BP medications and she is on Amlodipine 10 mg daily, Lisinopril 40 mg daily, Clonidine 0.3 mg TID, Hydralazine 100 mg PO TID, Bystolic 20 mg daily. Continue to monitor. (2) HLD (hyperlipidemia): Code(s): E78.5 - Hyperlipidemia, unspecified Status: Chronic Assessment and Plan: On Atorvastatin. (3) End stage renal disease: Code(s): N18.6 - End stage renal disease Status: Chronic Assessment and Plan: On hemodialysis. Subjective Date/time seen: 09/03/20 10:18 Reports not sleeping well and gasps when falling asleep which wakes her up, and constipated for 4 days now. Denies chest pain or sob. Right fingers discomfort. Exam Const: General: cooperative, healthy appearing and comfortable Resp: Auscultation: clear to auscultation bilaterally, no crackles, no rales, no rhonchi and no wheezes Cardio: Jugular venous distension: no JVD Rate: regular rate Rhythm: regular rhythm Heart sounds: no murmurs Peripheral pulses: dorsalis pedis present GI: GI Palp: No abdominal tenderness and Yes Soft to palpation Neuro: General: confusion Extrem: Right lower extremity: no edema Left lower extremity: no edema Objective Data Vital Signs Vital Signs: Vital Signs - 24 hr 09/02/20 10:00 09/02/20 12:00 09/02/20 14:00 Temperature 98.5 F Pulse Rate 76 55 L 61 Respiratory Rate 19 21 H 14 Blood Pressure 179/58 H 169/76 H 159/67 H Pulse Oximetry 97 97 98 09/02/20 14:18 09/02/20 14:30 09/02/20 14:45 Temperature Pulse Rate 50 L 50 L 50 L Respiratory Rate Blood Pressure 171/66 H 174/72 H 169/76 H Pulse Oximetry 09/02/20 15:00 09/02/20 15:15 09/02/20 15:30 Temperature Pulse Rate 50 L 51 L 48 L Respiratory Rate Blood Pressure 156/67 H 150/59 H 149/58 H Pulse Oximetry 09/02/20 15:45 09/02/20 15:50 09/02/20 16:00 Temperature Pulse Rate 48 L 51 L 55 L Respiratory Rate 19 Blood Pressure 127/56 L 142/57 H 131/58 L Pulse Oximetry 98 09/02/20 16:15 09/02/20 16:30 09/02/20 16:45 Temperature Pulse Rate 52 L 51 L 51 L Respiratory Rate Blood Pressure 173/57 H 154/68 H 185/62 H Pulse Oximetry 09/02/20 17:00 09/02/20 17:15 09/02/20 17:20 Temperature Pulse Rate 50 L 47 L 47 L Respiratory Rate Blood Pressure 154/61 H 153/61 H 158/54 H Pulse Oximetry 09/02/20 17:30 09/02/20 18:00 09/02/20 19:41 Temperature 98.4 F Pulse Rate 54 L 58 L 49 L Respiratory Rate 18 16 15 Blood Pressure 175/58 H 145/107 H Pulse Oximetry 98 96 98 09/02/20 20:00 09/02/20 21:00 09/02/20 22:00 Temperature 97.6 F 97.6 F Pulse Rate 53 L 53 L 56 L Respiratory Rate 16 16 Blood Pressure 187/54 H 187/54 H Pulse Oximetry 94 94 98 09/02/20 23:38 09/03/20 00:00 09/03/20 03:00 Temperature 97 F L Pulse Rate 53 L 61 52 L Respiratory Rate 16 Blood Pressure 160/72 H Pulse Oximetry 98 96 09/03/20 03:04 09/03/20 04:00 09/03/20 06:00 Temperature 97.2 F L Pulse Rate 52 L 52 L 58 L Respiratory Rate 16 Blood Pressure 189/60 H Pulse Oximetry 99 98 09/03/20 07:39 09/03/20 08:00 09/03/20 08:05 Temperature 97.6 F Pulse Rate 56 L 78 56 L Respiratory Rate 16 Blood Pressure 235/62 H Pulse Oximetry 99 97 09/03/20 08:09 09/03/20 09:57 Temperature Pulse Rate 57 L Respiratory Rate Blood Pressure 176/67 H Pulse Oximetry Intake/Output Intake/Output: Intake & Output 08/31/20 09/01/20 09/02/20 09/04/20 23:59 23:59 23:59 00:59 Intake Total 1290 1470 720 440 Output Total 550 1256 7117 50 Balance 950 -007 -3672 390 Meds/Results Medications: Active Medications Generic N
[2020-09-03] MEDS: SENNOSIDES 8.6 MG TABLET 17.2 MG PO (10:19)
[2020-09-03] MEDS: ONDANSETRON INJ 4 MG/2 ML VIAL IV PUSH (10:22)
--- NOTE | 2020-09-03 11:36 | WPDPN ---
Progress Note: A&P Assessment and Plan (1) End stage kidney disease: Code(s): N18.6 - End stage renal disease Status: Chronic Assessment and Plan: Hemodialysis seems to have been very beneficial to her mental state and to her hand pain. SBP remains high. (2) Finger lesion: Code(s): L98.9 - Disorder of the skin and subcutaneous tissue, unspecified Status: Acute Assessment and Plan: Hands markedly improved. Small local sites of dry necrosis persist unchanged. Additional Plan Will send tissue biopsy from dorsal finger site this morning. Time Spent With Patient Time with patient: less than 15 minutes Objective Data Vital Signs Vital Signs: Vital Signs - 24 hr 09/02/20 12:00 09/02/20 14:00 09/02/20 14:18 Temperature 36.9 C Pulse Rate 55 L 61 50 L Respiratory Rate 21 H 14 Blood Pressure 169/76 H 159/67 H 171/66 H Pulse Oximetry 97 98 09/02/20 14:30 09/02/20 14:45 09/02/20 15:00 Temperature Pulse Rate 50 L 50 L 50 L Respiratory Rate Blood Pressure 174/72 H 169/76 H 156/67 H Pulse Oximetry 09/02/20 15:15 09/02/20 15:30 09/02/20 15:45 Temperature Pulse Rate 51 L 48 L 48 L Respiratory Rate Blood Pressure 150/59 H 149/58 H 127/56 L Pulse Oximetry 09/02/20 15:50 09/02/20 16:00 09/02/20 16:15 Temperature Pulse Rate 51 L 55 L 52 L Respiratory Rate 19 Blood Pressure 142/57 H 131/58 L 173/57 H Pulse Oximetry 98 09/02/20 16:30 09/02/20 16:45 09/02/20 17:00 Temperature Pulse Rate 51 L 51 L 50 L Respiratory Rate Blood Pressure 154/68 H 185/62 H 154/61 H Pulse Oximetry 09/02/20 17:15 09/02/20 17:20 09/02/20 17:30 Temperature 36.9 C Pulse Rate 47 L 47 L 54 L Respiratory Rate 18 Blood Pressure 153/61 H 158/54 H 175/58 H Pulse Oximetry 98 09/02/20 18:00 09/02/20 19:41 09/02/20 20:00 Temperature 36.4 C Pulse Rate 58 L 49 L 53 L Respiratory Rate 16 15 16 Blood Pressure 145/107 H 187/54 H Pulse Oximetry 96 98 94 09/02/20 21:00 09/02/20 22:00 09/02/20 23:38 Temperature 36.4 C 36.1 C L Pulse Rate 53 L 56 L 53 L Respiratory Rate 16 16 Blood Pressure 187/54 H 160/72 H Pulse Oximetry 94 98 98 09/03/20 00:00 09/03/20 03:00 09/03/20 03:04 Temperature Pulse Rate 61 52 L 52 L Respiratory Rate Blood Pressure Pulse Oximetry 96 99 09/03/20 04:00 09/03/20 06:00 09/03/20 07:39 Temperature 36.2 C L 36.4 C Pulse Rate 52 L 58 L 56 L Respiratory Rate 16 16 Blood Pressure 189/60 H 235/62 H Pulse Oximetry 98 99 09/03/20 08:00 09/03/20 08:05 09/03/20 08:09 Temperature Pulse Rate 78 56 L 57 L Respiratory Rate Blood Pressure Pulse Oximetry 97 09/03/20 09:57 09/03/20 10:00 Temperature Pulse Rate 53 L Respiratory Rate Blood Pressure 176/67 H Pulse Oximetry Intake/Output Intake/Output: Intake & Output 08/31/20 09/01/20 09/02/20 09/04/20 23:59 23:59 23:59 00:59 Intake Total 1290 1470 720 440 Output Total 550 1891 3450 50 Balance 683 -452 -2965 390 Meds/Results Medications: Active Medications Generic Name Dose Route Start Last Admin Trade Name Liliana PRN Reason Stop Dose Admin Amlodipine Besylate 10 mg 09/02/20 09:00 09/03/20 08:06 Amlodipine Besylate 5 Mg Tablet PO 10 mg QAM MICHAELA Administration Aspirin 81 mg 08/31/20 09:00 09/03/20 08:06 Aspirin 81 Mg Enteric Tablet PO 81 mg DAILY MICHAELA Administration Calcitriol 0.25 mcg 08/31/20 09:00 09/03/20 08:07 Calcitriol 0.25 Mcg Capsule PO 0.25 mcg DAILY MICHAELA Administration Calcium Acetate 667 mg 08/31/20 08:00 09/03/20 08:05 Calcium Acetate 667 Mg Tablet PO 667 mg TIDWM MICHAELA Administration Clonidine HCl 0.3 mg 09/01/20 09:00 09/03/20 08:07 Clonidine Hcl 0.1 Mg Tablet PO 0.3 mg TID MICHAELA Administration Dextrose 12.5 gm 08/30/20 22:57 Dextrose 50% 25 Gm/50 Ml Syringe IV PUSH PRN PRN Hypoglycemia Protocol Diphenhydramine HCl 25
[2020-09-03 11:46] LABS: Glucose Point of Care 164 (65-105)
[2020-09-03 12:22] LABS: Alveolar/Arterial O2 Gradient 42.5 mmHg; Base Excess ABG 4.5 mEq/l (+/-2.0); Fractional Inspired Oxygen 21 %; HCO3 ABG 27.8 mEq/l (22.0-26.0); Oxygen Content ABG 12.4 %vol (16.0-22.0); Oxygen Saturation ABG 94.2 % (95.0-100.0); Oxyhemoglobin 92.5 % THb (90.0-100.0); PCO2 ABG 36.2 mmHg (35.0-45.0); PO2 ABG 63.9 mmHg (80.0-100.0); PO2 FiO2 Ratio Arterial Blood 3.04 %; Total Hemoglobin 9.5 g/dL (12.0-18.0); pH ABG 7.503 (7.350-7.450)
[2020-09-03 12:23] LABS: Device ROOM AIR; Site Drawn RIGHT BRACHIAL
--- NOTE | 2020-09-03 13:16 | P.PNNP_ITS ---
Progress Note: A&P Assessment and Plan (1) End stage renal disease: Code(s): N18.6 - End stage renal disease Status: Chronic Assessment and Plan: * trial of hemodialysis yesterday and day before * optimize electrolytes, volume status, and clearance as tolerated * family and patient want to switch to hemodialysis permanently after talking it over yesterday afternoon/evening * family request specifically Dr. Gates be consulted for placement of tunneled HD catheter * plan HD tomorrow -- will need outpatient placement for hemodialysis (2) Hypertensive urgency: Code(s): I16.0 - Hypertensive urgency Status: Acute Assessment and Plan: * doing better at this time * possible rebound HTN from missed doses of clonidine prior to admission?? * possible secondary cause?? - previous CT scan without renal artery stenosis - renal duplex on this admission without BLAIR as well - follow-up on pending hormone testing (renin, aldosterone, metanephrines...etc) * interestingly, her BP became more problematic AFTER dialysis was initiated - usually BP gets better with dialytic intervention * optimize fluid removal with HD to see if this helps * follow trend of hemodynamics (3) Altered mental status: Code(s): R41.82 - Altered mental status, unspecified Status: Acute Assessment and Plan: * better but still not back to baseline * possibly related to #2 (i.e. hypertensive encephalopathy??) * CT of brain negative * follow mentation -- need Neurology consult +/- MRI of brain(?) (4) Swelling of right hand: Code(s): M79.89 - Other specified soft tissue disorders Status: Acute Assessment and Plan: * initially thought to be cellulitis but less likely - Infectious Disease and Plastic Surgery assessment noted - no improvement with previous antibiotic therapy * suspicion falls on possible vasculitis versus calciphlaxis * follow-up on extensive serologies done (so far only results are a low C3) * s/p skin biopsy by Dr. Hanna today -- hopefully this will help determine our next step (5) Anemia: Code(s): D64.9 - Anemia, unspecified Status: Chronic Assessment and Plan: * likely due to ESRD and acute illness * dose with Epogen now that BP better controlled * follow hemodynamics (6) Renal osteodystrophy: Code(s): N25.0 - Renal osteodystrophy Status: Chronic Assessment and Plan: * phosphorus better * stop calcium based binders given concerns for calciphylaxis * PTH was stable by outpatient labs - will recheck * follow parameters (7) Diabetes: Code(s): E11.9 - Type 2 diabetes mellitus without complications Status: Acute Assessment and Plan: * follow accuchecks * on SSI Long and extensive discussion (> 20 minutes) with son at bedside and daughter (who is a nurse here at [facility]) regarding the above issues and tentative plan of care; questions answered as able. Will continue to follow. Subjective Date/time seen: 09/03/20 13:16 Tolerated hemodialysis treatment yesterday without any issue or problems; s/p skin biopsy earlier today by Dr. Hanna and tolerated this procedure fairly well also; transferred out of the ICU yesterday; mentation has improved but still not back to baseline; still has some complaints of shortness of breath as well; son at bedside and we discussed the situation. Exam Narrative: Exam Narrative: General: W
--- NOTE | 2020-09-03 13:16 | PM.PNNEP ---
Progress Note: A&P Assessment and Plan (1) End stage renal disease: Code(s): N18.6 - End stage renal disease Status: Chronic Assessment and Plan: trial of hemodialysis yesterday and day before optimize electrolytes, volume status, and clearance as tolerated family and patient want to switch to hemodialysis permanently after talking it over yesterday afternoon/evening family request specifically Dr. Gates be consulted for placement of tunneled HD catheter plan HD tomorrow -- will need outpatient placement for hemodialysis (2) Hypertensive urgency: Code(s): I16.0 - Hypertensive urgency Status: Acute Assessment and Plan: doing better at this time possible rebound HTN from missed doses of clonidine prior to admission?? possible secondary cause?? - previous CT scan without renal artery stenosis - renal duplex on this admission without BLAIR as well - follow-up on pending hormone testing (renin, aldosterone, metanephrines...etc) interestingly, her BP became more problematic AFTER dialysis was initiated - usually BP gets better with dialytic intervention optimize fluid removal with HD to see if this helps follow trend of hemodynamics (3) Altered mental status: Code(s): R41.82 - Altered mental status, unspecified Status: Acute Assessment and Plan: better but still not back to baseline possibly related to #2 (i.e. hypertensive encephalopathy??) CT of brain negative follow mentation -- need Neurology consult +/- MRI of brain(?) (4) Swelling of right hand: Code(s): M79.89 - Other specified soft tissue disorders Status: Acute Assessment and Plan: initially thought to be cellulitis but less likely - Infectious Disease and Plastic Surgery assessment noted - no improvement with previous antibiotic therapy suspicion falls on possible vasculitis versus calciphlaxis follow-up on extensive serologies done (so far only results are a low C3) s/p skin biopsy by Dr. Hanna today -- hopefully this will help determine our next step (5) Anemia: Code(s): D64.9 - Anemia, unspecified Status: Chronic Assessment and Plan: likely due to ESRD and acute illness dose with Epogen now that BP better controlled follow hemodynamics (6) Renal osteodystrophy: Code(s): N25.0 - Renal osteodystrophy Status: Chronic Assessment and Plan: phosphorus better stop calcium based binders given concerns for calciphylaxis PTH was stable by outpatient labs - will recheck follow parameters (7) Diabetes: Code(s): E11.9 - Type 2 diabetes mellitus without complications Status: Acute Assessment and Plan: follow accuchecks on SSI Long and extensive discussion (> 20 minutes) with son at bedside and daughter (who is a nurse here at [facility]) regarding the above issues and tentative plan of care; questions answered as able. Will continue to follow. Subjective Date/time seen: 09/03/20 13:16 Tolerated hemodialysis treatment yesterday without any issue or problems; s/p skin biopsy earlier today by Dr. Hanna and tolerated this procedure fairly well also; transferred out of the ICU yesterday; mentation has improved but still not back to baseline; still has some complaints of shortness of breath as well; son at bedside and we discussed the situation. Exam Narrative: Exam Narrative: General: WD/WN female in NAD Heart: normal S1 and S2; no rub Lungs: decreased at breath sounds Abdomen: soft, nontender, nondistended, positive bowel sounds Extremities: no cyanosis or clubbing; trace edema Skin: finger lesions/right hand edema noted Objective Data Vital Signs Vital Signs: Vital Signs Temp Pulse Resp BP Pulse Ox 09/03/20 12:00 56 L 98 09/03/20 11:47 36.8 C 53 L 18 211/68 H 92 09/03/20 10:00 53
--- NOTE | 2020-09-03 13:31 | PM.PROC ---
Procedure Note - Detailed Date of procedure: 09/03/20 Pre-op diagnosis: HTN URGENCY, ESRD ON DIALYSIS Dry tissue necrosis dorsal right middle finger. Post-op diagnosis: same Procedure performed: 1 cm skin excision right middle finger with simple repair 1 cm. Description of procedure: Pt had signed consent. Site was anesthetized with 1% Lidocaine with epi 1/100.000. It was prepped with Betadine and draped as usual. A #11 blade was used to excise the ulceration in a long ellipse. The skin with fat included was sent in formalin to pathology. The skin was closed in simple fasion with interrupted 4-0 Nylon sutures. Band-Aid applied. Anesthesia: local Surgeon: Juvencio Hanna MD Estimated blood loss (mL): 0 Tourniquet time (min): 0 Drains: No Complications: No immediate complications Condition: stable Disposition: no change
[2020-09-03] MEDS: LIDO 1%/EPINEPHRINE 1:100,000 20 ML VIAL 5 ML INFILTRATE (13:38)
[2020-09-03 16:11] LABS: Glucose Point of Care 161 (65-105)
[2020-09-03] MEDS: cloNIDine HCL 0.1 MG TABLET PO (17:51)
[2020-09-03] MEDS: cloNIDine HCL 0.2 MG TABLET PO (17:51)
[2020-09-03 20:58] LABS: Glucose Point of Care 150 (65-105)
[2020-09-03] MEDS: LACTULOSE 20 GM/30 ML UDC PO (21:14)
[2020-09-04] VITALS (32 sets, daily range): BP systolic 117–243; BP diastolic 46–92; PULSE 49–66; RESP 16–22; TEMP 35.8–37.2; O2SAT 92–98
[2020-09-04] MEDS: CENTRAL LINE FLUSH 10 ML IV PUSH ×2 (05:12→13:25)
[2020-09-04] MEDS: hydrALAZINE HCL 50 MG TABLET 100 MG PO ×3 (05:12→21:26)
[2020-09-04 05:23] LABS: Hematocrit 26.1 % (37.0-47.0); Hemoglobin 8.9 g/dL (12.0-15.0); Mean Corpuscular HGB Conc 34.1 g/dl (32-36); Mean Corpuscular Hemoglobin 34.4 pg (26-34); Mean Corpuscular Volume 100.8 fl (80-100); Mean Platelet Volume 10.2 fl (7.4-10.4); Platelet Count Result 281 k/mm3 (150-375); Red Blood Count 2.59 M/mm3 (4.2-5.4); Red Cell Distribution Width 13.9 % (11.5-14.5); White Blood Count 12.6 K/mm3 (4.5-10.0)
[2020-09-04 05:40] LABS: Albumin Level 3.2 g/dL (3.5-5.1); Anion Gap 8 mmol/L (8-16); Blood Urea Nitrogen 38 mg/dL (7-17); Calcium 8.1 mg/dL (8.4-10.2); Carbon Dioxide 27 mmol/L (22-30); Chloride 92 mmol/L (98-107); Estimated CRCL calculation 7 ml/min; Estimated Glomerular Filt Rate 6; Glucose 152 mg/dL (65-105); Phosphorus 5.1 mg/dL (2.5-4.5); Potassium 4.7 mmol/L (3.4-5.0); Sodium 127 mmol/L (137-145)
[2020-09-04 05:51] LABS: Parathyroid Intact 196.9 pg/mL (7.5-53.5)
--- NOTE | 2020-09-04 07:54 | PM.PNCARD ---
Progress Note: A&P Assessment and Plan (1) Hypertensive urgency: Code(s): I16.0 - Hypertensive urgency Status: Acute Assessment and Plan: Currently BP is very high but was better yesterday, could be labile hypertension related to discomfort such as lack of sleep, constipation, right finger discomfort. Reviewed BP medications and she is on Amlodipine 10 mg daily, Lisinopril 40 mg daily, Clonidine 0.3 mg TID, Hydralazine 100 mg PO TID, Bystolic 20 mg daily. Continue to monitor. (2) HLD (hyperlipidemia): Code(s): E78.5 - Hyperlipidemia, unspecified Status: Chronic Assessment and Plan: Was recently started on Atorvastatin for LDL 146. However, she does not want to be on a statin since she believes it makes her feel like a zombie . Will stop it and see if she feels better without it. If no difference, then she should be on it. (3) End stage renal disease: Code(s): N18.6 - End stage renal disease Status: Chronic Assessment and Plan: On hemodialysis. Subjective Date/time seen: 09/04/20 07:54 Reports she had diarrhea last night and could not sleep well. Denies chest pain or sob. Exam Const: General: cooperative, healthy appearing and comfortable Resp: Auscultation: clear to auscultation bilaterally, no crackles, no rales, no rhonchi and no wheezes Cardio: Jugular venous distension: no JVD Rate: regular rate Rhythm: regular rhythm Heart sounds: no murmurs Peripheral pulses: dorsalis pedis present GI: GI Palp: No abdominal tenderness and Yes Soft to palpation Neuro: General: confusion Extrem: Right lower extremity: no edema Left lower extremity: no edema Objective Data Vital Signs Vital Signs: Vital Signs - 24 hr 09/03/20 08:00 09/03/20 08:05 09/03/20 08:09 Temperature Pulse Rate 78 56 L 57 L Respiratory Rate Blood Pressure Pulse Oximetry 97 09/03/20 09:57 09/03/20 10:00 09/03/20 11:47 Temperature 98.2 F Pulse Rate 53 L 53 L Respiratory Rate 18 Blood Pressure 176/67 H 211/68 H Pulse Oximetry 92 09/03/20 12:00 09/03/20 14:00 09/03/20 16:00 Temperature 98.3 F Pulse Rate 56 L 58 L 55 L Respiratory Rate 18 Blood Pressure 184/59 H Pulse Oximetry 98 98 09/03/20 18:00 09/03/20 20:00 09/03/20 22:00 Temperature 97 F L Pulse Rate 59 L 52 L 57 L Respiratory Rate 16 Blood Pressure 195/61 H Pulse Oximetry 98 09/03/20 23:37 09/03/20 23:54 09/04/20 00:00 Temperature 96.9 F L 96.9 F L Pulse Rate 57 L 59 L 58 L Respiratory Rate 18 18 18 Blood Pressure 198/57 H 198/57 H Pulse Oximetry 98 98 98 09/04/20 02:00 09/04/20 04:00 09/04/20 06:00 Temperature 97.0 F L Pulse Rate 56 L 62 63 Respiratory Rate 16 Blood Pressure 160/83 H Pulse Oximetry 93 Intake/Output Intake/Output: Intake & Output 09/01/20 09/02/20 09/03/20 09/04/20 22:59 22:59 23:59 23:59 Intake Total Output Total Balance Meds/Results Medications: Active Medications Generic Name Dose Route Start Last Admin Trade Name Luisq PRN Reason Stop Dose Admin Amlodipine Besylate 10 mg 09/02/20 09:00 09/03/20 08:06 Amlodipine Besylate 5 Mg Tablet PO 10 mg QAM MICHAELA Administration Aspirin 81 mg 08/31/20 09:00 09/03/20 08:06 Aspirin 81 Mg Enteric Tablet PO 81 mg DAILY MICHAELA Administration Calcitriol 0.25 mcg 08/31/20 09:00 09/03/20 08:07 Calcitriol 0.25 Mcg Capsule PO 0.25 mcg DAILY MICHAELA Administration Clonidine HCl 0.2 mg 09/03/20 17:00 09/03/20 17:51 Clonidine Hcl 0.2 Mg Tablet PO 0.2 mg TID MICHAELA Administration Clonidine HCl 0.1 mg 09/03/20 17:00 09/03/20 17:51 Clonidine Hcl 0.1 Mg Tablet PO 0.1 mg TID MICHAELA Administration Dextrose 12.5 gm 08/30/20 22:57 Dextrose 50% 25 Gm/50 Ml Syringe IV PUSH PRN PRN Hypoglycemia Protocol Diphenhydramine HCl 25 mg 08/30/20 22:56 09/01/20 00:16 Diphenhydramine Hcl Cap 25 Mg Capsule PO 25 mg
[2020-09-04] MEDS: calcitrioL 0.25 MCG CAPSULE PO (08:33)
[2020-09-04] MEDS: amLODIPine BESYLATE 5 MG TABLET 10 MG PO (08:33)
[2020-09-04] MEDS: lisinopriL 20 MG TABLET 40 MG PO ×2 (08:33→18:15)
[2020-09-04] MEDS: HEPARIN SODIUM 5,000 UNITS/ML VIAL 5000 UNITS SUB-Q ×2 (08:34→20:19)
[2020-09-04] MEDS: FUROSEMIDE 80 MG TABLET PO ×2 (08:34→18:17)
[2020-09-04] MEDS: cloNIDine HCL 0.2 MG TABLET PO ×3 (08:34→18:16)
[2020-09-04] MEDS: cloNIDine HCL 0.1 MG TABLET PO ×3 (08:34→18:16)
[2020-09-04] MEDS: ASPIRIN 81 MG ENTERIC TABLET PO (08:34)
--- NOTE | 2020-09-04 09:00 | PC.NURSE ---
Pt refused to take Bystolic. I don't like that medication. It makes me feel funny. Dr. Nogueira notified
[2020-09-04] MEDS: BACITRACIN OINTMENT 15 GM TUBE 1 APPLIC TOPICAL ×2 (09:25→20:19)
[2020-09-04] MEDS: NITROGLYCERIN OINTMENT 1 INCH DOSE TOPICAL ×3 (09:25→18:15)
--- NOTE | 2020-09-04 11:16 | PM.CNGS ---
Assessment and Plan Assessment and plan (1) End stage kidney disease: Code(s): N18.6 - End stage renal disease Status: Chronic Assessment and Plan: Patient previously on peritoneal dialysis and now being switched to hemodialysis. She currently has a left IJ temporary dialysis catheter that is functioning well for hemodialysis. Our service has been consulted for placement of a tunneled dialysis catheter. Description of the procedure, risks, benefits, indications, and expected outcomes were discussed with the patient in detail. All questions were answered. I discussed the patient's case with Dr. Esquivel. We will plan on adding the patient onto the surgery schedule later this week. Thank you for allowing us to see the patient in consultation. (2) Hypertensive urgency: Code(s): I16.0 - Hypertensive urgency Status: Acute (3) Renal osteodystrophy: Code(s): N25.0 - Renal osteodystrophy Status: Chronic (4) Diabetes: Code(s): E11.9 - Type 2 diabetes mellitus without complications Status: Acute (5) Obstructive sleep apnea: Code(s): G47.33 - Obstructive sleep apnea (adult) (pediatric) Status: Chronic (6) Congestive heart failure: Code(s): I50.9 - Heart failure, unspecified Status: Chronic (7) Finger lesion: Code(s): L98.9 - Disorder of the skin and subcutaneous tissue, unspecified Status: Acute Additional Plan Discussed the patient's case and plan of care with Dr. Esquivel. History of Present Illness Consult details Consult date: 09/04/20 Reason for consult: other (Placement of tunneled dialysis catheter) Requesting physician: Grayson Harrington MD Narrative: This is a 60-year-old female with a history of end-stage renal disease, diabetes mellitus, and multiple other medical problems listed below, who presented to the hospital for evaluation of right finger pain, constipation, and elevated blood pressure. She was admitted and has been treated for hypertensive urgency, as well as a right hand wound felt to potentially be calciphylaxis and is status post a skin excision from her right middle finger to send for pathology. The patient has known end-stage renal disease and was on peritoneal dialysis at home prior to her hospitalization. She has been having issues with confusion and concern that her peritoneal dialysis has not been effective. During this hospitalization, Nephrology was consulted and switched her to hemodialysis. She had a left IJ temporary dialysis catheter placed in the ICU on 09/01/20 and has been receiving hemodialysis through this access since. Per the nurse, her temporary access has been functioning without issues. Nephrology has now consulted our service for placement of a tunneled dialysis catheter. The patient was seen in the IMU today. She does reports hemodialysis in the past in April, when she was hospitalized for COVID-19 and had a tunneled dialysis catheter on the right at that time. This was then subsequently removed about 3 weeks later, as she was continuing peritoneal dialysis and no longer needed this access. 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
[2020-09-04] MEDS: ACETAMINOPHEN 500 MG TABLET 1000 MG PO (13:23)
[2020-09-04 13:31] LABS: Glucose Point of Care 99 (65-105)
[2020-09-04 13:31] LABS: Glucose Point of Care 166 (65-105)
--- NOTE | 2020-09-04 14:00 | PC.NURSE ---
Pt to dialysis via bed
--- NOTE | 2020-09-04 15:04 | PM.IMPN ---
Progress Note: A&P Assessment and Plan (1) Hypertensive urgency, malignant: Code(s): I16.0 - Hypertensive urgency Status: Acute Assessment and Plan: Pt is labile high again today 179/70 iv hydralazine prn high bps back on home medications, clonidine, Lasix, hydralazine, lisinopril (2) Obstructive sleep apnea: Code(s): G47.33 - Obstructive sleep apnea (adult) (pediatric) Status: Chronic (3) Cellulitis: Qualifiers: Site of cellulitis: extremity Site of cellulitis of extremity: upper extremity Laterality: right Qualified Code(s): L03.113 - Cellulitis of right upper limb Code(s): L03.90 - Cellulitis, unspecified Status: Acute Assessment and Plan: ID consulted and plastic surgery ? ischemic finger tips sp finger biopsy (4) End stage renal disease on dialysis: Code(s): N18.6 - End stage renal disease; Z99.2 - Dependence on renal dialysis Status: Acute Assessment and Plan: pt will need permanent hemodialysis catheter pt will be on hemodialysis now Subjective Date/time seen: 09/04/20 15:04 Interval history: 60-year-old female with a past medical history of end-stage renal disease on peritoneal dialysis, insulin-dependent diabetes mellitus, and difficult to control hypertension who presented to the ER with a chief complaint of infection in her fingers. Pts BP was very high on admission. Pt with history of HTN urgency off nicardipine drip, continue oral medications. Review of Systems Review of Systems: All systems reviewed & are unremarkable except as noted in HPI and below Exam Const: General: cooperative and healthy appearing; No in distress Nutritional Appearance: overweight Orientation/consciousness: oriented to person HENMT: Head: normal to inspection Resp: Effort & Inspection: no respiratory distress Auscultation: no rhonchi and no wheezes Cardio: Rate: regular rate Rhythm: regular rhythm GI: Inspection: normal to inspection Auscultation: normal bowel sounds Skin: Trauma: other (ishemic finger tips with dressing ) Neuro: General: oriented to person Objective Data Vital Signs Vital Signs: Vital Signs - 24 hr 09/03/20 16:00 09/03/20 18:00 09/03/20 20:00 Temperature 36.8 C 36.1 C L Pulse Rate 55 L 59 L 52 L Respiratory Rate 18 16 Blood Pressure 184/59 H 195/61 H Pulse Oximetry 98 98 09/03/20 22:00 09/03/20 23:37 09/03/20 23:54 Temperature 36.1 C L 36.1 C L Pulse Rate 57 L 57 L 59 L Respiratory Rate 18 18 Blood Pressure 198/57 H 198/57 H Pulse Oximetry 98 98 09/04/20 00:00 09/04/20 02:00 09/04/20 02:05 Temperature 36.9 C Pulse Rate 58 L 56 L 56 L Respiratory Rate 18 22 H Blood Pressure 179/85 H Pulse Oximetry 98 94 09/04/20 04:00 09/04/20 06:00 09/04/20 08:00 Temperature 36.1 C L 35.8 C L Pulse Rate 62 63 66 Respiratory Rate 16 22 H Blood Pressure 160/83 H 243/63 H Pulse Oximetry 93 95 09/04/20 08:42 09/04/20 08:57 09/04/20 10:00 Temperature Pulse Rate 66 57 L Respiratory Rate Blood Pressure Pulse Oximetry 92 09/04/20 12:00 09/04/20 13:15 09/04/20 14:00 Temperature 36.1 C L Pulse Rate 62 55 L 60 Respiratory Rate 20 Blood Pressure 202/56 H 179/77 H Pulse Oximetry 93 Intake/Output Intake/Output: Intake & Output 09/01/20 09/02/20 09/03/20 09/04/20 22:59 22:59 23:59 23:59 Intake Total Output Total Balance Meds/Results Medications: Active Medications Generic Name Dose Route Start Last Admin Trade Name Luisq PRN Reason Stop Dose Admin Acetaminophen 1,000 mg 09/04/20 12:52 09/04/20 13:23 Acetaminophen 500 Mg Tablet PO 1,000 mg Q6H PRN Administration Mild Pain (1-3) or Fever Amlodipine Besylate 10 mg 09/02/20 09:00 09/04/20 08:33 Amlodipine Besylate 5 Mg Tablet PO 10 mg QAM MICHAELA Administration Aspirin 81 mg 08/31/20 09:00 09/04/20 08:34 Aspirin 81 Mg Enteric Tablet PO 81 mg
--- NOTE | 2020-09-04 15:25 | P.PNNP_ITS ---
Progress Note: A&P Assessment and Plan (1) End stage renal disease: Code(s): N18.6 - End stage renal disease Status: Chronic Assessment and Plan: * Getting hemodialysis today. * Mental status is better. * Surgery to place tunneled catheter at some point. * Volume status looks okay. * Potassium is doing well. * BUN and creatinine are better. (2) Hypertensive urgency: Code(s): I16.0 - Hypertensive urgency Status: Acute Assessment and Plan: * Systolic running between 160 and 190. * Some fluid being taken off today in dialysis. With this high blood pressure I asked ED to increase the fluid removal to4L. * I agree that compliance may be an issue as far as why the blood pressure keeps coming up so high on admission but improves with the hospital stay. * Some of this may be due to fluid. * She is currently on clonidine, hydralazine, hydrochlorothiazide, lisinopril. * Beta-blockers made her hypoglycemic. So we will avoid those. * She has no allergies. * Will change amlodipine to nifedipine since this is long-acting and stronger. * Will try to get her off the clonidine if possible. (3) Altered mental status: Code(s): R41.82 - Altered mental status, unspecified Status: Acute Assessment and Plan: * Seems better to me. * CT of brain negative * follow mentation -- need Neurology consult +/- MRI of brain(?) (4) Swelling of right hand: Code(s): M79.89 - Other specified soft tissue disorders Status: Acute Assessment and Plan: * initially thought to be cellulitis but less likely - Infectious Disease and Plastic Surgery assessment noted - no improvement with previous antibiotic therapy * suspicion falls on possible vasculitis versus calciphlaxis * Phosphorus level is notoriously high in her. * Check PTH. Stop calcitriol. Add binders and consider cinacalcet if PTH is high. * Pathology is pending * Serology is pending (5) Anemia: Code(s): D64.9 - Anemia, unspecified Status: Chronic Assessment and Plan: * likely due to ESRD and acute illness * dose with Epogen now that BP better controlled * follow hemodynamics (6) Renal osteodystrophy: Code(s): N25.0 - Renal osteodystrophy Status: Chronic Assessment and Plan: * phosphorus better * stop calcium based binders given concerns for calciphylaxis * PTH was stable by outpatient labs - will recheck * follow parameters (7) Diabetes: Code(s): E11.9 - Type 2 diabetes mellitus without complications Status: Acute Assessment and Plan: * follow accuchecks * on SSI Subjective Date/time seen: 09/04/20 15:25 Interval history: Rufina is feeling a little better today. Mental status seems pretty good. She is on dialysis and tolerating well. She was seen at 3:20 p.m. Review of Systems Cardiovascular: Cardiovascular: Reports no additional cardiovascular complaints Respiratory: Respiratory: Reports no additional respiratory complaints Gastrointestinal: Gastrointestinal: Reports no additional gastrointestinal complaints Genitourinary: Genitourinary: Reports no additional female genitourinary complaints Exam Narrative: Exam Narrative: General: WD/WN female in NAD Heart: normal S1 and S2; no rub or gallop Lungs: decreased at breath sounds Abdomen: soft, nontender, nondistended, positive bowel sounds Extremities: no cyanosis or clubbing; t
--- NOTE | 2020-09-04 15:25 | PM.PNNEP ---
Progress Note: A&P Assessment and Plan (1) End stage renal disease: Code(s): N18.6 - End stage renal disease Status: Chronic Assessment and Plan: Getting hemodialysis today. Mental status is better. Surgery to place tunneled catheter at some point. Volume status looks okay. Potassium is doing well. BUN and creatinine are better. (2) Hypertensive urgency: Code(s): I16.0 - Hypertensive urgency Status: Acute Assessment and Plan: Systolic running between 160 and 190. Some fluid being taken off today in dialysis. With this high blood pressure I asked ED to increase the fluid removal to4L. I agree that compliance may be an issue as far as why the blood pressure keeps coming up so high on admission but improves with the hospital stay. Some of this may be due to fluid. She is currently on clonidine, hydralazine, hydrochlorothiazide, lisinopril. Beta-blockers made her hypoglycemic. So we will avoid those. She has no allergies. Will change amlodipine to nifedipine since this is long-acting and stronger. Will try to get her off the clonidine if possible. (3) Altered mental status: Code(s): R41.82 - Altered mental status, unspecified Status: Acute Assessment and Plan: Seems better to me. CT of brain negative follow mentation -- need Neurology consult +/- MRI of brain(?) (4) Swelling of right hand: Code(s): M79.89 - Other specified soft tissue disorders Status: Acute Assessment and Plan: initially thought to be cellulitis but less likely - Infectious Disease and Plastic Surgery assessment noted - no improvement with previous antibiotic therapy suspicion falls on possible vasculitis versus calciphlaxis Phosphorus level is notoriously high in her. Check PTH. Stop calcitriol. Add binders and consider cinacalcet if PTH is high. Pathology is pending Serology is pending (5) Anemia: Code(s): D64.9 - Anemia, unspecified Status: Chronic Assessment and Plan: likely due to ESRD and acute illness dose with Epogen now that BP better controlled follow hemodynamics (6) Renal osteodystrophy: Code(s): N25.0 - Renal osteodystrophy Status: Chronic Assessment and Plan: phosphorus better stop calcium based binders given concerns for calciphylaxis PTH was stable by outpatient labs - will recheck follow parameters (7) Diabetes: Code(s): E11.9 - Type 2 diabetes mellitus without complications Status: Acute Assessment and Plan: follow accuchecks on SSI Subjective Date/time seen: 09/04/20 15:25 Interval history: Rufina is feeling a little better today. Mental status seems pretty good. She is on dialysis and tolerating well. She was seen at 3:20 p.m. Review of Systems Cardiovascular: Cardiovascular: Reports no additional cardiovascular complaints Respiratory: Respiratory: Reports no additional respiratory complaints Gastrointestinal: Gastrointestinal: Reports no additional gastrointestinal complaints Genitourinary: Genitourinary: Reports no additional female genitourinary complaints Exam Narrative: Exam Narrative: General: WD/WN female in NAD Heart: normal S1 and S2; no rub or gallop Lungs: decreased at breath sounds Abdomen: soft, nontender, nondistended, positive bowel sounds Extremities: no cyanosis or clubbing; trace edema Skin: finger lesions/right hand edema noted. She has bandages on fingers 3 and 4. Objective Data Vital Signs Vital Signs: Vital Signs - 24 hr 09/03/20 16:00 09/03/20 18:00 09/03/20 20:00 Temperature 36.8 C 36.1 C L Pulse Rate 55 L 59 L 52 L Respiratory Rate 18 16 Blood Pressure 184/59 H 195/61 H Pulse Oximetry 98 98 09/03/20 22:00 09/03/20 23:37 09/03/20 23:54 Temperature 36.1 C L 36.1 C L Pulse Rate 57 L 57 L 59 L Respiratory Rate 18 18 Blood Pressure 198/57 H 198/57 H
--- NOTE | 2020-09-04 16:22 | PM.PNGS ---
Progress Note: A&P Assessment and Plan (1) End stage renal disease: Code(s): N18.6 - End stage renal disease Status: Chronic Assessment and Plan: currently dialyzing through temporary left IJ central venous catheter (2) Encounter for fitting and adjustment of vascular catheter: Code(s): Z45.2 - Encounter for adjustment and management of vascular access device Status: Acute Assessment and Plan: planned placed tunneled central venous catheter this week under anesthesia. Will probably be or Friday. Subjective Subjective Date/Time Seen: 09/04/20 16:22 60-year-old woman with known end-stage renal disease. She has been on peritoneal dialysis but apparently this has become ineffective. She was admitted a few days ago and a left internal jugular temporary central venous catheter for dialysis was placed by the pipeline inspector. She has been dialyzing with this. We are requested to see the patient for placement of a tunneled dialysis catheter. She apparently had a right internal jugular tunneled dialysis catheter last April but this was removed as she was using peritoneal dialysis. Review of Systems Review of Systems: All systems reviewed & are unremarkable except as noted in HPI and below Constitutional: Constitutional: Denies headache(s) Cardiovascular: Cardiovascular: Denies chest pain and Denies dyspnea Respiratory: Respiratory: Denies cough and Denies dyspnea Neurologic: Denies confusion ( Mental status improved) and Denies headache(s) Exam Neck: Neck: full ROM, no lymphadenopathy, nontender and other ( left IJ Enoc central venous catheter noted; scars noted right neck ) Thyroid: thyroid normal and nontender Lymphatic: no lymphadenopathy noted Resp: Effort & Inspection: normal respiratory effort and able to speak in complete sentences Auscultation: diminished lung sounds Cardio: Rate: regular rate Rhythm: regular rhythm Heart sounds: S1 normal heart sound present and S2 normal heart sound present GI: Inspection: non-distended and other ( left lower quadrant peritoneal dialysis catheter) GI Palp: Yes Soft to palpation and Yes Tenderness to palpation present (GI) ( mild diffuse tenderness) Auscultation: normal bowel sounds Objective Data Vital Signs Vital Signs: Vital Signs - 24 hr 09/03/20 18:00 09/03/20 20:00 09/03/20 22:00 Temperature 36.1 C L Pulse Rate 59 L 52 L 57 L Respiratory Rate 16 Blood Pressure 195/61 H Pulse Oximetry 98 09/03/20 23:37 09/03/20 23:54 09/04/20 00:00 Temperature 36.1 C L 36.1 C L Pulse Rate 57 L 59 L 58 L Respiratory Rate 18 18 18 Blood Pressure 198/57 H 198/57 H Pulse Oximetry 98 98 98 09/04/20 02:00 09/04/20 02:05 09/04/20 02:15 Temperature 36.9 C Pulse Rate 56 L 56 L 55 L Respiratory Rate 22 H Blood Pressure 179/85 H 179/77 H Pulse Oximetry 94 09/04/20 04:00 09/04/20 06:00 09/04/20 08:00 Temperature 36.1 C L 35.8 C L Pulse Rate 62 63 66 Respiratory Rate 16 22 H Blood Pressure 160/83 H 243/63 H Pulse Oximetry 93 95 09/04/20 08:42 09/04/20 08:57 09/04/20 10:00 Temperature Pulse Rate 66 57 L Respiratory Rate Blood Pressure Pulse Oximetry 92 09/04/20 12:00 09/04/20 14:00 09/04/20 14:05 Temperature 36.1 C L 36.9 C Pulse Rate 62 60 56 L Respiratory Rate 20 22 H Blood Pressure 202/56 H 179/85 H Pulse Oximetry 93 09/04/20 14:30 09/04/20 14:45 09/04/20 15:00 Temperature Pulse Rate 52 L 52 L 51 L Respiratory Rate Blood Pressure 162/63 H 166/72 H 179/70 H Pulse Oximetry 09/04/20 15:15 09/04/20 15:30 09/04/20 15:45 Temperature Pulse Rate 53 L 51 L 51 L Respiratory Rate Blood Pressure 198/92 H 176/75 H 185/83 H Pulse Oximetry Intake/Output Intake/Output: Intake & Output 09/01/20 09/02/20 09/03/20 09/04/20 22:59 22:59 23:59 23:59 Intake Total 200 Output Total Balance 200 Meds/Results Medications: Active Med
[2020-09-04] MEDS: EPOETIN ALFA-EPBX 10,000 UNITS/ML VIAL 10000 UNITS IV PUSH (16:23)
--- NOTE | 2020-09-04 18:13 | PC.NURSE ---
Pt returned from dialysis
[2020-09-04] MEDS: SEVELAMER CARBONATE 800 MG TABLET 1600 MG PO (18:17)
[2020-09-04 18:22] LABS: Glucose Point of Care 119 (65-105)
[2020-09-04 20:50] LABS: Glucose Point of Care 271 (65-105)
[2020-09-04] MEDS: DOCUSATE SODIUM 100 MG CAPSULE PO (21:26)
--- NOTE | 2020-09-04 22:24 | PC.NURSE ---
Pt did not wish to take hydralazine iv for elevated bp. Gave Oral hydralazine 1 hr ago. Agreed to recheck in an hour.
[2020-09-04] MEDS: hydrALAZINE HCL 20 MG/ML VIAL 10 MG IV PUSH (23:52)
[2020-09-05] VITALS (44 sets, daily range): BP systolic 107–226; BP diastolic 46–85; PULSE 44–550; RESP 15–24; TEMP 36.3–37; O2SAT 91–99
--- NOTE | 2020-09-05 | ECHO_ITS ---
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 Strain analysis performed. Summary 1. Complete two-dimensional, color flow and Doppler transthoracic echocardiogram is performed. 2. Left ventricular chamber dimension is normal. 3. Left ventricular systolic function is normal, estimated at 60-65%. 4. There is moderately increased left ventricular wall thickness. 5. The left ventricular diastolic function is grade I diastolic dysfunction. 6. Global longitudinal strain is abnormal at -13.8%. 7. Left atrial chamber dimension is mildly enlarged. 8. There is mild aortic valve sclerosis with it involving predominantly the left coronary cusp. 9. There is trace aortic valve regurgitation. 10. No aortic valve vegetation visualized. 11. The mitral valve has moderately calcified leaflets and moderately calcified annulus. 12. There is mild to moderate mitral valve regurgitation. 13. There is mild tricuspid valve regurgitation. 14. Moderate pulmonary hypertension, estimated pulmonary arterial systolic pressure is 54 mmHg. 15. There is trace pulmonic regurgitation. 16. Dilated inferior vena cava with >50% collapse upon inspiration consistent with elevated right atrial pressure, 10 mmHg. Left Ventricle Tissue doppler is not performed. Global longitudinal strain is abnormal at -13.8%. Left ventricular chamber dimension is normal. Left ventricular systolic function is normal, estimated at 60-65%. There is moderately increased left ventricular wall thickness. The left ventricular diastolic function is grade I diastolic dysfunction. Right Ventricle Right ventricular chamber dimension is normal. Right ventricular systolic function is normal. Left Atria Left atrial chamber dimension is mildly enlarged. Right Atria Right atrial chamber dimension is normal. Aortic Valve There is mild aortic valve sclerosis with it involving predominantly the left coronary cusp. The aortic valve is trileaflet. There is no aortic valve stenosis. There is trace aortic valve regurgitation. No aortic valve vegetation visualized. Pulmonic Valve There is trace pulmonic regurgitation. Mitral Valve The mitral valve has moderately calcified leaflets and moderately calcified annulus. There is no mitral valve stenosis. There is mild to moderate mitral valve regurgitation. Tricuspid Valve There is mild tricuspid valve regurgitation. Moderate pulmonary hypertension, estimated pulmonary arterial systolic pressure is 54 mmHg. Pericardium/Pleural There is no pericardial effusion. Inferior Vena Cava Dilated inferior vena cava with >50% collapse upon inspiration consistent with elevated right atrial pressure, 10 mmHg. Aorta The aortic root size at the sinus of Valsalva is normal. Left Ventricular Outflow Tract Name Value
[2020-09-05] MEDS: hydrALAZINE HCL 20 MG/ML VIAL 10 MG IV PUSH (01:31)
[2020-09-05] MEDS: ACETAMINOPHEN 500 MG TABLET 1000 MG PO ×4 (01:35→17:14)
[2020-09-05] MEDS: cloNIDine HCL 0.1 MG TABLET PO ×2 (02:49→17:18)
[2020-09-05] MEDS: cloNIDine HCL 0.2 MG TABLET PO ×2 (02:49→17:18)
[2020-09-05] MEDS: CENTRAL LINE FLUSH 10 ML IV PUSH ×4 (03:28→21:49)
[2020-09-05] MEDS: LORazepam (*CRX) 0.5 MG TABLET PO (03:51)
--- NOTE | 2020-09-05 05:03 | PC.NURSE ---
Addendum entered by Juanita Puente RN 09/05/20 05:50: Pt notified her by telephone prior to transfer to icu. Original Note: This patient, Rufina Saravia, was transferred to [ ICU 9] on 09/05/20 at 0500 for a nicardipine drip. Personal belongings sent with patient. Report given to [Asa ]. Appropriate documentation sent with patient.
[2020-09-05] MEDS: niCARdipine 20 MG/200 ML 20 MG/200 ML BAG 50 MG IV CONT (05:10)
[2020-09-05 05:12] LABS: Albumin Level 2.9 g/dL (3.5-5.1); Anion Gap 7 mmol/L (8-16); Blood Urea Nitrogen 27 mg/dL (7-17); Calcium 7.5 mg/dL (8.4-10.2); Carbon Dioxide 28 mmol/L (22-30); Chloride 95 mmol/L (98-107); Estimated CRCL calculation 10 ml/min; Estimated Glomerular Filt Rate 8; Glucose 135 mg/dL (65-105); Phosphorus 3.6 mg/dL (2.5-4.5); Potassium 4.3 mmol/L (3.4-5.0); Sodium 130 mmol/L (137-145)
[2020-09-05] MEDS: hydrALAZINE HCL 50 MG TABLET 100 MG PO ×3 (05:13→21:48)
--- NOTE | 2020-09-05 05:47 | PCRCNOTE ---
APNEA LINKED INCOMPLETE. STOPPED PER JASMINE SABILLON DUE TO PT CONDITION.
--- NOTE | 2020-09-05 07:43 | P.PNNP_ITS ---
Progress Note: A&P Assessment and Plan (1) End stage renal disease: Code(s): N18.6 - End stage renal disease Status: Chronic Assessment and Plan: * Had dialysis yesterday. * Because of the high blood pressure I am going to do a dry ultrafiltration today. * Mental status is better. * Surgery to place tunneled catheter at some point. * Volume status looks okay because of the difficulty controlling blood pressure, I think she might have excess Sodium/fluid. Will do a dry ultrafiltration today to take more fluid off. * Potassium is doing well. * BUN and creatinine are better. (2) Hypertensive urgency: Code(s): I16.0 - Hypertensive urgency Status: Acute Assessment and Plan: * Systolic running between 160 and 190. * Last night the blood pressure was very high so she was moved to the ICU. * She had been started on Bystolic earlier this hospital stay. She refused the Bystolic yesterday. Perhaps it wore off and this is what led to the higher blood pressure. She used to be on labetalol. However she also had hypoglycemic spells where she had no warning and suddenly fainted and fell over. The labetalol was thought to be inhibiting her catecholamine response to the hypoglycemia leading to the syncope. I am not sure if Bystolic would do the same thing. * Because volume is usually the cause of uncontrolled blood pressure in dialysis patients I will dry ultrafiltrate to get extra fluid off. * She is currently on clonidine, hydralazine, hydrochlorothiazide, lisinopril. * And so will stop the hydrochlorothiazide. * She has no allergies. * Nifedipine starts today. * Will try to get her off the clonidine if possible since she is noncompliant and risk of rebound hypertension is a problem with this medication.. (3) Altered mental status: Code(s): R41.82 - Altered mental status, unspecified Status: Acute Assessment and Plan: * Seems better to me. However a bit sleepy today. * CT of brain negative * follow mentation -- need Neurology consult +/- MRI of brain(?) (4) Swelling of right hand: Code(s): M79.89 - Other specified soft tissue disorders Status: Acute Assessment and Plan: * initially thought to be cellulitis but less likely - Infectious Disease and Plastic Surgery assessment noted - no improvement with previous antibiotic therapy * suspicion falls on possible vasculitis versus calciphlaxis * Phosphorus level is notoriously high in her. * Check PTH. Stop calcitriol. Add binders and consider cinacalcet if PTH is high. * Pathology is pending * Serology normal complements but otherwise is pending (5) Anemia: Code(s): D64.9 - Anemia, unspecified Status: Chronic Assessment and Plan: * likely due to ESRD and acute illness * Hold off on the EPO for now. * follow hemodynamics (6) Renal osteodystrophy: Code(s): N25.0 - Renal osteodystrophy Status: Chronic Assessment and Plan: * phosphorus is normal now. * stop calcium based binders given concerns for calciphylaxis * PTH was stable by outpatient labs and is only 209 here. (7) Diabetes: Code(s): E11.9 - Type 2 diabetes mellitus without complications Status: Acute Assessment and Plan: * follow accuchecks * on SSI Subjective Date/time seen: 09/05/20 07:43 Interval history: Rufina developed very high blood pressure yesterday evening. She moved to the ICU and is now on a nicardipine drip. She was up all night and is ve
--- NOTE | 2020-09-05 07:43 | PM.PNNEP ---
Progress Note: A&P Assessment and Plan (1) End stage renal disease: Code(s): N18.6 - End stage renal disease Status: Chronic Assessment and Plan: Had dialysis yesterday. Because of the high blood pressure I am going to do a dry ultrafiltration today. Mental status is better. Surgery to place tunneled catheter at some point. Volume status looks okay because of the difficulty controlling blood pressure, I think she might have excess Sodium/fluid. Will do a dry ultrafiltration today to take more fluid off. Potassium is doing well. BUN and creatinine are better. (2) Hypertensive urgency: Code(s): I16.0 - Hypertensive urgency Status: Acute Assessment and Plan: Systolic running between 160 and 190. Last night the blood pressure was very high so she was moved to the ICU. She had been started on Bystolic earlier this hospital stay. She refused the Bystolic yesterday. Perhaps it wore off and this is what led to the higher blood pressure. She used to be on labetalol. However she also had hypoglycemic spells where she had no warning and suddenly fainted and fell over. The labetalol was thought to be inhibiting her catecholamine response to the hypoglycemia leading to the syncope. I am not sure if Bystolic would do the same thing. Because volume is usually the cause of uncontrolled blood pressure in dialysis patients I will dry ultrafiltrate to get extra fluid off. She is currently on clonidine, hydralazine, hydrochlorothiazide, lisinopril. And so will stop the hydrochlorothiazide. She has no allergies. Nifedipine starts today. Will try to get her off the clonidine if possible since she is noncompliant and risk of rebound hypertension is a problem with this medication.. (3) Altered mental status: Code(s): R41.82 - Altered mental status, unspecified Status: Acute Assessment and Plan: Seems better to me. However a bit sleepy today. CT of brain negative follow mentation -- need Neurology consult +/- MRI of brain(?) (4) Swelling of right hand: Code(s): M79.89 - Other specified soft tissue disorders Status: Acute Assessment and Plan: initially thought to be cellulitis but less likely - Infectious Disease and Plastic Surgery assessment noted - no improvement with previous antibiotic therapy suspicion falls on possible vasculitis versus calciphlaxis Phosphorus level is notoriously high in her. Check PTH. Stop calcitriol. Add binders and consider cinacalcet if PTH is high. Pathology is pending Serology normal complements but otherwise is pending (5) Anemia: Code(s): D64.9 - Anemia, unspecified Status: Chronic Assessment and Plan: likely due to ESRD and acute illness Hold off on the EPO for now. follow hemodynamics (6) Renal osteodystrophy: Code(s): N25.0 - Renal osteodystrophy Status: Chronic Assessment and Plan: phosphorus is normal now. stop calcium based binders given concerns for calciphylaxis PTH was stable by outpatient labs and is only 209 here. (7) Diabetes: Code(s): E11.9 - Type 2 diabetes mellitus without complications Status: Acute Assessment and Plan: follow accuchecks on SSI Subjective Date/time seen: 09/05/20 07:43 Interval history: Rufina developed very high blood pressure yesterday evening. She moved to the ICU and is now on a nicardipine drip. She was up all night and is very sleepy right now. She did well in dialysis yesterday. 4L were removed. Review of Systems Cardiovascular: Cardiovascular: Reports no additional cardiovascular complaints Respiratory: Respiratory: Reports no additional respiratory complaints Gastrointestinal: Gastrointestinal: Reports no additional gastrointestinal complaints Genitourinary: Genitourinary: Reports no additional female genitourinary complaints Exam Narrative:
--- NOTE | 2020-09-05 08:01 | PM.PNCARD ---
Progress Note: A&P Assessment and Plan (1) Hypertensive urgency: Code(s): I16.0 - Hypertensive urgency Status: Acute Assessment and Plan: Currently BP is 165/80 on Nicardipine drip. Reviewed BP medications and she is on Amlodipine 10 mg daily, Lisinopril 40 mg BID, Clonidine 0.3 mg TID, Hydralazine 100 mg PO TID. Change Bystolic 5 mg daily (as patient does not want to take more than 1 pill and that's what we have on formulary), and start Isosorbide mononitrate 60 mg daily. Hopefully, we can get her off Nicardipine drip. Continue to monitor. (2) HLD (hyperlipidemia): Code(s): E78.5 - Hyperlipidemia, unspecified Status: Chronic Assessment and Plan: Was recently started on Atorvastatin for LDL 146. However, she does not want to be on a statin since she believes it makes her feel like a zombie . Will stop it and see if she feels better without it. If no difference, then she should be on it. (3) End stage renal disease: Code(s): N18.6 - End stage renal disease Status: Chronic Assessment and Plan: On hemodialysis. Subjective Date/time seen: 09/05/20 08:01 She was moved from IMU to ICU due to very high BP yesterday. Denies chest pain or sob. Exam Const: General: cooperative, healthy appearing and comfortable Resp: Auscultation: clear to auscultation bilaterally, no crackles, no rales, no rhonchi and no wheezes Cardio: Jugular venous distension: no JVD Rate: regular rate Rhythm: regular rhythm Heart sounds: no murmurs Peripheral pulses: dorsalis pedis present GI: GI Palp: No abdominal tenderness and Yes Soft to palpation Neuro: General: confusion Extrem: Right lower extremity: no edema Left lower extremity: no edema Objective Data Vital Signs Vital Signs: Vital Signs - 24 hr 09/04/20 08:42 09/04/20 08:57 09/04/20 10:00 Temperature Pulse Rate 66 57 L Respiratory Rate Blood Pressure Pulse Oximetry 92 09/04/20 12:00 09/04/20 14:00 09/04/20 14:05 Temperature 97 F L 98.4 F Pulse Rate 62 60 56 L Respiratory Rate 20 22 H Blood Pressure 202/56 H 179/85 H Pulse Oximetry 93 09/04/20 14:30 09/04/20 14:45 09/04/20 15:00 Temperature Pulse Rate 52 L 52 L 51 L Respiratory Rate Blood Pressure 162/63 H 166/72 H 179/70 H Pulse Oximetry 09/04/20 15:15 09/04/20 15:30 09/04/20 15:45 Temperature Pulse Rate 53 L 51 L 51 L Respiratory Rate Blood Pressure 198/92 H 176/75 H 185/83 H Pulse Oximetry 09/04/20 16:00 09/04/20 16:30 09/04/20 16:45 Temperature Pulse Rate 50 L 49 L 53 L Respiratory Rate Blood Pressure 162/73 H 159/68 H 165/71 H Pulse Oximetry 09/04/20 17:00 09/04/20 17:15 09/04/20 17:30 Temperature Pulse Rate 52 L 50 L 57 L Respiratory Rate Blood Pressure 163/75 H 168/83 H 153/73 H Pulse Oximetry 09/04/20 17:48 09/04/20 17:58 09/04/20 18:00 Temperature 97.8 F 97.6 F Pulse Rate 51 L 56 L Respiratory Rate 19 18 Blood Pressure 117/46 L 141/52 H 174/58 H Pulse Oximetry 94 09/04/20 19:50 09/04/20 20:00 09/04/20 22:00 Temperature 96.9 F L Pulse Rate 52 L 54 L 61 Respiratory Rate 18 Blood Pressure 147/54 H Pulse Oximetry 92 09/04/20 22:20 09/05/20 00:00 09/05/20 00:03 Temperature 97.4 F L Pulse Rate 60 65 Respiratory Rate 16 Blood Pressure 199/54 H 220/49 H Pulse Oximetry 94 09/05/20 01:15 09/05/20 02:00 09/05/20 02:30 Temperature Pulse Rate 56 L Respiratory Rate Blood Pressure 209/67 H 208/68 H Pulse Oximetry 09/05/20 03:50 09/05/20 04:00 09/05/20 05:10 Temperature 98.4 F Pulse Rate 69 61 90 Respiratory Rate 20 Blood Pressure 226/63 H 213/66 H Pulse Oximetry 95 09/05/20 05:20 09/05/20 05:23 09/05/20 05:39 Temperature Pulse Rate 59 L 59 L 60 Respiratory Rate 22 H 19 Blood Pressure 158/52 H Pulse Oximetry 91 95 09/05/20 05:45 09/05/20 06:00 09/05/20 06:15 Temperature Pulse Rate 60
--- NOTE | 2020-09-05 08:06 | WPDINTPN ---
Progress Note: A&P Assessment and Plan (1) Hypertensive urgency: Code(s): I16.0 - Hypertensive urgency Status: Acute Assessment and Plan: Patient does have a history of labile blood pressures, presented the ED on 08/30/2020 with hypertensive urgency along with nausea and vomiting -patient systolic blood pressures with 267/94, patient was given multiple doses of hydralazine despite which the blood pressures remained elevated and was started on nicardipine infusion. Nicardipine infusion weaned off and patient was transferred out of the ICU on 09/02/2020 -patient returned to the ICU with elevated blood pressures and requiring nicardipine infusion, patient did not take her Bystolic on 09/04 patient -continue Lasix, hydralazine, lisinopril, nifedipine, Imdur, Bystolic, amlodipine -appreciate cardiology following the patient -Workup for secondary hypertension as an outpatient. Renin Level and activity has been sent which is pending. (2) Cellulitis: Qualifiers: Site of cellulitis: extremity Site of cellulitis of extremity: upper extremity Laterality: right Qualified Code(s): L03.113 - Cellulitis of right upper limb Code(s): L03.90 - Cellulitis, unspecified Status: Acute Assessment and Plan: Right hand swelling, erythema, discoloration with multiple lesions. Patient did stated that she was at her daughter's house who has pets -infectious disease and plastic surgery evaluation -likely vasculitis related or calciphylaxis per Nephrology. Vasculitis workup aspect. Complement 3 level is a bit on the lower side. -x-ray of hands bilaterally are negative for fractures or bony erosions or infection -bilateral upper extremity venous Dopplers are negative for DVT -Plastic surgery recommended Nitro-Bid ointment to fingers and lesion -patient had 1 cm skin excision right middle finge of dried tissue necrosis by plastic surgery (3) End stage renal disease on dialysis: Code(s): N18.6 - End stage renal disease; Z99.2 - Dependence on renal dialysis Status: Acute Assessment and Plan: Significant elevation in creatinine and BUN, patient seems to be uremic given her symptoms of nausea and vomiting and anasarca with generalized swelling -follows with Dr. Harrington and was getting peritoneal dialysis before admission to the hospital. -peritoneal dialysis has been on hold for now. -dialysis catheter has been placed on 09/01 . Started hemodialysis on 09/01/2020 -Nephrology follow-up and dialysis as per nephrology. - Continue calcitriol. -surgery to insert a tunnel dialysis catheter this week (4) DVT prophylaxis: Code(s): Z29.9 - Encounter for prophylactic measures, unspecified Status: Acute Assessment and Plan: Heparin subcu (5) Diabetes: Code(s): E11.9 - Type 2 diabetes mellitus without complications Status: Acute Assessment and Plan: Continue insulin sliding scale. Continue to monitor fingerstick sugars closely. Additional Plan Discussed with patient and her daughter Wilian and updated them with patient's condition and plan of care. I answered all questions. Code status: Full code Critical care time spent: 36 minutes This dictation may have been done utilizing a voice recognition system. Attempts have been made to correct errors. However, there may be uncorrected grammatical, spelling, and recognition errors present. Due to a high probability of clinically significant, life threatening deterioration, the patient required my highest level of preparedness to intervene emergently and I personally spent this critical care time directly and personally managing the patient. This critical care time included obtaining a history; examining the patient; pulse oximetry; ordering and review of studies; arranging urgent treatment with development of a management plan; evaluation of patient's response to treatment; frequent reassessment; and discussions with other provi
--- NOTE | 2020-09-05 09:04 | PM.IMPN ---
Progress Note: A&P Assessment and Plan (1) Hypertensive urgency, malignant: Code(s): I16.0 - Hypertensive urgency Status: Acute Assessment and Plan: Patient returns to the ICU due to persistently elevated blood pressures recalcitrant to treatment. Imdur has been added. Bystolic dose has been decreased. 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 She remains on hydralazine, Lasix, clonidine, lisinopril. Nifedipine has been added and Norvasc has been stopped. She remains on nicardipine at this time and this is being weaned off. Discussed with manager etl. (2) Obstructive sleep apnea: Code(s): G47.33 - Obstructive sleep apnea (adult) (pediatric) Status: Chronic Assessment and Plan: Apnea link was incomplete. This was stopped due to the patient's condition. Plan to repeat when more stable. (3) Cellulitis: Qualifiers: Laterality: right Site of cellulitis: extremity Site of cellulitis of extremity: upper extremity Qualified Code(s): L03.113 - Cellulitis of right upper limb Code(s): L03.90 - Cellulitis, unspecified Status: Acute Assessment and Plan: Patient with ischemic changes of her hands. 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 Echocardiogram in May did show possible vegetation on the aortic valve so consider embolic phenomenon as well. Blood cultures from 08/31/2020 are negative. Plastic surgery consulted and now s/p finger biopsy 09/03. Pathology pending. YAS pendig. Check HepC and Cryo. May need JOLANTA to further evaluate if she has valvular vegetation. Will discuss with Cardiology. Discussed - recommended surface Echo at this time to see if any interval change (4) End stage renal disease on dialysis: Code(s): N18.6 - End stage renal disease; Z99.2 - Dependence on renal dialysis Status: Acute Assessment and Plan: Patient has ESRD on PD at home. Here, she needed more aggressive dialysis so a HD catheter placed 09/01. She has undergone HD on 09/01 (1.2L), 09/02 (3L) and 09/04 (4L). Continue HD per nephrology. UF planned for today. (5) DVT prophylaxis: Code(s): Z29.9 - Encounter for prophylactic measures, unspecified Status: Acute Assessment and Plan: Heparin Subjective Date/time seen: 09/05/20 09:04 Interval history: 60yo female with ESRD on peritoneal dialysis, insulin-dependent diabetes mellitus, and difficult to control hypertension who presented to the ER on 08/30/2020 with a chief complaint of pain and swelling in her fingers and found to be in hypertensive urgency. She was started on nicardipine infusion transfer the ICU for further management. She improved and was able to be transferred to the IMU on 09/02/2020. Patient did undergo a skin biopsy of right finger on 09/03/2020. HD on 09/01 (1150), 09/02 (3L) and 09/04 (4L). Assuming care. Chart reviewed. Overnight, patient was returned to the ICU due to severely elevated blood pressures recalcitrant to treatment. She did refuse her Bystolic yesterday she does not feel good after taking it (dose decreased today). Patient was restarted on nicardipine infusion with improved BP. She denies headaches. No Chest pain. She does feel slightly short of breath. She slept very poorly last night. She denies any pain in her hands this morning. She is not on home oxygen. No issues overnight after she got settled in per nursing staff. Exam Narrative: Exam Narrative: AF 98.4 144/60 60 15 95% Gen - NARD Neck - left HD catheter in place Chest - bibasilar inpsiratory crackles mid and lower lung pan, nml RR, no conversatinal dyspnea CV - RRR S1/S2 with 2/6 systolic heard t/o the precordium Abd - Soft, NT/ND, Positive BS Ext - No pedal edema; fingers are pink with normal cap refill Psych - Nml mood and affect Skin - Warm and dry. right dorsum middle finger wound well approximated. Left point
[2020-09-05] MEDS: ISOSORBIDE MONONITRATE 60 MG TAB.ER.24H PO (09:19)
[2020-09-05] MEDS: FUROSEMIDE 80 MG TABLET PO ×2 (09:20→17:20)
[2020-09-05] MEDS: ASPIRIN 81 MG ENTERIC TABLET PO (09:21)
[2020-09-05] MEDS: lisinopriL 20 MG TABLET 40 MG PO ×2 (09:21→17:21)
[2020-09-05] MEDS: SEVELAMER CARBONATE 800 MG TABLET 1600 MG PO ×3 (09:23→17:20)
[2020-09-05] MEDS: NEBIVOLOL HCL 5 MG TABLET PO (09:23)
[2020-09-05] MEDS: BACITRACIN OINTMENT 15 GM TUBE 1 APPLIC TOPICAL (09:23)
[2020-09-05] MEDS: HEPARIN SODIUM 5,000 UNITS/ML VIAL 5000 UNITS SUB-Q ×2 (09:23→21:47)
[2020-09-05] MEDS: NITROGLYCERIN OINTMENT 1 INCH DOSE TOPICAL ×2 (09:24→14:25)
[2020-09-05] MEDS: polyethylene glycoL 3350 17 GM POWD.PACK PO (09:24)
[2020-09-05 09:48] LABS: Glucose Point of Care 132 (65-105)
[2020-09-05 10:47] LABS: Hepatitis C Virus Antibody Negative (Negative)
[2020-09-05] MEDS: NIFEdipine 30 MG TAB.ER.24 60 MG PO (11:22)
[2020-09-05] MEDS: niCARdipine 20 MG/200 ML 20 MG/200 ML BAG 25 MG IV CONT ×2 (11:23→19:35)
[2020-09-05 12:08] LABS: ANA Cascade Screen Positive (Negative)
--- NOTE | 2020-09-05 12:30 | WPDPN ---
Progress Note: A&P Assessment and Plan (1) Finger lesion: Code(s): L98.9 - Disorder of the skin and subcutaneous tissue, unspecified Status: Acute Assessment and Plan: Awaiting skin biopsy results. Nitro paste seems to be tolerated, but not clearly helpful. as yet. Am considering carpal tunnel as a component of her hand complaints. May consider corticosteroid carpal tunnel instillation Exam Narrative: Exam Narrative: SBP 194. Had been recently returned to ICU for hypertensive crisis. Skin biopsy from right dorsal middle finger is pending. The darkened ring finger site is slightly enlarged. No cellulitis. Consistent with small vessel ischemia. She reports that her fingers feel better if she places them in a dependent position and if she extends her elbows. She has a marked Tinel's sign at the wrist. She is tender to pressure along the volar forearm. Is able to flex her thumb and to oppose the 1st and 5th tips. Objective Data Vital Signs Vital Signs: Vital Signs - 24 hr 09/04/20 14:00 09/04/20 14:05 09/04/20 14:30 Temperature 36.9 C Pulse Rate 60 56 L 52 L Respiratory Rate 22 H Blood Pressure 179/85 H 162/63 H Pulse Oximetry 09/04/20 14:45 09/04/20 15:00 09/04/20 15:15 Temperature Pulse Rate 52 L 51 L 53 L Respiratory Rate Blood Pressure 166/72 H 179/70 H 198/92 H Pulse Oximetry 09/04/20 15:30 09/04/20 15:45 09/04/20 16:00 Temperature Pulse Rate 51 L 51 L 50 L Respiratory Rate Blood Pressure 176/75 H 185/83 H 162/73 H Pulse Oximetry 09/04/20 16:30 09/04/20 16:45 09/04/20 17:00 Temperature Pulse Rate 49 L 53 L 52 L Respiratory Rate Blood Pressure 159/68 H 165/71 H 163/75 H Pulse Oximetry 09/04/20 17:15 09/04/20 17:30 09/04/20 17:48 Temperature Pulse Rate 50 L 57 L Respiratory Rate Blood Pressure 168/83 H 153/73 H 117/46 L Pulse Oximetry 09/04/20 17:58 09/04/20 18:00 09/04/20 19:50 Temperature 36.6 C 36.4 C 36.1 C L Pulse Rate 51 L 56 L 52 L Respiratory Rate 19 18 18 Blood Pressure 141/52 H 174/58 H 147/54 H Pulse Oximetry 94 92 09/04/20 20:00 09/04/20 22:00 09/04/20 22:20 Temperature 36.3 C L Pulse Rate 54 L 61 60 Respiratory Rate 16 Blood Pressure 199/54 H Pulse Oximetry 94 09/05/20 00:00 09/05/20 00:03 09/05/20 01:15 Temperature Pulse Rate 65 Respiratory Rate Blood Pressure 220/49 H 209/67 H Pulse Oximetry 09/05/20 02:00 09/05/20 02:30 09/05/20 03:50 Temperature 36.9 C Pulse Rate 56 L 69 Respiratory Rate 20 Blood Pressure 208/68 H 226/63 H Pulse Oximetry 95 09/05/20 04:00 09/05/20 05:10 09/05/20 05:20 Temperature Pulse Rate 61 90 59 L Respiratory Rate Blood Pressure 213/66 H 158/52 H Pulse Oximetry 09/05/20 05:23 09/05/20 05:39 09/05/20 05:45 Temperature Pulse Rate 59 L 60 60 Respiratory Rate 22 H 19 17 Blood Pressure 170/64 H Pulse Oximetry 91 95 94 09/05/20 06:00 09/05/20 06:15 09/05/20 06:30 Temperature Pulse Rate 67 64 60 Respiratory Rate 21 H 24 H 15 Blood Pressure 191/67 H 168/56 H 144/60 H Pulse Oximetry 91 92 95 09/05/20 08:00 09/05/20 09:23 09/05/20 10:00 Temperature 37.0 C Pulse Rate 550 H 56 L 55 L Respiratory Rate 15 21 H Blood Pressure 172/58 H 162/55 H Pulse Oximetry 98 95 09/05/20 10:15 09/05/20 10:30 09/05/20 10:45 Temperature 37.0 C Pulse Rate 56 L 60 550 H Respiratory Rate 15 Blood Pressure 163/54 H 173/55 H 166/54 H Pulse Oximetry 98 09/05/20 11:00 09/05/20 11:15 09/05/20 11:23 Temperature Pulse Rate 56 L 50 L 50 L Respiratory Rate Blood Pressure 158/50 H 154/49 H 154/49 H Pulse Oximetry 09/05/20 11:30 09/05/20 11:45 09/05/20 12:00 Temperature Pulse Rate 53 L 46 L 51 L Respiratory Rate Blood Pressure 163/53 H 147/49 H Pulse Oximetry 98 Intake/Output Intake/Output: Intake & Output 09/02/20 09/03/20 09/04/20 09/05/20 22:59 23:59 23
[2020-09-05] MEDS: HEPARIN SODIUM 1,000 UNITS/ML VIAL 4000 UNITS (14:02)
[2020-09-05] MEDS: DOCUSATE SODIUM 100 MG CAPSULE PO ×2 (14:15→21:49)
[2020-09-05] MEDS: KETOROLAC 10 MG TABLET PO ×2 (14:16→21:48)
[2020-09-05 14:28] LABS: Glucose Point of Care 156 (65-105)
[2020-09-05 17:32] LABS: Glucose Point of Care 189 (65-105)
[2020-09-05] MEDS: diphenhydrAMINE HCl CAP 25 MG CAPSULE PO (19:52)
[2020-09-06] VITALS (27 sets, daily range): BP systolic 115–192; BP diastolic 38–66; PULSE 52–68; RESP 11–24; TEMP 36.4–37; O2SAT 92–99; BMI 37.1
[2020-09-06] MEDS: ACETAMINOPHEN 500 MG TABLET 1000 MG PO ×2 (02:31→19:21)
[2020-09-06] MEDS: diphenhydrAMINE HCl CAP 25 MG CAPSULE PO (02:32)
[2020-09-06] MEDS: niCARdipine 20 MG/200 ML 20 MG/200 ML BAG 25 MG IV CONT (04:53)
[2020-09-06] MEDS: hydrALAZINE HCL 50 MG TABLET 100 MG PO ×3 (05:37→21:11)
[2020-09-06] MEDS: CENTRAL LINE FLUSH 10 ML IV PUSH ×3 (05:37→21:11)
--- NOTE | 2020-09-06 05:45 | PC.NURSE ---
pt refused HS bedside glucose test last night (09/05/20)
[2020-09-06 07:53] LABS: Basophils Absolute Auto 0.1 K/mm3 (0.0-0.1); Basophils Percent Auto 0.4 % (0.2-1.2); Eosinophils Absolute Auto 0.3 K/mm3 (0-0.3); Eosinophils Percent Auto 2.5 % (0-4.4); Hematocrit 25.5 % (37.0-47.0); Hemoglobin 8.7 g/dL (12.0-15.0); Immature Granulocyte Absolute 0.07 K/mm3 (0.00-0.031); Immature Granulocyte Percent A 0.6 % (0-0.5); Lymphocytes Absolute Auto 1.31 K/mm3 (0.9-3.2); Lymphocytes Percent Auto 11.2 % (18.3-44.2); Mean Corpuscular HGB Conc 34.1 g/dl (32-36); Mean Corpuscular Volume 99.6 fl (80-100); Mean Platelet Volume 10.4 fl (7.4-10.4); Monocytes Percent Auto 8.4 % (2.6-8.5); Neutrophils Percent Auto 76.9 % (45.5-73.1); Nucleated Red Blood Cells Perc 0.2 % (0.0-0.2); Platelet Count Result 335 k/mm3 (150-375); Red Blood Count 2.56 M/mm3 (4.2-5.4); Red Cell Distribution Width 13.8 % (11.5-14.5); White Blood Count 11.7 K/mm3 (4.5-10.0)
[2020-09-06 08:05] LABS: Alanine Aminotransferase 12 U/L (4-35); Alkaline Phosphatase 127 U/L (38-126); Anion Gap 6 mmol/L (8-16); Aspartate Amino Transferase 28 U/L (14-36); Bilirubin,Total 0.4 mg/dL (0.2-1.3); Blood Urea Nitrogen 36 mg/dL (7-17); Calcium 7.5 mg/dL (8.4-10.2); Carbon Dioxide 26 mmol/L (22-30); Chloride 94 mmol/L (98-107); Estimated CRCL calculation 8 ml/min; Estimated Glomerular Filt Rate 6; Glucose 147 mg/dL (65-105); Magnesium 1.9 mg/dL (1.6-2.3); Phosphorus 4.2 mg/dL (2.5-4.5); Potassium 4.3 mmol/L (3.4-5.0); Sodium 126 mmol/L (137-145)
--- NOTE | 2020-09-06 08:08 | PM.PNCARD ---
Progress Note: A&P Assessment and Plan (1) Hypertensive urgency: Code(s): I16.0 - Hypertensive urgency Status: Acute Assessment and Plan: Currently BP is 145/80 mmHg on Nicardipine drip. Reviewed BP medications and she is on Amlodipine 10 mg daily, Lisinopril 40 mg BID, Clonidine 0.3 mg TID, Hydralazine 100 mg PO TID. Change Bystolic 5 mg daily (as patient does not want to take more than 1 pill and that's what we have on formulary), and on Isosorbide mononitrate 60 mg daily. Hopefully, we can get her off Nicardipine drip. Continue to monitor. Echo done 09/05/20 to assess aortic valve shows sclerocalcification of left coronary cusp only, and shadowing from that in previous echo. No vegetations. (2) HLD (hyperlipidemia): Code(s): E78.5 - Hyperlipidemia, unspecified Status: Chronic Assessment and Plan: Was recently started on Atorvastatin for LDL 146. However, she does not want to be on a statin since she believes it makes her feel like a zombie . Will stop it and see if she feels better without it. If no difference, then she should be on it. (3) End stage renal disease: Code(s): N18.6 - End stage renal disease Status: Chronic Assessment and Plan: On hemodialysis. Subjective Date/time seen: 09/06/20 08:08 She feels great this morning. Her right fingers have minimal pain. She states she had lower extremities discomfort at end of dialysis session. Exam Const: General: cooperative, healthy appearing and comfortable Resp: Auscultation: clear to auscultation bilaterally, no crackles, no rales, no rhonchi and no wheezes Cardio: Jugular venous distension: no JVD Rate: regular rate Rhythm: regular rhythm Heart sounds: no murmurs Peripheral pulses: dorsalis pedis present GI: GI Palp: No abdominal tenderness and Yes Soft to palpation Neuro: General: confusion Extrem: Right lower extremity: no edema Left lower extremity: no edema Objective Data Vital Signs Vital Signs: Vital Signs - 24 hr 09/05/20 09:23 09/05/20 10:00 09/05/20 10:15 Temperature 98.6 F Pulse Rate 56 L 55 L 56 L Respiratory Rate 21 H 15 Blood Pressure 162/55 H 163/54 H Pulse Oximetry 95 98 09/05/20 10:30 09/05/20 10:45 09/05/20 11:00 Temperature Pulse Rate 60 550 H 56 L Respiratory Rate Blood Pressure 173/55 H 166/54 H 147/49 H Pulse Oximetry 09/05/20 11:15 09/05/20 11:23 09/05/20 11:30 Temperature Pulse Rate 50 L 50 L 53 L Respiratory Rate Blood Pressure 154/49 H 154/49 H 163/53 H Pulse Oximetry 09/05/20 11:45 09/05/20 12:00 09/05/20 12:15 Temperature Pulse Rate 46 L 55 L 53 L Respiratory Rate 21 H Blood Pressure 147/49 H 162/55 H 170/54 H Pulse Oximetry 95 09/05/20 12:30 09/05/20 12:45 09/05/20 13:00 Temperature Pulse Rate 50 L 45 L 46 L Respiratory Rate Blood Pressure 144/53 H 145/54 H 121/85 Pulse Oximetry 09/05/20 13:06 09/05/20 13:15 09/05/20 13:30 Temperature Pulse Rate 44 L 46 L 55 L Respiratory Rate Blood Pressure 107/55 L 130/70 159/75 H Pulse Oximetry 09/05/20 13:40 09/05/20 14:00 09/05/20 14:35 Temperature 98.6 F 97.4 F L Pulse Rate 46 L 53 L 53 L Respiratory Rate 16 18 Blood Pressure 144/56 H 176/57 H 176/57 H Pulse Oximetry 98 97 09/05/20 15:05 09/05/20 16:00 09/05/20 16:24 Temperature 97.5 F L Pulse Rate 59 L 53 L 54 L Respiratory Rate 19 Blood Pressure 192/67 H 142/46 H 142/46 H Pulse Oximetry 98 09/05/20 18:00 09/05/20 19:35 09/05/20 20:00 Temperature 98.4 F Pulse Rate 54 L 51 L 51 L Respiratory Rate 20 17 Blood Pressure 160/51 H 150/50 H 147/52 H Pulse Oximetry 94 98 09/05/20 22:00 09/06/20 00:00 09/06/20 02:00 Temperature 98.0 F Pulse Rate 55 L 55 L 57 L Respiratory Rate 17 18 14 Blood Pressure 152/67 H 149/48 H 150/52 H Pulse Oximetry 97 99 98 09/06/20 04:00 09/06/20 04:53 09/06/20 05:40 Temperature 98.3 F Pulse Rate 53 L 57 L 55 L R
[2020-09-06] MEDS: SEVELAMER CARBONATE 800 MG TABLET 1600 MG PO ×3 (08:11→17:17)
[2020-09-06] MEDS: BACITRACIN OINTMENT 15 GM TUBE 1 APPLIC TOPICAL ×2 (08:12→20:07)
[2020-09-06] MEDS: ASPIRIN 81 MG ENTERIC TABLET PO (08:12)
[2020-09-06] MEDS: FUROSEMIDE 80 MG TABLET PO ×2 (08:13→17:17)
[2020-09-06] MEDS: DOCUSATE SODIUM 100 MG CAPSULE PO ×2 (08:13→20:08)
[2020-09-06] MEDS: ISOSORBIDE MONONITRATE 60 MG TAB.ER.24H PO (08:13)
[2020-09-06] MEDS: polyethylene glycoL 3350 17 GM POWD.PACK PO (08:14)
[2020-09-06] MEDS: NEBIVOLOL HCL 5 MG TABLET PO (08:14)
[2020-09-06] MEDS: lisinopriL 20 MG TABLET 40 MG PO ×2 (08:14→17:17)
--- NOTE | 2020-09-06 08:47 | P.PNNP_ITS ---
Progress Note: A&P Assessment and Plan (1) End stage renal disease: Code(s): N18.6 - End stage renal disease Status: Chronic Assessment and Plan: * Had Dry ultrafiltration yesterday. * due for regular dialysis today. * Mental status is better. * Surgery to place tunneled catheter at some point. * She has a few crackles at the bases. will try to take more fluid off today. * This may be limited by cramping * because her blood pressure so good I asked the nurse not to give her the clonidine this morning. (2) Hypertensive urgency: Code(s): I16.0 - Hypertensive urgency Status: Acute Assessment and Plan: * Systolic running between 120-152 this morning * Last night the blood pressure was very high so she was moved to the ICU. * continue nifedipine, hydralazine, and lisinopril. Hold off on the clonidine for now. I may restart a lower dose because we can't suddenly stop this * Because volume is usually the cause of uncontrolled blood pressure in dialysis patients I will dry ultrafiltrate to get extra fluid off. * She has no allergies (3) Altered mental status: Code(s): R41.82 - Altered mental status, unspecified Status: Acute Assessment and Plan: * Seems better to me. However a bit sleepy today. * CT of brain negative * follow mentation -- need Neurology consult +/- MRI of brain(?) (4) Swelling of right hand: Code(s): M79.89 - Other specified soft tissue disorders Status: Acute Assessment and Plan: * initially thought to be cellulitis but less likely - Infectious Disease and Plastic Surgery assessment noted - no improvement with previous antibiotic therapy * suspicion falls on possible vasculitis versus calciphlaxis * Phosphorus level is notoriously high in her. * Good PTH. Stop calcitriol. * Pathology shows nonspecific findings. * Serology normal complements but otherwise is pending (5) Anemia: Code(s): D64.9 - Anemia, unspecified Status: Chronic Assessment and Plan: * likely due to ESRD and acute illness * Hold off on the EPO for now. * follow hemodynamics (6) Renal osteodystrophy: Code(s): N25.0 - Renal osteodystrophy Status: Chronic Assessment and Plan: * phosphorus is normal now. * stop calcium based binders given concerns for calciphylaxis * PTH was stable by outpatient labs and is only 209 here. * She does not need calcitriol or Sensipar. (7) Diabetes: Code(s): E11.9 - Type 2 diabetes mellitus without complications Status: Acute Assessment and Plan: * follow accuchecks * on SSI Subjective Date/time seen: 09/06/20 08:47 Interval history: Rufina Is feeling better today. Blood pressure is down to 120 to 152 nicardipine drip has been stopped. She had dry ultrafiltration yesterday and they removed Almost 4L. she did have some cramping. Review of Systems Cardiovascular: Cardiovascular: Reports no additional cardiovascular complaints Respiratory: Respiratory: Reports no additional respiratory complaints Gastrointestinal: Gastrointestinal: Reports no additional gastrointestinal complaints Genitourinary: Genitourinary: Reports no additional female genitourinary complaints Exam Narrative: Exam Narrative: General: WD/WN female in NAD Heart: normal S1 and S2; no rub or gallop Lungs: Rare crackles at the bases. Abdomen: soft, no
--- NOTE | 2020-09-06 08:47 | PM.PNNEP ---
Progress Note: A&P Assessment and Plan (1) End stage renal disease: Code(s): N18.6 - End stage renal disease Status: Chronic Assessment and Plan: Had Dry ultrafiltration yesterday. due for regular dialysis today. Mental status is better. Surgery to place tunneled catheter at some point. She has a few crackles at the bases. will try to take more fluid off today. This may be limited by cramping because her blood pressure so good I asked the nurse not to give her the clonidine this morning. (2) Hypertensive urgency: Code(s): I16.0 - Hypertensive urgency Status: Acute Assessment and Plan: Systolic running between 120-152 this morning Last night the blood pressure was very high so she was moved to the ICU. continue nifedipine, hydralazine, and lisinopril. Hold off on the clonidine for now. I may restart a lower dose because we can't suddenly stop this Because volume is usually the cause of uncontrolled blood pressure in dialysis patients I will dry ultrafiltrate to get extra fluid off. She has no allergies (3) Altered mental status: Code(s): R41.82 - Altered mental status, unspecified Status: Acute Assessment and Plan: Seems better to me. However a bit sleepy today. CT of brain negative follow mentation -- need Neurology consult +/- MRI of brain(?) (4) Swelling of right hand: Code(s): M79.89 - Other specified soft tissue disorders Status: Acute Assessment and Plan: initially thought to be cellulitis but less likely - Infectious Disease and Plastic Surgery assessment noted - no improvement with previous antibiotic therapy suspicion falls on possible vasculitis versus calciphlaxis Phosphorus level is notoriously high in her. Good PTH. Stop calcitriol. Pathology shows nonspecific findings. Serology normal complements but otherwise is pending (5) Anemia: Code(s): D64.9 - Anemia, unspecified Status: Chronic Assessment and Plan: likely due to ESRD and acute illness Hold off on the EPO for now. follow hemodynamics (6) Renal osteodystrophy: Code(s): N25.0 - Renal osteodystrophy Status: Chronic Assessment and Plan: phosphorus is normal now. stop calcium based binders given concerns for calciphylaxis PTH was stable by outpatient labs and is only 209 here. She does not need calcitriol or Sensipar. (7) Diabetes: Code(s): E11.9 - Type 2 diabetes mellitus without complications Status: Acute Assessment and Plan: follow accuchecks on SSI Subjective Date/time seen: 09/06/20 08:47 Interval history: Rufina Is feeling better today. Blood pressure is down to 120 to 152 nicardipine drip has been stopped. She had dry ultrafiltration yesterday and they removed Almost 4L. she did have some cramping. Review of Systems Cardiovascular: Cardiovascular: Reports no additional cardiovascular complaints Respiratory: Respiratory: Reports no additional respiratory complaints Gastrointestinal: Gastrointestinal: Reports no additional gastrointestinal complaints Genitourinary: Genitourinary: Reports no additional female genitourinary complaints Exam Narrative: Exam Narrative: General: WD/WN female in NAD Heart: normal S1 and S2; no rub or gallop Lungs: Rare crackles at the bases. Abdomen: soft, nontender, nondistended, positive bowel sounds Extremities: no cyanosis or clubbing; trace edema Skin: finger lesions/right hand edema noted. She has bandages on fingers 3 and 4. Objective Data Vital Signs Vital Signs: Vital Signs - 24 hr 09/05/20 09:23 09/05/20 10:00 09/05/20 10:15 Temperature 37.0 C Pulse Rate 56 L 55 L 56 L Respiratory Rate 21 H 15 Blood Pressure 162/55 H 163/54 H Pulse Oximetry 95 98 09/05/20 10:30 09/05/20 10:45 09/05/20 11:00 Temperature Pulse Rate 60 550 H 56 L
--- NOTE | 2020-09-06 09:33 | WPDINTPN ---
Progress Note: A&P Assessment and Plan (1) Hypertensive urgency: Code(s): I16.0 - Hypertensive urgency Status: Acute Assessment and Plan: Patient does have a history of labile blood pressures, presented the ED on 08/30/2020 with hypertensive urgency along with nausea and vomiting -patient systolic blood pressures with 267/94, patient was given multiple doses of hydralazine despite which the blood pressures remained elevated and was started on nicardipine infusion. Nicardipine infusion weaned off and patient was transferred out of the ICU on 09/02/2020 -patient returned to the ICU with elevated blood pressures and requiring nicardipine infusion, patient did not take her Bystolic on 09/04 patient -continue Lasix, hydralazine, lisinopril, nifedipine, Imdur, Bystolic, amlodipine -appreciate cardiology following the patient -blood pressure is much improved after she has been compliant with taking all the medications. OFF NICARDIPINE INFUSION -Workup for secondary hypertension as an outpatient. Renin Level and activity has been sent which is pending. (2) Cellulitis: Qualifiers: Site of cellulitis: extremity Site of cellulitis of extremity: upper extremity Laterality: right Qualified Code(s): L03.113 - Cellulitis of right upper limb Code(s): L03.90 - Cellulitis, unspecified Status: Acute Assessment and Plan: Right hand swelling, erythema, discoloration with multiple lesions. Patient did stated that she was at her daughter's house who has pets -infectious disease and plastic surgery evaluation -likely vasculitis related or calciphylaxis per Nephrology. Vasculitis workup aspect. Complement 3 level is a bit on the lower side. -x-ray of hands bilaterally are negative for fractures or bony erosions or infection -bilateral upper extremity venous Dopplers are negative for DVT -Plastic surgery recommended Nitro-Bid ointment to fingers and lesion -patient had 1 cm skin excision right middle finge of dried tissue necrosis by plastic surgery (3) End stage renal disease on dialysis: Code(s): N18.6 - End stage renal disease; Z99.2 - Dependence on renal dialysis Status: Acute Assessment and Plan: Significant elevation in creatinine and BUN, patient seems to be uremic given her symptoms of nausea and vomiting and anasarca with generalized swelling -follows with Dr. Harrington and was getting peritoneal dialysis before admission to the hospital. -peritoneal dialysis has been on hold for now. -dialysis catheter has been placed on 09/01 . Started hemodialysis on 09/01/2020 -Nephrology follow-up and dialysis as per nephrology. - Continue calcitriol. -surgery to insert a tunnel dialysis catheter this week (4) DVT prophylaxis: Code(s): Z29.9 - Encounter for prophylactic measures, unspecified Status: Acute Assessment and Plan: Heparin subcu (5) Diabetes: Code(s): E11.9 - Type 2 diabetes mellitus without complications Status: Acute Assessment and Plan: Continue sliding scale insulin Accu-Cheks Additional Plan Nutrition: Tolerating diet DVT prophylaxis: Heparin SQ Discussed with patient and her daughter Wilian and updated them with patient's condition and plan of care. I answered all questions. Code status: Full code Critical care time spent: 32 minutes This dictation may have been done utilizing a voice recognition system. Attempts have been made to correct errors. However, there may be uncorrected grammatical, spelling, and recognition errors present. Due to a high probability of clinically significant, life threatening deterioration, the patient required my highest level of preparedness to intervene emergently and I personally spent this critical care time directly and personally managing the patient. This critical care time included obtaining a history; examining the patient; pulse oximetry; ordering and review of studies; arranging urgent treatme
--- NOTE | 2020-09-06 10:28 | PM.IMPN ---
Progress Note: A&P Assessment and Plan (1) Hypertensive urgency, malignant: Code(s): I16.0 - Hypertensive urgency Status: Acute Assessment and Plan: Patient returned to the ICU 09/05 due to persistently elevated blood pressures recalcitrant to treatment. BP better controlled overall. ABle to come off of the nicardipine drip this morning. COntineu Imdur, Bystolic, Nifedipine, lisinopril, NTP, hydralazine. Clonidince stopped. 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 Contine the same. (2) Obstructive sleep apnea: Code(s): G47.33 - Obstructive sleep apnea (adult) (pediatric) Status: Chronic Assessment and Plan: Apnea link was incomplete. This was stopped due to the patient's condition. She did have an apnea link on 08/02/20 showing AHI 5.3 and RI 8.5. Follow for now (3) Cellulitis: Qualifiers: Laterality: right Site of cellulitis: extremity Site of cellulitis of extremity: upper extremity Qualified Code(s): L03.113 - Cellulitis of right upper limb Code(s): L03.90 - Cellulitis, unspecified Status: Acute Assessment and Plan: Patient with ischemic changes of her hands. 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 Echocardiogram in May did show possible vegetation on the aortic valve but repeat Echo here shoing no vegitations seen. Blood cultures from 08/31/2020 are negative. Plastic surgery consulted and now s/p finger biopsy 09/03. Pathology showing benign acute ulcer. YAS positive. HepC negative. Cryo pending. Follow up on final YAS results. Her LE symptoms could be related to the SCDs or related to above. Contineu to monitor (4) End stage renal disease on dialysis: Code(s): N18.6 - End stage renal disease; Z99.2 - Dependence on renal dialysis Status: Acute Assessment and Plan: Patient has ESRD on PD at home. Here, she needed more aggressive dialysis so a HD catheter placed 09/01. She has undergone HD on 09/01 (1.2L), 09/02 (3L) and 09/04 (4L). UF performed yesterday and plans for HD again today. Appreciate nephrology input. (5) DVT prophylaxis: Code(s): Z29.9 - Encounter for prophylactic measures, unspecified Status: Acute Assessment and Plan: Heparin Subjective Date/time seen: 09/06/20 10:28 Interval history: 60yo female with ESRD on peritoneal dialysis, insulin-dependent diabetes mellitus, and difficult to control hypertension who presented to the ER on 08/30/2020 with a chief complaint of pain and swelling in her fingers and found to be in hypertensive urgency. She was started on nicardipine infusion transfer the ICU for further management. She improved and was able to be transferred to the IMU on 09/02/2020. Patient did undergo a skin biopsy of right finger on 09/03/2020. HD on 09/01 (1150), 09/02 (3L) and 09/04 (4L). She was moved back to the ICU on 09/05 in the tailings man hours due to poorly controlled BP. UF performed yesterday with plans for HD today. No problems overnight per nursing staff. Patient complains of leg spasm with the SCDs. This improved with removal of SCDs. She also complains of numbness in her feet but no pain. She was able to be weaned off the nicardipine drip this morning. She denies chest pain, abdominal pain or back pain. No bowel movement 2 days but is having flatus. Exam Narrative: Exam Narrative: AF 97.7 144/61 52 16 92% Gen - NARD sitting up in chair Neck - left HD catheter in place Chest -bibasilar inspiratory crackles. Normal respiratory rate CV - RRR S1/S2; telemetry showing no significant dysrhythmias Abd - Soft, NT/ND, Positive BS Ext - No pedal edema Neuro - Nml mood and affect. Normal sensation to light touch to the bilateral lower extremities. Skin - Warm and dry. Right dorsum middle finger and Left pointer finger dressings clean/dry/intact. Necrosis to the medial aspect right 4th finger
--- NOTE | 2020-09-06 10:55 | WPDPN ---
Objective Data Vital Signs Vital Signs: Vital Signs - 24 hr 09/05/20 11:00 09/05/20 11:15 09/05/20 11:23 Temperature Pulse Rate 56 L 50 L 50 L Respiratory Rate Blood Pressure 147/49 H 154/49 H 154/49 H Pulse Oximetry 09/05/20 11:30 09/05/20 11:45 09/05/20 12:00 Temperature Pulse Rate 53 L 46 L 55 L Respiratory Rate 21 H Blood Pressure 163/53 H 147/49 H 162/55 H Pulse Oximetry 95 09/05/20 12:15 09/05/20 12:30 09/05/20 12:45 Temperature Pulse Rate 53 L 50 L 45 L Respiratory Rate Blood Pressure 170/54 H 144/53 H 145/54 H Pulse Oximetry 09/05/20 13:00 09/05/20 13:06 09/05/20 13:15 Temperature Pulse Rate 46 L 44 L 46 L Respiratory Rate Blood Pressure 121/85 107/55 L 130/70 Pulse Oximetry 09/05/20 13:30 09/05/20 13:40 09/05/20 14:00 Temperature 37.0 C 36.3 C L Pulse Rate 55 L 46 L 53 L Respiratory Rate 16 18 Blood Pressure 159/75 H 144/56 H 176/57 H Pulse Oximetry 98 97 09/05/20 14:35 09/05/20 15:05 09/05/20 16:00 Temperature 36.4 C L Pulse Rate 53 L 59 L 53 L Respiratory Rate 19 Blood Pressure 176/57 H 192/67 H 142/46 H Pulse Oximetry 98 09/05/20 16:24 09/05/20 18:00 09/05/20 19:35 Temperature Pulse Rate 54 L 54 L 51 L Respiratory Rate 20 Blood Pressure 142/46 H 160/51 H 150/50 H Pulse Oximetry 94 09/05/20 20:00 09/05/20 22:00 09/06/20 00:00 Temperature 36.9 C 36.7 C Pulse Rate 51 L 55 L 55 L Respiratory Rate 17 17 18 Blood Pressure 147/52 H 152/67 H 149/48 H Pulse Oximetry 98 97 99 09/06/20 02:00 09/06/20 04:00 09/06/20 04:53 Temperature 36.8 C Pulse Rate 57 L 53 L 57 L Respiratory Rate 14 16 Blood Pressure 150/52 H 134/50 L 130/46 L Pulse Oximetry 98 99 09/06/20 05:40 09/06/20 06:00 09/06/20 08:00 Temperature 36.4 C Pulse Rate 55 L 55 L 53 L Respiratory Rate 17 13 Blood Pressure 133/45 L 119/38 L 152/55 H Pulse Oximetry 93 95 09/06/20 08:14 09/06/20 09:00 09/06/20 09:16 Temperature 36.5 C Pulse Rate 55 L 53 L 55 L Respiratory Rate 22 H Blood Pressure 143/51 H 157/56 H Pulse Oximetry 97 09/06/20 09:30 09/06/20 09:45 09/06/20 10:00 Temperature Pulse Rate 53 L 54 L 52 L Respiratory Rate 16 Blood Pressure 149/52 H 139/53 L 144/61 H Pulse Oximetry 92 09/06/20 10:16 09/06/20 10:45 Temperature Pulse Rate 52 L 53 L Respiratory Rate Blood Pressure 144/61 H 131/60 Pulse Oximetry Intake/Output Intake/Output: Intake & Output 09/03/20 09/04/20 09/05/20 09/06/20 23:59 23:59 23:59 23:59 Intake Total 320 1260 810 Output Total 4000 3550 0 Balance -3680 -2290 810 Meds/Results Medications: Active Medications Generic Name Dose Route Start Last Admin Trade Name Freq PRN Reason Stop Dose Admin Acetaminophen 1,000 mg 09/04/20 12:52 09/06/20 02:31 Acetaminophen 500 Mg Tablet PO 1,000 mg Q6H PRN Administration Mild Pain (1-3) or Fever Aspirin 81 mg 08/31/20 09:00 09/06/20 08:12 Aspirin 81 Mg Enteric Tablet PO 81 mg DAILY MICHAELA Administration Bacitracin 1 applic 09/04/20 09:05 09/06/20 08:12 Bacitracin Ointment 15 Gm Tube TOPICAL 1 applic Q12HR MICHAELA Administration Clonidine HCl 0.2 mg 09/03/20 17:00 09/06/20 08:20 Clonidine Hcl 0.2 Mg Tablet PO Not Given TID MICHAELA Clonidine HCl 0.1 mg 09/03/20 17:00 09/06/20 09:23 Clonidine Hcl 0.1 Mg Tablet PO Not Given TID MICHAELA Dextrose 12.5 gm 08/30/20 22:57 Dextrose 50% 25 Gm/50 Ml Syringe IV PUSH PRN PRN Hypoglycemia Protocol Diphenhydramine HCl 25 mg 08/30/20 22:56 09/06/20 02:32 Diphenhydramine Hcl Cap 25 Mg Capsule PO 25 mg Q6H PRN Administration Itching Docusate Sodium 100 mg 09/02/20 09:00 09/06/20 08:13 Docusate Sodium 100 Mg Capsule PO 100 mg Q12HR MICHAELA Administration Furosemide 80 mg 08/31/20 09:00 09/06/20 08:13 Furosemide 80 Mg Tablet PO 80 mg BID MICHAELA Administration Glucagon 1 mg 08/30/20 22:5
[2020-09-06 12:59] LABS: Glucose Point of Care 175 (65-105)
[2020-09-06] MEDS: HEPARIN SODIUM 5,000 UNITS/ML VIAL 5000 UNITS SUB-Q ×2 (13:11→20:15)
[2020-09-06] MEDS: NITROGLYCERIN OINTMENT 1 INCH DOSE TOPICAL (13:11)
[2020-09-06 17:20] LABS: Glucose Point of Care 162 (65-105)
[2020-09-06] MEDS: cloNIDine HCL 0.1 MG TABLET PO ×2 (18:08→23:38)
[2020-09-06 18:43] LABS: Anti Glomerular Basement Memb <1.0 AI (<1.0)
[2020-09-06 20:04] LABS: Glucose Point of Care 210 (65-105)
[2020-09-06 21:52] LABS: Chromatin (Nucleosomal) Ab <1.0; RNP Antibody <1.0; Sm Antibody <1.0; Sm/RNP Antibody <1.0
[2020-09-06] MEDS: hydrALAZINE HCL 20 MG/ML VIAL 10 MG IV PUSH (22:15)
[2020-09-06] MEDS: ONDANSETRON INJ 4 MG/2 ML VIAL IV PUSH (23:36)
[2020-09-07] VITALS (24 sets, daily range): BP systolic 101–193; BP diastolic 47–89; PULSE 57–76; RESP 11–24; TEMP 36.4–37.2; O2SAT 93–100
[2020-09-07] MEDS: hydrALAZINE HCL 20 MG/ML VIAL 10 MG IV PUSH (01:30)
[2020-09-07] MEDS: niCARdipine 20 MG/200 ML 20 MG/200 ML BAG 50 MG IV CONT ×2 (02:41→06:09)
[2020-09-07 03:46] LABS: Jo-1 Antibody <1.0; Sjogren's Antibody (SS-B) <1.0
[2020-09-07] MEDS: hydrALAZINE HCL 50 MG TABLET 100 MG PO ×2 (06:07→21:39)
[2020-09-07] MEDS: CENTRAL LINE FLUSH 10 ML IV PUSH (06:11)
[2020-09-07 07:37] LABS: Hemoglobin 9.1 g/dL (12.0-15.0); Mean Corpuscular HGB Conc 33.7 g/dl (32-36); Mean Corpuscular Hemoglobin 33.8 pg (26-34); Mean Corpuscular Volume 100.4 fl (80-100); Mean Platelet Volume 10.1 fl (7.4-10.4); Platelet Count Result 362 k/mm3 (150-375); Red Blood Count 2.69 M/mm3 (4.2-5.4); Red Cell Distribution Width 14.3 % (11.5-14.5); White Blood Count 12.2 K/mm3 (4.5-10.0)
[2020-09-07 07:48] LABS: Albumin Level 3.1 g/dL (3.5-5.1); Anion Gap 7 mmol/L (8-16); Blood Urea Nitrogen 28 mg/dL (7-17); Calcium 7.8 mg/dL (8.4-10.2); Carbon Dioxide 23 mmol/L (22-30); Chloride 101 mmol/L (98-107); Estimated CRCL calculation 9 ml/min; Estimated Glomerular Filt Rate 8; Glucose 145 mg/dL (65-105); Phosphorus 2.8 mg/dL (2.5-4.5); Potassium 4.5 mmol/L (3.4-5.0); Sodium 131 mmol/L (137-145)
--- NOTE | 2020-09-07 07:54 | WPDPN ---
Progress Note: A&P Assessment and Plan (1) Finger lesion: Code(s): L98.9 - Disorder of the skin and subcutaneous tissue, unspecified Status: Acute Assessment and Plan: Biopsy finding being reevaluated by pathologist. This test is sent to an outside lab, may be available on Friday or Friday. Objective Data Vital Signs Vital Signs: Vital Signs - 24 hr 09/06/20 08:00 09/06/20 08:14 09/06/20 09:00 Temperature 36.4 C 36.5 C Pulse Rate 53 L 55 L 53 L Respiratory Rate 13 22 H Blood Pressure 152/55 H 143/51 H Pulse Oximetry 95 97 09/06/20 09:16 09/06/20 09:30 09/06/20 09:45 Temperature Pulse Rate 55 L 53 L 54 L Respiratory Rate Blood Pressure 157/56 H 149/52 H 139/53 L Pulse Oximetry 09/06/20 10:00 09/06/20 10:16 09/06/20 10:45 Temperature Pulse Rate 52 L 52 L 53 L Respiratory Rate 16 Blood Pressure 144/61 H 144/61 H 131/60 Pulse Oximetry 92 09/06/20 11:00 09/06/20 11:15 09/06/20 11:30 Temperature Pulse Rate 56 L 57 L 58 L Respiratory Rate Blood Pressure 144/56 H 127/60 133/58 L Pulse Oximetry 09/06/20 11:45 09/06/20 12:00 09/06/20 12:21 Temperature 36.6 C Pulse Rate 58 L 57 L 57 L Respiratory Rate 11 L Blood Pressure 129/59 L 134/66 118/59 L Pulse Oximetry 95 09/06/20 12:41 09/06/20 14:00 09/06/20 16:00 Temperature 36.8 C 36.8 C Pulse Rate 57 L 57 L 64 Respiratory Rate 13 18 18 Blood Pressure 115/60 123/58 L 156/61 H Pulse Oximetry 98 95 92 09/06/20 18:00 09/06/20 20:00 09/06/20 22:00 Temperature 36.9 C Pulse Rate 65 68 64 Respiratory Rate 24 H 20 19 Blood Pressure 177/61 H 163/53 H 192/50 H Pulse Oximetry 98 92 09/07/20 00:00 09/07/20 01:32 09/07/20 02:00 Temperature 36.9 C Pulse Rate 71 74 76 Respiratory Rate 13 20 Blood Pressure 187/59 H 193/66 H 182/80 H Pulse Oximetry 93 09/07/20 02:41 09/07/20 04:00 09/07/20 06:00 Temperature Pulse Rate 68 66 74 Respiratory Rate 19 18 Blood Pressure 182/80 H 151/60 H 171/70 H Pulse Oximetry 98 95 09/07/20 06:09 Temperature Pulse Rate 72 Respiratory Rate Blood Pressure 174/63 H Pulse Oximetry Intake/Output Intake/Output: Intake & Output 09/04/20 09/05/20 09/06/20 09/07/20 23:59 23:59 23:59 23:59 Intake Total 320 1260 1640 800 Output Total 4000 3550 3150 100 Balance -3680 -2290 -1510 700 Meds/Results Medications: Active Medications Generic Name Dose Route Start Last Admin Trade Name Freq PRN Reason Stop Dose Admin Acetaminophen 1,000 mg 09/04/20 12:52 09/06/20 19:21 Acetaminophen 500 Mg Tablet PO 1,000 mg Q6H PRN Administration Mild Pain (1-3) or Fever Aspirin 81 mg 08/31/20 09:00 09/06/20 08:12 Aspirin 81 Mg Enteric Tablet PO 81 mg DAILY MICHAELA Administration Bacitracin 1 applic 09/04/20 09:05 09/06/20 20:07 Bacitracin Ointment 15 Gm Tube TOPICAL 1 applic Q12HR MICHAELA Administration Chlorhexidine Gluconate 1 applic 09/07/20 09:00 Chlorhexidine Gluconate 4% Elicia 120 Ml Btl TOPICAL 09/07/20 09:01 ONCE ONE Clonidine HCl 0.1 mg 09/06/20 15:33 09/06/20 23:38 Clonidine Hcl 0.1 Mg Tablet PO 0.1 mg Q6HR PRN Administration SBP > 150 Dextrose 12.5 gm 08/30/20 22:57 Dextrose 50% 25 Gm/50 Ml Syringe IV PUSH PRN PRN Hypoglycemia Protocol Diphenhydramine HCl 25 mg 08/30/20 22:56 09/06/20 02:32 Diphenhydramine Hcl Cap 25 Mg Capsule PO 25 mg Q6H PRN Administration Itching Docusate Sodium 100 mg 09/02/20 09:00 09/06/20 20:08 Docusate Sodium 100 Mg Capsule PO 100 mg Q12HR MICHAELA Administration Furosemide 80 mg 08/31/20 09:00 09/06/20 17:17 Furosemide 80 Mg Tablet PO 80 mg BID MICHAELA Administration Glucagon 1 mg 08/30/20 22:57 Glucagon For Inj 1 Mg Vial IM PRN PRN Hypoglycemia Protocol Glucose 15 gm 08/30/20 22:57 Glucose Oral Gel 15 Gm Of Glucse In 37.5 Gm Tube PO PRN PRN Hypoglycemia Prot
[2020-09-07] MEDS: cloNIDine HCL 0.2 MG TABLET PO ×2 (08:25→21:42)
[2020-09-07] MEDS: NEBIVOLOL HCL 5 MG TABLET PO (08:25)
[2020-09-07] MEDS: ASPIRIN 81 MG ENTERIC TABLET PO (08:25)
[2020-09-07] MEDS: ISOSORBIDE MONONITRATE 60 MG TAB.ER.24H PO (08:25)
[2020-09-07] MEDS: lisinopriL 20 MG TABLET 40 MG PO ×2 (08:25→18:43)
[2020-09-07] MEDS: FUROSEMIDE 80 MG TABLET PO ×2 (08:26→18:43)
[2020-09-07] MEDS: NIFEdipine 30 MG TAB.ER.24 90 MG PO (08:26)
[2020-09-07] MEDS: ONDANSETRON INJ 4 MG/2 ML VIAL IV PUSH (08:41)
[2020-09-07 09:04] LABS: Centromere B Antibody 2.6; Ribosomal Antibody <1.0
--- NOTE | 2020-09-07 09:14 | PM.PNCARD ---
Progress Note: A&P Assessment and Plan (1) Hypertensive urgency: Code(s): I16.0 - Hypertensive urgency Status: Acute Assessment and Plan: Currently BP is 146/55 mmHg on Nicardipine drip. Reviewed BP medications and she is on Amlodipine 10 mg daily, Lisinopril 40 mg BID, Clonidine changed to 0.1 mg TID prn, Hydralazine 100 mg PO TID. Change Bystolic 5 mg daily (as patient does not want to take more than 1 pill and that's what we have on formulary), and on Isosorbide mononitrate 60 mg daily. Hopefully, we can get her off Nicardipine drip. May need to go on Clonidine regular dosing in order to keep off Nicardipine drip. Continue to monitor. Echo done 09/05/20 to assess aortic valve shows sclerocalcification of left coronary cusp only, and shadowing from that in previous echo. No vegetations. (2) HLD (hyperlipidemia): Code(s): E78.5 - Hyperlipidemia, unspecified Status: Chronic Assessment and Plan: Was recently started on Atorvastatin for LDL 146. However, she does not want to be on a statin since she believes it makes her feel like a zombie . Will stop it and see if she feels better without it. If no difference, then she should be on it. (3) End stage renal disease: Code(s): N18.6 - End stage renal disease Status: Chronic Assessment and Plan: On hemodialysis. Subjective Date/time seen: 09/07/20 09:14 Patient did not sleep well last night and has nausea this morning. No chest pain or sob. Exam Const: General: cooperative, healthy appearing and comfortable Resp: Auscultation: clear to auscultation bilaterally, no crackles, no rales, no rhonchi and no wheezes Cardio: Jugular venous distension: no JVD Rate: regular rate Rhythm: regular rhythm Heart sounds: no murmurs Peripheral pulses: dorsalis pedis present GI: GI Palp: No abdominal tenderness and Yes Soft to palpation Neuro: General: confusion Extrem: Right lower extremity: no edema Left lower extremity: no edema Objective Data Vital Signs Vital Signs: Vital Signs - 24 hr 09/06/20 09:16 09/06/20 09:30 03/17/21 09:45 Temperature Pulse Rate 55 L 53 L 54 L Respiratory Rate Blood Pressure 157/56 H 149/52 H 139/53 L Pulse Oximetry 09/06/20 10:00 09/06/20 10:16 09/06/20 10:45 Temperature Pulse Rate 52 L 52 L 53 L Respiratory Rate 16 Blood Pressure 144/61 H 144/61 H 131/60 Pulse Oximetry 92 09/06/20 11:00 09/06/20 11:15 09/06/20 11:30 Temperature Pulse Rate 56 L 57 L 58 L Respiratory Rate Blood Pressure 144/56 H 127/60 133/58 L Pulse Oximetry 09/06/20 11:45 09/06/20 12:00 09/06/20 12:21 Temperature 97.8 F Pulse Rate 58 L 57 L 57 L Respiratory Rate 11 L Blood Pressure 129/59 L 134/66 118/59 L Pulse Oximetry 95 09/06/20 12:41 09/06/20 14:00 09/06/20 16:00 Temperature 98.3 F 98.3 F Pulse Rate 57 L 57 L 64 Respiratory Rate 13 18 18 Blood Pressure 115/60 123/58 L 156/61 H Pulse Oximetry 98 95 92 09/06/20 18:00 09/06/20 20:00 09/06/20 22:00 Temperature 98.5 F Pulse Rate 65 68 64 Respiratory Rate 24 H 20 19 Blood Pressure 177/61 H 163/53 H 192/50 H Pulse Oximetry 98 92 09/07/20 00:00 09/07/20 01:32 09/07/20 02:00 Temperature 98.5 F Pulse Rate 71 74 76 Respiratory Rate 13 20 Blood Pressure 187/59 H 193/66 H 182/80 H Pulse Oximetry 93 09/07/20 02:41 09/07/20 04:00 09/07/20 06:00 Temperature Pulse Rate 68 66 74 Respiratory Rate 19 18 Blood Pressure 182/80 H 151/60 H 171/70 H Pulse Oximetry 98 95 09/07/20 06:09 09/07/20 08:25 Temperature Pulse Rate 72 64 Respiratory Rate Blood Pressure 174/63 H Pulse Oximetry Intake/Output Intake/Output: Intake & Output 09/04/20 09/05/20 09/06/20 09/07/20 23:59 23:59 23:59 23:59 Intake Total 320 1260 1640 800 Output Total 4000 3550 3150 100 Balance -3087 -7755 -2971 700 Meds/Results Medications: Active Medications Generic Name Dose Route Start Last Admin
--- NOTE | 2020-09-07 10:05 | P.PNNP_ITS ---
Progress Note: A&P Assessment and Plan (1) End stage renal disease: Code(s): N18.6 - End stage renal disease Status: Chronic Assessment and Plan: * Had hemodialysis yesterday and 3L were removed. * due for regular dialysis today. * Mental status is Back to baseline. * She will get a tunneled line today. * Hemodialysis tomorrow. (2) Hypertensive urgency: Code(s): I16.0 - Hypertensive urgency Status: Acute Assessment and Plan: * Systolic jodie again yesterday. P.r.n. clonidine did not work * She is back on the nicardipine drip. * Will restart clonidine in a lower dose. * Increase nifedipine to 90. * Remove more fluid tomorrow. * discussed with Dr. Staples (3) Altered mental status: Code(s): R41.82 - Altered mental status, unspecified Status: Acute Assessment and Plan: * Seems better to me. However a bit sleepy today. * CT of brain negative * follow mentation -- need Neurology consult +/- MRI of brain(?) (4) Swelling of right hand: Code(s): M79.89 - Other specified soft tissue disorders Status: Acute Assessment and Plan: * initially thought to be cellulitis but less likely - Infectious Disease and Plastic Surgery assessment noted - no improvement with previous antibiotic therapy * suspicion falls on possible vasculitis versus calciphlaxis * Phosphorus level is notoriously high in her. * Good PTH. Stop calcitriol. * Pathology shows nonspecific findings. * Serology normal complements but otherwise is pending (5) Anemia: Code(s): D64.9 - Anemia, unspecified Status: Chronic Assessment and Plan: * likely due to ESRD and acute illness * Hold off on the EPO for now due to the variable blood pressure. * follow hemodynamics (6) Renal osteodystrophy: Code(s): N25.0 - Renal osteodystrophy Status: Chronic Assessment and Plan: * phosphorus is normal now. * stop calcium based binders given concerns for calciphylaxis * PTH was stable by outpatient labs and is only 209 here. * She does not need calcitriol or Sensipar. (7) Diabetes: Code(s): E11.9 - Type 2 diabetes mellitus without complications Status: Acute Assessment and Plan: * follow accuchecks * on SSI Subjective Date/time seen: 09/07/20 10:05 Interval history: Rufina had some nausea and vomiting overnight. Blood pressure was good all day but then jodie last night and now is back on nicardipine drip. 3L were removed on dialysis yesterday. Review of Systems Cardiovascular: Cardiovascular: Reports no additional cardiovascular complaints Respiratory: Respiratory: Reports no additional respiratory complaints Gastrointestinal: Gastrointestinal: Reports no additional gastrointestinal complaints Genitourinary: Genitourinary: Reports no additional female genitourinary complaints Exam Narrative: Exam Narrative: General: WD/WN female in NAD Heart: normal S1 and S2; no rub or gallop Lungs: Rare crackles at the bases. Abdomen: soft, nontender, nondistended, positive bowel sounds Extremities: no cyanosis or clubbing; trace edema Skin: finger lesions/right hand edema noted. She has bandages on fingers 3 and 4. Objective Data Vital Signs Vital Signs: Vital Signs - 24 hr 09/06/20 10:16 09/06/20 10:45 09/06/20 11:00
--- NOTE | 2020-09-07 10:05 | PM.PNNEP ---
Progress Note: A&P Assessment and Plan (1) End stage renal disease: Code(s): N18.6 - End stage renal disease Status: Chronic Assessment and Plan: Had hemodialysis yesterday and 3L were removed. due for regular dialysis today. Mental status is Back to baseline. She will get a tunneled line today. Hemodialysis tomorrow. (2) Hypertensive urgency: Code(s): I16.0 - Hypertensive urgency Status: Acute Assessment and Plan: Systolic jodie again yesterday. P.r.n. clonidine did not work She is back on the nicardipine drip. Will restart clonidine in a lower dose. Increase nifedipine to 90. Remove more fluid tomorrow. discussed with Dr. Staples (3) Altered mental status: Code(s): R41.82 - Altered mental status, unspecified Status: Acute Assessment and Plan: Seems better to me. However a bit sleepy today. CT of brain negative follow mentation -- need Neurology consult +/- MRI of brain(?) (4) Swelling of right hand: Code(s): M79.89 - Other specified soft tissue disorders Status: Acute Assessment and Plan: initially thought to be cellulitis but less likely - Infectious Disease and Plastic Surgery assessment noted - no improvement with previous antibiotic therapy suspicion falls on possible vasculitis versus calciphlaxis Phosphorus level is notoriously high in her. Good PTH. Stop calcitriol. Pathology shows nonspecific findings. Serology normal complements but otherwise is pending (5) Anemia: Code(s): D64.9 - Anemia, unspecified Status: Chronic Assessment and Plan: likely due to ESRD and acute illness Hold off on the EPO for now due to the variable blood pressure. follow hemodynamics (6) Renal osteodystrophy: Code(s): N25.0 - Renal osteodystrophy Status: Chronic Assessment and Plan: phosphorus is normal now. stop calcium based binders given concerns for calciphylaxis PTH was stable by outpatient labs and is only 209 here. She does not need calcitriol or Sensipar. (7) Diabetes: Code(s): E11.9 - Type 2 diabetes mellitus without complications Status: Acute Assessment and Plan: follow accuchecks on SSI Subjective Date/time seen: 09/07/20 10:05 Interval history: Rufina had some nausea and vomiting overnight. Blood pressure was good all day but then jodie last night and now is back on nicardipine drip. 3L were removed on dialysis yesterday. Review of Systems Cardiovascular: Cardiovascular: Reports no additional cardiovascular complaints Respiratory: Respiratory: Reports no additional respiratory complaints Gastrointestinal: Gastrointestinal: Reports no additional gastrointestinal complaints Genitourinary: Genitourinary: Reports no additional female genitourinary complaints Exam Narrative: Exam Narrative: General: WD/WN female in NAD Heart: normal S1 and S2; no rub or gallop Lungs: Rare crackles at the bases. Abdomen: soft, nontender, nondistended, positive bowel sounds Extremities: no cyanosis or clubbing; trace edema Skin: finger lesions/right hand edema noted. She has bandages on fingers 3 and 4. Objective Data Vital Signs Vital Signs: Vital Signs - 24 hr 09/06/20 10:16 09/06/20 10:45 09/06/20 11:00 Temperature Pulse Rate 52 L 53 L 56 L Respiratory Rate Blood Pressure 144/61 H 131/60 144/56 H Pulse Oximetry 09/06/20 11:15 09/06/20 11:30 09/06/20 11:45 Temperature Pulse Rate 57 L 58 L 58 L Respiratory Rate Blood Pressure 127/60 133/58 L 129/59 L Pulse Oximetry 09/06/20 12:00 09/06/20 12:21 09/06/20 12:41 Temperature 36.6 C 36.8 C Pulse Rate 57 L 57 L 57 L Respiratory Rate 11 L 13 Blood Pressure 134/66 118/59 L 115/60 Pulse Oximetry 95 98 09/06/20 14:00 09/06/20 16:00 09/06/20 18:00 Temperature 36.8 C Pulse Rate 57 L 64
[2020-09-07] MEDS: BACITRACIN OINTMENT 15 GM TUBE 1 APPLIC TOPICAL ×2 (10:15→21:40)
[2020-09-07] MEDS: niCARdipine 20 MG/200 ML 20 MG/200 ML BAG 25 MG IV CONT (10:16)
[2020-09-07] MEDS: NITROGLYCERIN OINTMENT 1 INCH DOSE TOPICAL (10:16)
--- NOTE | 2020-09-07 10:54 | PCDIET ---
ICU Rounding Note: Patient NPO for placement of tunneled dialysis catheter today. Last recorded weight is 82.6kg which is increased from last review, despite -I/O. Patient had 3L UF on 09/06/20. Bowel Motility: Last documented BM on 09/04/20. Labs Reviewed: Hgb (9.1), Hct (27.0), Glu (145), BUN (28), Cr (5.7), Na (131), Alb (3.1), Theresa Ca (8.52) Meds Noted: Ancef, Colace, Lasix, Novolog, Imdur, Lisinopril, Bystolic, Renvela, Nicardipine, Nifedipine Additional Notes: Right finger with benign ulcer. No pressure sores documented. Following daily in ICU rounds. Assessing/reassessing every 5 days.
--- NOTE | 2020-09-07 11:26 | PM.IMPN ---
Progress Note: A&P Assessment and Plan (1) Hypertensive urgency, malignant: Code(s): I16.0 - Hypertensive urgency Status: Acute Assessment and Plan: Patient returned to the ICU 09/05 due to persistently elevated blood pressures recalcitrant to treatment. BP better controlled overall. ABle to come off of the nicardipine drip on AM 09/06 but back on the drip overnight. BP medications being adjusted. Continue Imdur, Bystolic, Nifedipine, lisinopril, NTP, hydralazine. Clonidine stopped yesterday but resumed today. 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 She has been refusing medications intermittently probably causing the rebound HTN. Continue the same. (2) Obstructive sleep apnea: Code(s): G47.33 - Obstructive sleep apnea (adult) (pediatric) Status: Chronic Assessment and Plan: Apnea link was completed last night. She did have an apnea link on 08/02/20 showing AHI 5.3 and RI 8.5 but now results showing AHI 14.5 and RI 16.3. She has lost 60# since COVID she states. Will need outpatient sleep study. Will start auto-PAP here. Follow for now (3) Cellulitis: Qualifiers: Laterality: right Site of cellulitis: extremity Site of cellulitis of extremity: upper extremity Qualified Code(s): L03.113 - Cellulitis of right upper limb Code(s): L03.90 - Cellulitis, unspecified Status: Acute Assessment and Plan: Patient with ischemic changes of her hands. 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 Echocardiogram in May did show possible vegetation on the aortic valve but repeat Echo here showing no vegetations seen. Blood cultures from 08/31/2020 are negative. Plastic surgery consulted and now s/p finger biopsy 09/03. Pathology showing benign acute ulcer. YAS positive. HepC negative. Cryo pending. Follow up on final YAS results. (4) End stage renal disease on dialysis: Code(s): N18.6 - End stage renal disease; Z99.2 - Dependence on renal dialysis Status: Acute Assessment and Plan: Patient has ESRD on PD at home. Here, she needed more aggressive dialysis so a HD catheter placed 09/01. She has undergone HD on 09/01 (1.2L), 09/02 (3L) and 09/04 (4L). UF performed 09/05 (3.3L) and HD again 09/06 (3L). Tunneled cathater planned for today. Appreciate nephrology input. (5) DVT prophylaxis: Code(s): Z29.9 - Encounter for prophylactic measures, unspecified Status: Acute Assessment and Plan: Heparin Subjective Date/time seen: 09/07/20 11:26 Interval history: 60yo female with ESRD on peritoneal dialysis, insulin-dependent diabetes mellitus, and difficult to control hypertension who presented to the ER on 08/30/2020 with a chief complaint of pain and swelling in her fingers and found to be in hypertensive urgency. She was started on nicardipine infusion transfer the ICU for further management. She improved and was able to be transferred to the IMU on 09/02/2020. Patient did undergo a skin biopsy of right finger on 09/03/2020. HD on 09/01 (1150), 09/02 (3L) and 09/04 (4L). 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 HD performed yesterday. Slept poorly overnight due to apnea test. Had n/v this morning. Also had acid reflux all night. Had acid taste in her mouth. She was resumed on nicardipine drip over night due to recalcitrant HTN. Hand pain better. No further numbness in the feet/legs Exam Narrative: Exam Narrative: AF 98.1 136/48 61 97% ra Gen - NARD sitting up in chair Neck - left IJ HD catheter in place Chest - CTA bialterally, nml RR CV - RRR S1/S2; telemetry showing no significant dysrhythmias Abd - Soft, NT/ND, Positive BS Ext - No pedal edema Neuro - Nml mood and affect. Skin - Warm and dry. Right 3rd and 4th finger dressing clean, dry and intact. Left pointer finger dressings clean/dry/inta
--- NOTE | 2020-09-07 12:12 | WPDINTPN ---
Progress Note: A&P Assessment and Plan (1) Hypertensive urgency: Code(s): I16.0 - Hypertensive urgency Status: Acute Assessment and Plan: Patient does have a history of labile blood pressures, presented the ED on 08/30/2020 with hypertensive urgency along with nausea and vomiting -patient systolic blood pressures with 267/94, patient was given multiple doses of hydralazine despite which the blood pressures remained elevated and was started on nicardipine infusion. Nicardipine infusion weaned off and patient was transferred out of the ICU on 09/02/2020 -patient returned to the ICU on 09/05 with elevated blood pressures and requiring nicardipine infusion, patient refused to take her Bystolic on 09/04 -screen was discontinued on 09/06, with possible rebound hypertension and having to go back on the nicardipine infusion. -discuss with Nephrology on 09/07/2020, nephrology will restart clonidine and increase nifedipine. -patient currently on Lasix, hydralazine, lisinopril, nifedipine, Imdur, , Bystolic, clonidine -appreciate cardiology following the patient -will treat try and see if patient can be weaned off the nicardipine infusion today -Workup for secondary hypertension as an outpatient. Renin Level and activity has been sent which is pending. (2) Cellulitis: Qualifiers: Site of cellulitis: extremity Site of cellulitis of extremity: upper extremity Laterality: right Qualified Code(s): L03.113 - Cellulitis of right upper limb Code(s): L03.90 - Cellulitis, unspecified Status: Acute Assessment and Plan: Right hand swelling, erythema, discoloration with multiple lesions. Patient did stated that she was at her daughter's house who has pets -infectious disease and plastic surgery evaluation -likely vasculitis related or calciphylaxis per Nephrology. Vasculitis workup aspect. Complement 3 level is a bit on the lower side. -x-ray of hands bilaterally are negative for fractures or bony erosions or infection -bilateral upper extremity venous Dopplers are negative for DVT -Plastic surgery recommended Nitro-Bid ointment to fingers and lesion -patient had 1 cm skin excision right middle finge of dried tissue necrosis by plastic surgery., benign skin lesion on pathology (3) End stage renal disease on dialysis: Code(s): N18.6 - End stage renal disease; Z99.2 - Dependence on renal dialysis Status: Acute Assessment and Plan: Significant elevation in creatinine and BUN, patient seems to be uremic given her symptoms of nausea and vomiting and anasarca with generalized swelling -follows with Dr. Harrington and was getting peritoneal dialysis before admission to the hospital. -peritoneal dialysis has been on hold for now. -dialysis catheter has been placed on 09/01 . Started hemodialysis on 09/01/2020 -Nephrology follow-up and dialysis as per nephrology. - Continue calcitriol. -surgery to insert a tunnel dialysis catheter on 09/07/2020 (4) DVT prophylaxis: Code(s): Z29.9 - Encounter for prophylactic measures, unspecified Status: Acute Assessment and Plan: Heparin subcu (5) Diabetes: Code(s): E11.9 - Type 2 diabetes mellitus without complications Status: Acute Assessment and Plan: Continue sliding scale insulin Accu-Cheks Additional Plan Nutrition: Tolerating diet DVT prophylaxis: Heparin SQ Discussed with patient and her daughter Wilian and updated them with patient's condition and plan of care. I answered all questions. Code status: Full code Critical care time spent: 32 minutes This dictation may have been done utilizing a voice recognition system. Attempts have been made to correct errors. However, there may be uncorrected grammatical, spelling, and recognition errors present. Due to a high probability of clinically significant, life threatening deterioration, the patient required my highest level of preparedness to intervene emergently a
[2020-09-07 12:21] LABS: Glucose Point of Care 150 (65-105)
[2020-09-07 13:28] LABS: Renin 1.27 ng/mL/h (0.25-5.82)
--- NOTE | 2020-09-07 13:28 | WPDANESEPPF ---
Anes - Initial Pre Proc Eval Procedure: Operation Date: 09/07/20 14:00 Proposed Procedures p Insertion Tunneled Dialysis Catheter - Calixto Esquivel MD Date/Time: 09/07/20 13:28 Surgeon: Oskar Ryder MD Pre Op Diagnosis: HTN URGENCY, ESRD ON DIALYSIS Patient Data Age: 60 Gender: F Height: 1.52 m Weight: 82.6 kg Last Vital Signs Temp 37.2 C 09/07/20 13:10 Pulse 61 09/07/20 13:10 Resp 24 H 09/07/20 13:10 BP 132/78 09/07/20 13:10 Pulse Ox 96 09/07/20 13:10 Allergies Allergy/AdvReac Type Severity Reaction Status Date / Time No Known Allergies Allergy Unknown Verified 08/10/20 13:12 Home Medications Medication Instructions Recorded Confirmed Type insulin aspart U-100 [Novolog 1 sliding scale dose SUBCUT 04/29/19 08/30/20 History PenFill U-100 Insulin] USEASDIRECTD aspirin 81 mg tablet,delayed 81 mg PO DAILY 10/11/19 08/30/20 History release diphenhydramine HCl 25 mg capsule 25 mg PO Q6H PRN 01/10/20 08/30/20 History calcitriol 0.25 mcg capsule 0.25 mcg PO DAILY 05/30/20 08/30/20 History ergocalciferol (vitamin D2) 1,250 1,250 mcg PO MONTHLY 05/30/20 08/30/20 History mcg (50,000 unit) capsule ondansetron 8 mg disintegrating 4 mg PO Q4H PRN 06/30/20 08/31/20 History tablet furosemide 80 mg PO BID #60 tablet 07/18/20 08/30/20 Rx hydralazine 100 mg PO Q8HR #90 tablet 07/18/20 08/30/20 Rx lisinopril 40 mg PO QAM #30 tablet 07/18/20 08/30/20 Rx clonidine HCl 0.2 mg tablet 0.2 mg PO TID #90 tablet 08/15/20 08/30/20 Rx hydrocodone 5 mg-acetaminophen 325 1 tablet PO Q4H PRN #30 tablet 08/15/20 08/30/20 Rx mg tablet calcium acetate(phosphat bind) 667 mg PO TID 08/30/20 08/30/20 History polyethylene glycol 3350 [Miralax] 17 g PO QAM PRN 08/30/20 08/30/20 History atorvastatin 20 mg PO HS 08/31/20 08/31/20 History clonazepam 0.5 mg PO BID PRN 08/31/20 08/31/20 History docusate sodium [DOK] 100 mg PO DAILY PRN 08/31/20 08/31/20 History hydrochlorothiazide 12.5 mg PO DAILY PRN 08/31/20 08/31/20 History Laboratory Tests 09/01/20 09/06/20 09/06/20 08:20 17:11 20:02 WBC RBC Hgb Hct MCV MCH MCHC RDW Plt Count MPV Sodium Potassium Chloride Carbon Dioxide Anion Gap BUN Creatinine Estim Creat Clear Calc Estimated GFR Glucose POC Capillary Glucose 162 mg/dl H mg/dl 210 mg/dl H mg/dl (65-105) (65-105) Calcium Phosphorus Albumin YAS Screen Positive A (Negative) YAS Titer 1:320 A (Negative) YAS Pattern see below YAS [place] Interp see below TY-1 Antibody <1.0 SS-A Antibody <1.0 SS-B Antibody <1.0 Sm ([place]) Antibody <1.0 WELT ROUGHER Antibody <1.0 SM/WELT ROUGHER IgG Antibody <1.0 Scl-70 Antibody <1.0 Anti-DNA Antibody 1 IU/mL IU/mL (<=4) Anti-Ribosomal Ab <1.0 Chromatin Antibody <1.0 Centromere B Antibody 2.6 H Glomerular Base Memb Ab <1.0 AI AI (<1.0) 09/07/20 09/07/20 09/07/20 07:20 07:20 12:17 WBC 12.2 K/mm3 H K/mm3 (4.5-10.0) RBC 2.69 M/mm3 L M/mm3 (4.2-5.4) Hgb 9.1 g/dL L g/dL (12.0-15.0) Hct 27.0 % L % (37.0-47.0) MCV 100.4 fl H fl (80-100) MCH 33.8 pg pg (26-34) MCHC 33.7 g/dl g/dl (32-36) RDW 14.3 % % (11.5-14.5) Plt Count 362 k/mm3 k/mm3 (150-375) MPV 10.1 fl fl (7.4-10.4) Sodium 131 mmol/L L mmol/L (137-145) Potassium 4.5 mmol/L mmol/L (3.4-5.0) Chloride 101 mmol/L mmol/L (98-107) Carbon Dioxide 23 mmol/L mmol/L (22-30) Anion Gap
[2020-09-07] MEDS: SODIUM CHLORIDE 0.9% IV 500 ML 30 ML IV CONT (13:37)
[2020-09-07] MEDS: ACETAMINOPHEN 500 MG TABLET 1000 MG PO (13:41)
--- NOTE | 2020-09-07 14:24 | PCOTNOTE ---
Attempted OT evaluation, but unable to complete as patient in surgery having a dialysis port placed. Will attempt again at another time.
--- NOTE | 2020-09-07 14:54 | PCOTNOTE ---
Attempted OT evaluation, but unable to complete as patient in surgery having a dialysis port placed. Will attempt again tomorrow.
--- NOTE | 2020-09-07 15:15 | SUR.PREOP ---
Resting and without complaints or needs.
--- NOTE | 2020-09-07 15:21 | PCPTNOTE ---
Attempted to see patient this afternoon x2 attempts, patient was out for port placement will attempt evaluation tomorrow.
--- NOTE | 2020-09-07 15:44 | WPDHPUPDATE1 ---
History and Physical Update Update Date/Time: 09/07/20 15:44 History and Physical has been reviewed, including an updated exam of the patient. There are NO changes in the patient's condition. Risks, benefits, and alternatives have been discussed and questions answered. Patient agrees to proceed with procedure.
[2020-09-07] MEDS: ceFAZolin 2 GM/D5W 50 ML 2 GM/50 ML BAG IVPB (16:04)
[2020-09-07] MEDS: LIDO 1%/EPINEPHRINE 1:100,000 50 ML VIAL INFILTRATE (16:45)
[2020-09-07] MEDS: HEPARIN SODIUM 5,000 UNITS/ML VIAL 5000 UNITS IRRIGATION (16:48)
[2020-09-07] MEDS: HEPARIN SODIUM, PORCINE 10,000 UNITS/10 ML VIAL 10000 UNITS IRRIGATION (16:52)
--- NOTE | 2020-09-07 17:21 | P.OP_ITS ---
Procedure Note - Detailed Date of procedure: 09/07/20 Pre-op diagnosis: End-stage renal disease, inadequate venous access End-stage renal disease, inadequate venous access Post-op diagnosis: same Procedure performed: Placement right internal jugular tunneled dura flow central venous catheter under fluoroscopy. Removal left IJ central venous catheter. Description of procedure: The patient was taken to surgery and IV sedation was administered. The right neck and right chest were prepped and draped. The head was turned slightly to the left. Local anesthetic was infiltrated over the right internal jugular vein in the right neck. A single puncture was used to cannulate the right internal jugular vein. A guidewire passed into the vein an on into the superior vena cava. Its position was checked with C-arm fluoroscopy and it was in good position in the vena cava. From there, I used fluoroscopy to measure the general position that the catheter would take. I marked on the skin the different counter incisions that would be needed to tunnel it from the right subclavian area to the right neck. I then infiltrated local into each of the counter incisions as well as the exit site of the guidewire. Incisions were made at each of these sites. The 36 [place] Dura Flow catheter was then tunneled retrograde from the subclavian area through each of the counter incisions and then out the incision where the guidewire was located. Serial dilators were then passed over the guidewire under fluoroscopy. Finally, the introducer and dilator with sheath was passed over the guidewire under fluoroscopy. The lauren dewire and introducer were removed. The dura flow catheter was passed into the sheath and slowly advanced into the distal superior vena cava. The sheath was then removed. I manipulated the catheter so that it would have a smooth course up through the neck with no kinks or twists. I then checked its position with C-arm fluoroscopy. It appeared to be in very good position. I then aspirated and irrigated each of the ports with heparin. Both ports flushed very easily and aspirated blood very easily. Content the catheter was in good position and would function well, I passed a final flush of heparin through each port. we then closed each of the counter incisions with subcutaneous and or subcuticular interrupted 4 0 Vicryl suture. The dura flow catheter was sutured to the skin with 3 0 nylon. The counter incisions were dressed with Exofin surgical adhesive. Tegaderm dressing was placed over the exit site of the dura flow catheter. I then went around to the left side of the neck. I exposed the sutures associated with the Enoc catheter located there. The sutures were cut, the Enoc central venous catheter was removed. Pressure was held. A dressing was placed. The patient transferred to recovery in good condition. Estimated blood loss 5 cc. Sponge and needle counts were correct x2. Anesthesia: MAC and local (0.5% Marcaine with epinephrine) Surgeon: Calixto Esquivel MD Configuration Management Specialist: Trang WEBB Estimated blood loss (mL): 5 Drains: No Packing: No Pathology: none sent Complications: None Condition: stable Disposition: PACU Findings: Catheter tip at distal SVC right atrial junction.
[2020-09-07 17:32] LABS: Glucose Point of Care 97 (65-105)
[2020-09-07] MEDS: ACETAMINOPHEN 500 MG TABLET PO (18:23)
[2020-09-07] MEDS: SEVELAMER CARBONATE 800 MG TABLET 1600 MG PO (18:43)
[2020-09-07] MEDS: DOCUSATE SODIUM 100 MG CAPSULE PO (21:39)
[2020-09-07] MEDS: HEPARIN SODIUM 5,000 UNITS/ML VIAL 5000 UNITS SUB-Q (21:39)
[2020-09-07 22:16] LABS: Glucose Point of Care 116 (65-105)
[2020-09-08] VITALS (29 sets, daily range): BP systolic 118–183; BP diastolic 38–106; PULSE 47–69; RESP 12–23; TEMP 35.7–37; O2SAT 94–99
[2020-09-08] MEDS: ACETAMINOPHEN 500 MG TABLET PO ×3 (00:41→18:24)
[2020-09-08] MEDS: cloNIDine HCL 0.1 MG TABLET PO ×2 (00:46→07:53)
[2020-09-08] MEDS: diphenhydrAMINE HCl CAP 25 MG CAPSULE PO (03:23)
[2020-09-08 04:32] LABS: Hepatitis B Core Ab Total Nonreactive (Nonreactive)
[2020-09-08 04:51] LABS: Basophils Absolute Auto 0.1 K/mm3 (0.0-0.1); Basophils Percent Auto 0.6 % (0.2-1.2); Eosinophils Absolute Auto 0.3 K/mm3 (0-0.3); Eosinophils Percent Auto 2.2 % (0-4.4); Hematocrit 26.7 % (37.0-47.0); Hemoglobin 8.8 g/dL (12.0-15.0); Immature Granulocyte Absolute 0.06 K/mm3 (0.00-0.031); Immature Granulocyte Percent A 0.5 % (0-0.5); Lymphocytes Absolute Auto 1.21 K/mm3 (0.9-3.2); Lymphocytes Percent Auto 10.4 % (18.3-44.2); Mean Corpuscular Hemoglobin 33.3 pg (26-34); Mean Corpuscular Volume 101.1 fl (80-100); Monocytes Percent Auto 8.8 % (2.6-8.5); Neutrophils Percent Auto 77.5 % (45.5-73.1); Platelet Count Result 346 k/mm3 (150-375); Red Blood Count 2.64 M/mm3 (4.2-5.4); Red Cell Distribution Width 14.9 % (11.5-14.5); White Blood Count 11.6 K/mm3 (4.5-10.0)
[2020-09-08 05:03] LABS: Alanine Aminotransferase 11 U/L (4-35); Alkaline Phosphatase 148 U/L (38-126); Anion Gap 8 mmol/L (8-16); Aspartate Amino Transferase 31 U/L (14-36); Bilirubin,Total 0.3 mg/dL (0.2-1.3); Blood Urea Nitrogen 37 mg/dL (7-17); Carbon Dioxide 21 mmol/L (22-30); Chloride 99 mmol/L (98-107); Estimated CRCL calculation 7 ml/min; Estimated Glomerular Filt Rate 6; Glucose 107 mg/dL (65-105); Magnesium 2.1 mg/dL (1.6-2.3); Phosphorus 3.9 mg/dL (2.5-4.5); Potassium 4.6 mmol/L (3.4-5.0); Sodium 128 mmol/L (137-145)
[2020-09-08] MEDS: hydrALAZINE HCL 50 MG TABLET 100 MG PO ×3 (06:09→20:38)
[2020-09-08] MEDS: cloNIDine HCL 0.2 MG TABLET PO ×3 (06:10→20:38)
[2020-09-08] MEDS: SEVELAMER CARBONATE 800 MG TABLET 1600 MG PO ×3 (07:53→17:02)
[2020-09-08] MEDS: polyethylene glycoL 3350 17 GM POWD.PACK PO (07:54)
[2020-09-08] MEDS: lisinopriL 20 MG TABLET 40 MG PO ×2 (07:54→17:02)
[2020-09-08] MEDS: NIFEdipine 30 MG TAB.ER.24 90 MG PO (07:54)
[2020-09-08] MEDS: FUROSEMIDE 80 MG TABLET PO ×2 (07:54→17:02)
[2020-09-08] MEDS: BACITRACIN OINTMENT 15 GM TUBE 1 APPLIC TOPICAL ×2 (07:55→20:38)
[2020-09-08] MEDS: NEBIVOLOL HCL 5 MG TABLET PO (07:55)
[2020-09-08] MEDS: ASPIRIN 81 MG ENTERIC TABLET PO (07:55)
[2020-09-08] MEDS: ISOSORBIDE MONONITRATE 60 MG TAB.ER.24H PO (07:55)
[2020-09-08] MEDS: DOCUSATE SODIUM 100 MG CAPSULE PO ×2 (07:56→20:38)
--- NOTE | 2020-09-08 07:56 | PM.PNCARD ---
Progress Note: A&P Assessment and Plan (1) Hypertensive urgency: Code(s): I16.0 - Hypertensive urgency Status: Acute Assessment and Plan: Currently BP is 170/85 mmHg off Nicardipine drip. But she has not taken her morning medications yet. Reviewed BP medications and she is on Amlodipine 10 mg daily, Lisinopril 40 mg BID, Clonidine changed to 0.2 mg TID, Hydralazine 100 mg PO TID, Bystolic 5 mg daily (as patient does not want to take more than 1 pill and that's what we have on formulary), and on Isosorbide mononitrate 60 mg daily. Continue to monitor. I don't have anything else to add. Encourage compliance with medications, and if BP high would encourage her to take higher dose of Bystolic. Echo done 09/05/20 to assess aortic valve shows sclerocalcification of left coronary cusp only, and shadowing from that in previous echo. No vegetations. Will sign off. Please call with any questions or change in status. (2) HLD (hyperlipidemia): Code(s): E78.5 - Hyperlipidemia, unspecified Status: Chronic Assessment and Plan: Was recently started on Atorvastatin for LDL 146. However, she does not want to be on a statin since she believes it makes her feel like a zombie . Will stop it and see if she feels better without it. If no difference, then she should be on it. (3) End stage renal disease: Code(s): N18.6 - End stage renal disease Status: Chronic Assessment and Plan: On hemodialysis. Subjective Date/time seen: 09/08/20 07:56 She did not sleep well due to uncomfortable bed. Denies chest pain or sob. Exam Const: General: cooperative, healthy appearing and comfortable Resp: Auscultation: clear to auscultation bilaterally, no crackles, no rales, no rhonchi and no wheezes Cardio: Jugular venous distension: no JVD Rate: regular rate Rhythm: regular rhythm Heart sounds: no murmurs Peripheral pulses: dorsalis pedis present GI: GI Palp: No abdominal tenderness and Yes Soft to palpation Neuro: General: confusion Extrem: Right lower extremity: no edema Left lower extremity: no edema Objective Data Vital Signs Vital Signs: Vital Signs - 24 hr 09/07/20 08:00 09/07/20 08:25 09/07/20 10:00 Temperature 98.1 F Pulse Rate 64 64 58 L Respiratory Rate 20 16 Blood Pressure 149/48 H 134/49 L Pulse Oximetry 96 97 09/07/20 10:09 09/07/20 10:10 09/07/20 10:16 Temperature Pulse Rate 58 L 62 58 L Respiratory Rate 20 Blood Pressure 134/49 L 140/49 L 134/49 L Pulse Oximetry 96 09/07/20 11:38 09/07/20 12:00 09/07/20 13:10 Temperature 97.6 F 99 F Pulse Rate 61 57 L 61 Respiratory Rate 15 24 H Blood Pressure 136/48 L 142/55 H 132/78 Pulse Oximetry 97 96 09/07/20 17:11 09/07/20 17:15 09/07/20 17:30 Temperature 97.8 F Pulse Rate 69 65 63 Respiratory Rate 17 21 H 16 Blood Pressure 101/89 136/52 L 136/48 L Pulse Oximetry 100 99 96 09/07/20 17:45 09/07/20 17:56 09/07/20 19:55 Temperature Pulse Rate 63 64 Respiratory Rate 20 13 Blood Pressure 139/50 L 135/89 Pulse Oximetry 97 98 98 09/07/20 20:00 09/07/20 22:00 09/08/20 00:00 Temperature 97.7 F 98.1 F Pulse Rate 57 L 64 63 Respiratory Rate 11 L 22 H 15 Blood Pressure 147/53 H 146/47 H 183/70 H Pulse Oximetry 95 97 95 09/08/20 00:48 09/08/20 02:00 09/08/20 04:00 Temperature 98 F Pulse Rate 58 L 53 L 69 Respiratory Rate 18 15 23 H Blood Pressure 162/54 H 176/67 H 147/56 H Pulse Oximetry 95 09/08/20 06:00 Temperature Pulse Rate 56 L Respiratory Rate 18 Blood Pressure 158/47 H Pulse Oximetry 96 Intake/Output Intake/Output: Intake & Output 09/05/20 09/06/20 09/07/20 09/08/20 23:59 23:59 23:59 23:59 Intake Total 1260 1640 1050 550 Output Total 3550 3150 100 0 Balance -2290 -1510 950 550 Meds/Results Medications: Active Medications Generic Name Dose Route Start Last Admin Trade Name Freq PRN Reason Stop Dose Admin Acetaminophen 500 mg 09/07/20
[2020-09-08] MEDS: HEPARIN SODIUM 5,000 UNITS/ML VIAL 5000 UNITS SUB-Q ×2 (07:59→20:38)
[2020-09-08 08:12] LABS: Glucose Point of Care 112 (65-105)
[2020-09-08] MEDS: hydrALAZINE HCL 20 MG/ML VIAL 10 MG IV PUSH (09:03)
--- NOTE | 2020-09-08 09:08 | WPDINTPN ---
Progress Note: A&P Assessment and Plan (1) Hypertensive urgency: Code(s): I16.0 - Hypertensive urgency Status: Acute Assessment and Plan: Patient does have a history of labile blood pressures, presented the ED on 08/30/2020 with hypertensive urgency along with nausea and vomiting -patient systolic blood pressures with 267/94, patient was given multiple doses of hydralazine despite which the blood pressures remained elevated and was started on nicardipine infusion. Nicardipine infusion weaned off and patient was transferred out of the ICU on 09/02/2020 -patient returned to the ICU on 09/05 with elevated blood pressures and requiring nicardipine infusion, patient refused to take her Bystolic on 09/04 -screen was discontinued on 09/06, with possible rebound hypertension and having to go back on the nicardipine infusion. -discuss with Nephrology on 09/07/2020, nephrology will restart clonidine and increase nifedipine. -patient currently on Lasix, hydralazine, lisinopril, nifedipine, Imdur, , Bystolic, clonidine -appreciate cardiology following the patient -OF NICARDIPINE INFUSION -renin levels are normal -aldosterone levels pending (2) Cellulitis: Qualifiers: Site of cellulitis: extremity Site of cellulitis of extremity: upper extremity Laterality: right Qualified Code(s): L03.113 - Cellulitis of right upper limb Code(s): L03.90 - Cellulitis, unspecified Status: Acute Assessment and Plan: Right hand swelling, erythema, discoloration with multiple lesions. Patient did stated that she was at her daughter's house who has pets -infectious disease and plastic surgery evaluation -likely vasculitis related or calciphylaxis per Nephrology. Vasculitis workup aspect. Complement 3 level is a bit on the lower side. -x-ray of hands bilaterally are negative for fractures or bony erosions or infection -bilateral upper extremity venous Dopplers are negative for DVT -Plastic surgery recommended Nitro-Bid ointment to fingers and lesion -patient had 1 cm skin excision right middle finge of dried tissue necrosis by plastic surgery., benign skin lesion on pathology -positive YAS, hep C negative, (3) End stage renal disease on dialysis: Code(s): N18.6 - End stage renal disease; Z99.2 - Dependence on renal dialysis Status: Acute Assessment and Plan: Significant elevation in creatinine and BUN, patient seems to be uremic given her symptoms of nausea and vomiting and anasarca with generalized swelling -follows with Dr. Harrington and was getting peritoneal dialysis before admission to the hospital. -peritoneal dialysis has been on hold for now. -dialysis catheter has been placed on 09/01 . Started hemodialysis on 09/01/2020 -Nephrology follow-up and dialysis as per nephrology. - Continue calcitriol. -tunnel dialysis catheter placed on 09/07/2020 (4) DVT prophylaxis: Code(s): Z29.9 - Encounter for prophylactic measures, unspecified Status: Acute Assessment and Plan: Heparin subcu (5) Diabetes: Code(s): E11.9 - Type 2 diabetes mellitus without complications Status: Acute Assessment and Plan: Continue sliding scale insulin Accu-Cheks Additional Plan Nutrition: Tolerating diet DVT prophylaxis: Heparin SQ Discussed with patient and her daughter Wilian and updated them with patient's condition and plan of care. I answered all questions. Code status: Full code Critical care time spent: 32 minutes This dictation may have been done utilizing a voice recognition system. Attempts have been made to correct errors. However, there may be uncorrected grammatical, spelling, and recognition errors present. Due to a high probability of clinically significant, life threatening deterioration, the patient required my highest level of preparedness to intervene emergently and I personally spent this critical care time directly and personally managing the patient. This c
[2020-09-08] MEDS: HYDROcodone/acetaminophen (*CRX) 5-325 MG TABLET 1 TAB PO ×2 (09:09→23:38)
--- NOTE | 2020-09-08 09:48 | WPDANESPN ---
Anes - Prog Note Post-Op Date/Time: 09/08/20 09:48 Cardiovascular status: other (management per ICU team) Respiratory status: normal Airway patency: baseline Mental status: baseline Post-Op hydration status: other (management per ICU team) Vital Signs: Last Vital Signs Temp 36.6 C 09/08/20 08:00 Pulse 61 09/08/20 08:15 Resp 22 H 09/08/20 08:15 BP 179/94 H 09/08/20 08:00 Pulse Ox 94 09/08/20 08:15 Pain Score (VAS): 2 I/O: Intake & Output 09/07/20 09/08/20 09/08/20 23:59 07:59 15:59 Intake Total 50 550 Output Total 0 Balance 50 550 Laboratory Tests 09/08/20 04:18 09/08/20 04:18 09/01/20 09/01/20 09/05/20 08:20 08:20 04:40 WBC RBC Hgb Hct MCV MCH MCHC RDW Plt Count MPV Immature Gran % (Auto) Neut % (Auto) Lymph % (Auto) [place] % (Auto) Eos % (Auto) Baso % (Auto) Lymph # (Auto) [place] # (Auto) Eos # (Auto) Baso # (Auto) Abs Immat Gran (auto) Absolute Neuts (auto) Absolute Nucleated RBC Nucleated RBC % Sodium Potassium Chloride Carbon Dioxide Anion Gap BUN Creatinine Estim Creat Clear Calc Estimated GFR Glucose POC Capillary Glucose Calcium Phosphorus Magnesium Total Bilirubin AST ALT Alkaline Phosphatase Total Protein Albumin Renin 1.27 YAS Screen Positive A YAS Titer 1:320 A YAS Pattern see below Hep B Core Total Ab Nonreactive 09/07/20 09/07/20 09/07/20 12:17 17:29 22:09 WBC RBC Hgb Hct MCV MCH MCHC RDW Plt Count MPV Immature Gran % (Auto) Neut % (Auto) Lymph % (Auto) [place] % (Auto) Eos % (Auto) Baso % (Auto) Lymph # (Auto) [place] # (Auto) Eos # (Auto) Baso # (Auto) Abs Immat Gran (auto) Absolute Neuts (auto) Absolute Nucleated RBC Nucleated RBC % Sodium Potassium Chloride Carbon Dioxide Anion Gap BUN Creatinine Estim Creat Clear Calc Estimated GFR Glucose POC Capillary Glucose 150 H 97 116 H Calcium Phosphorus Magnesium Total Bilirubin AST ALT Alkaline Phosphatase Total Protein Albumin Renin YAS Screen YAS Titer YAS Pattern Hep B Core Total Ab 09/08/20 09/08/20 09/08/20 04:18 04:18 08:06 WBC 11.6 H RBC 2.64 L Hgb 8.8 L Hct 26.7 L MCV 101.1 H MCH 33.3 MCHC 33.0 RDW 14.9 H Plt Count 346 MPV 10.0 Immature Gran % (Auto) 0.5 Neut % (Auto) 77.5 H Lymph % (Auto) 10.4 L [place] % (Auto) 8.8 H Eos % (Auto) 2.2 Baso % (Auto) 0.6 Lymph # (Auto) 1.21 [place] # (Auto) 1.0 H Eos # (Auto) 0.3 Baso # (Auto) 0.1 Abs Immat Gran (auto) 0.06 H Absolute Neuts (auto) 9.0 H Absolute Nucleated RBC 0.0 Nucleated RBC % 0.0 Sodium 128 L Potassium 4.6 Chloride 99 Carbon Dioxide 21 L Anion Gap 8 BUN 37 H Creatinine 7.40 H Estim Creat Clear Calc 7 Estimated GFR 6 L Glucose 107 H POC Capillary Glucose 112 H Calcium 8.0 L Phosphorus 3.9 Magnesium 2.1 Total Bilirubin 0.3 AST 31 ALT 11 Alkaline Phosphatase 148 H Total Protein 6.0 L Albumin 3.0 L Renin YAS Screen YAS Titer YAS Pattern Hep B Core Total Ab Post-procedural complaints: none Patient Feedback: Patient satisfied with anesthetic care.
--- NOTE | 2020-09-08 11:14 | PCDIET ---
ICU Rounding Note: Patient now on renal dialysis diet. Consumed 65-90% of meals on 09/06/20 and was NPO on 09/07/20 for hemodialysis cath placement. Plan for dialysis today. Last recorded weight is 77.9kg which is down from last review. Will monitor. Bowel Motility: Last documented BM on 09/04/20. Patient receiving Colace BID. Labs Reviewed: Hgb (8.8), Hct (26.7), Glu (107), BUN (37), Cr (7.4), Na (128), Alb (3.0), Theresa Ca (8.8) Meds Noted: [place], Catapres, Colace, Lasix, Hydralazine, Novolog, Imdur, Lisinopril, Bystolic, Renvela, Nifedipine Additional Notes: No pressure ulcers reported. Right finger ulcer documented, as well as dialysis cath site. Following daily in ICU rounds. Assessing/reassessing every 5 days.
[2020-09-08 12:21] LABS: Glucose Point of Care 161 (65-105)
[2020-09-08] MEDS: NITROGLYCERIN OINTMENT 1 INCH DOSE TOPICAL ×2 (12:21→13:10)
--- NOTE | 2020-09-08 14:13 | PCPTNOTE ---
Attempted PT eval. Pt having dialysis. Will try again tomorrow.
--- NOTE | 2020-09-08 15:02 | PCOTNOTE ---
Attempted OT eval. Pt having dialysis. Will try again tomorrow.
--- NOTE | 2020-09-08 16:24 | PM.IMPN ---
Progress Note: A&P Assessment and Plan (1) Severe hypertension: Code(s): I10 - Essential (primary) hypertension Status: Acute Assessment and Plan: not well controlled has improved overall continue to monitor off of nicardipine drip (2) End-stage renal disease on peritoneal dialysis: Code(s): N18.6 - End stage renal disease; Z99.2 - Dependence on renal dialysis Status: Acute Assessment and Plan: usually on peritoneal dialysis has been undergoing hemodialysis during this admission appreciate nephrology note (3) Finger lesion: Code(s): L98.9 - Disorder of the skin and subcutaneous tissue, unspecified Status: Acute Assessment and Plan: suspicion for vasculitis versus calciphylaxis awaiting biopsy results (4) Acute respiratory failure with hypoxia: Code(s): J96.01 - Acute respiratory failure with hypoxia Status: Acute Assessment and Plan: resolved (5) Cellulitis: Qualifiers: Laterality: right Site of cellulitis: extremity Site of cellulitis of extremity: upper extremity Qualified Code(s): L03.113 - Cellulitis of right upper limb Code(s): L03.90 - Cellulitis, unspecified Status: Acute Assessment and Plan: improved (6) Obstructive sleep apnea: Code(s): G47.33 - Obstructive sleep apnea (adult) (pediatric) Status: Chronic Assessment and Plan: needs a sleep study in the outpatient setting using CPAP (7) Swelling of right hand: Code(s): M79.89 - Other specified soft tissue disorders Status: Acute Assessment and Plan: improved (8) Altered mental status: Code(s): R41.82 - Altered mental status, unspecified Status: Acute Assessment and Plan: back to her baseline (9) History of 2019 novel coronavirus disease (COVID-19): Code(s): Z86.19 - Personal history of other infectious and parasitic diseases Status: Acute Assessment and Plan: loss in her lung function likely secondary to pulmonary fibrosis as a consequence of COVID-19 pneumonia supportive care Subjective Date/time seen: 09/08/20 16:24 I feel fine Review of Systems Review of Systems: Narrative: the patient denies any complaints at this moment Exam Const: General: comfortable, no acute distress, well developed, alert, awake and other ( chronically ill-looking) Nutritional Appearance: average body habitus Orientation/consciousness: patient oriented x3 HENMT: Head: normal to inspection, normocephalic and atraumatic Ears: hearing grossly normal bilaterally Face and sinus: normal facial exam Eyes: General: appearance normal, both eyes and all related structures Pupils: Equal, round and reactive pupils present EOM: EOMs intact bilaterally Neck: Neck: full ROM, no lymphadenopathy and no JVD Thyroid: thyroid normal Lymphatic: no lymphadenopathy noted Resp: Effort & Inspection: normal respiratory effort and able to speak in complete sentences Auscultation: clear to auscultation bilaterally Cardio: Jugular venous distension: no JVD Rate: regular rate Rhythm: regular rhythm Heart sounds: S1 normal heart sound present and S2 normal heart sound present GI: GI Palp: Yes Soft to palpation and Yes No hepatosplenomegaly present : General: Yes deferred Skin: Rashes: no rashes Wounds: no wounds Neuro: General: patient oriented x3 and CN's II-XI intact bilaterally Cranial nerves: Yes CN's II-XII intact bilaterally and Yes Equal, round and reactive pupils present Cognition (Neuro): normal cognition Speech: normal speech Gait exam (Neuro): Normal gait present Motor exam (neuro): 5/5 motor strength present throughout Extrem: General: normal to inspection, full ROM, no joint enlargement and no pedal edema Objective Data Vital Signs Vital Signs: Vital Signs - 24 hr 09/07/20 17:11 09/07/20 17:15 09/07/20 17:30 Temperature 97.8 F Pulse Rate 69 65 63
[2020-09-08 16:58] LABS: Glucose Point of Care 147 (65-105)
--- NOTE | 2020-09-08 17:54 | PC.NURSE ---
Patient downgraded to med/tele, transferred to 258 at 1750 report given to Cady FERRARO.
--- NOTE | 2020-09-08 18:12 | PC.NURSE ---
This patient, Rufina Saravia, was received from ICU on 09/08/20 at 1750. Patient/family oriented to unit policies and routines
[2020-09-08 20:57] LABS: Glucose Point of Care 216 (65-105)
--- NOTE | 2020-09-08 22:01 | P.PNNP_ITS ---
Progress Note: A&P Assessment and Plan (1) End stage renal disease: Code(s): N18.6 - End stage renal disease Status: Chronic Assessment and Plan: * due to for dialysis today. (2) Hypertensive urgency: Code(s): I16.0 - Hypertensive urgency Status: Acute Assessment and Plan: * Systolic jodie again yesterday. P.r.n. clonidine did not work * She is back on the nicardipine drip. * Will restart clonidine in a lower dose. * On nifedipine 90, clonidine 0.2 tid, bystolic, hydralazine and lisinopril. * Remove more fluid today. (3) Altered mental status: Code(s): R41.82 - Altered mental status, unspecified Status: Acute Assessment and Plan: * resolved (4) Swelling of right hand: Code(s): M79.89 - Other specified soft tissue disorders Status: Acute Assessment and Plan: * initially thought to be cellulitis but less likely - Infectious Disease and Plastic Surgery assessment noted - no improvement with previous antibiotic therapy * suspicion falls on possible vasculitis versus calciphlaxis * Phosphorus level is notoriously high in her. * we discussed how good her phos is in the hospital when geting her binders and on a diet, differences could be her diet or binder compliance or even just better dialysis in the hospital. (5) Anemia: Code(s): D64.9 - Anemia, unspecified Status: Chronic Assessment and Plan: * likely due to ESRD and acute illness * Hold off on the EPO for now due to the variable blood pressure. * follow hemodynamics (6) Renal osteodystrophy: Code(s): N25.0 - Renal osteodystrophy Status: Chronic Assessment and Plan: * phosphorus is normal now. * stop calcium based binders given concerns for calciphylaxis * PTH was stable by outpatient labs and is only 209 here. * She does not need calcitriol or Sensipar currently (7) Diabetes: Code(s): E11.9 - Type 2 diabetes mellitus without complications Status: Acute Assessment and Plan: * follow accuchecks * on SSI Subjective Date/time seen: 09/08/20 22:01 Interval history: Rufina feels better today BP is better today off nicardipine. Exam Narrative: Exam Narrative: General: WD/WN female in NAD Heart: normal S1 and S2; no rub or gallop Lungs: Rare crackles at the bases. Abdomen: soft, nontender, nondistended, positive bowel sounds Extremities: no cyanosis or clubbing; trace edema Skin: finger lesions/right hand edema noted. She has bandages on fingers 3 and 4. Objective Data Vital Signs Vital Signs: Vital Signs - 24 hr 09/08/20 00:00 09/08/20 00:48 09/08/20 02:00 Temperature 36.7 C Pulse Rate 63 58 L 53 L Respiratory Rate 15 18 15 Blood Pressure 183/70 H 162/54 H 176/67 H Pulse Oximetry 95 09/08/20 04:00 09/08/20 06:00 09/08/20 07:55 Temperature 36.6 C Pulse Rate 69 56 L 57 L Respiratory Rate 23 H 18 Blood Pressure 147/56 H 158/47 H Pulse Oximetry 95 96 09/08/20 08:00 09/08/20 08:15 09/08/20 10:00 Temperature 36.6 C Pulse Rate 55 L 61 56 L Respiratory Rate 22 H 22 H 16 Blood Pressure 179/94 H 152/69 H Pulse Oximetry 94 94 94 09/08/20 12:00 09/08/20
--- NOTE | 2020-09-08 22:01 | PM.PNNEP ---
Progress Note: A&P Assessment and Plan (1) End stage renal disease: Code(s): N18.6 - End stage renal disease Status: Chronic Assessment and Plan: due to for dialysis today. (2) Hypertensive urgency: Code(s): I16.0 - Hypertensive urgency Status: Acute Assessment and Plan: Systolic jodie again yesterday. P.r.n. clonidine did not work She is back on the nicardipine drip. Will restart clonidine in a lower dose. On nifedipine 90, clonidine 0.2 tid, bystolic, hydralazine and lisinopril. Remove more fluid today. (3) Altered mental status: Code(s): R41.82 - Altered mental status, unspecified Status: Acute Assessment and Plan: resolved (4) Swelling of right hand: Code(s): M79.89 - Other specified soft tissue disorders Status: Acute Assessment and Plan: initially thought to be cellulitis but less likely - Infectious Disease and Plastic Surgery assessment noted - no improvement with previous antibiotic therapy suspicion falls on possible vasculitis versus calciphlaxis Phosphorus level is notoriously high in her. we discussed how good her phos is in the hospital when geting her binders and on a diet, differences could be her diet or binder compliance or even just better dialysis in the hospital. (5) Anemia: Code(s): D64.9 - Anemia, unspecified Status: Chronic Assessment and Plan: likely due to ESRD and acute illness Hold off on the EPO for now due to the variable blood pressure. follow hemodynamics (6) Renal osteodystrophy: Code(s): N25.0 - Renal osteodystrophy Status: Chronic Assessment and Plan: phosphorus is normal now. stop calcium based binders given concerns for calciphylaxis PTH was stable by outpatient labs and is only 209 here. She does not need calcitriol or Sensipar currently (7) Diabetes: Code(s): E11.9 - Type 2 diabetes mellitus without complications Status: Acute Assessment and Plan: follow accuchecks on SSI Subjective Date/time seen: 09/08/20 22:01 Interval history: Rufina feels better today BP is better today off nicardipine. Exam Narrative: Exam Narrative: General: WD/WN female in NAD Heart: normal S1 and S2; no rub or gallop Lungs: Rare crackles at the bases. Abdomen: soft, nontender, nondistended, positive bowel sounds Extremities: no cyanosis or clubbing; trace edema Skin: finger lesions/right hand edema noted. She has bandages on fingers 3 and 4. Objective Data Vital Signs Vital Signs: Vital Signs - 24 hr 09/08/20 00:00 09/08/20 00:48 09/08/20 02:00 Temperature 36.7 C Pulse Rate 63 58 L 53 L Respiratory Rate 15 18 15 Blood Pressure 183/70 H 162/54 H 176/67 H Pulse Oximetry 95 09/08/20 04:00 09/08/20 06:00 09/08/20 07:55 Temperature 36.6 C Pulse Rate 69 56 L 57 L Respiratory Rate 23 H 18 Blood Pressure 147/56 H 158/47 H Pulse Oximetry 95 96 09/08/20 08:00 09/08/20 08:15 09/08/20 10:00 Temperature 36.6 C Pulse Rate 55 L 61 56 L Respiratory Rate 22 H 22 H 16 Blood Pressure 179/94 H 152/69 H Pulse Oximetry 94 94 94 09/08/20 12:00 09/08/20 14:10 09/08/20 14:18 Temperature 36.6 C 36.4 C Pulse Rate 51 L 56 L 50 L Respiratory Rate 14 21 H Blood Pressure 143/47 H 167/58 H 147/58 H Pulse Oximetry 94 09/08/20 14:30 09/08/20 14:45 09/08/20 15:00 Temperature Pulse Rate 50 L 47 L 48 L Respiratory Rate Blood Pressure 146/58 H 144/62 H 162/60 H Pulse Oximetry 09/08/20 15:15 09/08/20 15:30 09/08/20 15:45 Temperature Pulse Rate 47 L 49 L 47 L Respiratory Rate Blood Pressure 118/56 L 125/58 L 149/67 H Pulse Oximetry 09/08/20 16:00 09/08/20 16:15 09/08/20 16:32 Temperature Pulse Rate 47 L 48 L 49 L Respiratory Rate 13 Blood Pressure 144/60 H 144/63 H 135/60 Pulse Oximetry 96 09/08/20 16:45 03
[2020-09-09] VITALS (10 sets, daily range): BP systolic 150–184; BP diastolic 48–58; PULSE 47–62; RESP 14–19; TEMP 36.1–36.7; O2SAT 97–100
[2020-09-09 05:52] LABS: Albumin Level 3.1 g/dL (3.5-5.1); Anion Gap 7 mmol/L (8-16); Blood Urea Nitrogen 23 mg/dL (7-17); Calcium 8.1 mg/dL (8.4-10.2); Carbon Dioxide 22 mmol/L (22-30); Chloride 102 mmol/L (98-107); Estimated CRCL calculation 10 ml/min; Estimated Glomerular Filt Rate 8; Glucose 115 mg/dL (65-105); Phosphorus 3.5 mg/dL (2.5-4.5); Potassium 4.2 mmol/L (3.4-5.0); Sodium 131 mmol/L (137-145)
[2020-09-09] MEDS: cloNIDine HCL 0.2 MG TABLET PO ×3 (05:52→21:50)
[2020-09-09] MEDS: hydrALAZINE HCL 50 MG TABLET 100 MG PO ×3 (05:52→21:49)
[2020-09-09 07:47] LABS: Glucose Point of Care 148 (65-105)
[2020-09-09] MEDS: SEVELAMER CARBONATE 800 MG TABLET 1600 MG PO ×3 (08:04→17:04)
[2020-09-09] MEDS: polyethylene glycoL 3350 17 GM POWD.PACK PO ×2 (08:06→19:36)
[2020-09-09] MEDS: DOCUSATE SODIUM 100 MG CAPSULE PO ×2 (08:08→21:49)
[2020-09-09] MEDS: NIFEdipine 30 MG TAB.ER.24 90 MG PO (08:08)
[2020-09-09] MEDS: FUROSEMIDE 80 MG TABLET PO ×2 (08:10→17:03)
[2020-09-09] MEDS: BACITRACIN OINTMENT 15 GM TUBE 1 APPLIC TOPICAL ×2 (08:10→21:50)
[2020-09-09] MEDS: ASPIRIN 81 MG ENTERIC TABLET PO (08:13)
[2020-09-09] MEDS: ISOSORBIDE MONONITRATE 60 MG TAB.ER.24H PO (08:15)
[2020-09-09] MEDS: lisinopriL 20 MG TABLET 40 MG PO ×2 (08:16→17:03)
[2020-09-09] MEDS: NEBIVOLOL HCL 5 MG TABLET PO (08:17)
[2020-09-09] MEDS: NITROGLYCERIN OINTMENT 1 INCH DOSE TOPICAL ×2 (08:27→17:03)
[2020-09-09] MEDS: HEPARIN SODIUM 5,000 UNITS/ML VIAL 5000 UNITS SUB-Q ×2 (08:27→21:50)
--- NOTE | 2020-09-09 09:24 | P.PNNP_ITS ---
Progress Note: A&P Assessment and Plan (1) End stage renal disease: Code(s): N18.6 - End stage renal disease Status: Chronic Assessment and Plan: * due to for dialysis today. (2) Hypertensive urgency: Code(s): I16.0 - Hypertensive urgency Status: Acute Assessment and Plan: * Systolic 118 to 180 in the last 24 h. just now got 153 per staff.. * On nifedipine 90, clonidine 0.2 tid, bystolic 5 daily, hydralazine 100q8, and lisinopril 40 bid. * Removed more fluid yesterday. * continue lasix 80 bid. * change nifedipine to 60 bid starting tomorrow. * trying to get off combo of clonidine and beta meliza but bp barely controlled. (3) Altered mental status: Code(s): R41.82 - Altered mental status, unspecified Status: Acute Assessment and Plan: * resolved (4) Swelling of right hand: Code(s): M79.89 - Other specified soft tissue disorders Status: Acute Assessment and Plan: * initially thought to be cellulitis but less likely - Infectious Disease and Plastic Surgery assessment noted - no improvement with previous antibiotic therapy * suspicion falls on possible vasculitis versus calciphlaxis * Phosphorus level is normal now with diet and sevelamer 1600 w meals. (5) Anemia: Code(s): D64.9 - Anemia, unspecified Status: Chronic Assessment and Plan: * likely due to ESRD and acute illness * since bp seems better will restart epo. will give one dose of epo today sq * hb ranging around 9 (6) Renal osteodystrophy: Code(s): N25.0 - Renal osteodystrophy Status: Chronic Assessment and Plan: * phosphorus is normal now. * stopped calcium based binders given concerns for calciphylaxis * PTH was stable by outpatient labs and is only 209 here. * She does not need calcitriol or Sensipar currently (7) Diabetes: Code(s): E11.9 - Type 2 diabetes mellitus without complications Status: Acute Assessment and Plan: * follow accuchecks * on SSI Subjective Date/time seen: 09/09/20 09:24 Interval history: Rufina feels better today out of the ICU. sitting up in a chair. feels okay Exam Narrative: Exam Narrative: General: WD/WN female in NAD Heart: normal S1 and S2; no rub Lungs: fairly clear. Abdomen: soft, nontender, nondistended, positive bowel sounds Extremities: no cyanosis or clubbing; trace edema Skin: finger lesions/right hand edema noted. She has bandages on fingers 3 and 4. Objective Data Vital Signs Vital Signs: Vital Signs - 24 hr 09/08/20 10:00 09/08/20 12:00 09/08/20 14:10 Temperature 36.6 C 36.4 C Pulse Rate 56 L 51 L 56 L Respiratory Rate 16 14 21 H Blood Pressure 152/69 H 143/47 H 167/58 H Pulse Oximetry 94 94 09/08/20 14:18 09/08/20 14:30 09/08/20 14:45 Temperature Pulse Rate 50 L 50 L 47 L Respiratory Rate Blood Pressure 147/58 H 146/58 H 144/62 H Pulse Oximetry 09/08/20 15:00 09/08/20 15:15 09/08/20 15:30 Temperature Pulse Rate 48 L 47 L 49 L Respiratory Rate Blood Pressure 162/60 H 118/56 L 125/58 L Pulse Oximetry 09/08/20 15:45 09/08/20 16:00 09/08/20 16:15 Temperature
--- NOTE | 2020-09-09 09:24 | PM.PNNEP ---
Progress Note: A&P Assessment and Plan (1) End stage renal disease: Code(s): N18.6 - End stage renal disease Status: Chronic Assessment and Plan: due to for dialysis today. (2) Hypertensive urgency: Code(s): I16.0 - Hypertensive urgency Status: Acute Assessment and Plan: Systolic 118 to 180 in the last 24 h. just now got 153 per staff.. On nifedipine 90, clonidine 0.2 tid, bystolic 5 daily, hydralazine 100q8, and lisinopril 40 bid. Removed more fluid yesterday. continue lasix 80 bid. change nifedipine to 60 bid starting tomorrow. trying to get off combo of clonidine and beta meliza but bp barely controlled. (3) Altered mental status: Code(s): R41.82 - Altered mental status, unspecified Status: Acute Assessment and Plan: resolved (4) Swelling of right hand: Code(s): M79.89 - Other specified soft tissue disorders Status: Acute Assessment and Plan: initially thought to be cellulitis but less likely - Infectious Disease and Plastic Surgery assessment noted - no improvement with previous antibiotic therapy suspicion falls on possible vasculitis versus calciphlaxis Phosphorus level is normal now with diet and sevelamer 1600 w meals. (5) Anemia: Code(s): D64.9 - Anemia, unspecified Status: Chronic Assessment and Plan: likely due to ESRD and acute illness since bp seems better will restart epo. will give one dose of epo today sq hb ranging around 9 (6) Renal osteodystrophy: Code(s): N25.0 - Renal osteodystrophy Status: Chronic Assessment and Plan: phosphorus is normal now. stopped calcium based binders given concerns for calciphylaxis PTH was stable by outpatient labs and is only 209 here. She does not need calcitriol or Sensipar currently (7) Diabetes: Code(s): E11.9 - Type 2 diabetes mellitus without complications Status: Acute Assessment and Plan: follow accuchecks on SSI Subjective Date/time seen: 09/09/20 09:24 Interval history: Rufina feels better today out of the ICU. sitting up in a chair. feels okay Exam Narrative: Exam Narrative: General: WD/WN female in NAD Heart: normal S1 and S2; no rub Lungs: fairly clear. Abdomen: soft, nontender, nondistended, positive bowel sounds Extremities: no cyanosis or clubbing; trace edema Skin: finger lesions/right hand edema noted. She has bandages on fingers 3 and 4. Objective Data Vital Signs Vital Signs: Vital Signs - 24 hr 09/08/20 10:00 09/08/20 12:00 09/08/20 14:10 Temperature 36.6 C 36.4 C Pulse Rate 56 L 51 L 56 L Respiratory Rate 16 14 21 H Blood Pressure 152/69 H 143/47 H 167/58 H Pulse Oximetry 94 94 09/08/20 14:18 09/08/20 14:30 09/08/20 14:45 Temperature Pulse Rate 50 L 50 L 47 L Respiratory Rate Blood Pressure 147/58 H 146/58 H 144/62 H Pulse Oximetry 09/08/20 15:00 09/08/20 15:15 09/08/20 15:30 Temperature Pulse Rate 48 L 47 L 49 L Respiratory Rate Blood Pressure 162/60 H 118/56 L 125/58 L Pulse Oximetry 09/08/20 15:45 09/08/20 16:00 09/08/20 16:15 Temperature Pulse Rate 47 L 47 L 48 L Respiratory Rate 13 Blood Pressure 149/67 H 144/60 H 144/63 H Pulse Oximetry 96 09/08/20 16:32 09/08/20 16:45 09/08/20 17:00 Temperature Pulse Rate 49 L 51 L 51 L Respiratory Rate Blood Pressure 135/60 127/106 H 131/65 Pulse Oximetry 09/08/20 17:19 09/08/20 17:36 09/08/20 20:00 Temperature 36.6 C 36.6 C Pulse Rate 53 L 57 L 56 L Respiratory Rate 18 14 Blood Pressure 119/64 162/63 H 146/66 H Pulse Oximetry 99 09/08/20 22:25 09/08/20 23:50 09/09/20 00:00 Temperature 37.0 C Pulse Rate 60 61 54 L Respiratory Rate 12 14 Blood Pressure 157/38 H Pulse Oximetry 94 98 09/09/20 02:32 09/09/20 04:00 09/09/20 08:17 Temperature 36.6 C Pulse Rate 57 L 56
[2020-09-09] MEDS: cloNIDine HCL 0.1 MG TABLET PO (10:26)
[2020-09-09] MEDS: NIFEdipine 30 MG TAB.ER.24 PO (10:27)
[2020-09-09] MEDS: ACETAMINOPHEN 500 MG TABLET PO (10:35)
[2020-09-09 12:53] LABS: Glucose Point of Care 116 (65-105)
[2020-09-09] MEDS: HYDROcodone/acetaminophen (*CRX) 5-325 MG TABLET 1 TAB PO ×2 (14:40→21:49)
[2020-09-09 17:01] LABS: Glucose Point of Care 182 (65-105)
--- NOTE | 2020-09-09 17:03 | PM.IMPN ---
Progress Note: A&P Assessment and Plan (1) Hypertensive urgency, malignant: Code(s): I16.0 - Hypertensive urgency Status: Acute Assessment and Plan: Patient admitted to ICU on 08/30 for hypertensive urgency and started on nicardipine. She improved and was able to be transferred to the IMU on 09/02. Patient returned to the ICU 09/05 due to persistently elevated blood pressures recalcitrant to treatment. BP better controlled and able to come off of the nicardipine drip on AM 09/06 but back on the drip overnight. BP medications being adjusted. Drip stopped 09/07. Currently on Lasix, Imdur, Bystolic, Nifedipine, lisinopril, NTP, hydralazine and Clonidine. 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 She has been refusing medications intermittently probably causing the rebound HTN. Continue the same. (2) Obstructive sleep apnea: Code(s): G47.33 - Obstructive sleep apnea (adult) (pediatric) Status: Chronic Assessment and Plan: Apnea link was completed . She did have an apnea link on 08/02/20 showing AHI 5.3 and RI 8.5 but now results showing AHI 14.5 and RI 16.3. She has lost 60# since COVID she states. Will need outpatient sleep study. We started auto-PAP here and she is tolerating well. (3) Cellulitis: Qualifiers: Laterality: right Site of cellulitis: extremity Site of cellulitis of extremity: upper extremity Qualified Code(s): L03.113 - Cellulitis of right upper limb Code(s): L03.90 - Cellulitis, unspecified Status: Acute Assessment and Plan: Patient with ischemic changes of her hands. 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 Echocardiogram in May did show possible vegetation on the aortic valve but repeat Echo here showing no vegetations seen. Blood cultures from 08/31/2020 are negative. Plastic surgery consulted and now s/p finger biopsy 09/03. Pathology showing benign acute ulcer. YAS positive 1:320 nuclear/centromere - possibly Crest. HepC negative. Cryo pending. Consider steroid use. (4) End stage renal disease on dialysis: Code(s): N18.6 - End stage renal disease; Z99.2 - Dependence on renal dialysis Status: Acute Assessment and Plan: Patient has ESRD on PD at home. Here, she needed more aggressive dialysis so a HD catheter placed 09/01. She has undergone HD on 09/01 (1.2L), 09/02 (3L) and 09/04 (4L). UF performed 09/05 (3.3L) and HD again 09/06 (3L). Right IJ tunneled catheter placed on 09/07/20. HD yesterday with 3.2L removed. Appreciate nephrology and Surgery input. (5) DVT prophylaxis: Code(s): Z29.9 - Encounter for prophylactic measures, unspecified Status: Acute Assessment and Plan: Heparin Subjective Date/time seen: 09/09/20 17:03 Interval history: 60yo female with ESRD on peritoneal dialysis, insulin-dependent diabetes mellitus, and difficult to control hypertension who presented to the ER on 08/30/2020 with a chief complaint of pain and swelling in her fingers and found to be in hypertensive urgency. She was started on nicardipine infusion transfer the ICU for further management. She improved and was able to be transferred to the IMU on 09/02/2020. Patient did undergo a skin biopsy of right finger on 09/03/2020. Having increased pain in the right fingers. Still using the Nitropaste to the fingers. Slept okay. Tolerated the CPAP. No CP or SOB. Up walking in the room. No pain at the tunnelled cath site. Exam Narrative: Exam Narrative: AF 97.0 154/58 54 16 100% ra Gen - NARD sitting up at the side of the bed Neck - right upper chest tunnelled catheter in place; incisions are clean, dry and intact Chest - CTA bilaterally, nml RR CV - RRR S1/S2; telemetry showing no significant dysrhythmias Abd - Soft, NT/ND, Positive BS Ext - trace pedal edema Neuro - Nml mood and affect. Skin - Warm and dry. Right 3rd and
[2020-09-09 22:07] LABS: Glucose Point of Care 168 (65-105)
[2020-09-10] VITALS (11 sets, daily range): BP systolic 145–195; BP diastolic 52–75; PULSE 50–69; RESP 16–21; TEMP 36.2–36.6; O2SAT 96–100
[2020-09-10] MEDS: hydrALAZINE HCL 50 MG TABLET 100 MG PO ×3 (05:19→22:09)
[2020-09-10] MEDS: HYDROcodone/acetaminophen (*CRX) 5-325 MG TABLET 1 TAB PO (05:19)
[2020-09-10] MEDS: cloNIDine HCL 0.2 MG TABLET PO (05:19)
[2020-09-10] MEDS: polyethylene glycoL 3350 17 GM POWD.PACK PO ×2 (05:24→08:10)
[2020-09-10 06:09] LABS: Anion Gap 8 mmol/L (8-16); Blood Urea Nitrogen 39 mg/dL (7-17); Calcium 7.6 mg/dL (8.4-10.2); Carbon Dioxide 22 mmol/L (22-30); Chloride 99 mmol/L (98-107); Estimated CRCL calculation 8 ml/min; Estimated Glomerular Filt Rate 6; Glucose 129 mg/dL (65-105); Phosphorus 3.9 mg/dL (2.5-4.5); Potassium 4.4 mmol/L (3.4-5.0); Sodium 129 mmol/L (137-145)
[2020-09-10 06:49] LABS: Thyroid Stimulating Hormone Reflex 0.852 uIU/mL (0.465-4.68)
[2020-09-10 06:53] LABS: Folic Acid 7.4 ng/mL (2.76->20)
[2020-09-10] MEDS: HEPARIN SODIUM 5,000 UNITS/ML VIAL 5000 UNITS SUB-Q ×2 (08:09→20:27)
[2020-09-10] MEDS: SEVELAMER CARBONATE 800 MG TABLET 1600 MG PO ×3 (08:09→17:02)
[2020-09-10] MEDS: DOCUSATE SODIUM 100 MG CAPSULE PO ×2 (08:09→20:27)
[2020-09-10] MEDS: BACITRACIN OINTMENT 15 GM TUBE 1 APPLIC TOPICAL ×2 (08:10→20:28)
[2020-09-10] MEDS: ISOSORBIDE MONONITRATE 60 MG TAB.ER.24H PO (08:10)
[2020-09-10] MEDS: lisinopriL 20 MG TABLET 40 MG PO ×2 (08:12→17:02)
[2020-09-10] MEDS: ASPIRIN 81 MG ENTERIC TABLET PO (08:12)
[2020-09-10] MEDS: FUROSEMIDE 80 MG TABLET PO ×2 (08:12→17:03)
[2020-09-10] MEDS: NITROGLYCERIN OINTMENT 1 INCH DOSE TOPICAL ×2 (08:13→17:02)
[2020-09-10] MEDS: NEBIVOLOL HCL 5 MG TABLET PO (08:13)
[2020-09-10 08:19] LABS: Glucose Point of Care 110 (65-105)
[2020-09-10] MEDS: NIFEdipine 30 MG TAB.ER.24 120 MG PO (09:23)
--- NOTE | 2020-09-10 10:13 | P.PNNP_ITS ---
Progress Note: A&P Assessment and Plan (1) End stage renal disease: Code(s): N18.6 - End stage renal disease Status: Chronic Assessment and Plan: * due to for dialysis today. (2) Hypertensive urgency: Code(s): I16.0 - Hypertensive urgency Status: Acute Assessment and Plan: * Systolic mostly in the 120-160 range. Once it was above that. * On nifedipine 120 (starting today), clonidine 0.2 tid, bystolic 5 daily, hydralazine 100q8, and lisinopril 40 bid. * Will wean clonidine to0.1mg 3 times a day * Removed more fluid yesterday. * continue lasix 80 bid. * trying to get off combo of clonidine and beta meliza but bp barely controlled. Increase nifedipine to try to wean the clonidine more. (3) Altered mental status: Code(s): R41.82 - Altered mental status, unspecified Status: Acute Assessment and Plan: * resolved (4) Swelling of right hand: Code(s): M79.89 - Other specified soft tissue disorders Status: Acute Assessment and Plan: * initially thought to be cellulitis but less likely - Infectious Disease and Plastic Surgery assessment noted - no improvement with previous antibiotic therapy * suspicion falls on possible vasculitis versus calciphlaxis * Phosphorus level is normal now with diet and sevelamer 1600 w meals. (5) Anemia: Code(s): D64.9 - Anemia, unspecified Status: Chronic Assessment and Plan: * likely due to ESRD and acute illness * since bp seems better will restart epo. will give one dose of epo today sq * hb ranging around 9 (6) Renal osteodystrophy: Code(s): N25.0 - Renal osteodystrophy Status: Chronic Assessment and Plan: * phosphorus is normal now. * stopped calcium based binders given concerns for calciphylaxis * PTH was stable by outpatient labs and is only 209 here. * She does not need calcitriol or Sensipar currently (7) Diabetes: Code(s): E11.9 - Type 2 diabetes mellitus without complications Status: Acute Assessment and Plan: * follow accuchecks * on SSI Subjective Date/time seen: 09/10/20 10:13 Interval history: Rufina feels better today sitting up in a chair. feels okay She says that she gets a runny nose and hoarse voice while on dialysis. One time she had a spot in her left eye on dialysis but it went away after they stopped Eating okay. Bowels okay. Review of Systems Cardiovascular: Cardiovascular: Reports no additional cardiovascular complaints Respiratory: Respiratory: Reports no additional respiratory complaints Gastrointestinal: Gastrointestinal: Reports no additional gastrointestinal co mplaints Genitourinary: Genitourinary: Reports no additional female genitourinary complaints Exam Narrative: Exam Narrative: General: WD/WN female in NAD Heart: normal S1 and S2; no rub Lungs: fairly clear. Abdomen: BS+ nontender Extremities: no cyanosis or clubbing; trace edema Skin: finger lesions/right hand edema noted. She has bandages on fingers 3 and 4. Objective Data Vital Signs Vital Signs: Vital Signs - 24 hr 09/09/20 12:00 09/09/20 16:00 09/09/20 20:00 Temperature 36.1 C L 36.3 C L 36.7 C Pulse Rate 47 L 59 L 56 L Respiratory Rate 16 16 16 Blood Pressure 154/58 H 150/50 H 169/56 H Pulse Oximetry 100
--- NOTE | 2020-09-10 10:13 | PM.PNNEP ---
Progress Note: A&P Assessment and Plan (1) End stage renal disease: Code(s): N18.6 - End stage renal disease Status: Chronic Assessment and Plan: due to for dialysis today. (2) Hypertensive urgency: Code(s): I16.0 - Hypertensive urgency Status: Acute Assessment and Plan: Systolic mostly in the 120-160 range. Once it was above that. On nifedipine 120 (starting today), clonidine 0.2 tid, bystolic 5 daily, hydralazine 100q8, and lisinopril 40 bid. Will wean clonidine to0.1mg 3 times a day Removed more fluid yesterday. continue lasix 80 bid. trying to get off combo of clonidine and beta meliza but bp barely controlled. Increase nifedipine to try to wean the clonidine more. (3) Altered mental status: Code(s): R41.82 - Altered mental status, unspecified Status: Acute Assessment and Plan: resolved (4) Swelling of right hand: Code(s): M79.89 - Other specified soft tissue disorders Status: Acute Assessment and Plan: initially thought to be cellulitis but less likely - Infectious Disease and Plastic Surgery assessment noted - no improvement with previous antibiotic therapy suspicion falls on possible vasculitis versus calciphlaxis Phosphorus level is normal now with diet and sevelamer 1600 w meals. (5) Anemia: Code(s): D64.9 - Anemia, unspecified Status: Chronic Assessment and Plan: likely due to ESRD and acute illness since bp seems better will restart epo. will give one dose of epo today sq hb ranging around 9 (6) Renal osteodystrophy: Code(s): N25.0 - Renal osteodystrophy Status: Chronic Assessment and Plan: phosphorus is normal now. stopped calcium based binders given concerns for calciphylaxis PTH was stable by outpatient labs and is only 209 here. She does not need calcitriol or Sensipar currently (7) Diabetes: Code(s): E11.9 - Type 2 diabetes mellitus without complications Status: Acute Assessment and Plan: follow accuchecks on SSI Subjective Date/time seen: 09/10/20 10:13 Interval history: Rufina feels better today sitting up in a chair. feels okay She says that she gets a runny nose and hoarse voice while on dialysis. One time she had a spot in her left eye on dialysis but it went away after they stopped Eating okay. Bowels okay. Review of Systems Cardiovascular: Cardiovascular: Reports no additional cardiovascular complaints Respiratory: Respiratory: Reports no additional respiratory complaints Gastrointestinal: Gastrointestinal: Reports no additional gastrointestinal complaints Genitourinary: Genitourinary: Reports no additional female genitourinary complaints Exam Narrative: Exam Narrative: General: WD/WN female in NAD Heart: normal S1 and S2; no rub Lungs: fairly clear. Abdomen: BS+ nontender Extremities: no cyanosis or clubbing; trace edema Skin: finger lesions/right hand edema noted. She has bandages on fingers 3 and 4. Objective Data Vital Signs Vital Signs: Vital Signs - 24 hr 09/09/20 12:00 09/09/20 16:00 09/09/20 20:00 Temperature 36.1 C L 36.3 C L 36.7 C Pulse Rate 47 L 59 L 56 L Respiratory Rate 16 16 16 Blood Pressure 154/58 H 150/50 H 169/56 H Pulse Oximetry 100 100 97 09/09/20 22:15 09/10/20 00:00 09/10/20 02:15 Temperature 36.6 C Pulse Rate 61 59 L 64 Respiratory Rate 19 18 16 Blood Pressure 195/52 H Pulse Oximetry 98 96 98 09/10/20 04:00 09/10/20 08:13 09/10/20 09:59 Temperature 36.4 C L 36.6 C Pulse Rate 52 L 58 L 54 L Respiratory Rate 16 16 Blood Pressure 151/53 H 145/56 H Pulse Oximetry 100 99 Intake/Output Intake/Output: Intake & Output 09/07/20 09/08/20 09/09/20 09/10/20 23:59 23:59 23:59 23:59 Intake Total 1050 1510 1320 240 Output Total 100 3200 200 Balance 950 -1690 1120 240 Meds/Results Medications: A
[2020-09-10 12:44] LABS: Glucose Point of Care 161 (65-105)
--- NOTE | 2020-09-10 12:46 | PM.IMPN ---
Progress Note: A&P Assessment and Plan (1) Hypertensive urgency, malignant: Code(s): I16.0 - Hypertensive urgency Status: Acute Assessment and Plan: Patient admitted to ICU on 08/30 for hypertensive urgency and started on nicardipine. She improved and was able to be transferred to the IMU on 09/02. Patient returned to the ICU 09/05 due to persistently elevated blood pressures recalcitrant to treatment. BP better controlled and able to come off of the nicardipine drip on AM 09/06 but back on the drip overnight. BP medications were adjusted. Drip stopped 09/07. Currently on Lasix, Imdur, Bystolic, Nifedipine, lisinopril, NTP, hydralazine and Clonidine. 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 She has been refusing medications intermittently probably causing the rebound HTN. BP better controlled. Continue the same. (2) Obstructive sleep apnea: Code(s): G47.33 - Obstructive sleep apnea (adult) (pediatric) Status: Chronic Assessment and Plan: Apnea link was completed . She did have an apnea link on 08/02/20 showing AHI 5.3 and RI 8.5 but now results showing AHI 14.5 and RI 16.3. She has lost 60# since COVID she states. Will need outpatient sleep study. We started auto-PAP here and she is tolerating well. Arrange for home NIV. (3) Cellulitis: Qualifiers: Laterality: right Site of cellulitis: extremity Site of cellulitis of extremity: upper extremity Qualified Code(s): L03.113 - Cellulitis of right upper limb Code(s): L03.90 - Cellulitis, unspecified Status: Acute Assessment and Plan: Patient with ischemic changes of her hands. 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 Echo in May did show possible vegetation on the aortic valve but repeat Echo here showing no vegetations seen. Blood cultures from 08/31/2020 are negative. Plastic surgery consulted and now s/p finger biopsy 09/03. Pathology showing benign acute ulcer. YAS positive 1:320 nuclear/centromere - possibly Crest. HepC negative. Cryo pending. Consider steroid use. (4) End stage renal disease on dialysis: Code(s): N18.6 - End stage renal disease; Z99.2 - Dependence on renal dialysis Status: Acute Assessment and Plan: Patient has ESRD on PD at home. Here, she needed more aggressive dialysis so a HD catheter placed 09/01. She has undergone HD on 09/01 (1.2L), 09/02 (3L) and 09/04 (4L). UF performed 09/05 (3.3L) and HD again 09/06 (3L). Right IJ tunneled catheter placed on 09/07/20. HD 09/08 with 3.2L removed. Appreciate nephrology and Surgery input. Arrange for outpatient HD. (5) DVT prophylaxis: Code(s): Z29.9 - Encounter for prophylactic measures, unspecified Status: Acute Assessment and Plan: Heparin Subjective Date/time seen: 09/10/20 12:46 Interval history: 60yo female with ESRD on peritoneal dialysis, insulin-dependent diabetes mellitus, and difficult to control hypertension who presented to the ER on 08/30/2020 with a chief complaint of pain and swelling in her fingers and found to be in hypertensive urgency. She was started on nicardipine infusion transfer the ICU for further management. She improved and was able to be transferred to the IMU on 09/02/2020. Patient did undergo a skin biopsy of right finger on 09/03/2020. She returned to ICU on 09/05 for persistent HTN again requiring the drip but ultimately did well and transferred out on 09/07 Eating okay. Slept well. No CP or SOB. Exam Narrative: Exam Narrative: AF 97.9 145/56 50 16 99% ra Gen - NARD sitting up at the side of the bed Neck - right upper chest tunnelled catheter in place; incisions are clean, dry and intact Chest - CTA bilaterally, nml RR CV - RRR S1/S2; telemetry showing no significant dysrhythmias Abd - Soft, NT/ND, Positive BS Ext - trace pedal edema Neuro - Nml mood and affect. Skin - War
[2020-09-10] MEDS: cloNIDine HCL 0.1 MG TABLET PO ×2 (13:27→22:09)
[2020-09-10] MEDS: LACTULOSE 20 GM/30 ML UDC PO (13:27)
[2020-09-10 14:15] LABS: CRP 2.7 mg/dL (<1.0)
[2020-09-10 14:17] LABS: Erythrocyte Sedimentation Rate > 140 mm/hr (0-20)
[2020-09-10 14:29] LABS: PRA 1.35 ng/mL/h (0.25-5.82)
[2020-09-10] MEDS: predniSONE 20 MG TABLET 60 MG PO (14:56)
[2020-09-10 17:20] LABS: Glucose Point of Care 175 (65-105)
[2020-09-10] MEDS: ONDANSETRON INJ 4 MG/2 ML VIAL IV PUSH (18:23)
[2020-09-10 21:01] LABS: Glucose Point of Care 271 (65-105)
[2020-09-11] VITALS (24 sets, daily range): BP systolic 132–210; BP diastolic 52–88; PULSE 59–76; RESP 16–21; TEMP 36.1–37.2; O2SAT 96–100; BMI 40.2
[2020-09-11 05:35] LABS: Hematocrit 24.3 % (37.0-47.0); Hemoglobin 8.3 g/dL (12.0-15.0); Mean Corpuscular HGB Conc 34.2 g/dl (32-36); Mean Corpuscular Hemoglobin 33.1 pg (26-34); Mean Corpuscular Volume 96.8 fl (80-100); Mean Platelet Volume 9.4 fl (7.4-10.4); Platelet Count Result 334 k/mm3 (150-375); Red Blood Count 2.51 M/mm3 (4.2-5.4); Red Cell Distribution Width 14.4 % (11.5-14.5); White Blood Count 7.3 K/mm3 (4.5-10.0)
[2020-09-11] MEDS: cloNIDine HCL 0.1 MG TABLET PO ×2 (05:45→18:59)
[2020-09-11] MEDS: hydrALAZINE HCL 50 MG TABLET 100 MG PO ×2 (05:45→18:58)
[2020-09-11 06:03] LABS: Albumin Level 3.2 g/dL (3.5-5.1); Anion Gap 9 mmol/L (8-16); Blood Urea Nitrogen 50 mg/dL (7-17); Calcium 7.9 mg/dL (8.4-10.2); Carbon Dioxide 22 mmol/L (22-30); Chloride 96 mmol/L (98-107); Estimated CRCL calculation 6 ml/min; Estimated Glomerular Filt Rate 5; Glucose 144 mg/dL (65-105); Phosphorus 4.6 mg/dL (2.5-4.5); Potassium 5.1 mmol/L (3.4-5.0); Sodium 127 mmol/L (137-145)
[2020-09-11] MEDS: SEVELAMER CARBONATE 800 MG TABLET 1600 MG PO ×3 (07:00→18:58)
[2020-09-11 07:03] LABS: Glucose Point of Care 121 (65-105)
[2020-09-11] MEDS: predniSONE 20 MG TABLET 60 MG PO (08:05)
[2020-09-11] MEDS: DOCUSATE SODIUM 100 MG CAPSULE PO (08:06)
[2020-09-11] MEDS: ASPIRIN 81 MG ENTERIC TABLET PO (08:06)
[2020-09-11] MEDS: FUROSEMIDE 80 MG TABLET PO ×2 (08:07→18:58)
[2020-09-11] MEDS: NEBIVOLOL HCL 5 MG TABLET PO (08:11)
[2020-09-11] MEDS: ISOSORBIDE MONONITRATE 60 MG TAB.ER.24H PO (08:11)
[2020-09-11] MEDS: NIFEdipine 30 MG TAB.ER.24 120 MG PO (08:11)
[2020-09-11] MEDS: polyethylene glycoL 3350 17 GM POWD.PACK PO (08:13)
[2020-09-11] MEDS: lisinopriL 20 MG TABLET 40 MG PO ×2 (08:13→18:59)
[2020-09-11] MEDS: HEPARIN SODIUM 5,000 UNITS/ML VIAL 5000 UNITS SUB-Q (08:14)
[2020-09-11] MEDS: BACITRACIN OINTMENT 15 GM TUBE 1 APPLIC TOPICAL (08:15)
[2020-09-11] MEDS: ACETAMINOPHEN 500 MG TABLET PO (08:15)
[2020-09-11] MEDS: NITROGLYCERIN OINTMENT 1 INCH DOSE TOPICAL ×2 (09:09→12:15)
--- NOTE | 2020-09-11 09:26 | PCRCNOTE ---
PT. DOES NOT QUALIFY FOR NIV OR CPAP OUT OF THE HOSPITAL. DR. VO AWARE. ORDER STOPPED.
[2020-09-11 12:23] LABS: Glucose Point of Care 178 (65-105)
--- NOTE | 2020-09-11 12:38 | WPDPN ---
Progress Note: A&P Assessment and Plan (1) Finger lesion: Code(s): L98.9 - Disorder of the skin and subcutaneous tissue, unspecified Status: Acute Assessment and Plan: Tip necrosis to two digits. Nitro paste has not made improvement. Compliance is questionable. Path still pending. Stitches out later this week. Exam Narrative: Exam Narrative: Pt appears much improved. Verbal communication improved. Tolerated hand exam with a little drama, but with little apparent significant pain. Stitches intact without cellulitis. Fingers are edematous and ROM is impacted by that and the reduced usage of her fingers. Darkened areas on the tip sites have gradually increased in size. No erythema. 5th nail bed is the pinkest of all. Tolerated nail compression all 5. Refill to others is diminished. She says the Nitro paste causes pain. Pathology report from the skin biopsy is still pending for the specific information requested. Objective Data Vital Signs Vital Signs: Vital Signs - 24 hr 09/10/20 13:53 09/10/20 18:00 09/10/20 22:00 Temperature 36.4 C 36.2 C L 36.2 C L Pulse Rate 58 L 69 61 Respiratory Rate 16 18 21 H Blood Pressure 148/52 H 157/75 H 187/63 H Pulse Oximetry 100 99 100 09/10/20 22:35 09/11/20 02:00 09/11/20 03:05 Temperature 36.2 C L Pulse Rate 67 63 63 Respiratory Rate 18 21 H 17 Blood Pressure 161/81 H Pulse Oximetry 96 100 96 09/11/20 06:00 09/11/20 08:00 09/11/20 08:11 Temperature 36.1 C L 36.4 C L Pulse Rate 59 L 59 L 59 L Respiratory Rate 21 H 16 Blood Pressure 151/74 H 152/70 H Pulse Oximetry 100 99 Intake/Output Intake/Output: Intake & Output 09/08/20 09/09/20 09/10/20 09/11/20 23:59 23:59 23:59 23:59 Intake Total 1510 1320 760 790 Output Total 3200 200 200 250 Balance -1690 1120 560 540 Meds/Results Medications: Active Medications Generic Name Dose Route Start Last Admin Trade Name Freq PRN Reason Stop Dose Admin Acetaminophen 500 mg 09/07/20 19:30 09/11/20 08:15 Acetaminophen 500 Mg Tablet PO 500 mg Q6H PRN Administration Mild Pain (1-3) or Fever Hydrocodone Bitart/Acetaminophen 1 tab 09/07/20 18:00 09/10/20 05:19 Hydrocodone/Acetaminophen (*Crx) 5-325 Mg Tablet PO 1 tab Q4H PRN Administration Pain Rated 4-6 Aspirin 81 mg 08/31/20 09:00 09/11/20 08:06 Aspirin 81 Mg Enteric Tablet PO 81 mg DAILY MICHAELA Administration Bacitracin 1 applic 09/04/20 09:05 09/11/20 08:15 Bacitracin Ointment 15 Gm Tube TOPICAL 1 applic Q12HR MICHAELA Administration Clonidine HCl 0.1 mg 09/06/20 15:33 09/09/20 10:26 Clonidine Hcl 0.1 Mg Tablet PO 0.1 mg Q6HR PRN Administration SBP > 150 Clonidine HCl 0.1 mg 09/10/20 14:00 09/11/20 05:45 Clonidine Hcl 0.1 Mg Tablet PO 0.1 mg Q8HR MICHAELA Administration Dextrose 12.5 gm 08/30/20 22:57 Dextrose 50% 25 Gm/50 Ml Syringe IV PUSH PRN PRN Hypoglycemia Protocol Diphenhydramine HCl 25 mg 08/30/20 22:56 09/08/20 03:23 Diphenhydramine Hcl Cap 25 Mg Capsule PO 25 mg Q6H PRN Administration Itching Docusate Sodium 100 mg 09/02/20 09:00 09/11/20 08:06 Docusate Sodium 100 Mg Capsule PO 100 mg Q12HR MICHAELA Administration Furosemide 80 mg 08/31/20 09:00 09/11/20 08:07 Furosemide 80 Mg Tablet PO 80 mg BID MICHAELA Administration Glucagon 1 mg 08/30/20 22:57 Glucagon For Inj 1 Mg Vial IM PRN PRN Hypoglycemia Protocol Glucose 15 gm 08/30/20 22:57 Glucose Oral Gel 15 Gm Of Glucse In 37.5 Gm Tube PO PRN PRN Hypoglycemia Protocol Heparin Sodium (Porcine) 5,000 units 09/02/20 09:00 09/11/20 08:14 Heparin Sodium 5,000 Units/Ml Vial SUB-Q 5,000 units Q12HR MICHAELA Administration Hydralazine HCl 100 mg 08/30/20 23:55 09/11/20 05:45 Hydralazine Hcl 50 Mg Tablet PO 100 mg Q8HR MICHAELA Administration Hydralazine HCl 10 mg 08/31/20 10:16 09/08/20 09:03 H
--- NOTE | 2020-09-11 14:47 | PC.NURSE ---
Pt off floor in bed to dialysis. Reprot given to Rush.
--- NOTE | 2020-09-11 15:11 | WPDSLEEPSTUD ---
Sleep Study Date of Study: 08/22/20 Ordering Provider: Yanira Buckner NP Interpreting Physician: Tesha Sanchez MD Sleep Study Type: CPAP Titration Height: 1.52 m Weight: 93.5 kg Body Mass Index: 40.2 Neck Circumference (inches): 17 [place]: 17 Reason for Sleep Study Aug 01, 2020 Home Sleep Test with ApneaLink showed at least mild obstructive sleep apnea; AHI of 5.3, 7 obstructive apneas, 36 hypopneas, desaturation to 75% and 20 minutes spent below 88%. This patient has comorbidities including ypersomnolence, hypertension and congestive heart failure. Sleep History Rufina Saravia is a 60-year-old woman with a long history of severe snoring and witnessed apnea. Her HST was positive for mild BURT and she presents for titration in the sleep lab. She wakes herself up snoring. Her uvula becomes irritated and enlarged when she sleeps. She has insomnia. There is a family history with her son having sleep apnea on CPAP. 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 She occasionally snores and is occasionally loud enough that others complain about it. She occasionally awakens at night with heartburn, belching or coughing. She occasionally awakens from sleep feeling short of breath. She constantly has trouble sleeping with a cold. She occasionally wakes up gasping during the night, occasionally has witnessed apneas reported to her by others. She occasionally sweats excessively at night and notices her heart pounding or beating irregularly at night. She constantly falls asleep during the day. She occasionally falls asleep involuntarily and frequently falls asleep while driving a car. She rarely falls asleep while exerting physical effort. She occasionally has loss of muscle tone was strong emotion. She does not have daytime difficulties due to excessive sleepiness. 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 She rarely feels paralyzed on waking or falling asleep. She frequently has vivid dreamlike scenes upon awakening or falling asleep. She constantly feels afraid to go to sleep. She occasionally has nightmares. She constantly remembers her dreams. She constantly has racing thoughts. She frequently feels sad and depressed. She constantly has anxiety. She constantly has muscular tension, notices parts of her body jerking, kicks at night and has crawling and aching feelings in her legs. She constantly has leg pain at night. She rarely has morning jaw pain she occasionally grinds her teeth during sleep. She constantly is bothered by pain during the day as well as awakened by pain at night. She constantly wakes up feeling stiff in the morning with sore achy muscles. She frequently wakes up with pain in the neck and spine. She has fatigue, memory problems, insomnia, depression, and feels unable to relax. Normal bedtime 8:30 or 9:00 p.m. falling asleep within an hour but sometimes taking longer, typically waking 5 times at night to go to the bathroom, have a snack or get comfortable, sometimes has itching. It may take her 45 minutes to return to sleep. She wakes the morning at 7:00 a.m.. On the weekends, she goes to bed later, 10:00 p.m. and wakes at 10:00 a.m.. She takes naps in the afternoon or evening. A short nap is not refreshing. She is usually drowsy in the morning for 3 hours or longer. She feels better in the afternoon compared to the morning. only on occasion that she awaken feeling refreshed. She does not have morning headache. Habits: Never smoked tobacco. Caffeine 1 cup of hot tea in the morning. No alcohol or recreational drugs. 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
--- NOTE | 2020-09-11 16:12 | PM.PNNEP ---
Progress Note: A&P Assessment and Plan (1) End stage renal disease: Code(s): N18.6 - End stage renal disease Status: Chronic Assessment and Plan: HD today and transition to outpatient T/T/S schedule first outpatient HD treatment on follow electrolytes, volume status, and clearance (2) Hypertensive urgency: Code(s): I16.0 - Hypertensive urgency Status: Acute Assessment and Plan: Systolic mostly in the 120 - 160 range currently on nifedipine 120mg, clonidine 0.2 tid, bystolic 5 daily, hydralazine 100mg q8hr, and lisinopril 40 bid continue to wean off clonidine due to concerns for rebound HTN if forgets/misses dose contineu to fluid challenge as tolerated continue lasix 80 bid (3) Altered mental status: Code(s): R41.82 - Altered mental status, unspecified Status: Acute Assessment and Plan: resolved due to acute illness(?) (4) Swelling of right hand: Code(s): M79.89 - Other specified soft tissue disorders Status: Acute Assessment and Plan: initially thought to be cellulitis but less likely - Infectious Disease and Plastic Surgery assessment noted - no improvement with previous antibiotic therapy suspicion falls on possible vasculitis versus calciphlaxis phosphorus level is normal now with diet and sevelamer 1600 w meals. (5) Anemia: Code(s): D64.9 - Anemia, unspecified Status: Chronic Assessment and Plan: likely due to ESRD and acute illness since BP seems better, back on Epogen follow H/h (6) Renal osteodystrophy: Code(s): N25.0 - Renal osteodystrophy Status: Chronic Assessment and Plan: phosphorus is normal now. stopped calcium based binders given concerns for calciphylaxis PTH was stable by outpatient labs and is only 209 here. no need calcitriol or Sensipar currently (7) Diabetes: Code(s): E11.9 - Type 2 diabetes mellitus without complications Status: Acute Assessment and Plan: follow accuchecks on SSI Will continue to follow -- ok for discharge from renal perspective with her next outpatient dialysis treatment on . Subjective Date/time seen: 09/11/20 16:12 Tolerating dialysis at the time of my visit (seen on HD at ~ 4:00pm); appears to be doing quite well since I last saw her almost a week ago; no new issues/concerns to report at this time; no events overnight or earlier this AM; happy about discharge today. Exam Narrative: Exam Narrative: General: WD/WN female in NAD Heart: normal S1 and S2; no rub Lungs: clear anteriolry Abdomen: soft, nontender, + bowel sounds Extremities: no cyanosis or clubbing; trace edema Skin: finger lesions/right hand edema present Objective Data Vital Signs Vital Signs: Vital Signs Temp Pulse Resp BP Pulse Ox 09/11/20 16:00 60 170/69 H 09/11/20 15:45 67 163/71 H 09/11/20 15:30 69 174/72 H 09/11/20 15:15 72 197/78 H 09/11/20 15:03 69 200/87 H 09/11/20 14:50 36.4 C L 71 16 210/88 H 09/11/20 08:11 59 L 09/11/20 08:00 36.4 C L 59 L 16 152/70 H 99 09/11/20 06:00 36.1 C L 59 L 21 H 151/74 H 100 09/11/20 03:05 63 17 96 09/11/20 02:00 36.2 C L 63 21 H 161/81 H 100 09/10/20 22:35 67 18 96 09/10/20 22:00 36.2 C L 61 21 H 187/63 H 100 09/10/20 18:00 36.2 C L 69 18 157/75 H 99 Intake/Output Intake/Output: Intake & Output 09/08/20 09/09/20 09/10/20 09/11/20 23:59 23:59 23:59 23:59 Intake Total 1510 1320 760 790 Output Total 3200 200 200 250 Balance -1690 1120 560 540 Meds/Results Medications: Active Medications Generic Name Dose Route Start Last Admin Trade Name Freq PRN Reason Stop Dose Admin Acetaminophen 500 mg 09/07/20 19:30 09/11/20 08:15 Acetaminophen 500 Mg Tablet PO 500 mg Q6H PRN Administration Mild Pain (1-3) or Fever Hydrocodone Bit
--- NOTE | 2020-09-11 16:12 | P.PNNP_ITS ---
Progress Note: A&P Assessment and Plan (1) End stage renal disease: Code(s): N18.6 - End stage renal disease Status: Chronic Assessment and Plan: * HD today and transition to outpatient T/T/S schedule * first outpatient HD treatment on * follow electrolytes, volume status, and clearance (2) Hypertensive urgency: Code(s): I16.0 - Hypertensive urgency Status: Acute Assessment and Plan: * Systolic mostly in the 120 - 160 range * currently on nifedipine 120mg, clonidine 0.2 tid, bystolic 5 daily, hydralazine 100mg q8hr, and lisinopril 40 bid * continue to wean off clonidine due to concerns for rebound HTN if forgets/misses dose * contineu to fluid challenge as tolerated * continue lasix 80 bid (3) Altered mental status: Code(s): R41.82 - Altered mental status, unspecified Status: Acute Assessment and Plan: * resolved * due to acute illness(?) (4) Swelling of right hand: Code(s): M79.89 - Other specified soft tissue disorders Status: Acute Assessment and Plan: * initially thought to be cellulitis but less likely - Infectious Disease and Plastic Surgery assessment noted - no improvement with previous antibiotic therapy * suspicion falls on possible vasculitis versus calciphlaxis * phosphorus level is normal now with diet and sevelamer 1600 w meals. (5) Anemia: Code(s): D64.9 - Anemia, unspecified Status: Chronic Assessment and Plan: * likely due to ESRD and acute illness * since BP seems better, back on Epogen * follow H/h (6) Renal osteodystrophy: Code(s): N25.0 - Renal osteodystrophy Status: Chronic Assessment and Plan: * phosphorus is normal now. * stopped calcium based binders given concerns for calciphylaxis * PTH was stable by outpatient labs and is only 209 here. * no need calcitriol or Sensipar currently (7) Diabetes: Code(s): E11.9 - Type 2 diabetes mellitus without complications Status: Acute Assessment and Plan: * follow accuchecks * on SSI Will continue to follow -- ok for discharge from renal perspective with her next outpatient dialysis treatment on . Subjective Date/time seen: 09/11/20 16:12 Tolerating dialysis at the time of my visit (seen on HD at ~ 4:00pm); appears to be doing quite well since I last saw her almost a week ago; no new is sues/concerns to report at this time; no events overnight or earlier this AM; happy about discharge today. Exam Narrative: Exam Narrative: General: WD/WN female in NAD Heart: normal S1 and S2; no rub Lungs: clear anteriolry Abdomen: soft, nontender, + bowel sounds Extremities: no cyanosis or clubbing; trace edema Skin: finger lesions/right hand edema present Objective Data Vital Signs Vital Signs: Vital Signs Temp Pulse Resp BP Pulse Ox 09/11/20 16:00 60 170/69 H 09/11/20 15:45 67 163/71 H 09/11/20 15:30 69 174/72 H 09/11/20 15:15 72 197/78 H 09/11/20 15:03 69 200/87 H 09/11/20 14:50 36.4 C L 71 16 210/88 H 09/11/20 08:11 59 L 09/11/20 08:00 36.4 C L 59 L 16 152/70 H 99 09/11/20 06:00 36.1 C L 59 L 21 H 151/74 H 100 09/11/20 03:05 63 17 96 09/11/20 02:00 36.2 C L 63 21 H 161/81 H 100 09/10/20 22:35 67 18 96
--- NOTE | 2020-09-11 17:04 | PM.DS ---
DS: Admitting Diagnosis Admitting Diagnosis Admitting Diagnosis: Hand pain DS: Discharge Diagnosis Discharge Diagnosis (1) Hypertensive urgency, malignant: Code(s): I16.0 - Hypertensive urgency Status: Acute Assessment and Plan: Patient admitted to ICU on 08/30 for hypertensive urgency and started on nicardipine. She improved and was able to be transferred to the IMU on 09/02. Patient returned to the ICU 09/05 due to persistently elevated blood pressures recalcitrant to treatment. BP better controlled and able to come off of the nicardipine drip on AM 09/06 but back on the drip overnight. BP medications were adjusted. Drip stopped 09/07. Currently on Lasix, Imdur, Bystolic, Nifedipine, lisinopril, NTP, hydralazine and Clonidine. 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 She has been refusing medications intermittently probably causing the rebound HTN. BP better controlled overall. (2) Obstructive sleep apnea: Code(s): G47.33 - Obstructive sleep apnea (adult) (pediatric) Status: Chronic Assessment and Plan: She did have an apnea link on 08/02/20 showing AHI 5.3 and RI 8.5 but she had Apnea link here showing AHI 14.5 and RI 16.3. She has lost 60# since COVID she states. We started auto-PAP here and she is tolerating this well this her current mask. Spoke with Respiratory Therapy and they stated patient will need a repeat sleep study before she qualifies for home NIV. Arrange for home apnea link. At the time of discharge, a sleep study report was placed in the chart from 08/22/20 showing she qualified for CPAP but the patient could not toelrate the CPAP titration and left the test. Spoke with respiratory again in light of these findings. They will need to look further into this to see if the patient needs further evaluation or can she be set up with the CPAP. Yanira will contact the PCP with further instructions about how to move forward (either with repeat sleep study or start CPAP) (3) Cellulitis: Qualifiers: Site of cellulitis: extremity Site of cellulitis of extremity: upper extremity Laterality: right Qualified Code(s): L03.113 - Cellulitis of right upper limb Code(s): L03.90 - Cellulitis, unspecified Status: Acute Assessment and Plan: Patient with ischemic changes of her hands. 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 Echo in May did show possible vegetation on the aortic valve but repeat Echo here showing no vegetations seen. Blood cultures from 08/31/2020 are negative. Plastic surgery consulted and now s/p finger biopsy 09/03. Pathology showing benign acute ulcer. YAS positive 1:320 nuclear/centromere - possibly [place]. HepC negative. Cryo pending. Started on steroids. (4) End stage renal disease on dialysis: Code(s): N18.6 - End stage renal disease; Z99.2 - Dependence on renal dialysis Status: Acute Assessment and Plan: Patient has ESRD on PD at home. Here, she needed more aggressive dialysis so a HD catheter placed 09/01. She has undergone HD on 09/01 (1.2L), 09/02 (3L) and 09/04 (4L). UF performed 09/05 (3.3L) and HD again 09/06 (3L). Right IJ tunneled catheter placed on 09/07/20. HD 09/08 with 3.2L removed. Arranged for outpatient HD on with HD to start on 09/14/20. DS: Summary Hospital Course Reason for hospitalization: 60yo female with ESRD on peritoneal dialysis, insulin-dependent diabetes mellitus, and difficult to control hypertension who presented to the ER on 08/30/2020 with a chief complaint of pain and swelling in her fingers and found to be in hypertensive urgency. Please see H&P for details. Hospital Course: Please see above for details of hospital course. Time Spent with Patient Time attestation: Total time spent providing and/or coordinating discharge services:36 minutes Time spent: Greater than 30 minutes Exam Narrative:
[2020-09-11 19:03] LABS: Glucose Point of Care 160 (65-105)
--- NOTE | 2020-09-11 19:05 | PC.NURSE ---
Pt returned to floor from dialysis report received from [facility].
[2020-09-11] MEDS: HEPARIN SODIUM 1,000 UNITS/ML VIAL 1000 UNITS IV PUSH (19:16)
[2020-09-13 04:34] LABS: Cryoglobulin, QL Negative (Negative)
== END 2020-09-11 20:00 | disposition home or self-care (01) | DRG 291 ==
LOC: ANHED 20:45 → ANHICU 08-31 02:12 → ANHIMU 09-04 20:58 → ANHICU 09-06 14:14 → ANH2MED 09-11 06:08 → ANHICU 09-13 10:27 → ANHIMU 09-13 10:27
PROVIDERS: Emergency Medicine; Internal Medicine; Internal Medicine Nephrology; Surgery; Admitting Provider Internal Medicine; Emergency Provider Emergency Medicine; PCP Internal Medicine; Visit Provider Family Medicine
PROC: 0JH63XZ Insertion of Tunneled Vascular Access Device into Chest Subcutaneous Tissue and Fascia, Percutaneous Approach (ICD-10-PCS; CPT 36908; principal; 2020-09-07 14:00)
DX: I13.2 Hypertensive heart and chronic kidney disease with heart failure and with stage 5 chronic kidney disease, or end stage renal disease (principal); N18.6 End stage renal disease; Z68.41 Body mass index [BMI] 40.0-44.9, adult; T82.898A Other specified complication of vascular prosthetic devices, implants and grafts, initial encounter; I16.0 Hypertensive urgency; E66.01 Morbid (severe) obesity due to excess calories; L98.9 Disorder of the skin and subcutaneous tissue, unspecified; L95.8 Other vasculitis limited to the skin; N28.89 Other specified disorders of kidney and ureter; I50.9 Heart failure, unspecified; L98.499 Non-pressure chronic ulcer of skin of other sites with unspecified severity; G47.33 Obstructive sleep apnea (adult) (pediatric); E11.22 Type 2 diabetes mellitus with diabetic chronic kidney disease; E78.5 Hyperlipidemia, unspecified; M54.16 Radiculopathy, lumbar region; G25.81 Restless legs syndrome; D63.1 Anemia in chronic kidney disease; N25.0 Renal osteodystrophy; M19.90 Unspecified osteoarthritis, unspecified site; D72.829 Elevated white blood cell count, unspecified; Z90.710 Acquired absence of both cervix and uterus; Z99.2 Dependence on renal dialysis; K59.00 Constipation, unspecified; F41.9 Anxiety disorder, unspecified; J84.10 Pulmonary fibrosis, unspecified; B94.8 Sequelae of other specified infectious and parasitic diseases
CPT/HCPCS: 36415; 36600; 70450; 71045; 71046; 73120; 74176; 77001; 80048; 80053; 80069; 81001; 82088; 82533; 82595; 82607; 82746; 82805; 82948; 83520; 83690; 83735; 83970; 84100; 84244; 84443; 84550; 85025; 85027; 85652; 86038; 86039; 86140; 86160; 86704; 86706; 86803; 87040; 87086; 87340; 88305; 90945; 93005; 93306; 93970; 93976; 94660; 96365; 96366; 96375; 96376; 97110; 97116; 97161; 97165; 99285; A9270; C1750; C1751; C1752; G0257; J0131; J0360; J0690; J1644; J2060; J2405; J2550; J2704; J3010; J7030; J7040; J7512; Q5106

== ENCOUNTER → 2020-09-23 05:36 | Outpatient (CLI) | payer OTHER, SELFPAY ==
[2020-09-23 19:34] LABS: SARS-CoV-2 RNA PCR Negative
== END ==
PROVIDERS: PCP Internal Medicine; Visit Provider Internal Medicine Critical Care Medicine
DX: R68.89 Other general symptoms and signs (principal); Z20.822 Contact with and (suspected) exposure to COVID-19
CPT/HCPCS: C9803; U0003; U0005

== ENCOUNTER 2020-09-26 07:14 | Outpatient (CLI) | payer OTHER, SELFPAY ==
--- NOTE | 2020-10-11 16:31 | WPDSLEEPSTUD ---
Sleep Study Date of Study: 09/26/20 Ordering Provider: Jayjay Love DO Interpreting Physician: Tesha Sanchez MD Sleep Study Type: CPAP Titration Height: 1.52 m Weight: 82.024 kg Body Mass Index: 35.3 Neck Circumference (inches): 17 [place]: 15 Reason for Sleep Study Home sleep test 08/01/2020 AHI of 5.3; 7 obstructive apneas, 36 hypopneas, desaturation to 75% and 20 minutes spent below 88%. 08/22/2020 -attempted CPAP titration; patient did not tolerate a nasal mask, 5 cm - 11 cm, EPR 2 and 3 cm; patient left the lab after 143 minutes of recording time; AHI 16.5; obstructive AHI 12, central AHI 4.5 during 20 minutes of sleep using CPAP 11 with 3 cm EPR. She slept for 37 minutes with a sleep efficiency of 41% and a minimum saturation of 87%. Sleep History Rufina Saravia is a 60-year-old woman with a long history of severe snoring and witnessed apnea. Medical comorbidities include hypersomnolence, hypertension and congestive heart failure. She returns for a complete titration. She wakes herself up snoring. Her uvula becomes irritated and enlarged when she sleeps. She has insomnia. There is a family history with her son having sleep apnea on CPAP. 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 She occasionally snores and is occasionally loud enough that others complain about it. She occasionally awakens at night with heartburn, belching or coughing. She occasionally awakens from sleep feeling short of breath. She constantly has trouble sleeping with a cold. She occasionally wakes up gasping during the night, occasionally has witnessed apneas reported to her by others. She occasionally sweats excessively at night and notices her heart pounding or beating irregularly at night. She constantly falls asleep during the day. She occasionally falls asleep involuntarily and frequently falls asleep while driving a car. She rarely falls asleep while exerting physical effort. She occasionally has loss of muscle tone was strong emotion. She does not have daytime difficulties due to excessive sleepiness. 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 She rarely feels paralyzed on waking or falling asleep. She frequently has vivid dreamlike scenes upon awakening or falling asleep. She constantly feels afraid to go to sleep. She occasionally has nightmares. She constantly remembers her dreams. She constantly has racing thoughts. She frequently feels sad and depressed. She constantly has anxiety. She constantly has muscular tension, notices parts of her body jerking, kicks at night and has crawling and aching feelings in her legs. She constantly has leg pain at night. She rarely has morning jaw pain she occasionally grinds her teeth during sleep. She constantly is bothered by pain during the day as well as awakened by pain at night. She constantly wakes up feeling stiff in the morning with sore achy muscles. She frequently wakes up with pain in the neck and spine. She has fatigue, memory problems, insomnia, depression, and feels unable to relax. Normal bedtime 8:30 or 9:00 p.m. falling asleep within an hour but sometimes taking longer, typically waking 5 times at night to go to the bathroom, have a snack or get comfortable, sometimes has itching. It may take her 45 minutes to return to sleep. She wakes the morning at 7:00 a.m.. On the weekends, she goes to bed later, 10:00 p.m. and wakes at 10:00 a.m.. She takes naps in the afternoon or evening. A short nap is not refreshing. She is usually drowsy in the morning for 3 hours or longer. She feels better in the afternoon compared to the morning. only on occasion that she awaken feeling refreshed. She does not have morning headache. Habits: Never smoked tobacco. Caffeine 1 cup of hot tea in the morning. No alcohol or recreational drugs. [facility] Past Medical History Medical History (Reviewed 09/04/20 @ 11:16 by
[2020-10-11 17:30] VITALS: BMI 35.3
== END 2020-09-26 07:15 | disposition home or self-care (01) ==
LOC: ANHCSM 07:15
PROVIDERS: PCP Internal Medicine; Visit Provider Internal Medicine
DX: G47.33 Obstructive sleep apnea (adult) (pediatric) (principal)
CPT/HCPCS: 95811

== ENCOUNTER 2021-01-03 13:13 | Outpatient (CLI) | payer OTHER, SELFPAY ==
--- NOTE | ~2021-01-03 | CT_ITS ---
EXAMINATION: CT abdomen wo con EXAM DATE: 01/03/2021 13:41 INDICATION: R10.12 - Left upper quadrant pain. TECHNIQUE: Spiral CT of the abdomen was performed without contrast. Axial, coronal and sagittal fredi ges of the abdomen were reviewed. The dose-length product (DLP) for this examination was 306.52 mGy- cm. The exposure was tailored according to patient size (auto mA exposure control), and iterative re construction (ASIR) was used as additional dose reduction technique. Comparison is made to prior exam ination from 08/30/2020. FINDINGS: The liver, spleen, adrenal glands and pancreas are unremarkable. There are gallstones with in an otherwise unremarkable gallbladder. No evidence of obstructive biliary disease. Multiple smal l kidney stones or nephrocalcinosis. No hydronephrosis. There is no retroperitoneal lymphadenopathy . There is mild to moderate scattered arteriosclerotic disease. The appendix is normal. There is mild scattered colonic diverticulosis. There is no adjacent inflamm atory change to suggest diverticulitis. The stomach and small bowel are unremarkable. There is expec elmer amount of colonic stool. No free intraperitoneal gas. There is mild cardiomegaly. Small peric ardial and right pleural effusion. Basilar subsegmental atelectasis. Mild emphysema. Asymmetric left -sided predominant chronic sacroiliitis. IMPRESSION: 1. No acute intra-abdominal findings. 2. Small bilateral nephrolithiasis or nephrocalcinosis. 3. Cholelithiasis. 4. Mild scattered colonic diverticulosis. 5. Mild cardiomegaly. 6. Small pericardial and right pleural effusions. 7. Bibasilar subsegmental atelectasis. 8. Mild emphysema. 9. Left-sided predominant chronic sacroiliitis. Reviewed, dictated and finalized at location B.
== END 2021-01-03 13:14 | disposition home or self-care (01) ==
PROVIDERS: PCP Internal Medicine; Visit Provider Nurse Practitioner
DX: R10.12 Left upper quadrant pain (principal); N20.0 Calculus of kidney; K80.20 Calculus of gallbladder without cholecystitis without obstruction; I51.7 Cardiomegaly; J90 Pleural effusion, not elsewhere classified; I31.3 Pericardial effusion (noninflammatory); J43.9 Emphysema, unspecified; M53.3 Sacrococcygeal disorders, not elsewhere classified
CPT/HCPCS: 74150

== ENCOUNTER 2021-01-12 16:44 | Emergency (ER) | payer OTHER, SELFPAY ==
[2021-01-12 16:53] VITALS: BP 159/48; PULSE 86; RESP 16; TEMP 37.1; O2SAT 100
--- NOTE | 2021-01-12 17:03 | ED.FEMALEGU ---
HPI - Female Genitourinary General Chief complaint: Urogenital-Female Stated complaint: UTI SYMPTOMS Source: patient Mode of arrival: ambulatory Limitations: no limitations History of Present Illness HPI Narrative: 60-year-old female presents to [facility] accompanied by her for complaints of fatigue, weakness, inability to void and discolored urine for the past 3 to 4 days. Patient does have history of kidney failure and is on dialysis. Patient does report history of kidney stones. Patient denies fever, bites, chills, abdominal pains or flank pains. Patient reports that she has been voiding a laxmi jar the past few days and has voided 50 cc total the past 3 days. MD elicited complaint: other (Inability to void, fatigue, weakness, discolored urine) Pertinent past history: diabetes and other (Kidney failure) Onset (ago): day(s) (3) Vaginal discharge: none Vaginal bleeding: none Associated symptoms: weakness Related Data Home Medications Medication Instructions Recorded Confirmed insulin aspart U-100 [Novolog 1 sliding scale dose SUBCUT 04/29/19 01/02/21 PenFill U-100 Insulin] USEASDIRECTD aspirin 81 mg tablet,delayed 81 mg PO DAILY 10/11/19 01/02/21 release diphenhydramine HCl 25 mg capsule 25 mg PO Q6H PRN 01/10/20 01/02/21 ondansetron 8 mg disintegrating 4 mg PO Q4H PRN 06/30/20 01/02/21 tablet polyethylene glycol 3350 [Miralax] 17 g PO QAM PRN 08/30/20 01/02/21 ergocalciferol (vitamin D2) 1,250 1,250 mcg PO WEEKLY cap 10/17/20 01/02/21 mcg (50,000 unit) capsule Allergies Allergy/AdvReac Type Severity Reaction Status Date / Time Pvfpceg-Yrk-Hle Reductase AdvReac very bad Verified 01/02/21 15:02 Inhibitor leg cramps, zombie like feeling Review of Systems Constitutional: Constitutional: Denies chills and Reports fatigue ENT: Denies sore throat Respiratory: Respiratory: Denies chest congestion, Denies cough, Denies dyspnea and Denies wheezing Gastrointestinal: Gastrointestinal: Denies abdominal pain, Denies diarrhea, Denies nausea and Denies vomiting Genitourinary: Comments: Inability to void, discolored urine Integumentary/Breasts: Skin/Breast: Denies rash Neurologic: Denies syncope and Reports weakness PMFSH Past Medical History Medical History Bone spur Diverticulitis DM renal manif type II End stage renal disease on dialysis Peritoneal dialysis since September 2019 Finger lesion Hemorrhoids 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 He is the durable power conductor road [employer] for healthcare. She has 4 children. Her 1 daughter works here. The patient thinks she wants to be a full code. She does not use alcohol or illicit drugs. Smoking status: Never smoker Alcohol intake: never Substance use: never Substance use type: does not use Gender identity (if verbalized by the patient): Female Spiritual care concerns: No Comments At time of signature, I agree with nursing past medical, surgical, social
== END 2021-01-12 17:06 | disposition short-term general hospital (02) ==
PROVIDERS: Emergency Provider Nurse Practitioner Family; PCP Internal Medicine
DX: R53.1 Weakness (principal); R33.9 Retention of urine, unspecified; E78.5 Hyperlipidemia, unspecified; I10 Essential (primary) hypertension; M54.16 Radiculopathy, lumbar region; G47.33 Obstructive sleep apnea (adult) (pediatric); M19.90 Unspecified osteoarthritis, unspecified site; I73.9 Peripheral vascular disease, unspecified; I12.0 Hypertensive chronic kidney disease with stage 5 chronic kidney disease or end stage renal disease; E11.22 Type 2 diabetes mellitus with diabetic chronic kidney disease; N18.6 End stage renal disease; Z99.2 Dependence on renal dialysis
CPT/HCPCS: 99212; G0463

== ENCOUNTER 2021-01-12 17:35 | Emergency (ER) | payer OTHER, SELFPAY ==
--- NOTE | ~2021-01-12 | CT_ITS ---
EXAMINATION: CT abdomen pelvis wo con EXAM DATE: 01/12/2021 21:50 INDICATION: Right flank pain, dysuria. History kidney stones. TECHNIQUE: Spiral CT of the abdomen and pelvis was performed without contrast. Axial, coronal and sag ittal images were reviewed. The dose-length product (DLP) for this examination was 217.64 mGy-cm. T he exposure was tailored according to patient size (auto mA exposure control), and iterative reconstr uction (ASIR) was used as additional dose reduction technique. Comparison is made to prior examinatio n from 01/03/2021. FINDINGS: The liver, spleen, adrenal glands and pancreas are unremarkable. There are gallstones wit hin an otherwise unremarkable gallbladder. No evidence of obstructive biliary disease. Multiple sma ll kidney stones or nephrocalcinosis. No hydronephrosis. The bladder is undistended. Patient has had hysterectomy. There is no retroperitoneal lymphadenopathy. There is mild to moderate scattered bud riosclerotic disease. The appendix is normal. There is mild scattered colonic diverticulosis. There is no adjacent inflamm atory change to suggest diverticulitis. The stomach and small bowel are unremarkable. There is expec elmer amount of colonic stool. No free intraperitoneal gas. Development of small left pleural effus ion, mild enlargement of the small to moderate right pleural effusion. Progression of right basilar linear atelectasis. Mild emphysema. Asymmetric left-sided predominant chronic sacroiliitis. Evaluation of the left inguinal canal demonstrates a focal region measuring fluid density, with a sup erficial femoral arterial stent extending through it. Could be postoperative seroma, was this a stent placed recently? This region measures 4 x 6 cm, could be evaluated by follow-up ultrasound if indica elmer clinically. IMPRESSION: 1. No acute intra-abdominal findings. 2. Small bilateral nephrolithiasis or nephrocalcinosis. 3. Cholelithiasis. 4. Mild scattered colonic diverticulosis. 5. Mild cardiomegaly. Small pericardial effusion. 6. Small left, small to moderate right pleural effusions. 7. Bibasilar subsegmental atelectasis. 8. Mild emphysema. Left inguinal fluid density region could be postoperative. If patient has not had recent surgery, con night warehouse selector follow-up ultrasound. Reviewed, dictated and finalized at location G. IMPRESSION: 1. No acute intra-abdominal findings. 2. Small bilateral nephrolithiasis or nephrocalcinosis. 3. Cholelithiasis. 4. Mild scattered colonic diverticulosis. 5. Mild cardiomegaly. Small pericardial effusion. 6. Small left, small to moderate right pleural effusions. 7. Bibasilar subsegmental atelectasis. 8. Mild emphysema. Left inguinal fluid density region could be postoperative. If patient has not h ad recent surgery, consider follow-up ultrasound.
--- NOTE | ~2021-01-12 | XR_ITS ---
XR chest 2V DATE: 01/12/2021 18:01 INDICATION: End-stage renal disease. Dialysis. Hypertension. Weakness. TECHNIQUE: AP and lateral views COMPARISON: 09/07/2020 portable AP chest FINDINGS: Dual lumen right internal jugular central venous catheter tip overlies the upper right atri um. Cardiomegaly. Aortic arch calcification. Small pleural effusions, right greater than left and minimal atelectasis at the lung bases. The lungs otherwise appear clear. No pneumothorax. No pulmonary vascular congestion. IMPRESSION: Cardiomegaly, small bilateral pleural effusions Minimal atelectasis at the lung bases Reviewed, dictated and finalized at location A.
--- NOTE | 2021-01-12 17:36 | ECG_ITS ---
Measurements Intervals [place] Rate: 81 P: 21 [place]: 172 QRS: -24 QRSD: 93 T: 110 QT: 364 QTc: 425 Interpretive Statements SINUS RHYTHM POSSIBLE LEFT ATRIAL ENLARGEMENT DELAYED PRECORDIAL R/S TRANSITION ST-T WAVE ABNORMALITY IN HIGH LATERAL LEADS- CONSIDER ISCHEMIA BASELINE ARTIFACT- V5-V6 ABNORMAL ECG Electronically Signed On 01-13-2021 6:59:00 CDT by Eric Domínguez D.O.
[2021-01-12 17:44] VITALS: BP 165/50; PULSE 84; RESP 20; TEMP 37.2; O2SAT 100
[2021-01-12 18:29] LABS: Hematocrit 23.9 % (37.0-47.0); Hemoglobin 7.6 g/dL (12.0-15.0); Immature Platelet Fraction Pct 5.7 % (0.9-11.2); Mean Corpuscular HGB Conc 31.8 g/dl (32-36); Mean Corpuscular Hemoglobin 30.2 pg (26-34); Mean Corpuscular Volume 94.8 fl (80-100); Platelet Count Result 343 k/mm3 (150-375); Red Blood Count 2.52 M/mm3 (4.2-5.4); Red Cell Distribution Width 16.2 % (11.5-14.5); White Blood Count 9.1 K/mm3 (4.5-10.0)
[2021-01-12 18:30] LABS: Basophils Percent Auto 0.4 % (0.2-1.2); Eosinophils Absolute Auto 0.2 K/mm3 (0-0.3); Eosinophils Percent Auto 1.6 % (0-4.4); Immature Granulocyte Absolute 0.04 K/mm3 (0.00-0.031); Immature Granulocyte Percent A 0.4 % (0-0.5); Lymphocytes Absolute Auto 1.84 K/mm3 (0.9-3.2); Lymphocytes Percent Auto 20.2 % (18.3-44.2); Mean Platelet Volume 9.9 fl (7.4-10.4); Monocytes Absolute Auto 0.5 K/mm3 (0.1-0.6); Monocytes Percent Auto 5.4 % (2.6-8.5); Neutrophils Absolute Auto 6.5 K/mm3 (1.3-6.7)
[2021-01-12 18:45] LABS: Platelet Estimate Adequate (Adequate)
[2021-01-12 21:30] LABS: Alanine Aminotransferase 9 U/L (4-35); Albumin Level 3.4 g/dL (3.5-5.1); Alkaline Phosphatase 161 U/L (38-126); Anion Gap 10 mmol/L (8-16); Aspartate Amino Transferase 28 U/L (14-36); Bilirubin,Total 0.7 mg/dL (0.2-1.3); Blood Urea Nitrogen 35 mg/dL (7-17); Calcium 8.9 mg/dL (8.4-10.2); Carbon Dioxide 28 mmol/L (22-30); Chloride 90 mmol/L (98-107); Estimated CRCL calculation 13 ml/min; Estimated Glomerular Filt Rate 13; Glucose 149 mg/dL (65-110); Potassium 2.8 mmol/L (3.4-5.0); Sodium 128 mmol/L (137-145)
--- NOTE | 2021-01-12 21:34 | ED.FEMALEGU ---
HPI - Female Genitourinary General Chief complaint: Weakness Stated complaint: fatigue, weakness, dark urine Time Seen by Provider: 01/12/21 20:55 Source: patient Mode of arrival: ambulatory Limitations: no limitations History of Present Illness HPI Narrative: This is a 60 year old female who presents for evaluation of possible Urinary tract infection. She states she has had painful urination for 1 week. She also states her urine has been dark brown with mucous. She states her PCP order for her to have UA done as outpatient but she has been unable provide a urine sample since yesterday. She has ESRD on dialysis and she states only urinates once a day. She has intermittent right flank pain for 2 days, but she states her pain has not radiated to abdomen. She denies fever, chills, nausea, vomiting, diarrhea, chest pain, cough or shortness of breath. She has chronic anemia. She denies melena. Dr. Harrington is her line cook. Related Data Home Medications Medication Instructions Recorded Confirmed insulin aspart U-100 [Novolog 1 sliding scale dose SUBCUT 04/29/19 01/02/21 PenFill U-100 Insulin] USEASDIRECTD aspirin 81 mg tablet,delayed 81 mg PO DAILY 10/11/19 01/02/21 release diphenhydramine HCl 25 mg capsule 25 mg PO Q6H PRN 01/10/20 01/02/21 ondansetron 8 mg disintegrating 4 mg PO Q4H PRN 06/30/20 01/02/21 tablet polyethylene glycol 3350 [Miralax] 17 g PO QAM PRN 08/30/20 01/02/21 ergocalciferol (vitamin D2) 1,250 1,250 mcg PO WEEKLY cap 10/17/20 01/02/21 mcg (50,000 unit) capsule Allergies Allergy/AdvReac Type Severity Reaction Status Date / Time Hilhknh-Rwd-Eux Reductase AdvReac very bad Verified 01/02/21 15:02 Inhibitor leg cramps, zombie like feeling Review of Systems Review of Systems: All systems reviewed & are unremarkable except as noted in HPI and below PMFSH Past Medical History Medical History Bone spur Diverticulitis DM renal manif type II End stage renal disease on dialysis Peritoneal dialysis since September 2019 Finger lesion Hemorrhoids 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 He is the durable power collections attorney for healthcare. She has 4 children. Her 1 daughter works here. The patient thinks she wants to be a full code. She does not use alcohol or illicit drugs. Smoking status: Never smoker Alcohol intake: never Substance use: never Substance use type: does not use Gender identity (if verbalized by the patient): Female Spiritual care concerns: No Exam Const: General: no acute distress and alert Orientation/consciousness: patient oriented x3 Eyes: EOM: EOMs intact bilaterally Chest: Chest palpation & inspection: normal inspection of the chest Resp: Effort & Inspection: normal respiratory effort, not labored, no retractions and not tachypneic Auscultation: crackles Cardio: Rate: regular rate Rhythm: regular rhythm Heart sounds: no murmurs GI: GI Palp: Yes Soft to palpation,
[2021-01-12 21:49] LABS: Creatine Kinase 21 U/L (30-135)
[2021-01-12 22:01] VITALS: BP 162/46; PULSE 99; RESP 18; O2SAT 98
[2021-01-12] MEDS: POTASSIUM CHLORIDE 20 MEQ TABLET 40 MEQ PO (22:03)
[2021-01-12 22:57] LABS: Add Urine Microscopic? YES; Appearance Urine Turbid (Clear); Bacteria Urine 4+ /hpf; Bilirubin Urine Negative (Negative); Blood Urine 1+ (Negative); Color Urine Yellow (Yellow); Glucose Urine UA 1+ mg/dL (Negative); Ketones Urine Negative (Negative); Leukocyte Esterase Ur 1+ LEU/UL (Negative); Nitrate Urine Negative (Negative); Protein Urine 2+ mg/dL (Negative); RBC Urine 21-50 /hpf (0-2); Specific Grav Ur 1.024 (1.001-1.035); Urobilinogen Urine Negative mg/dL (<2.0); WBC Clumps Urine Present /HPF; WBC Urine >75 /hpf
[2021-01-12] MEDS: SODIUM CHLORIDE 0.9% IV 500 ML 999 ML IV CONT (23:15)
[2021-01-13 00:05] VITALS: BP 169/58; PULSE 94; RESP 22; O2SAT 100
[2021-01-13 00:43] VITALS: BP 151/54; PULSE 93; RESP 18; O2SAT 97
[2021-01-13] MEDS: POTASSIUM CHLORIDE 20 MEQ TABLET 40 MEQ PO (02:35)
[2021-01-13 02:44] VITALS: BP 152/51; PULSE 89; RESP 20; O2SAT 98
== END 2021-01-13 02:55 | disposition home or self-care (01) ==
PROVIDERS: Emergency Medicine; Emergency Provider General Practice; PCP Internal Medicine
DX: N39.0 Urinary tract infection, site not specified (principal); D64.9 Anemia, unspecified; E87.1 Hypo-osmolality and hyponatremia; E87.6 Hypokalemia; E11.22 Type 2 diabetes mellitus with diabetic chronic kidney disease; I12.0 Hypertensive chronic kidney disease with stage 5 chronic kidney disease or end stage renal disease; N18.6 End stage renal disease; Z99.2 Dependence on renal dialysis; E78.5 Hyperlipidemia, unspecified; J84.9 Interstitial pulmonary disease, unspecified; G47.33 Obstructive sleep apnea (adult) (pediatric); M19.90 Unspecified osteoarthritis, unspecified site; I77.9 Disorder of arteries and arterioles, unspecified; Z86.16 Personal history of COVID-19; Z87.01 Personal history of pneumonia (recurrent); N25.0 Renal osteodystrophy; R94.31 Abnormal electrocardiogram [ECG] [EKG]; I51.7 Cardiomegaly; K80.20 Calculus of gallbladder without cholecystitis without obstruction; K57.90 Diverticulosis of intestine, part unspecified, without perforation or abscess without bleeding; J90 Pleural effusion, not elsewhere classified; J43.9 Emphysema, unspecified; Z79.4 Long term (current) use of insulin
CPT/HCPCS: 36415; 51701; 71046; 74176; 80053; 81001; 82550; 85025; 85055; 87077; 87086; 87088; 87186; 93005; 96361; 96365; 99284; A9270; J0696; J7040

== ENCOUNTER 2021-04-17 14:59 | Outpatient (RCR) | payer OTHER, SELFPAY ==
[2021-03-08 15:45] LABS: Basophils Absolute Auto 0.1 K/mm3 (0.0-0.1); Basophils Percent Auto 0.7 % (0.2-1.2); Eosinophils Absolute Auto 0.1 K/mm3 (0-0.3); Eosinophils Percent Auto 1.9 % (0-4.4); Hemoglobin 7.3 g/dL (12.0-15.0); Immature Granulocyte Absolute 0.04 K/mm3 (0.00-0.031); Immature Granulocyte Percent A 0.5 % (0-0.5); Lymphocytes Absolute Auto 1.43 K/mm3 (0.9-3.2); Lymphocytes Percent Auto 19.2 % (18.3-44.2); Mean Corpuscular HGB Conc 31.7 g/dl (32-36); Mean Corpuscular Hemoglobin 30.8 pg (26-34); Mean Platelet Volume 9.1 fl (7.4-10.4); Monocytes Absolute Auto 0.5 K/mm3 (0.1-0.6); Monocytes Percent Auto 6.6 % (2.6-8.5); Neutrophils Absolute Auto 5.3 K/mm3 (1.3-6.7); Neutrophils Percent Auto 71.1 % (45.5-73.1); Platelet Count Result 372 k/mm3 (150-375); Red Blood Count 2.37 M/mm3 (4.2-5.4); Red Cell Distribution Width 17.7 % (11.5-14.5); White Blood Count 7.5 K/mm3 (4.5-10.0)
[2021-03-08 17:21] LABS: Alanine Aminotransferase 43 U/L (4-35); Albumin Level 4.2 g/dL (3.5-5.1); Alkaline Phosphatase 245 U/L (38-126); Anion Gap 13 mmol/L (8-16); Aspartate Amino Transferase 86 U/L (14-36); Bilirubin,Total 0.8 mg/dL (0.2-1.3); Blood Urea Nitrogen 21 mg/dL (7-17); Calcium 9.1 mg/dL (8.4-10.2); Carbon Dioxide 31 mmol/L (22-30); Chloride 95 mmol/L (98-107); Creatine Kinase 359 U/L (30-135); Estimated Glomerular Filt Rate 38; Glucose 119 mg/dL (65-110); Potassium 3.2 mmol/L (3.4-5.0); Sodium 139 mmol/L (137-145)
[2021-03-10 09:26] LABS: Creatine Kinase 261 U/L (30-135)
[2021-03-15 15:51] LABS: Alanine Aminotransferase 27 U/L (4-35); Albumin Level 4.7 g/dL (3.5-5.1); Alkaline Phosphatase 191 U/L (38-126); Anion Gap 11 mmol/L (8-16); Aspartate Amino Transferase 49 U/L (14-36); Bilirubin,Total 0.6 mg/dL (0.2-1.3); Blood Urea Nitrogen 34 mg/dL (7-17); Calcium 9.2 mg/dL (8.4-10.2); Carbon Dioxide 33 mmol/L (22-30); Chloride 93 mmol/L (98-107); Creatine Kinase 72 U/L (30-135); Estimated Glomerular Filt Rate 23; Glucose 168 mg/dL (65-110); Potassium 3.4 mmol/L (3.4-5.0); Sodium 137 mmol/L (137-145)
[2021-03-15 16:12] LABS: Basophils Absolute Auto 0.1 K/mm3 (0.0-0.1); Basophils Percent Auto 0.9 % (0.2-1.2); Eosinophils Absolute Auto 0.1 K/mm3 (0-0.3); Eosinophils Percent Auto 1.9 % (0-4.4); Hemoglobin 8.5 g/dL (12.0-15.0); Immature Granulocyte Absolute 0.02 K/mm3 (0.00-0.031); Immature Granulocyte Percent A 0.3 % (0-0.5); Lymphocytes Absolute Auto 1.04 K/mm3 (0.9-3.2); Lymphocytes Percent Auto 15.6 % (18.3-44.2); Mean Corpuscular HGB Conc 31.5 g/dl (32-36); Mean Corpuscular Hemoglobin 31.4 pg (26-34); Mean Corpuscular Volume 99.6 fl (80-100); Mean Platelet Volume 9.4 fl (7.4-10.4); Monocytes Absolute Auto 0.6 K/mm3 (0.1-0.6); Monocytes Percent Auto 9.3 % (2.6-8.5); Neutrophils Absolute Auto 4.8 K/mm3 (1.3-6.7); Platelet Count Result 453 k/mm3 (150-375); Red Blood Count 2.71 M/mm3 (4.2-5.4); Red Cell Distribution Width 18.3 % (11.5-14.5); White Blood Count 6.7 K/mm3 (4.5-10.0)
[2021-03-20 15:58] LABS: Creatine Kinase 102 U/L (30-135)
[2021-03-22 15:25] LABS: Basophils Percent Auto 0.7 % (0.2-1.2); Eosinophils Absolute Auto 0.1 K/mm3 (0-0.3); Eosinophils Percent Auto 2.1 % (0-4.4); Hematocrit 28.8 % (37.0-47.0); Hemoglobin 9.4 g/dL (12.0-15.0); Immature Granulocyte Absolute 0.01 K/mm3 (0.00-0.031); Immature Granulocyte Percent A 0.2 % (0-0.5); Lymphocytes Absolute Auto 1.32 K/mm3 (0.9-3.2); Lymphocytes Percent Auto 23.2 % (18.3-44.2); Mean Corpuscular HGB Conc 32.6 g/dl (32-36); Mean Platelet Volume 8.8 fl (7.4-10.4); Monocytes Absolute Auto 0.6 K/mm3 (0.1-0.6); Monocytes Percent Auto 10.4 % (2.6-8.5); Neutrophils Absolute Auto 3.6 K/mm3 (1.3-6.7); Neutrophils Percent Auto 63.4 % (45.5-73.1); Platelet Count Result 428 k/mm3 (150-375); Red Blood Count 2.94 M/mm3 (4.2-5.4); Red Cell Distribution Width 17.4 % (11.5-14.5); White Blood Count 5.7 K/mm3 (4.5-10.0)
[2021-03-22 15:34] LABS: Alanine Aminotransferase 26 U/L (4-35); Albumin Level 4.6 g/dL (3.5-5.1); Alkaline Phosphatase 170 U/L (38-126); Anion Gap 13 mmol/L (8-16); Aspartate Amino Transferase 47 U/L (14-36); Bilirubin,Total 0.6 mg/dL (0.2-1.3); Blood Urea Nitrogen 27 mg/dL (7-17); Calcium 9.2 mg/dL (8.4-10.2); Carbon Dioxide 30 mmol/L (22-30); Chloride 94 mmol/L (98-107); Creatine Kinase 84 U/L (30-135); Estimated Glomerular Filt Rate 30; Glucose 107 mg/dL (65-110); Potassium 3.3 mmol/L (3.4-5.0); Sodium 137 mmol/L (137-145)
[2021-03-27 18:26] LABS: Creatine Kinase 225 U/L (30-135)
[2021-03-29 15:48] LABS: Basophils Percent Auto 0.7 % (0.2-1.2); Eosinophils Absolute Auto 0.1 K/mm3 (0-0.3); Eosinophils Percent Auto 2.4 % (0-4.4); Hematocrit 33.1 % (37.0-47.0); Hemoglobin 10.7 g/dL (12.0-15.0); Immature Granulocyte Absolute 0.01 K/mm3 (0.00-0.031); Immature Granulocyte Percent A 0.2 % (0-0.5); Lymphocytes Absolute Auto 1.47 K/mm3 (0.9-3.2); Lymphocytes Percent Auto 26.6 % (18.3-44.2); Mean Corpuscular HGB Conc 32.3 g/dl (32-36); Mean Corpuscular Hemoglobin 31.4 pg (26-34); Mean Corpuscular Volume 97.1 fl (80-100); Mean Platelet Volume 8.9 fl (7.4-10.4); Monocytes Absolute Auto 0.5 K/mm3 (0.1-0.6); Monocytes Percent Auto 8.9 % (2.6-8.5); Neutrophils Absolute Auto 3.4 K/mm3 (1.3-6.7); Neutrophils Percent Auto 61.2 % (45.5-73.1); Platelet Count Result 352 k/mm3 (150-375); Red Blood Count 3.41 M/mm3 (4.2-5.4); Red Cell Distribution Width 15.8 % (11.5-14.5); White Blood Count 5.5 K/mm3 (4.5-10.0)
[2021-03-29 17:11] LABS: Alanine Aminotransferase 26 U/L (4-35); Albumin Level 4.7 g/dL (3.5-5.1); Alkaline Phosphatase 153 U/L (38-126); Anion Gap 13 mmol/L (8-16); Aspartate Amino Transferase 47 U/L (14-36); Bilirubin,Total 0.6 mg/dL (0.2-1.3); Blood Urea Nitrogen 25 mg/dL (7-17); Calcium 9.4 mg/dL (8.4-10.2); Carbon Dioxide 32 mmol/L (22-30); Chloride 93 mmol/L (98-107); Creatine Kinase 56 U/L (30-135); Estimated Glomerular Filt Rate 30; Glucose 159 mg/dL (65-110); Potassium 3.5 mmol/L (3.4-5.0); Sodium 138 mmol/L (137-145)
[2021-04-03 16:14] LABS: Creatine Kinase 36 U/L (30-135)
[2021-04-05 16:18] LABS: Basophils Percent Auto 0.5 % (0.2-1.2); Eosinophils Absolute Auto 0.1 K/mm3 (0-0.3); Eosinophils Percent Auto 1.5 % (0-4.4); Hematocrit 36.1 % (37.0-47.0); Hemoglobin 11.6 g/dL (12.0-15.0); Immature Granulocyte Absolute 0.03 K/mm3 (0.00-0.031); Immature Granulocyte Percent A 0.4 % (0-0.5); Lymphocytes Absolute Auto 1.21 K/mm3 (0.9-3.2); Lymphocytes Percent Auto 16.4 % (18.3-44.2); Mean Corpuscular HGB Conc 32.1 g/dl (32-36); Mean Corpuscular Hemoglobin 32.4 pg (26-34); Mean Corpuscular Volume 100.8 fl (80-100); Mean Platelet Volume 9.4 fl (7.4-10.4); Monocytes Absolute Auto 0.7 K/mm3 (0.1-0.6); Monocytes Percent Auto 8.9 % (2.6-8.5); Neutrophils Absolute Auto 5.3 K/mm3 (1.3-6.7); Neutrophils Percent Auto 72.3 % (45.5-73.1); Platelet Count Result 386 k/mm3 (150-375); Red Blood Count 3.58 M/mm3 (4.2-5.4); Red Cell Distribution Width 16.2 % (11.5-14.5); White Blood Count 7.4 K/mm3 (4.5-10.0)
[2021-04-05 16:49] LABS: Alanine Aminotransferase 20 U/L (4-35); Albumin Level 4.8 g/dL (3.5-5.1); Alkaline Phosphatase 128 U/L (38-126); Anion Gap 11 mmol/L (8-16); Aspartate Amino Transferase 46 U/L (14-36); Bilirubin,Total 0.7 mg/dL (0.2-1.3); Blood Urea Nitrogen 32 mg/dL (7-17); Calcium 9.4 mg/dL (8.4-10.2); Carbon Dioxide 30 mmol/L (22-30); Chloride 94 mmol/L (98-107); Creatine Kinase 29 U/L (30-135); Estimated Glomerular Filt Rate 27; Glucose 158 mg/dL (65-110); Potassium 3.8 mmol/L (3.4-5.0); Sodium 135 mmol/L (137-145)
[2021-04-10 15:36] LABS: Creatine Kinase 29 U/L (30-135)
[2021-04-12 15:25] LABS: Basophils Absolute Auto 0.1 K/mm3 (0.0-0.1); Eosinophils Percent Auto 0.8 % (0-4.4); Hematocrit 37.3 % (37.0-47.0); Hemoglobin 12.2 g/dL (12.0-15.0); Lymphocytes Absolute Auto 0.87 K/mm3 (0.9-3.2); Lymphocytes Percent Auto 16.6 % (18.3-44.2); Mean Corpuscular HGB Conc 32.7 g/dl (32-36); Mean Corpuscular Hemoglobin 32.8 pg (26-34); Mean Corpuscular Volume 100.3 fl (80-100); Mean Platelet Volume 8.6 fl (7.4-10.4); Monocytes Absolute Auto 0.5 K/mm3 (0.1-0.6); Monocytes Percent Auto 9.9 % (2.6-8.5); Neutrophils Absolute Auto 3.8 K/mm3 (1.3-6.7); Neutrophils Percent Auto 71.7 % (45.5-73.1); Platelet Count Result 343 k/mm3 (150-375); Red Blood Count 3.72 M/mm3 (4.2-5.4); White Blood Count 5.2 K/mm3 (4.5-10.0)
[2021-04-12 15:36] LABS: Alanine Aminotransferase 23 U/L (4-35); Albumin Level 4.4 g/dL (3.5-5.1); Alkaline Phosphatase 119 U/L (38-126); Anion Gap 10 mmol/L (8-16); Aspartate Amino Transferase 48 U/L (14-36); Bilirubin,Total 0.7 mg/dL (0.2-1.3); Blood Urea Nitrogen 26 mg/dL (7-17); Calcium 9.1 mg/dL (8.4-10.2); Carbon Dioxide 34 mmol/L (22-30); Chloride 92 mmol/L (98-107); Creatine Kinase 27 U/L (30-135); Estimated Glomerular Filt Rate 24; Glucose 204 mg/dL (65-110); Potassium 3.1 mmol/L (3.4-5.0); Sodium 136 mmol/L (137-145)
[2021-04-17 15:53] LABS: Creatine Kinase 23 U/L (30-135)
== END 2021-06-06 23:59 | disposition home or self-care (01) ==
LOC: ANHLAB 14:59
PROVIDERS: PCP Internal Medicine
DX: E78.81 Lipoid dermatoarthritis (principal); B95.2 Enterococcus as the cause of diseases classified elsewhere
CPT/HCPCS: 36415; 80053; 82550; 85025

== ENCOUNTER 2021-07-18 13:50 | Outpatient (CLI) | payer OTHER, SELFPAY ==
[2021-07-18 14:45] LABS: Basophils Percent Auto 0.5 % (0.2-1.2); Eosinophils Percent Auto 0.3 % (0-4.4); Hematocrit 24.7 % (37.0-47.0); Hemoglobin 7.8 g/dL (12.0-15.0); Immature Granulocyte Absolute 0.04 K/mm3 (0.00-0.031); Immature Granulocyte Percent A 0.5 % (0-0.5); Lymphocytes Percent Auto 12.7 % (18.3-44.2); Mean Corpuscular HGB Conc 31.6 g/dl (32-36); Mean Corpuscular Hemoglobin 31.8 pg (26-34); Mean Corpuscular Volume 100.8 fl (80-100); Monocytes Absolute Auto 0.3 K/mm3 (0.1-0.6); Monocytes Percent Auto 4.2 % (2.6-8.5); Neutrophils Absolute Auto 6.5 K/mm3 (1.3-6.7); Neutrophils Percent Auto 81.8 % (45.5-73.1); Platelet Count Result 316 k/mm3 (150-375); Red Blood Count 2.45 M/mm3 (4.2-5.4); Red Cell Distribution Width 15.9 % (11.5-14.5); White Blood Count 7.9 K/mm3 (4.5-10.0)
== END 2021-07-18 13:51 | disposition home or self-care (01) ==
PROVIDERS: PCP Internal Medicine; Visit Provider Internal Medicine
DX: N18.6 End stage renal disease (principal); D63.1 Anemia in chronic kidney disease; Z99.2 Dependence on renal dialysis
CPT/HCPCS: 36415; 85025

== ENCOUNTER 2021-08-02 12:05 | Outpatient (CLI) | payer OTHER, SELFPAY ==
[2021-08-02 12:19] LABS: Basophils Percent Auto 0.3 % (0.2-1.2); Eosinophils Percent Auto 0.2 % (0-4.4); Hematocrit 25.7 % (37.0-47.0); Hemoglobin 8.1 g/dL (12.0-15.0); Immature Granulocyte Absolute 0.05 K/mm3 (0.00-0.031); Immature Granulocyte Percent A 0.6 % (0-0.5); Lymphocytes Absolute Auto 0.88 K/mm3 (0.9-3.2); Lymphocytes Percent Auto 9.9 % (18.3-44.2); Mean Corpuscular HGB Conc 31.5 g/dl (32-36); Mean Corpuscular Volume 101.6 fl (80-100); Mean Platelet Volume 8.7 fl (7.4-10.4); Monocytes Absolute Auto 0.2 K/mm3 (0.1-0.6); Monocytes Percent Auto 2.4 % (2.6-8.5); Neutrophils Absolute Auto 7.7 K/mm3 (1.3-6.7); Neutrophils Percent Auto 86.6 % (45.5-73.1); Platelet Count Result 353 k/mm3 (150-375); Red Blood Count 2.53 M/mm3 (4.2-5.4); Red Cell Distribution Width 15.8 % (11.5-14.5); White Blood Count 8.9 K/mm3 (4.5-10.0)
== END 2021-08-02 12:06 | disposition home or self-care (01) ==
PROVIDERS: PCP Internal Medicine; Visit Provider Internal Medicine
DX: N18.6 End stage renal disease (principal); D63.1 Anemia in chronic kidney disease; Z99.2 Dependence on renal dialysis
CPT/HCPCS: 36415; 85025

== ENCOUNTER 2021-08-17 14:31 | Outpatient (CLI) | payer OTHER, SELFPAY ==
[2021-08-17 16:05] LABS: Basophils Absolute Auto 0.1 K/mm3 (0.0-0.1); Basophils Percent Auto 0.7 % (0.2-1.2); Eosinophils Percent Auto 0.5 % (0-4.4); Hematocrit 24.6 % (37.0-47.0); Hemoglobin 7.6 g/dL (12.0-15.0); Immature Granulocyte Absolute 0.05 K/mm3 (0.00-0.031); Immature Granulocyte Percent A 0.6 % (0-0.5); Lymphocytes Percent Auto 14.2 % (18.3-44.2); Mean Corpuscular HGB Conc 30.9 g/dl (32-36); Mean Corpuscular Hemoglobin 31.4 pg (26-34); Mean Corpuscular Volume 101.7 fl (80-100); Mean Platelet Volume 9.5 fl (7.4-10.4); Monocytes Absolute Auto 0.3 K/mm3 (0.1-0.6); Neutrophils Absolute Auto 6.8 K/mm3 (1.3-6.7); Platelet Count Result 350 k/mm3 (150-375); Red Blood Count 2.42 M/mm3 (4.2-5.4); Red Cell Distribution Width 15.9 % (11.5-14.5); White Blood Count 8.5 K/mm3 (4.5-10.0)
== END 2021-08-17 14:32 | disposition home or self-care (01) ==
LOC: ANHLAB 14:33
PROVIDERS: PCP Internal Medicine; Visit Provider Internal Medicine
DX: D64.9 Anemia, unspecified (principal)
CPT/HCPCS: 36415; 85025

== ENCOUNTER 2021-09-19 10:44 | Outpatient (RCR) | payer OTHER, SELFPAY ==
[2021-07-12 12:52] LABS: Hemoglobin A1C 5.7 % (<5.7)
[2021-07-13 08:26] LABS: Hematocrit 20.4 % (37.0-47.0); Hemoglobin 6.5 g/dL (12.0-15.0)
[2021-07-13] MEDS: SODIUM CHLORIDE 0.9% IV 250 ML 30 ML IV CONT (08:45)
[2021-07-13 09:20] VITALS: BP 166/60; PULSE 85; RESP 14; TEMP 37.6; O2SAT 93
[2021-07-13 09:35] VITALS: BP 178/58; PULSE 79; RESP 18; TEMP 37; O2SAT 92
[2021-07-13 10:35] VITALS: BP 206/64; PULSE 76; RESP 18; TEMP 37; O2SAT 97
[2021-07-13 11:35] VITALS: BP 215/68; PULSE 95; RESP 18; TEMP 37; O2SAT 95
[2021-07-13 12:35] VITALS: BP 183/57; PULSE 73; RESP 20; TEMP 36.7; O2SAT 96
[2021-09-19 11:02] LABS: Hematocrit 22.3 % (37.0-47.0)
[2021-09-20 11:24] VITALS: BP 142/45; PULSE 82; RESP 24; TEMP 37.9; O2SAT 88
--- NOTE | 2021-09-20 12:03 | PC.NURSE ---
see note under patient's er admission
== END 2021-10-10 23:59 | disposition home or self-care (01) ==
LOC: ANHCPCTRAN 10:44
PROVIDERS: PCP Internal Medicine; Visit Provider Internal Medicine
DX: D64.9 Anemia, unspecified (principal)
CPT/HCPCS: 36415; 36430; 83036; 85014; 85018; 86850; 86900; 86901; 86920; J7050; P9016

== ENCOUNTER 2021-09-20 11:41 | Emergency (ER) | payer OTHER, SELFPAY ==
[2021-09-20] VITALS (14 sets, daily range): BP systolic 126–144; BP diastolic 48–54; PULSE 75–87; RESP 17–25; TEMP 38.1; O2SAT 87–100
--- NOTE | 2021-09-20 12:06 | PC.NURSE ---
1039-patient was received from admitting and taken to our [facility] room 1. upon getting her settled, patient stated that she left dialysis early, her automotive internet sales manager told her she needed to go to the ER, but she wanted to come to us to get her scheduled outpatient blood transfusion. @ 1050- i called the dialysis nurse at [facility] and got report on the patient, she said today the patient looked more sick than normal. she was fluid overloaded and sob. she was 6.4L abover her target weight and today she was able to get 3.27L off of her. She stated that the patient's is noncompliant with her fluid restrictions at home. She said she spoke with dr ye and updated him on patient. they both suggested the patient go to the er and she didn't want to. 1100-i called dr ye and gave him an update on patient. She temp was 100.6, sat's were in the 80s on room air when placed on monitoring. 2l o2 per nc were placed on patient. bp 142/45. dr ye would like patient to go to the er but would like to talk to the patient first. -called warehouse order puller and er charge nurse to update them on patient. -patient taken via WC to to er and taken to room, report given to ilda rudd
--- NOTE | 2021-09-20 12:25 | PC.NURSE ---
Dr. Valenzuela at bedside to assess pt.
[2021-09-20 12:46] LABS: Basophils Percent Auto 0.2 % (0.2-1.2); Hematocrit 24.8 % (37.0-47.0); Hemoglobin 7.9 g/dL (12.0-15.0); Immature Granulocyte Absolute 0.04 K/mm3 (0.00-0.031); Immature Granulocyte Percent A 0.4 % (0-0.5); Lymphocytes Absolute Auto 0.45 K/mm3 (0.9-3.2); Lymphocytes Percent Auto 4.4 % (18.3-44.2); Mean Corpuscular HGB Conc 31.9 g/dl (32-36); Mean Corpuscular Volume 97.3 fl (80-100); Monocytes Absolute Auto 0.2 K/mm3 (0.1-0.6); Neutrophils Absolute Auto 9.6 K/mm3 (1.3-6.7); Platelet Count Result 310 k/mm3 (150-375); Red Blood Count 2.55 M/mm3 (4.2-5.4); White Blood Count 10.3 K/mm3 (4.5-10.0)
[2021-09-20 12:55] LABS: Alanine Aminotransferase 17 U/L (4-35); Albumin Level 3.4 g/dL (3.5-5.1); Alkaline Phosphatase 403 U/L (38-126); Anion Gap 9 mmol/L (8-16); Aspartate Amino Transferase 56 U/L (14-36); Bilirubin,Total 1.3 mg/dL (0.2-1.3); Blood Urea Nitrogen 36 mg/dL (7-17); Calcium 8.2 mg/dL (8.4-10.2); Carbon Dioxide 29 mmol/L (22-30); Chloride 91 mmol/L (98-107); Estimated Glomerular Filt Rate 20; Glucose 184 mg/dL (65-110); Potassium 3.2 mmol/L (3.4-5.0); Sodium 129 mmol/L (137-145)
[2021-09-20 13:28] LABS: Glucose Point of Care 170 mg/dl (65-105)
--- NOTE | 2021-09-20 13:33 | PC.NURSE ---
Blood glucose obtained with result of 170. Lunch tray provided.
--- NOTE | 2021-09-20 14:25 | ED.GENADULT ---
HPI - General Adult General Chief complaint: Weakness Stated complaint: fever, fluid overload, sob Time Seen by Provider: 09/20/21 12:02 Source: patient and family Mode of arrival: ambulatory Limitations: no limitations History of Present Illness HPI narrative: 61-year-old with a history of CKD, anemia here with complaints of weakness. Patient states that her blood count is low need to blood transfusion. She denies any cough, shortness of breath. No history of nausea or vomiting. Severity: mild Associated symptoms: denies other symptoms Related Data Home Medications Medication Instructions Recorded Confirmed insulin aspart U-100 [Novolog 1 sliding scale dose SUBCUT 04/29/19 08/21/21 PenFill U-100 Insulin] USEASDIRECTD aspirin 81 mg tablet,delayed 81 mg PO DAILY 10/11/19 08/21/21 release polyethylene glycol 3350 [Miralax] 17 g PO QAM PRN 08/30/20 08/21/21 ergocalciferol (vitamin D2) 1,250 1,250 mcg PO WEEKLY cap 10/17/20 08/21/21 mcg (50,000 unit) capsule acetaminophen 325 mg tablet 325 mg PO Q6H PRN 03/12/21 08/21/21 lidocaine HCl 4 % topical cream 1 applic TOPICAL TID PRN 08/28/21 vitamin B complex-vitamin C-folic 1 tablet PO DAILY 08/28/21 acid 0.8 mg tablet hydralazine 50 mg tablet 50 mg PO BID tablet 08/29/21 Allergies Allergy/AdvReac Type Severity Reaction Status Date / Time Qsucqsx-XBM-UhW Reductase AdvReac very bad Verified 07/19/21 08:40 Inhibitor leg [Azdwzbv-Dtg-Ddh Reductase cramps, Inhibitor] zombie like feeling Review of Systems Review of Systems: All systems reviewed & are unremarkable except as noted in HPI and below Constitutional: Constitutional: Reports no additional constitutional complaints Eyes: Eyes: Reports no additional eye complaints ENT: Reports system reviewed and no additional complaints, except as documented Cardiovascular: Cardiovascular: Reports no additional cardiovascular complaints Respiratory: Respiratory: Reports no additional respiratory complaints Gastrointestinal: Gastrointestinal: Reports no additional gastrointestinal complaints Musculoskeletal: Musculoskeletal: Reports no additional musculoskeletal complaints PMFSH Past Medical History Medical History Amputation of finger Necrotic fingers 04/30/2021 Anemia Bone spur Diverticulitis DM renal manif type II End stage renal disease on dialysis Peritoneal dialysis since September 2019 End-stage renal disease on hemodialysis Finger lesion Hemorrhoids 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 He is the durable power commercial litigation attorney for healthcare. She has 4 children. Her 1 daughter works here. The patient thinks she wants to be a full code. She does not use alcohol or illicit drugs. Smoking status: Never smoker Alcohol intake: never Substance use: never Substance use type: does not use Gender identity (if verbalized by the patient): Female Sexual Orientation (if Verbalized by the Patient): Straight or Heterosexual Spiritual c
== END 2021-09-20 14:42 | disposition home or self-care (01) ==
PROVIDERS: Emergency Provider Family Medicine; PCP Internal Medicine
DX: R53.1 Weakness (principal); D64.9 Anemia, unspecified; E11.22 Type 2 diabetes mellitus with diabetic chronic kidney disease; I12.0 Hypertensive chronic kidney disease with stage 5 chronic kidney disease or end stage renal disease; N18.6 End stage renal disease; Z99.2 Dependence on renal dialysis; Z89.029 Acquired absence of unspecified finger(s); E78.5 Hyperlipidemia, unspecified; J84.9 Interstitial pulmonary disease, unspecified; M19.90 Unspecified osteoarthritis, unspecified site; G47.33 Obstructive sleep apnea (adult) (pediatric); I77.9 Disorder of arteries and arterioles, unspecified; Z86.16 Personal history of COVID-19; Z87.01 Personal history of pneumonia (recurrent); Z79.4 Long term (current) use of insulin
CPT/HCPCS: 36415; 80053; 82948; 85025; 99283

== ENCOUNTER 2021-09-26 11:48 | Outpatient (CLI) | payer OTHER, SELFPAY ==
[2021-09-26 12:10] LABS: Basophils Percent Auto 0.3 % (0.2-1.2); Eosinophils Percent Auto 0.1 % (0-4.4); Hematocrit 25.5 % (37.0-47.0); Hemoglobin 7.8 g/dL (12.0-15.0); Immature Granulocyte Percent A 0.9 % (0-0.5); Lymphocytes Absolute Auto 0.89 K/mm3 (0.9-3.2); Lymphocytes Percent Auto 7.7 % (18.3-44.2); Mean Corpuscular HGB Conc 30.6 g/dl (32-36); Mean Corpuscular Hemoglobin 30.8 pg (26-34); Mean Corpuscular Volume 100.8 fl (80-100); Mean Platelet Volume 9.3 fl (7.4-10.4); Monocytes Absolute Auto 0.3 K/mm3 (0.1-0.6); Monocytes Percent Auto 2.7 % (2.6-8.5); Neutrophils Absolute Auto 10.2 K/mm3 (1.3-6.7); Neutrophils Percent Auto 88.3 % (45.5-73.1); Platelet Count Result 284 k/mm3 (150-375); Red Blood Count 2.53 M/mm3 (4.2-5.4); Red Cell Distribution Width 17.5 % (11.5-14.5); White Blood Count 11.5 K/mm3 (4.5-10.0)
== END 2021-09-26 11:49 | disposition home or self-care (01) ==
PROVIDERS: PCP Internal Medicine; Visit Provider Nurse Practitioner
DX: D64.9 Anemia, unspecified (principal)
CPT/HCPCS: 36415; 85025

== ENCOUNTER 2021-09-29 12:11 | Outpatient (CLI) | payer OTHER, SELFPAY ==
--- NOTE | ~2021-09-29 | XR_ITS ---
EXAMINATION: XR chest 2V EXAM DATE: 09/29/2021 12:29 INDICATION: R05.9 - Cough, unspecified . TECHNIQUE: Frontal and lateral projections of the chest obtained and reviewed. Comparison is made to prior examination from 01/12/2021. FINDINGS: Small pleural effusions. Previously seen right-sided Lockhart catheter has been removed. Mi ld cardiomegaly. No confluent consolidation or pneumothorax. There are no osseous abnormalities ident ified. IMPRESSION: Mild cardiomegaly. Small pleural effusions. Reviewed, dictated and finalized at location A.
== END 2021-09-29 12:12 | disposition home or self-care (01) ==
PROVIDERS: PCP Internal Medicine; Visit Provider Family Medicine
DX: R05.9 Cough, unspecified (principal); I51.7 Cardiomegaly; J90 Pleural effusion, not elsewhere classified
CPT/HCPCS: 71046

== ENCOUNTER 2021-10-03 14:20 | Emergency (ER) | payer OTHER, SELFPAY ==
[2021-10-03] VITALS (16 sets, daily range): BP systolic 196–206; BP diastolic 66–81; PULSE 82–92; RESP 20–35; TEMP 36.7; O2SAT 90–100
--- NOTE | ~2021-10-03 | CT_ITS ---
EXAMINATION: CT abdomen pelvis wo con EXAM DATE: 10/03/2021 14:55 INDICATION: Left-sided abdominal pain. TECHNIQUE: Spiral CT of the abdomen and pelvis was performed without contrast. Axial, coronal and s agittal images of the abdomen and pelvis were reviewed. The dose-length product (DLP) for this exami nation was 893.73 mGy-cm. The exposure was tailored according to patient size (auto mA exposure cont rol), and iterative reconstruction (ASIR) was used as additional dose reduction technique. Comparison is made to prior examination from 01/12/2021. FINDINGS: There is hepatomegaly. Small amount of perihepatic ascites. Gallbladder has expected amou nt of distention and there is also mildly edematous wall and some pericholecystic fluid but these fin dings are nonspecific and to be expected given the ascites and possible liver disease. Multiple smal l gallstones are present. There is moderate bilateral renal atrophy and there are extensive renal hil ar calcifications. No obstructive nephropathy. Adrenal glands, pancreas, are unremarkable. Mild splenomegaly, measuring 15 cm in craniocaudal dimension. There is also geographically shaped hyp odense region to the spleen anteriorly measuring about 4 cm which was not present on prior study and is suspicious for an acute infarction. Development of splenic mass much less likely. The uterus is no t identified and has likely been surgically resected. The bladder is undistended at time of imaging. There is no retroperitoneal or pelvic lymphadenopathy. There is moderate scattered arteriosclerot ic disease. The appendix is normal. There is mild sigmoid colonic diverticulosis. There is no adjacent inflammat ory change to suggest diverticulitis. The stomach and small bowel are unremarkable. There is expecte d amount of colonic stool. No free intraperitoneal gas. The heart is normal in size. There are n o pericardial or pleural effusions. There is mild cardiomegaly. Basilar intralobular septal thickeni ng and some groundglass airspace disease could be pulmonary edema. Can't totally exclude infection. S ome scattered subsegmental atelectasis. There are no osteoblastic or osteolytic lesions identified. IMPRESSION: 1. 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 2. Hepatosplenomegaly. Small amount of ascites. 3. Cholelithiasis. 4. Mild to moderate colonic diverticulosis. 5. Cardiomegaly. Basilar airspace disease more likely edema than pneumonia. Reviewed, dictated and finalized at location B.
[2021-10-03 14:41] LABS: Basophils Percent Auto 0.4 % (0.2-1.2); Eosinophils Percent Auto 0.1 % (0-4.4); Hematocrit 28.6 % (37.0-47.0); Hemoglobin 8.8 g/dL (12.0-15.0); Immature Granulocyte Absolute 0.05 K/mm3 (0.00-0.031); Immature Granulocyte Percent A 0.5 % (0-0.5); Lymphocytes Absolute Auto 1.45 K/mm3 (0.9-3.2); Lymphocytes Percent Auto 13.9 % (18.3-44.2); Mean Corpuscular HGB Conc 30.8 g/dl (32-36); Mean Corpuscular Hemoglobin 30.2 pg (26-34); Mean Corpuscular Volume 98.3 fl (80-100); Mean Platelet Volume 10.3 fl (7.4-10.4); Monocytes Absolute Auto 0.3 K/mm3 (0.1-0.6); Monocytes Percent Auto 3.1 % (2.6-8.5); Neutrophils Absolute Auto 8.6 K/mm3 (1.3-6.7); Platelet Count Result 272 k/mm3 (150-375); Red Blood Count 2.91 M/mm3 (4.2-5.4); Red Cell Distribution Width 17.8 % (11.5-14.5); White Blood Count 10.5 K/mm3 (4.5-10.0)
--- NOTE | 2021-10-03 14:43 | ED.ABDPAIN ---
HPI - Abdominal Pain General Chief Complaint: Abdominal Pain <Wilbert Escobar APRN - Last Filed: 10/03/21 16:40> Stated Complaint: left flank pain <Wilbert Escobar APRN - Last Filed: 10/03/21 16:40> Time Seen by Provider: 10/03/21 14:33 <Wilbert Escobar DETECTIVE SUPERVISOR - Last Filed: 10/03/21 16:40> History of Present Illness HPI narrative: 61-year-old female with history of diabetes and chronic kidney disease presents to the emergency room for evaluation of abdominal pain that started yesterday. Patient states that she is, sharp, stabbing left upper quadrant abdominal pain that is alleviated when she holds the affected area. 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 Patient states that she has had a colonoscopy in the last 10 years, but does not remember the results. Abdominal pain is associated with nausea, but with no vomiting, diarrhea, or constipation. <Wilbert Escobar APRN - Last Filed: 10/03/21 16:40> Related Data Home Medications: Home Medications Medication Instructions Recorded Confirmed insulin aspart U-100 [Novolog 1 sliding scale dose SUBCUT 04/29/19 08/21/21 PenFill U-100 Insulin] USEASDIRECTD aspirin 81 mg tablet,delayed 81 mg PO DAILY 10/11/19 08/21/21 release polyethylene glycol 3350 [Miralax] 17 g PO QAM PRN 08/30/20 08/21/21 ergocalciferol (vitamin D2) 1,250 1,250 mcg PO WEEKLY cap 10/17/20 08/21/21 mcg (50,000 unit) capsule acetaminophen 325 mg tablet 325 mg PO Q6H PRN 03/12/21 08/21/21 lidocaine HCl 4 % topical cream 1 applic TOPICAL TID PRN 08/28/21 vitamin B complex-vitamin C-folic 1 tablet PO DAILY 08/28/21 acid 0.8 mg tablet hydralazine 50 mg tablet 50 mg PO BID tablet 08/29/21 <Wilbert Escobar APRN - Last Filed: 10/03/21 16:40> Allergies/Adverse Reactions: Allergies Allergy/AdvReac Type Severity Reaction Status Date / Time Uyagrcm-KZQ-KfT Reductase AdvReac very bad Verified 10/03/21 14:33 Inhibitor leg [Xnklyyk-Ocv-Wza Reductase cramps, Inhibitor] zombie like feeling <Wilbert Escobar APRN - Last Filed: 10/03/21 16:40> Review of Systems Review of Systems: CONSTITUTIONAL: Denies fever, chills, or sweats. EYES: Denies visual changes, redness, or discharge. ENT: Denies rhinorrhea, congestion, sore throat, or otalgia. CARDIOVASCULAR: Denies chest pain, palpitations, or edema. RESPIRATORY: Denies cough or dyspnea. GASTROINTESTINAL: Reports abdominal pain, nausea GENITOURINARY: Denies dysuria or hematuria. SKIN: Denies rash or itching. MUSCULOSKELETAL: Denies back pain, joint pain, or myalgia. NEUROLOGIC: Denies headache, numbness, dizziness, or weakness. PSYCHIATRIC: Denies anxiety or depression. 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 Pneumonia due to COVID-19 virus April 2019 Renal osteodystrophy <Wilbert Escobar APRN - Last Filed: 10/03/21 16:40> Surgical History Surgical History: Surgical History H/O: hysterectomy History of delivery X3 <Wilbert Escobar APRN - Last Filed: 10/03/21 16:40> Family History Family History: Family History (Reviewed 10/03/21 @ 14:47 by
[2021-10-03] MEDS: ONDANSETRON INJ 4 MG/2 ML VIAL IV PUSH (14:58)
[2021-10-03 15:25] LABS: Alanine Aminotransferase 11 U/L (4-35); Albumin Level 3.2 g/dL (3.5-5.1); Alkaline Phosphatase 266 U/L (38-126); Anion Gap 9 mmol/L (8-16); Aspartate Amino Transferase 42 U/L (14-36); Bilirubin,Total 1.2 mg/dL (0.2-1.3); Blood Urea Nitrogen 46 mg/dL (7-17); Calcium 8.6 mg/dL (8.4-10.2); Carbon Dioxide 28 mmol/L (22-30); Chloride 87 mmol/L (98-107); Estimated CRCL calculation 12 ml/min; Estimated Glomerular Filt Rate 12; Glucose 180 mg/dL (65-110); Potassium 3.6 mmol/L (3.4-5.0); Sodium 124 mmol/L (137-145)
[2021-10-03] MEDS: MORPHINE SULFATE (*CRX) 4 MG/ML INJ IV PUSH (15:33)
== END 2021-10-03 16:38 | disposition home or self-care (01) ==
PROVIDERS: Emergency Provider Nurse Practitioner Family; PCP Internal Medicine
DX: D73.5 Infarction of spleen (principal); E11.22 Type 2 diabetes mellitus with diabetic chronic kidney disease; I12.0 Hypertensive chronic kidney disease with stage 5 chronic kidney disease or end stage renal disease; N18.6 End stage renal disease; E78.5 Hyperlipidemia, unspecified; Z99.2 Dependence on renal dialysis; J84.9 Interstitial pulmonary disease, unspecified; G47.33 Obstructive sleep apnea (adult) (pediatric); E11.51 Type 2 diabetes mellitus with diabetic peripheral angiopathy without gangrene; D64.9 Anemia, unspecified; M19.90 Unspecified osteoarthritis, unspecified site; Z86.16 Personal history of COVID-19; Z87.01 Personal history of pneumonia (recurrent); Z89.029 Acquired absence of unspecified finger(s); Z79.4 Long term (current) use of insulin; K80.20 Calculus of gallbladder without cholecystitis without obstruction; K57.90 Diverticulosis of intestine, part unspecified, without perforation or abscess without bleeding; I51.7 Cardiomegaly; R16.2 Hepatomegaly with splenomegaly, not elsewhere classified
CPT/HCPCS: 36415; 74176; 80053; 85025; 96374; 96375; 99284; J2270; J2405

== ENCOUNTER 2021-10-09 16:00 | Outpatient (CLI) | payer OTHER, SELFPAY ==
[2021-10-09 16:23] LABS: Hematocrit 26.7 % (37.0-47.0); Mean Corpuscular Hemoglobin 30.2 pg (26-34); Mean Corpuscular Volume 100.8 fl (80-100); Mean Platelet Volume 9.6 fl (7.4-10.4); Platelet Count Result 243 k/mm3 (150-375); Red Blood Count 2.65 M/mm3 (4.2-5.4); Red Cell Distribution Width 17.2 % (11.5-14.5); White Blood Count 8.5 K/mm3 (4.5-10.0)
[2021-10-09 16:40] LABS: Anion Gap 6 mmol/L (8-16); Blood Urea Nitrogen 34 mg/dL (7-17); Calcium 8.2 mg/dL (8.4-10.2); Carbon Dioxide 30 mmol/L (22-30); Chloride 90 mmol/L (98-107); Estimated Glomerular Filt Rate 16; Glucose 172 mg/dL (65-110); Lactate Dehydrogenase 375 U/L (313-618); Potassium 3.2 mmol/L (3.4-5.0); Sodium 126 mmol/L (137-145)
[2021-10-09 17:13] LABS: Iron 17 ug/dL (37-170)
[2021-10-09 17:23] LABS: Percent Iron Saturation 10 % (20-50)
[2021-10-09 18:22] LABS: Folic Acid > 20.0 ng/mL (2.76->20); Vitamin B12 > 1000.0 pg/mL (239-931)
[2021-10-13 13:03] LABS: Methylmalonic Acid 379 nmol/L (87-318)
[2021-10-13 21:58] LABS: Erythropoietin (EPO) 24.1 mIU/mL (2.6-18.5)
== END 2021-10-09 16:01 | disposition home or self-care (01) ==
LOC: ANHLAB 16:03
PROVIDERS: PCP Internal Medicine; Visit Provider Internal Medicine Hematology & Oncology
DX: D64.9 Anemia, unspecified (principal)
CPT/HCPCS: 36415; 80048; 82607; 82668; 82728; 82746; 83540; 83550; 83615; 83921; 85027

== ENCOUNTER 2021-11-01 11:22 | Outpatient (CLI) | payer OTHER, SELFPAY ==
--- NOTE | ~2021-11-01 | XR_ITS ---
XR toe 1st RT min 2V DATE: 11/01/2021 11:52 INDICATION: Right great toe pain. No known injury. TECHNIQUE: 4 views COMPARISON: None FINDINGS: There is extensive calcification of the metatarsal and particularly digital arteries, consi stent with diabetes most likely similar other considerations include hyperparathyroidism or other hyp ercalcemic states. There is mild osteoarthritis at the first metatarsophalangeal joint. No fracture, dislocation, periosteal reaction or bone destruction of the right great toe is detected. IMPRESSION: Severe arterial calcifications including metatarsal and digital arteries, most likely due to diabetes Mild osteoarthritis at first metatarsophalangeal joint No fracture or dislocation, periosteal reaction or bone destruction of the great toe Reviewed, dictated and finalized at location B. IMPRESSION: Severe arterial calcifications including metatarsal and digital art eries, most likely due to diabetes Mild osteoarthritis at first metatarsophalangeal joint No fracture or dislocation, periosteal reaction or bone destruction of the grea t toe
== END 2021-11-01 11:23 | disposition home or self-care (01) ==
PROVIDERS: PCP Internal Medicine; Visit Provider Internal Medicine
DX: I73.9 Peripheral vascular disease, unspecified (principal); M19.071 Primary osteoarthritis, right ankle and foot
CPT/HCPCS: 73660

== ENCOUNTER 2021-11-14 15:18 | Observation (INO) | payer OTHER, SELFPAY ==
[2021-11-14] VITALS (35 sets, daily range): BP systolic 138–194; BP diastolic 49–70; PULSE 73–96; RESP 16–32; TEMP 36.2–36.8; O2SAT 89–100; BMI 27.8
--- NOTE | ~2021-11-14 | CT_ITS ---
EXAMINATION: CT abdomen pelvis wo con DATE: 11/14/2021 16:11 INDICATION: vomiting with abd pain TECHNIQUE: Computed tomography (CT) of the abdomen and pelvis was performed without intravenous contr ast. Automated exposure control and iterative reconstruction technique were employed. The dose-length product was 1123.63 mGy-cm. COMPARISON: None FINDINGS: Lower thorax: Multiple pulmonary nodules. Mosaic attenuation. Bibasilar atelectasis. Cardiomegaly. Mi ld coronary and aortic valve calcification. Liver: Hepatomegaly. Biliary/Gallbladder: Cholelithiasis. No bile duct dilation. Pancreas: No mass or duct dilation. Spleen: Resolving splenic infarct. Splenomegaly. Adrenals:No mass. Kidneys: Bilateral renal atrophy. No hydronephrosis. GI tract: No small or large bowel dilation. Normal appendix. Diverticulosis without diverticulitis. Mesentery/Peritoneum: Moderate volume intraperitoneal fluid. No free air or mass. Retroperitoneum: No mass. Atherosclerotic calcification. Pelvis: Empty urinary bladder. Uterus not visualized. Left femoral grafts. Soft Tissues: Diffuse body wall edema. Bones: No acute osseous finding. IMPRESSION: 1. Multiple pulmonary nodules, consider outpatient noncontrasted chest CT for further characterizatio n. 2. Mosaic attenuation which can be seen with asthma, bronchiolitis obliterans, hypersensitivity pneum onitis, and chronic thromboembolic disease. 3. Hepatosplenomegaly. 4. Moderate volume ascites. 5. Diffuse body wall edema. Reviewed, dictated and finalized at location K. IMPRESSION: 1. Multiple pulmonary nodules, consider outpatient noncontrasted chest CT for f urther characterization. 2. Mosaic attenuation which can be seen with asthma, bronchiolitis obliterans, hypersensitivity pneumonitis, and chronic thromboembolic disease. 3. Hepatosplenomegaly. 4. Moderate volume ascites. 5. Diffuse body wall edema.
--- NOTE | ~2021-11-14 | US_ITS ---
US arterial duplex [facility] 11/17/2021 17:46 Indication: Purple toes. Evaluate lower extremity vascular structures Procedure: High-resolution ultrasound duplex arterial examination Comparison: No prior studies for comparison. Findings: Right lower extremity: The following velocities are obtained: Common femoral artery 52 cm/s, profunda femoral artery 49 cm/s , femoral artery 86 cm/s, popliteal artery 57 cm/s, posterior tibial artery 29 cm/s, peroneal artery 17 cm/s, anterior tibial artery 79 cm/s, dorsalis pedis artery, 43 cm/s. Left lower extremity velocities: Common femoral artery were 94 cm/s, profunda femoral artery 80 cm/s, femoral artery 97 cm/s, posterio r tibial artery 59 cm/s, popliteal artery 45 cm/s, peroneal artery 48 cm/s, anterior tibial artery 72 cm/s, dorsalis pedis artery 35 cm/s. Impression: 1: Patent bilateral lower extremity arteries with velocities listed above. Reviewed, dictated and finalized at location A. Impression: 1: Patent bilateral lower extremity arteries with velocities listed above.
--- NOTE | ~2021-11-14 | CT_ITS ---
EXAMINATION: CT brain wo con DATE: 11/14/2021 16:10 INDICATION: Altered mental status. Weakness and nausea. TECHNIQUE: Computed tomography (CT) of the head was performed without intravenous contrast. Sagittal and coronal reconstructions were performed. The mA was adjusted according to patient size. Iterative reconstruction technique was employed. The dose-length product was 529.67 mGy-cm. COMPARISON: head CT dated 09/01/2020 FINDINGS: No acute intracranial hemorrhage, acute infarction or abnormal extra axial fluid collection. There is mild scattered white matter hypoattenuation consistent with chronic small vessel ischemic disease. Ventricles are normal and symmetric. No mass/mass effect. Intracranial calcified cerebral atheroscler osis is noted. The orbits, paranasal sinuses and mastoid air cells are normal. Hyperostosis frontalis . IMPRESSION: 1. No acute intracranial process. 2. Stable appearance of mild scattered white matter hypoattenuation consistent with chronic small ves kim ischemic disease. Reviewed, dictated and finalized at location B. IMPRESSION: 1. No acute intracranial process. 2. Stable appearance of mild scattered white matter hypoattenuation consistent with chronic small vessel ischemic disease.
--- NOTE | ~2021-11-14 | XR_ITS ---
XR chest 1V portable 11/14/2021 15:45 Indication: Hypoxia Procedure: AP portable chest Comparison: Comparison to multiple prior studies sequentially, with oldest reviewed study dated 09/03. Findings: Borderline heart size with mild interstitial edema. No pleural effusion or pneumothorax. No acute osseous abnormality. Generalized osteopenia. Impression: 1: Borderline heart size with mild interstitial edema. Reviewed, dictated and finalized at location A. Impression: 1: Borderline heart size with mild interstitial edema.
--- NOTE | ~2021-11-14 | US_ITS ---
EXAMINATION:US venous doppler LE BI INDICATION:Leg swelling TECHNIQUE: Multiple grayscale, color flow and Doppler images of the right and left lower extremity de ep venous systems were obtained and reviewed. COMPARISON:No prior studies for comparison. FINDINGS: The common femoral, superficial femoral and popliteal veins demonstrate normal respiratory variation, augmentation and compressibility. Color flow is also seen within the posterior tibial, pe roneal, greater saphenous and profunda veins. There is a left greater saphenous stent present. IMPRESSION: 1: No lower extremity deep venous thrombosis. Reviewed, dictated and finalized at location A.
--- NOTE | 2021-11-14 15:50 | ED.WEAKNESS ---
HPI - Weakness General Chief complaint: Weakness Stated complaint: weakness, AMS Time Seen by Provider: 11/14/21 15:20 Source: patient, family and EMS History of Present Illness HPI Narrative: Patient presents with generalized weakness and not feeling well. Has been reports has not been feeling well for the past few days she was at dialysis today got approximately 70 minutes and was unable to complete her cycle she wanted to go home and was too weak to get to her car so EMS was contacted and patient transferred to the ER for further evaluation. Patient reports everything hurts. EMS noted nausea and vomiting EMS noted a decrease in her mentation since their initial evaluation. Related Data Home Medications Medication Instructions Recorded Confirmed insulin aspart U-100 100 unit/mL 1 sliding scale dose subcut 04/29/19 11/14/21 subcutaneous cartridge (Novolog USEASDIRECTD PenFill U-100 Insulin aspart) aspirin 81 mg tablet,delayed 81 mg PO DAILY 10/11/19 11/14/21 release (Adult Aspirin Regimen) polyethylene glycol 3350 17 gram 17 g PO QAM PRN Constipation 08/30/20 11/14/21 oral powder packet (Miralax) ergocalciferol (vitamin D2) 1,250 1,250 mcg PO WEEKLY 10/17/20 11/14/21 mcg (50,000 unit) capsule acetaminophen 325 mg tablet 325 mg PO Q6H PRN Pain 03/12/21 11/14/21 (Tylenol) lidocaine HCl 4 % topical cream 1 applic topical TID PRN Pain 08/28/21 11/14/21 (Aspercreme (lidocaine HCl)) vitamin B complex-vitamin C-folic 1 tablet PO DAILY 08/28/21 11/14/21 acid 0.8 mg tablet (Daniela-Luis) diphenhydramine HCl 12.5 mg/5 mL 12.5 mg PO BID PRN Itching 10/19/21 11/14/21 oral liquid (Benadryl Allergy) ferrous sulfate 325 mg (65 mg 325 mg PO DAILY 10/19/21 11/14/21 iron) tablet lactobacillus combination no.9 4 4,000 mmu cells PO DAILY 10/19/21 11/14/21 billion cell capsule (Adult 50 Plus Probiotic) phenylephrine HCl 0.25 % nasal 2 spray intranasal Q4H PRN nose 10/19/21 11/14/21 spray (Ras-Synephrine clots (phenylephrine)) hydralazine 50 mg tablet 25 mg PO BID 10/30/21 11/14/21 vitamin B complex (B 0.5 tablet PO DAILY 10/30/21 11/14/21 Complex-Vitamin B12) Allergies Allergy/AdvReac Type Severity Reaction Status Date / Time Cqeixyb-GVJ-MrP Reductase AdvReac very bad Verified 11/06/21 13:13 Inhibitor leg [Zbovjvj-Oax-Lps Reductase cramps, Inhibitor] zombie like feeling Review of Systems Review of Systems: ROS unobtainable: Yes unobtainable due to medical condition (Patient moans in response to questions) PMFSH Past Medical History Medical History Amputation of finger Necrotic fingers 04/30/2021 Anemia Bone spur Diverticulitis DM renal manif type II End stage renal disease on dialysis Peritoneal dialysis since September 2019 End-stage renal disease on hemodialysis Finger lesion Hemorrhoids 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 He is the durable power collections attorney for healthcare. She has 4 childr
[2021-11-14 16:01] LABS: Hematocrit 26.8 % (37.0-47.0); Hemoglobin 8.4 g/dL (12.0-15.0); Mean Corpuscular HGB Conc 31.3 g/dl (32-36); Mean Corpuscular Hemoglobin 31.2 pg (26-34); Mean Corpuscular Volume 99.6 fl (80-100); Mean Platelet Volume 9.9 fl (7.4-10.4); Platelet Count Result 325 k/mm3 (150-375); Red Blood Count 2.69 M/mm3 (4.2-5.4); Red Cell Distribution Width 19.4 % (11.5-14.5); White Blood Count 18.6 K/mm3 (4.5-10.0)
[2021-11-14 16:02] LABS: Alveolar/Arterial O2 Gradient 135.9 mmHg; Base Excess ABG -1.1 mEq/l (+/-2.0); Fractional Inspired Oxygen 32 %; HCO3 ABG 21.4 mEq/l (22.0-26.0); Oxygen Content ABG 10.7 %vol (16.0-22.0); Oxygen Saturation ABG 93.6 % (95.0-100.0); PCO2 ABG 27.6 mmHg (35.0-45.0); PO2 FiO2 Ratio Arterial Blood 1.88 %; Total Hemoglobin 8.8 g/dL (12.0-18.0)
[2021-11-14 16:05] LABS: pH ABG 7.507 (7.350-7.450)
[2021-11-14 16:06] LABS: Device NASAL CANNULA; Modified Allen's Test Pass; Oxyhemoglobin 86.2 % THb (90.0-100.0); Site Drawn LEFT RADIAL
[2021-11-14 16:10] LABS: Ammonia 14 umol/L (9-30)
[2021-11-14 16:11] LABS: Alanine Aminotransferase 27 U/L (6-35); Alkaline Phosphatase 440 U/L (38-126); Anion Gap 16 mmol/L (8-16); Aspartate Amino Transferase 59 U/L (14-36); Bilirubin,Total 1.5 mg/dL (0.2-1.3); Blood Urea Nitrogen 97 mg/dL (7-17); Calcium 9.4 mg/dL (8.4-10.2); Carbon Dioxide 22 mmol/L (22-30); Chloride 86 mmol/L (98-107); Estimated Glomerular Filt Rate 7; Glucose 135 mg/dL (65-110); Potassium 5.5 mmol/L (3.4-5.0); Sodium 124 mmol/L (137-145)
[2021-11-14 16:32] LABS: Anisocytosis 3+ (NORMAL); Band Neutrophils Percent 5 % (0-6); Lymphocytes Absolute Manual 0.74 K/mm3 (1.1-4.5); Monocytes Absolute Manual 0.18 K/mm3 (0.1-0.90); Monocytes Percent Manual 1 % (3-9); Neutrophils Absolute Manual 17.67 K/mm3 (1.7-7.2); Neutrophils Percent Manual 90 % (46-73); Platelet Estimate Adequate (Adequate); Total Cells Counted 100
[2021-11-14 16:33] LABS: Hypochromasia 1+ (NORMAL)
--- NOTE | 2021-11-14 17:57 | ECG_ITS ---
Measurements Intervals [place] Rate: 81 P: 46 MI: 195 QRS: -26 QRSD: 86 T: 73 QT: 385 QTc: 448 Interpretive Statements SINUS RHYTHM WITH SINUS ARRHYTHMIA BORDERLINE R WAVE PROGRESSION, ANTERIOR LEADS BORDERLINE T WAVE ABNORMALITY- HIGH LATEAL LEADS BASELINE ARTIFACT- I, II, III, AVR, AVL, AVF, V2 BORDERLINE ECG Electronically Signed On 11-15-2021 6:30:36 CDT by Eric Domínguez D.O.
[2021-11-14 18:05] LABS: Lactic Acid Reflex 1.4 mmol/L (0.7-2.0)
[2021-11-14] MEDS: CALCIUM GLUCONATE 1,000 MG/10 ML VIAL 1000 MG IV PUSH (19:39)
[2021-11-14] MEDS: SODIUM ZIRCONIUM CYCLOSILICATE 10 GM POWD.PACK PO (20:13)
--- NOTE | 2021-11-14 21:13 | ADMGEN ---
This patient, Rufina Saravia, was admitted to Medical Room [facility]- at 2044. Patient/family oriented to hospital policies and general routines including ID bracelet, bed and alarms, visiting hours, pain management, procedures, bathroom and other care routines, personal items, smoking policy, room service/diet, and visiting hours. Information on how to activate the Rapid Response Team has been discussed. Patient/Family are encouraged to report perceived risks to care and to ask questions if they do not understand what they are told or what they should do.
--- NOTE | 2021-11-14 22:12 | PM.IMHP ---
H&P: HPI History of Present Illness Date/Time: 11/14/21 22:12 Chief Complaint: Altered mental status Narrative: This is a 61-year-old female with past medical history significant for end-stage renal disease on hemodialysis, anemia of chronic disease, diverticulitis, diabetes mellitus, interstitial lung disease, obstructive sleep apnea, peripheral arterial occlusive disease, lumbar radiculopathy, chronic hypoxic respiratory failure on 2 L of oxygen by nasal cannula at home. Patient had procedure done in the morning for clotted dialysis access site after this patient went for her dialysis however while she was getting in her treatment and up to an hour or so she decided she did want to continue with it and asked to be disconnected and wanted to go home when patient was about to get in the car had episode of altered mental status and weakness unable to get up on her own and unresponsive EMS was called and patient was brought to the emergency room. In emergency room [place] [address], ABG showed a pH of 7.5, pCO2 of 23 PO2 of 60, CT angio of abdomen and pelvis was significant for moderate amount of ascites, lung nodules, chest x-ray showed mild interstitial edema. Patient denied any discomfort at the time of my visit. Patient is been admitted for further evaluation management and treatment. Review of Systems Review of Systems: Patient brought to the emergency room after had episode of altered mental status. Constitutional: Constitutional: Denies chills, Denies fever(s), Denies malaise, Denies night sweats, Denies poor appetite and Denies weakness Eyes: Eyes: Denies change in vision ENT: Denies dysphagia, Denies vertigo, Denies dizziness, Denies nasal congestion, Denies nasal discharge, Denies nasal obstruction and Denies odynophagia Cardiovascular: Cardiovascular: Denies chest pain, Denies palpitations, Denies dyspnea and Denies dyspnea on exertion Respiratory: Respiratory: Denies chest congestion, Denies cough, Denies excessive phlegm production and Denies dyspnea Gastrointestinal: Gastrointestinal: Denies abdominal pain, Denies dyspepsia, Denies heartburn, Denies diarrhea, Denies nausea and Denies vomiting Genitourinary: Comments: According to daughter patient does not make urine Musculoskeletal: Musculoskeletal: Denies arthralgias and Denies joint swelling Integumentary/Breasts: Skin/Breast: Denies rash Neurologic: Denies focal weakness and Denies Sensory deficit (Neuro) Psychiatric: Psychiatric: Reports no additional psychiatric complaints and Reports as per HPI Endocrine: Endocrine: Denies cold intolerance, Denies fatigue, Denies flushing, Denies heat intolerance, Denies polyphagia, Denies polydipsia and Denies palpitations Hematologic/Lymphatic: Hematologic/Lymphatic: Reports no additional hematologic/lymphatic complaints and Reports as per HPI Allergic/Immunologic: Allergic/Immunologic: Reports no additional allergic/immunologic complaints and Reports as per HPI PMFSH Past Medical History Medical History (Updated 11/15/21 @ 05:30 by Reid Vasquez MD) Amputation of finger Necrotic fingers 04/30/2021 Anemia Bone spur Diverticulitis DM renal manif type II End stage renal disease on dialysis Peritoneal dialysis since September 2019 End-stage renal disease on hemodialysis Finger lesion Hemorrhoids 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 Pneumonia due to COVID-19 virus April 2019 Renal osteodystrophy Surgical History Surgical History H/O: hysterectomy History of delivery X3 History of kidney surgery Fami
[2021-11-14 22:57] LABS: Basophils Percent Auto 0.2 % (0.2-1.2); Hemoglobin 7.1 g/dL (12.0-15.0); Immature Granulocyte Absolute 0.12 K/mm3 (0.00-0.031); Immature Granulocyte Percent A 0.7 % (0-0.5); Lymphocytes Absolute Auto 1.16 K/mm3 (0.9-3.2); Lymphocytes Percent Auto 6.9 % (18.3-44.2); Mean Corpuscular HGB Conc 30.9 g/dl (32-36); Mean Corpuscular Hemoglobin 31.1 pg (26-34); Mean Corpuscular Volume 100.9 fl (80-100); Mean Platelet Volume 9.4 fl (7.4-10.4); Monocytes Absolute Auto 0.4 K/mm3 (0.1-0.6); Monocytes Percent Auto 2.4 % (2.6-8.5); Neutrophils Absolute Auto 15.1 K/mm3 (1.3-6.7); Neutrophils Percent Auto 89.8 % (45.5-73.1); Platelet Count Result 259 k/mm3 (150-375); Red Blood Count 2.28 M/mm3 (4.2-5.4); Red Cell Distribution Width 19.6 % (11.5-14.5); White Blood Count 16.8 K/mm3 (4.5-10.0)
[2021-11-14 23:25] LABS: Estimated CRCL calculation 9 ml/min; Estimated Glomerular Filt Rate 7; Magnesium 2.8 mg/dL (1.6-2.3)
[2021-11-15] VITALS (31 sets, daily range): BP systolic 131–175; BP diastolic 55–77; PULSE 71–100; RESP 16–18; TEMP 35.9–37; O2SAT 93–96; BMI 27.8
[2021-11-15 03:25] LABS: Glucose Point of Care 117 mg/dl (65-105)
[2021-11-15] MEDS: ONDANSETRON INJ 4 MG/2 ML VIAL IV PUSH (06:54)
[2021-11-15 07:51] LABS: Basophils Percent Auto 0.3 % (0.2-1.2); Eosinophils Percent Auto 0.1 % (0-4.4); Hematocrit 23.8 % (37.0-47.0); Hemoglobin 7.3 g/dL (12.0-15.0); Immature Granulocyte Absolute 0.08 K/mm3 (0.00-0.031); Immature Granulocyte Percent A 0.6 % (0-0.5); Lymphocytes Absolute Auto 1.29 K/mm3 (0.9-3.2); Lymphocytes Percent Auto 9.2 % (18.3-44.2); Mean Corpuscular HGB Conc 30.7 g/dl (32-36); Mean Corpuscular Hemoglobin 31.1 pg (26-34); Mean Corpuscular Volume 101.3 fl (80-100); Mean Platelet Volume 10.1 fl (7.4-10.4); Monocytes Absolute Auto 0.5 K/mm3 (0.1-0.6); Monocytes Percent Auto 3.4 % (2.6-8.5); Neutrophils Absolute Auto 12.2 K/mm3 (1.3-6.7); Neutrophils Percent Auto 86.4 % (45.5-73.1); Platelet Count Result 274 k/mm3 (150-375); Red Blood Count 2.35 M/mm3 (4.2-5.4); Red Cell Distribution Width 19.5 % (11.5-14.5); White Blood Count 14.1 K/mm3 (4.5-10.0)
[2021-11-15 08:08] LABS: Estimated CRCL calculation 9 ml/min; Estimated Glomerular Filt Rate 7
[2021-11-15 08:13] LABS: Alanine Aminotransferase 22 U/L (6-35); Albumin Level 3.4 g/dL (3.5-5.1); Alkaline Phosphatase 319 U/L (38-126); Anion Gap 15 mmol/L (8-16); Aspartate Amino Transferase 55 U/L (14-36); Bilirubin,Total 1.2 mg/dL (0.2-1.3); Blood Urea Nitrogen 116 mg/dL (7-17); Carbon Dioxide 22 mmol/L (22-30); Chloride 88 mmol/L (98-107); Estimated CRCL calculation 9 ml/min; Estimated Glomerular Filt Rate 7; Glucose 111 mg/dL (65-110); Magnesium 2.8 mg/dL (1.6-2.3); Potassium 5.4 mmol/L (3.4-5.0); Sodium 125 mmol/L (137-145)
--- NOTE | 2021-11-15 08:30 | PM.IMPN ---
Progress Note: A&P Assessment and Plan (1) Altered mental status: Code(s): R41.82 - Altered mental status, unspecified Status: Acute Assessment and Plan: Seems to be resolved at this time could be secondary to the low sodium Patient is awake alert oriented x3 Continue to monitor Head CT No acute intracranial process. (2) Leukocytosis (leucocytosis): Code(s): D72.829 - Elevated white blood cell count, unspecified Status: Acute Assessment and Plan: Likely transient bacteremia due to procedure performed in the morning Trending down currently 14.1 Continue cefepime and vanc Cultures blood NGTD Supportive care Chest x-ray Borderline heart size with mild interstitial edema. CT abdomen and pelvis Multiple pulmonary nodules, consider outpatient noncontrasted chest CT for further characterization, Mosaic attenuation which can be seen with asthma, bronchiolitis obliterans, hypersensitivity pneumonitis, and chronic thromboembolic disease, Hepatosplenomegaly, Moderate volume ascites, Diffuse body wall edema. Afebrile however patient is chronically ill (3) End-stage renal disease on hemodialysis: Code(s): N18.6 - End stage renal disease; Z99.2 - Dependence on renal dialysis Status: Acute Assessment and Plan: Patient dialyzes Friday, Friday, Friday. Scheduled for dialysis today Trend Daily weights Nephrology consulted to manage dialysis (4) Chronic respiratory failure with hypoxia: Code(s): J96.11 - Chronic respiratory failure with hypoxia Status: Acute Assessment and Plan: Continue supplemental oxygen 2 L by nasal cannula (5) BURT (obstructive sleep apnea): Code(s): G47.33 - Obstructive sleep apnea (adult) (pediatric) Status: Acute Assessment and Plan: Patient is on supplemental oxygen Unclear if CPAP at nighttime Get Apnea link Subjective Date/time seen: 11/15/21 08:30 Patient was lying in bed. Patient had the dry heaves and nausea I went to visit her. She stated that she thinks is from not eating. She did state that she was low short of breath however did have her oxygen off. She stated that sometimes she takes her oxygen off because it makes her feel little foggy. She does have some right-sided toe pain. Her right great toe is purple with a scab looking area. She states that her pain is about a 3 to 4/10. Patient did state that she is also having some chills and sweats. She denies any chest pain, weakness, fatigue, diarrhea or constipation. Upon assessing her fistula in her left groin it was noticed the patient does have a suture with what looks to be a piece of a line sutured to the top of her skin. She also has a Tegaderm with a piece of gauze that looks to be hiding a cut off line that is in the skin. Patient stated that she is post to have that removed in dialysis. 11/14/21? 22:12 This is a 61-year-old female with past medical history significant for end-stage renal disease on hemodialysis, anemia of chronic disease, diverticulitis, diabetes mellitus, interstitial lung disease, obstructive sleep apnea, peripheral arterial occlusive disease, lumbar radiculopathy, chronic hypoxic respiratory failure on 2 L of oxygen by nasal cannula at home. Patient had procedure done in the morning for clotted dialysis access site after this patient went for her dialysis however while she was getting in her treatment and up to an hour or so she decided she did want to continue with it and asked to be disconnected and wanted to go home when patient was about to get in the car had episode of altered mental status and weakness unable to get up on her own and unresponsive EMS was called and patient was brought to the emergency room.? In emergency room [place] [address], ABG showed a pH of 7.5, pCO2 of 23 PO2 of 60, CT angio of abdomen and pelvis was significant for moderat
[2021-11-15 10:36] LABS: Hepatitis B Surface Antigen Negative (Negative)
[2021-11-15 11:02] LABS: Hepatitis B Surface Anti Res Positive
--- NOTE | 2021-11-15 13:37 | PM.CNNEP ---
Assessment and Plan Assessment and plan (1) End stage renal disease: Code(s): N18.6 - End stage renal disease Status: Chronic Assessment and Plan: HD today and continue T/T/S dialysis schedule follow electrolytes, volume status, and clearance unfortunately, fluid removal and achievement of dry weight is challenging due to large fluid gains in-between dialysis treatments (2) Altered mental status: Code(s): R41.82 - Altered mental status, unspecified Status: Acute Assessment and Plan: appears significantly better current (but still was a bit confused regarding how long she has been in the hospital) follow trend of mentation (3) Leukocytosis (leucocytosis): Code(s): D72.829 - Elevated white blood cell count, unspecified Status: Acute Assessment and Plan: etiology -- due to possible infection versus reactive or something else follow blood cultures on empiric antibiotics (4) Anemia: Qualifiers: Anemia type: due to chronic kidney disease Chronic kidney disease stage: on chronic dialysis Qualified Code(s): N18.6 - End stage renal disease; D63.1 - Anemia in chronic kidney disease; Z99.2 - Dependence on renal dialysis Code(s): D64.9 - Anemia, unspecified Status: Chronic Assessment and Plan: long standing issue/problem possible Epogen resistance (?) high dose Epogen with HD PRBC transfusion per prpotocol (5) HTN (hypertension): Qualifiers: Hypertension type: primary hypertension Qualified Code(s): I10 - Essential (primary) hypertension Code(s): I10 - Essential (primary) hypertension Status: Chronic Assessment and Plan: reasonable control at this time follow trend of hemodynamics (6) Diabetes: Code(s): E11.9 - Type 2 diabetes mellitus without complications Status: Chronic Assessment and Plan: follow accuchecks glycemic control Long and extensive discussion (> 20 minutes) with patient as well as her regarding the above issues and plan of care. requested more information about hospice but it does not appear he or patient is ready for that intervention at this time. Additional Plan Patient seen/evaluated on hemodialysis treatment ([id number]). History of Present Illness Reason for Consult Consult date: 11/15/21 Reason for consult: end stage renal disease Chief Complaint Chief complaint: altered mental status History of Present Illness Narrative: The patient is a 61-year-old female with extensive past medical history as outlined below who presented to [facility] Emergency room for further evaluation of altered mental status. The patient initially presented to her outpatient dialysis clinic Friday (11/13/21) for her regularly scheduled dialysis treatment. Unfortunately, he was discovered that her thigh AV access was clotted so she was unable to receive her treatment that day. She was subsequently arranged for a declot of her access the following day, Friday. She subsequently had that procedure done and was scheduled to receive a dialysis treatment that same day since she missed her treatment on Friday. The when she arrived for her appointment, she was mildly confused but in no apparent distress. She was initiated on her hemodialysis treatment but then about 70 minutes into her treatment, she became more agitated and confused and stated that she had to be disconnected so she could leave. This was done so by the hemodialysis nurses given her agitation. Her subsequently picked her up but given her mentation as well as the fact that she had difficulty getting up to giving get into her car, she was brought back into the dialysis unit and EMS was called for further evaluation. Evaluation at that time demonstrated severe fatigue and difficulty ambulating as well as the fact that she was alert and oriented x2 (she is usually alert and oriented
[2021-11-15 14:26] LABS: Glucose Point of Care 108 mg/dl (65-105)
--- NOTE | 2021-11-15 14:30 | PCNSR ---
On 11/15/21, the student, Yara King, provided care and completed [facility] documentation on this patient. I have reviewed the student's documentation and agree with the findings.
--- NOTE | 2021-11-15 15:03 | PC.NURSE ---
Patient transported to dialysis per bed at 1138.
[2021-11-15] MEDS: EPOETIN ALFA-EPBX 10,000 UNITS/ML VIAL 20000 UNITS IV PUSH (15:08)
[2021-11-15] MEDS: ACIDOPHILUS/BULGARICUS CHEWABLE TABLET 1 TABLET PO (16:12)
[2021-11-15] MEDS: VITAMIN B CMPLX/VIT C/FOLIC AC 1 CAPSULE 1 CAP PO (16:12)
[2021-11-15] MEDS: ASPIRIN 81 MG ENTERIC TABLET PO (16:12)
[2021-11-15] MEDS: hydrALAZINE HCL 25 MG TABLET PO (16:12)
[2021-11-15] MEDS: FERROUS SULFATE 324 MG TABLET PO (16:12)
[2021-11-15] MEDS: NIFEdipine 30 MG TAB.ER.24 60 MG PO (16:12)
[2021-11-15 16:19] LABS: Glucose Point of Care 68 mg/dl (65-105)
[2021-11-15 16:34] LABS: Vancomycin Random 8.2 ug/mL (10-20)
[2021-11-15 16:59] LABS: Glucose Point of Care 108 mg/dl (65-105)
[2021-11-15] MEDS: lisinopriL 20 MG TABLET PO ×2 (17:13→20:20)
[2021-11-15] MEDS: CEFEPIME 0.5 GM in DEXTROSE 5% IN WATER 50 ML IVPB (20:17)
[2021-11-15 20:47] LABS: Glucose Point of Care 102 mg/dl (65-105)
--- NOTE | 2021-11-15 22:42 | PCRCNOTE ---
Sleep study ordered for patient on 11/15. RT spoke with patient regarding the sleep study, patient refused and is unable to tolerate a sleep study through the night.
[2021-11-16] VITALS (16 sets, daily range): BP systolic 132–173; BP diastolic 51–66; PULSE 77–94; RESP 18; TEMP 35.8–36.7; O2SAT 91–97
[2021-11-16 05:50] LABS: Basophils Absolute Auto 0.1 K/mm3 (0.0-0.1); Basophils Percent Auto 0.4 % (0.2-1.2); Eosinophils Percent Auto 0.1 % (0-4.4); Hematocrit 24.1 % (37.0-47.0); Hemoglobin 7.2 g/dL (12.0-15.0); Immature Granulocyte Absolute 0.07 K/mm3 (0.00-0.031); Immature Granulocyte Percent A 0.5 % (0-0.5); Lymphocytes Percent Auto 14.5 % (18.3-44.2); Mean Corpuscular HGB Conc 29.9 g/dl (32-36); Mean Corpuscular Hemoglobin 31.2 pg (26-34); Mean Corpuscular Volume 104.3 fl (80-100); Mean Platelet Volume 9.7 fl (7.4-10.4); Monocytes Absolute Auto 0.5 K/mm3 (0.1-0.6); Monocytes Percent Auto 4.1 % (2.6-8.5); Neutrophils Absolute Auto 10.5 K/mm3 (1.3-6.7); Neutrophils Percent Auto 80.4 % (45.5-73.1); Nucleated Red Blood Cells Perc 0.2 % (0.0-0.2); Platelet Count Result 248 k/mm3 (150-375); Red Blood Count 2.31 M/mm3 (4.2-5.4); Red Cell Distribution Width 19.4 % (11.5-14.5); White Blood Count 13.1 K/mm3 (4.5-10.0)
[2021-11-16 06:03] LABS: Alanine Aminotransferase 24 U/L (6-35); Albumin Level 3.2 g/dL (3.5-5.1); Alkaline Phosphatase 280 U/L (38-126); Anion Gap 11 mmol/L (8-16); Aspartate Amino Transferase 55 U/L (14-36); Bilirubin,Total 1.2 mg/dL (0.2-1.3); Blood Urea Nitrogen 49 mg/dL (7-17); Calcium 8.5 mg/dL (8.4-10.2); Carbon Dioxide 26 mmol/L (22-30); Chloride 94 mmol/L (98-107); Estimated CRCL calculation 14 ml/min; Estimated Glomerular Filt Rate 13; Glucose 95 mg/dL (65-110); Magnesium 2.5 mg/dL (1.6-2.3); Potassium 3.7 mmol/L (3.4-5.0); Sodium 131 mmol/L (137-145)
[2021-11-16 06:56] LABS: Anisocytosis 1+ (NORMAL); Atypical Lymphocytes Present; Platelet Estimate Adequate (Adequate)
[2021-11-16 06:58] LABS: Hypochromasia 2+ (NORMAL)
[2021-11-16 07:47] LABS: Glucose Point of Care 128 mg/dl (65-105)
[2021-11-16] MEDS: FERROUS SULFATE 324 MG TABLET PO ×2 (08:29→17:35)
[2021-11-16] MEDS: APIXABAN 5 MG TABLET PO ×2 (08:30→20:02)
[2021-11-16] MEDS: hydrALAZINE HCL 25 MG TABLET PO ×2 (08:30→17:35)
[2021-11-16] MEDS: ASPIRIN 81 MG ENTERIC TABLET PO (08:30)
[2021-11-16] MEDS: lisinopriL 20 MG TABLET PO ×2 (08:31→20:03)
[2021-11-16] MEDS: VITAMIN B CMPLX/VIT C/FOLIC AC 1 CAPSULE 1 CAP PO (08:31)
[2021-11-16] MEDS: ACIDOPHILUS/BULGARICUS CHEWABLE TABLET 1 TABLET PO (08:32)
[2021-11-16] MEDS: NIFEdipine 30 MG TAB.ER.24 60 MG PO (08:45)
--- NOTE | 2021-11-16 09:30 | PM.IMPN ---
Progress Note: A&P Assessment and Plan (1) Leukocytosis (leucocytosis): Code(s): D72.829 - Elevated white blood cell count, unspecified Status: Acute Assessment and Plan: Likely transient bacteremia due to procedure performed in the morning Trending down currently 9.9 Continue cefepime and vanc Cultures blood NGTD Supportive care Chest x-ray Borderline heart size with mild interstitial edema. CT abdomen and pelvis Multiple pulmonary nodules, consider outpatient noncontrasted chest CT for further characterization, Mosaic attenuation which can be seen with asthma, bronchiolitis obliterans, hypersensitivity pneumonitis, and chronic thromboembolic disease, Hepatosplenomegaly, Moderate volume ascites, Diffuse body wall edema. Afebrile however patient is chronically ill (2) End-stage renal disease on hemodialysis: Code(s): N18.6 - End stage renal disease; Z99.2 - Dependence on renal dialysis Status: Acute Assessment and Plan: Patient dialyzes Friday, Friday, Friday. BUN/Cr today 49/3.60 Dialysis yesterday 3000ml off Trend Daily weights Nephrology consulted to manage dialysis (3) Chronic respiratory failure with hypoxia: Code(s): J96.11 - Chronic respiratory failure with hypoxia Status: Acute Assessment and Plan: Continue supplemental oxygen 2 L by nasal cannula Continue to trend SPO2 (4) BURT (obstructive sleep apnea): Code(s): G47.33 - Obstructive sleep apnea (adult) (pediatric) Status: Acute Assessment and Plan: Patient is on supplemental oxygen at home Unclear if CPAP at nighttime Apnea link was refused by patient (5) Altered mental status: Code(s): R41.82 - Altered mental status, unspecified Status: Acute Assessment and Plan: Seems to be resolved at this time could be secondary to the low sodium Patient is awake alert oriented x3 Continue to monitor Head CT No acute intracranial process. Time Spent With Patient Time with patient: Greater than 35 minutes Subjective Date/time seen: 11/16/21 09:30 Interval history: 11/16/21 09;30 Patient seems to be doing well today. She called her daughter while I was interviewing her. Her daughter did have many questions that were addressed. Patient is also very worried about the sutures that were in place from her new graft. Blood cultures still show no growth. She remains on antibiotics. She seems better with mentation. 11/15/21? 08:30 Patient was lying in bed.? Patient had the dry heaves and nausea I went to visit her.? She stated that she thinks is from not eating.? She did state that she was low short of breath however did have her oxygen off.? She stated that sometimes she takes her oxygen off because it makes her feel little foggy.? She does have some right-sided toe pain.? Her right great toe is purple with a scab looking area.? She states that her pain is about a 3 to 4/10.? Patient did state that she is also having some chills and sweats.? She denies any chest pain, weakness, fatigue, diarrhea or constipation.? Upon assessing her fistula in her left groin it was noticed the patient does have a suture with what looks to be a piece of a line sutured to the top of her skin.? She also has a Tegaderm with a piece of gauze that looks to be hiding a cut off line that is in the skin.? Patient stated that she is post to have that removed in dialysis. 11/14/21? 22:12 This is a 61-year-old female with past medical history significant for end-stage renal disease on hemodialysis, anemia of chronic disease, diverticulitis, diabetes mellitus, interstitial lung disease, obstructive sleep apnea, peripheral arterial occlusive disease, lumbar radiculopathy, chronic hypoxic respiratory failure on 2 L of oxygen by nasal cannula at home. Patient had procedure done in the morning for clotted dialysis access site after this patient went fo
--- NOTE | 2021-11-16 09:58 | PM.PNNEP ---
Progress Note: A&P Assessment and Plan (1) End stage renal disease: Code(s): N18.6 - End stage renal disease Status: Chronic Assessment and Plan: HD tomorrow and continue T/T/S dialysis schedule follow electrolytes, volume status, and clearance unfortunately, fluid removal and achievement of dry weight is challenging due to large fluid gains in-between dialysis treatments (2) Altered mental status: Code(s): R41.82 - Altered mental status, unspecified Status: Acute Assessment and Plan: appears significantly better today due to medications given for recent declot of thigh AV access(?) follow trend of mentation (3) Leukocytosis (leucocytosis): Code(s): D72.829 - Elevated white blood cell count, unspecified Status: Acute Assessment and Plan: etiology -- due to possible infection versus reactive or something else?? follow blood cultures on empiric antibiotics (4) Anemia: Qualifiers: Anemia type: due to chronic kidney disease Chronic kidney disease stage: on chronic dialysis Qualified Code(s): N18.6 - End stage renal disease; D63.1 - Anemia in chronic kidney disease; Z99.2 - Dependence on renal dialysis Code(s): D64.9 - Anemia, unspecified Status: Chronic Assessment and Plan: long standing issue/problem possible Epogen resistance (?) high dose Epogen with HD PRBC transfusion per protocol (5) HTN (hypertension): Qualifiers: Hypertension type: primary hypertension Qualified Code(s): I10 - Essential (primary) hypertension Code(s): I10 - Essential (primary) hypertension Status: Chronic Assessment and Plan: reasonable control at this time follow trend of hemodynamics (6) Diabetes: Code(s): E11.9 - Type 2 diabetes mellitus without complications Status: Chronic Assessment and Plan: follow accuchecks glycemic control Will continue to follow. Subjective Date/time seen: 11/16/21 09:58 Tolerated dialysis treatment yesterday without any issues or problems; mentation overall seems to be doing significantly better; no other acute complaints other than some difficulty moving around; daughter at bedside and we discussed the situation. Exam Narrative: General: chronically ill appearing female in NAD Heart: normal S1 and S2; no rub Lungs: clear anteriorly Abdomen: soft, nontender, + bowel sounds Extremities: no cyanosis or clubbing; trace edema Skin: warm and dry Objective Data Vital Signs Vital Signs: Vital Signs Temp Pulse Resp BP Pulse Ox O2 Del Method O2 Flow Rate 11/16/21 08:28 18 93 Nasal Cannula 2 11/16/21 08:00 79 11/16/21 05:13 35.8 C L 83 18 132/55 L 93 11/16/21 05:11 35.8 C L 83 18 132/55 L 93 11/16/21 04:00 78 11/16/21 00:00 86 11/15/21 20:00 97 11/16/21 00:41 36.1 C L 82 18 135/53 L 95 11/15/21 15:39 98 175/77 H 11/15/21 15:30 94 173/77 H 11/15/21 15:15 90 156/77 H 11/15/21 15:00 91 161/76 H 11/15/21 14:45 88 165/74 H 11/15/21 14:30 88 155/73 H 11/15/21 14:15 87 152/70 H 11/15/21 14:00 85 147/73 H 11/15/21 13:45 84 140/66 11/15/21 13:30 85 136/66 11/15/21 13:15 83 140/68 11/15/21 13:00 81 136/64 11/15/21 12:45 80 140/68 11/15/21 12:30 78 131/67 11/15/21 12:15 81 143/67 H 11/15/21 12:03 81 145/71 H 11/15/21 11:55 3 11/15/21 11:55 36.8 C 77 16 153/72 H 11/15/21 20:00 94 18 96 Nasal Cannula 3 11/15/21 20:21 36.6 C 94 18 157/55 H 96 11/15/21 20:15 36.6 C 94 18 157/55 H 96 11/15/21 20:08 93 Nasal Cannula 3 11/15/21 18:04 36.5 C 98 18 152/56 H 93 11/15/21 16:00 100 11/15/21 12:00 82 11/15/21 16:03 36.9 C 99 16 174/77 H Intake/Output Intake/Output: Intake & Outpu
--- NOTE | 2021-11-16 10:18 | PCNFU ---
Nutrition Follow-Up Complete: Inadequate oral intake related to decreased appetite as evidenced by 0% meal intake. Goal: Increased oral intake to 50% or greater of meals and Nepro BID (425 kcal and 19grams of protein each) - pt is showing limited progress meeting her goal, pt ate less than 10% of meal and will be starting Nepro today (11/16/21). Pt current nutrition is Renal Dialysis. Last recorded weight is 71.5 kg. Bowel Motility: +BM (11/15/2021) Labs Reviewed: Hgb 7.2, Hct 24.1, Alb 3.2, Na 131, GFR 13, BUN 49, Cr 3.6 Meds Noted: B complex, Salinem, Zofran, Iron, Eliquis Skin: WNL Additional Notes: Discussed oral intake consumption, appetite, and supplement intake. Encouraged pt to continue eating meals and take in supplements. Pt will start Nepro BID with lunch and dinner. Agree with diet orders. Monitor changes in weight and % daily intake of meal/Nepro in 5 days
[2021-11-16 11:30] LABS: Glucose Point of Care 129 mg/dl (65-105)
--- NOTE | 2021-11-16 12:15 | PCNSR ---
On 11/16/21, the student, Yara King, provided care and completed [facility] documentation on this patient. I have reviewed the student's documentation and agree with the findings.
[2021-11-16] MEDS: diphenhydrAMINE HCl CAP 25 MG CAPSULE PO ×2 (13:50→22:07)
[2021-11-16 16:54] LABS: Glucose Point of Care 118 mg/dl (65-105)
[2021-11-16] MEDS: CEFEPIME 0.5 GM in DEXTROSE 5% IN WATER 50 ML IVPB (20:03)
[2021-11-16 20:27] LABS: Glucose Point of Care 157 mg/dl (65-105)
[2021-11-17] VITALS (25 sets, daily range): BP systolic 119–168; BP diastolic 54–79; PULSE 48–98; RESP 16–18; TEMP 36.4–36.7; O2SAT 91–99
[2021-11-17 05:39] LABS: Basophils Absolute Auto 0.1 K/mm3 (0.0-0.1); Basophils Percent Auto 0.4 % (0.2-1.2); Eosinophils Percent Auto 0.3 % (0-4.4); Hematocrit 25.3 % (37.0-47.0); Hemoglobin 7.5 g/dL (12.0-15.0); Immature Granulocyte Absolute 0.08 K/mm3 (0.00-0.031); Immature Granulocyte Percent A 0.7 % (0-0.5); Lymphocytes Absolute Auto 1.55 K/mm3 (0.9-3.2); Lymphocytes Percent Auto 13.4 % (18.3-44.2); Mean Corpuscular HGB Conc 29.6 g/dl (32-36); Mean Corpuscular Volume 104.5 fl (80-100); Mean Platelet Volume 9.8 fl (7.4-10.4); Monocytes Absolute Auto 0.5 K/mm3 (0.1-0.6); Monocytes Percent Auto 4.3 % (2.6-8.5); Neutrophils Absolute Auto 9.3 K/mm3 (1.3-6.7); Neutrophils Percent Auto 80.9 % (45.5-73.1); Nucleated Red Blood Cells Perc 0.3 % (0.0-0.2); Platelet Count Result 265 k/mm3 (150-375); Red Blood Count 2.42 M/mm3 (4.2-5.4); Red Cell Distribution Width 18.6 % (11.5-14.5); White Blood Count 11.6 K/mm3 (4.5-10.0)
[2021-11-17 05:56] LABS: Alanine Aminotransferase 20 U/L (6-35); Albumin Level 3.2 g/dL (3.5-5.1); Alkaline Phosphatase 352 U/L (38-126); Anion Gap 12 mmol/L (8-16); Aspartate Amino Transferase 56 U/L (14-36); Bilirubin,Total 1.1 mg/dL (0.2-1.3); Blood Urea Nitrogen 61 mg/dL (7-17); Calcium 8.9 mg/dL (8.4-10.2); Carbon Dioxide 26 mmol/L (22-30); Chloride 92 mmol/L (98-107); Estimated CRCL calculation 10 ml/min; Estimated Glomerular Filt Rate 10; Glucose 125 mg/dL (65-110); Magnesium 2.5 mg/dL (1.6-2.3); Potassium 3.9 mmol/L (3.4-5.0); Sodium 130 mmol/L (137-145)
[2021-11-17 06:08] LABS: Platelet Estimate Adequate (Adequate)
[2021-11-17 06:09] LABS: Anisocytosis 1+ (NORMAL); Hypochromasia 1+ (NORMAL)
[2021-11-17 07:34] LABS: Glucose Point of Care 121 mg/dl (65-105)
[2021-11-17] MEDS: lisinopriL 20 MG TABLET PO (08:03)
[2021-11-17] MEDS: VITAMIN B CMPLX/VIT C/FOLIC AC 1 CAPSULE 1 CAP PO (08:03)
[2021-11-17] MEDS: NIFEdipine 30 MG TAB.ER.24 60 MG PO (08:03)
[2021-11-17] MEDS: hydrALAZINE HCL 25 MG TABLET PO (08:03)
[2021-11-17] MEDS: FERROUS SULFATE 324 MG TABLET PO (08:04)
[2021-11-17] MEDS: ACIDOPHILUS/BULGARICUS CHEWABLE TABLET 1 TABLET PO (08:04)
[2021-11-17] MEDS: ASPIRIN 81 MG ENTERIC TABLET PO (08:04)
[2021-11-17] MEDS: ACETAMINOPHEN 325 MG TABLET PO (08:12)
--- NOTE | 2021-11-17 12:02 | PM.PNNEP ---
Progress Note: A&P Assessment and Plan (1) End stage renal disease: Code(s): N18.6 - End stage renal disease Status: Chronic Assessment and Plan: HD today and continue T/T/S dialysis schedule follow electrolytes, volume status, and clearance (2) Altered mental status: Code(s): R41.82 - Altered mental status, unspecified Status: Acute Assessment and Plan: appears back to baseline today due to medications given for recent declot of thigh AV access(?) follow trend of mentation (3) Leukocytosis (leucocytosis): Code(s): D72.829 - Elevated white blood cell count, unspecified Status: Acute Assessment and Plan: etiology -- due to possible infection versus reactive or something else?? suspect reactive given evidence to date follow blood cultures on empiric antibiotics (4) Anemia: Qualifiers: Anemia type: due to chronic kidney disease Chronic kidney disease stage: on chronic dialysis Qualified Code(s): N18.6 - End stage renal disease; D63.1 - Anemia in chronic kidney disease; Z99.2 - Dependence on renal dialysis Code(s): D64.9 - Anemia, unspecified Status: Chronic Assessment and Plan: long standing issue/problem possible Epogen resistance (?) high dose Epogen with HD PRBC transfusion per protocol (5) HTN (hypertension): Qualifiers: Hypertension type: primary hypertension Qualified Code(s): I10 - Essential (primary) hypertension Code(s): I10 - Essential (primary) hypertension Status: Chronic Assessment and Plan: reasonable control at this time follow trend of hemodynamics (6) Diabetes: Code(s): E11.9 - Type 2 diabetes mellitus without complications Status: Chronic Assessment and Plan: follow accuchecks glycemic control Will continue to follow - would not be opposed to discharge from renal perspective if otherwise medically stable (discussed with Kenny Jordan APN) Subjective Date/time seen: 11/17/21 12:02 Tolerating dialysis treatment at the time of my visit (seen on HD at 11:50AM); mentation appears back to baseline; reports some loose stools/diarrhea but no apparently no other acute complaints; no events/issues overnight or earlier this AM. Exam Narrative: General: chronically ill appearing female in NAD Heart: normal S1 and S2; no rub Lungs: clear anteriorly Abdomen: soft, nontender, + bowel sounds Extremities: no cyanosis or clubbing; trace edema Skin: warm and dry Objective Data Vital Signs Vital Signs: Vital Signs Temp Pulse Resp BP Pulse Ox O2 Del Method O2 Flow Rate 11/17/21 12:01 84 11/17/21 13:00 36.6 C 98 18 152/79 H 11/17/21 12:55 89 141/69 H 11/17/21 12:30 88 146/69 H 11/17/21 12:00 81 129/63 11/17/21 10:45 48 L 148/68 H 11/17/21 11:31 85 119/54 L 11/17/21 11:00 86 142/65 H 11/17/21 10:00 85 155/67 H 11/17/21 09:30 81 142/66 H 11/17/21 09:00 85 161/77 H 11/17/21 08:52 80 138/63 11/17/21 08:37 36.6 C 84 18 161/72 H 11/17/21 08:00 82 11/17/21 08:15 97 Nasal Cannula 1 11/17/21 08:05 81 16 147/63 H 97 11/16/21 20:25 91 Nasal Cannula 3 11/17/21 04:32 36.6 C 84 18 147/61 H 91 11/17/21 04:29 36.7 C 84 18 147/61 H 91 11/17/21 04:00 81 11/17/21 00:00 83 11/17/21 00:53 36.7 C 85 16 145/59 H 91 11/16/21 20:00 82 11/16/21 20:00 93 Nasal Cannula 3 11/16/21 20:14 36.6 C 81 18 136/56 L 93 11/16/21 20:10 36.6 C 81 18 136/56 L 93 11/16/21 18:00 36.7 C 77 18 136/51 L 93 11/16/21 16:00 94 11/16/21 13:59 36.6 C 83 18 145/61 H 92 Intake/Output Intake/Output: Intake & Output 11/14/21 11/15/21 11/16/21 11/17/21 23:59 23:59 23:59 23:59 Intake Total 50 470 390 200 Output Total 0 3000 0 4500 Balance 50 -25
[2021-11-17] MEDS: EPOETIN ALFA-EPBX 20,000 UNITS/ML VIAL 20000 UNITS IV PUSH (12:07)
--- NOTE | 2021-11-17 13:45 | PM.DS ---
DS: Admitting Diagnosis Discharge Date 11/17/21 1345 Admitting Diagnosis Leukocytosis/Altered mental status DS: Discharge Diagnosis Discharge Diagnosis (1) Leukocytosis (leucocytosis): Code(s): D72.829 - Elevated white blood cell count, unspecified Status: Acute Assessment and Plan: Likely transient bacteremia due to procedure performed in the morning Trending down currently 9.9 Continue cefepime and vanc Cultures blood NGTD Supportive care Chest x-ray Borderline heart size with mild interstitial edema. CT abdomen and pelvis Multiple pulmonary nodules, consider outpatient noncontrasted chest CT for further characterization, Mosaic attenuation which can be seen with asthma, bronchiolitis obliterans, hypersensitivity pneumonitis, and chronic thromboembolic disease, Hepatosplenomegaly, Moderate volume ascites, Diffuse body wall edema. Afebrile however patient is chronically ill (2) End-stage renal disease on hemodialysis: Code(s): N18.6 - End stage renal disease; Z99.2 - Dependence on renal dialysis Status: Acute Assessment and Plan: Patient dialyzes Tues/Thurs/Sat BUN/Cr today 61/4.40, however should get dialysis today Trend Daily weights Nephrology consulted to manage dialysis (3) Chronic respiratory failure with hypoxia: Code(s): J96.11 - Chronic respiratory failure with hypoxia Status: Acute Assessment and Plan: Continue supplemental oxygen 2 L by nasal cannula Continue to trend SPO2 (4) BURT (obstructive sleep apnea): Code(s): G47.33 - Obstructive sleep apnea (adult) (pediatric) Status: Acute Assessment and Plan: Patient is on supplemental oxygen at home Unclear if CPAP at nighttime Apnea link was refused by patient (5) Altered mental status: Code(s): R41.82 - Altered mental status, unspecified Status: Acute Assessment and Plan: Seems to be resolved at this time could be secondary to the low sodium Patient is awake alert oriented x3 Continue to monitor Head CT No acute intracranial process. DS: Summary Hospital Course Hospital Course: Patient is a 61-year-old female with past medical history of end-stage renal disease on dialysis anemia of chronic disease, diverticulitis, diabetes, interstitial lung disease, BURT, chronic hypoxic respiratory failure on 2 L nasal cannula at home who presented to the ED when she was unable to get up on her own and became unresponsive. Patient was found to have an elevated white blood cell count and was started on IV antibiotics. CT of the abdomen and pelvis showed pulmonary nodules and moderate ascites. Patient recently had a procedure of a thrombectomy on her fistula. It was also noted the patient does have a wound on the right great toe. No intervention was noted at this time however wound nurse was consulted and venous and arterial Dopplers were performed. White blood cell counts have been trending down and is currently 11.6. Patient is noted to have anemia current H&H is 7.5/25.3. Nephrology was consulted for patient to be able to get dialysis while she is inpatient. Patient has been tolerating dialysis well. PT and OT was also consulted and patient has been able to get up to the chair. She was noted to be a little confused. Head CT showed no intracranial abnormality. Confusion seems to be resolved at this time as patient is alert oriented x3. Labs all look stable and patient looks stable enough for discharge at this time. Vital signs are also stable. Blood cultures were taken and are negative currently. Status at Discharge Functional status at discharge: uses cane/walker Overall status at discharge: patient is progressing back to baseline Time Spent with Patient Time attestation: Total time spent providing and/or coordinating discharge services:36 minutes Time spent: Greater than 30 minutes Specific discharge activities:
[2021-11-17 13:49] LABS: Glucose Point of Care 105 mg/dl (65-105)
[2021-11-17] MEDS: APIXABAN 5 MG TABLET PO (13:53)
[2021-11-17 15:47] LABS: Vancomycin Random 13.9 ug/mL (10-20)
== END 2021-11-17 18:28 | disposition home health service (06) ==
LOC: ANHED 18:06 → ANH2MED 20:35
PROVIDERS: Internal Medicine; Internal Medicine Nephrology; Admitting Provider Family Medicine; Emergency Provider Emergency Medicine; PCP Internal Medicine; Visit Provider Nurse Practitioner
DX: D72.829 Elevated white blood cell count, unspecified (principal); I12.0 Hypertensive chronic kidney disease with stage 5 chronic kidney disease or end stage renal disease; E11.22 Type 2 diabetes mellitus with diabetic chronic kidney disease; N18.6 End stage renal disease; J96.11 Chronic respiratory failure with hypoxia; R41.82 Altered mental status, unspecified; E87.5 Hyperkalemia; R53.1 Weakness; E11.621 Type 2 diabetes mellitus with foot ulcer; L97.519 Non-pressure chronic ulcer of other part of right foot with unspecified severity; D63.1 Anemia in chronic kidney disease; Z99.2 Dependence on renal dialysis; D64.9 Anemia, unspecified; M54.16 Radiculopathy, lumbar region; E11.51 Type 2 diabetes mellitus with diabetic peripheral angiopathy without gangrene; E11.40 Type 2 diabetes mellitus with diabetic neuropathy, unspecified; N25.0 Renal osteodystrophy; E78.5 Hyperlipidemia, unspecified; J84.9 Interstitial pulmonary disease, unspecified; G47.33 Obstructive sleep apnea (adult) (pediatric); Z79.4 Long term (current) use of insulin; Z79.82 Long term (current) use of aspirin; Z99.81 Dependence on supplemental oxygen
CPT/HCPCS: 36415; 36600; 51701; 70450; 71045; 74176; 80053; 80202; 82140; 82565; 82805; 82948; 83605; 83735; 85025; 86706; 87040; 87340; 93005; 93925; 93970; 96365; 96374; 96375; 99285; A9270; G0257; G0378; J0610; J0692; J1644; J2405; J3370; J7030; Q5105

== ENCOUNTER 2021-11-23 05:09 | Emergency (ER) | payer OTHER, SELFPAY ==
[2021-11-23] VITALS (13 sets, daily range): BP systolic 130–144; BP diastolic 49–58; PULSE 70–82; RESP 18–45; O2SAT 96–100
--- NOTE | ~2021-11-23 | CT_ITS ---
EXAMINATION: CT abdomen pelvis wo con DATE: 11/23/2021 06:42 INDICATION: Left upper quadrant pain. Nausea, vomiting and abdominal distention. TECHNIQUE: Computed tomography (CT) of the abdomen and pelvis was performed without intravenous contr ast. The dose-length product was 1040.59 mGy-cm. Automated exposure control and iterative reconstruct ion technique were employed. COMPARISON: CT dated 11/14/2021 FINDINGS: There are is a 1 cm right lower lobe nodule, image 12. There are a few other smaller nodule s in the lung bases including a 7 mm nodule in the right lower lobe, image 17. There is diffuse groun dglass opacification with mosaic attenuation. Moderate cardiomegaly. Trace pleural effusions. Moderat e ascites. Diffuse subcutaneous edema. There is a nodular appearance to the liver surface with hypertrophy of the left hepatic lobe, compati ble with cirrhosis. Correlate clinically. Spleen is enlarged. There is bilateral renal atrophy. There are gallstones. There are pancreatic calcifications, suspicious for chronic pancreatitis. Nonobstruc tive bowel gas pattern. Extensive atherosclerosis. No aneurysm. There are degenerative changes of the sacroiliac joints. IMPRESSION: 1. Bilateral pulmonary nodules, largest in the right lower lobe measuring 1 cm, concerning for metast atic disease. 2: Diffuse groundglass opacities of the lung bases with mosaic attenuation. Differential diagnosis in cludes small airways disease, pneumonia, asthma, hypersensitivity pneumonitis. 3: Anasarca characterized by small effusions, diffuse body wall edema and ascites. 4: Hepatosplenomegaly with probable underlying cirrhosis. 5: Cholelithiasis. 6: Diffuse bilateral renal atrophy. Reviewed, dictated and finalized at location A. IMPRESSION: 1. Bilateral pulmonary nodules, largest in the right lower lobe measuring 1 cm, concerning for metastatic disease. 2: Diffuse groundglass opacities of the lung bases with mosaic attenuation. Dif ferential diagnosis includes small airways disease, pneumonia, asthma, hypersen sitivity pneumonitis. 3: Anasarca characterized by small effusions, diffuse body wall edema and ascit es. 4: Hepatosplenomegaly with probable underlying cirrhosis. 5: Cholelithiasis. 6: Diffuse bilateral renal atrophy.
--- NOTE | 2021-11-23 05:38 | ED.GENADULT ---
HPI - General Adult General Chief complaint: Abdominal Pain <Rikki Haq MD - Last Filed: 11/23/21 07:12> Stated complaint: ABD PAIN <Rikki Haq MD - Last Filed: 11/23/21 07:12> Time Seen by Provider: 11/23/21 05:13 <Rikki Haq MD - Last Filed: 11/23/21 07:12> History of Present Illness HPI narrative: Patient is a 61-year-old female who presents ER with left upper quadrant abdominal pain. Began this evening. Sharp. Nonradiating. Worse with any type of movement and with coughing. No fevers or chills or sweats. No vomiting. No diarrhea. Patient does not make urine due to dialysis. Patient reports chronic wound to the right toe that causes her pain. Recent hospitalization and vascular studies performed. Patient reports she is supposed to go on palliative care and is scheduled to see somebody on 12/10/2021. They have spoken with [email or web address]. Previous care coordination note shows patient was not ready to go in [facility] and since they do not offer palliative care and they were given pamphlets for [email or web address] and [email or web address]. <Rikki Haq MD - Last Filed: 11/23/21 07:12> Related Data Home medications: Home Medications Medication Instructions Recorded Confirmed insulin aspart U-100 100 unit/mL 1 sliding scale dose subcut 04/29/19 11/14/21 subcutaneous cartridge (Novolog USEASDIRECTD PenFill U-100 Insulin aspart) aspirin 81 mg tablet,delayed 81 mg PO DAILY 10/11/19 11/14/21 release (Adult Aspirin Regimen) polyethylene glycol 3350 17 gram 17 g PO QAM PRN Constipation 08/30/20 11/14/21 oral powder packet (Miralax) ergocalciferol (vitamin D2) 1,250 1,250 mcg PO WEEKLY 10/17/20 11/14/21 mcg (50,000 unit) capsule acetaminophen 325 mg tablet 325 mg PO Q6H PRN Pain 03/12/21 11/14/21 (Tylenol) lidocaine HCl 4 % topical cream 1 applic topical TID PRN Pain 08/28/21 11/14/21 (Aspercreme (lidocaine HCl)) vitamin B complex-vitamin C-folic 1 tablet PO DAILY 08/28/21 11/14/21 acid 0.8 mg tablet (Daniela-Luis) diphenhydramine HCl 12.5 mg/5 mL 12.5 mg PO BID PRN Itching 10/19/21 11/14/21 oral liquid (Benadryl Allergy) ferrous sulfate 325 mg (65 mg 325 mg PO DAILY 10/19/21 11/14/21 iron) tablet lactobacillus combination no.9 4 4,000 mmu cells PO DAILY 10/19/21 11/14/21 billion cell capsule (Adult 50 Plus Probiotic) phenylephrine HCl 0.25 % nasal 2 spray intranasal Q4H PRN nose 10/19/21 11/14/21 spray (Ras-Synephrine clots (phenylephrine)) hydralazine 50 mg tablet 25 mg PO BID 10/30/21 11/14/21 vitamin B complex (B 0.5 tablet PO DAILY 10/30/21 11/14/21 Complex-Vitamin B12 tablet) <Rikki Haq MD - Last Filed: 11/23/21 07:12> Allergies/adverse reactions: Allergies Allergy/AdvReac Type Severity Reaction Status Date / Time [id number] Reductase AdvReac very bad Verified 11/06/21 13:13 Inhibitor leg [Nxmqeub-[id number]-Pbc Reductase cramps, Inhibitor] zombie like feeling <Rikki Haq MD - Last Filed: 11/23/21 07:12> Review of Systems Review of Systems: All systems reviewed & are unremarkable except as noted in HPI and below <Rikki Haq MD - Last Filed: 11/23/21 07:12> Constitutional: Constitutional: Denies chills, Denies fever(s) and Reports weakness (Chronic) <Rikki Haq MD - Last Filed: 11/23/21 07:12> ENT: Denies nasal congestion and Denies sore throat <Rikki Haq MD - Last Filed: 11/23/21 07:12> Cardiovascular: Cardiovascular: Denies chest pain, Denies rapid heart rate and Denies radiating jaw, neck or arm pain <Rikki Haq MD - Last Filed: 11/23/21 07:12> Respiratory: Respiratory: Denies cough and Denies dyspnea <Rikki Haq MD - Last Filed: 11/23/21 07:12> Gastrointestinal: Gastrointestinal: Reports abdominal pain, Reports bloating (Chronic), Reports nausea and Denies vomiting <Rikki Haq MD - Last Filed: 11/23/21 07:12> Musculoskeletal: Musculoskel
[2021-11-23] MEDS: ONDANSETRON INJ 4 MG/2 ML VIAL IV PUSH (05:41)
[2021-11-23 05:58] LABS: Lactic Acid Reflex 1.2 mmol/L (0.7-2.0)
[2021-11-23 05:59] LABS: Alanine Aminotransferase 12 U/L (6-35); Albumin Level 3.2 g/dL (3.5-5.1); Alkaline Phosphatase 398 U/L (38-126); Anion Gap 8 mmol/L (8-16); Aspartate Amino Transferase 41 U/L (14-36); Bilirubin,Total 1.2 mg/dL (0.2-1.3); Blood Urea Nitrogen 35 mg/dL (7-17); Calcium 8.7 mg/dL (8.4-10.2); Carbon Dioxide 31 mmol/L (22-30); Chloride 91 mmol/L (98-107); Estimated CRCL calculation 19 ml/min; Estimated Glomerular Filt Rate 19; Glucose 175 mg/dL (65-110); Lipase 80 U/L (23-300); Potassium 3.3 mmol/L (3.4-5.0); Sodium 130 mmol/L (137-145)
--- NOTE | 2021-11-23 06:01 | PC.NURSE ---
Morphine 4 mg was initially documented as not given as patient did not want the medication. Patient later requested the medication. Per EDP Dr. Severino green was re-ordered and given.
[2021-11-23] MEDS: MORPHINE SULFATE (*CRX) 4 MG/ML INJ IV PUSH (06:03)
[2021-11-23 06:10] LABS: Basophils Percent Auto 0.4 % (0.2-1.2); Eosinophils Absolute Auto 0.1 K/mm3 (0-0.3); Eosinophils Percent Auto 0.7 % (0-4.4); Hematocrit 26.2 % (37.0-47.0); Hemoglobin 7.8 g/dL (12.0-15.0); Immature Granulocyte Absolute 0.04 K/mm3 (0.00-0.031); Immature Granulocyte Percent A 0.5 % (0-0.5); Lymphocytes Absolute Auto 1.18 K/mm3 (0.9-3.2); Lymphocytes Percent Auto 15.4 % (18.3-44.2); Mean Corpuscular HGB Conc 29.8 g/dl (32-36); Mean Corpuscular Hemoglobin 31.6 pg (26-34); Mean Corpuscular Volume 106.1 fl (80-100); Mean Platelet Volume 9.9 fl (7.4-10.4); Monocytes Absolute Auto 0.5 K/mm3 (0.1-0.6); Monocytes Percent Auto 6.5 % (2.6-8.5); Neutrophils Absolute Auto 5.9 K/mm3 (1.3-6.7); Neutrophils Percent Auto 76.5 % (45.5-73.1); Platelet Count Result 201 k/mm3 (150-375); Red Blood Count 2.47 M/mm3 (4.2-5.4); White Blood Count 7.7 K/mm3 (4.5-10.0)
[2021-11-23 06:31] LABS: Platelet Estimate Adequate (Adequate)
[2021-11-23 06:32] LABS: Anisocytosis 1+ (NORMAL); Hypochromasia 1+ (NORMAL)
--- NOTE | 2021-11-23 08:51 | PC.NURSE ---
Mike velazquez/ care coordination at bedside to discuss POC w/ pt and spouse at bedside.
== END 2021-11-23 10:01 | disposition home or self-care (01) ==
PROVIDERS: Emergency Provider Emergency Medicine; PCP Internal Medicine
DX: R10.12 Left upper quadrant pain (principal); E11.22 Type 2 diabetes mellitus with diabetic chronic kidney disease; I12.0 Hypertensive chronic kidney disease with stage 5 chronic kidney disease or end stage renal disease; N18.6 End stage renal disease; Z79.4 Long term (current) use of insulin
CPT/HCPCS: 36415; 74176; 80053; 83605; 83690; 85025; 96374; 96375; 99284; J2270; J2405

== ENCOUNTER 2021-12-14 06:23 | Emergency (ER) | payer OTHER, SELFPAY ==
[2021-12-14 06:34] VITALS: BP 168/67; PULSE 98; RESP 18; TEMP 36.9; O2SAT 100
--- NOTE | 2021-12-14 06:37 | ED.GENADULT ---
HPI - General Adult General Chief complaint: Unspecified Stated complaint: bleeding from dialysis cath groin Time Seen by Provider: 12/14/21 06:25 History of Present Illness HPI narrative: Pt states that she has had bleeding from her dialysis catheter in left groin since after dialysis yesterday. Pt sasy it has been oozing and can't get it to stop. Has trie d pressure without success. Related Data Home Medications Medication Instructions Recorded Confirmed insulin aspart U-100 100 unit/mL 1 sliding scale dose subcut 04/29/19 11/14/21 subcutaneous cartridge (Novolog USEASDIRECTD PenFill U-100 Insulin aspart) aspirin 81 mg tablet,delayed 81 mg PO DAILY 10/11/19 11/14/21 release (Adult Aspirin Regimen) polyethylene glycol 3350 17 gram 17 g PO QAM PRN Constipation 08/30/20 11/14/21 oral powder packet (Miralax) ergocalciferol (vitamin D2) 1,250 1,250 mcg PO WEEKLY 10/17/20 11/14/21 mcg (50,000 unit) capsule acetaminophen 325 mg tablet 325 mg PO Q6H PRN Pain 03/12/21 11/14/21 (Tylenol) lidocaine HCl 4 % topical cream 1 applic topical TID PRN Pain 08/28/21 11/14/21 (Aspercreme (lidocaine HCl)) vitamin B complex-vitamin C-folic 1 tablet PO DAILY 08/28/21 11/14/21 acid 0.8 mg tablet (Daniela-Luis) diphenhydramine HCl 12.5 mg/5 mL 12.5 mg PO BID PRN Itching 10/19/21 11/14/21 oral liquid (Benadryl Allergy) ferrous sulfate 325 mg (65 mg 325 mg PO DAILY 10/19/21 11/14/21 iron) tablet lactobacillus combination no.9 4 4,000 mmu cells PO DAILY 10/19/21 11/14/21 billion cell capsule (Adult 50 Plus Probiotic) phenylephrine HCl 0.25 % nasal 2 spray intranasal Q4H PRN nose 10/19/21 11/14/21 spray (Ras-Synephrine clots (phenylephrine)) hydralazine 50 mg tablet 25 mg PO BID 10/30/21 11/14/21 vitamin B complex (B 0.5 tablet PO DAILY 10/30/21 11/14/21 Complex-Vitamin B12 tablet) Allergies Allergy/AdvReac Type Severity Reaction Status Date / Time Dpnsgoc-[id number] Reductase AdvReac very bad Verified 12/14/21 06:37 Inhibitor leg [Gsphkgi-Xhy-Vfw Reductase cramps, Inhibitor] zombie like feeling Review of Systems Review of Systems: All systems reviewed & are unremarkable except as noted in HPI and below PMFSH Past Medical History Medical History (Updated 12/12/21 @ 14:37 by Yanira Buckner NP) Amputation of finger Necrotic fingers 04/30/2021 Anemia Bone spur Diverticulitis DM renal manif type II End stage renal disease on dialysis Peritoneal dialysis since September 2019 End-stage renal disease on hemodialysis Finger lesion Hemorrhoids 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 She has 4 children. Her 1 daughter works here. The patient thinks she wants to be a full code. She does not use alcohol or illicit drugs. Smoking status: Never smoker Second hand tobacco smoke exposure: Yes Alcohol intake: never Substance use: never Substance use type: does not use Gender identity (if verbalized by t
[2021-12-14 06:38] VITALS: PULSE 95
--- NOTE | 2021-12-14 07:10 | PC.NURSE ---
Assumed care of pt, bedside report from Caty FERRARO who states bleeding to site is now controlled. Pt is upright on stretcher, discussed POC w/ pt and spouse. Awaiting D/C paperwork and instructions.
[2021-12-14 07:20] VITALS: BP 140/58; PULSE 95; RESP 17; O2SAT 97
== END 2021-12-14 07:32 | disposition home or self-care (01) ==
PROVIDERS: Emergency Provider Emergency Medicine; PCP Internal Medicine
DX: T82.838A Hemorrhage due to vascular prosthetic devices, implants and grafts, initial encounter (principal); E11.22 Type 2 diabetes mellitus with diabetic chronic kidney disease; I12.0 Hypertensive chronic kidney disease with stage 5 chronic kidney disease or end stage renal disease; N18.6 End stage renal disease; Z99.2 Dependence on renal dialysis; D64.9 Anemia, unspecified; E11.51 Type 2 diabetes mellitus with diabetic peripheral angiopathy without gangrene; I73.9 Peripheral vascular disease, unspecified; N25.0 Renal osteodystrophy; E78.5 Hyperlipidemia, unspecified; J84.9 Interstitial pulmonary disease, unspecified; G47.33 Obstructive sleep apnea (adult) (pediatric); M19.90 Unspecified osteoarthritis, unspecified site; Z87.01 Personal history of pneumonia (recurrent); Z86.16 Personal history of COVID-19; Z79.82 Long term (current) use of aspirin; Z79.4 Long term (current) use of insulin
CPT/HCPCS: 99282

== ENCOUNTER 2021-12-18 11:20 | Outpatient (CLI) | payer OTHER, SELFPAY ==
--- NOTE | ~2021-12-18 | CT_ITS ---
EXAMINATION: CT diagnostic chest wo con DATE: 12/18/2021 11:43 INDICATION: Pulmonary nodule TECHNIQUE: Computed tomography (CT) of the chest was performed without intravenous contrast. Automate d exposure control and iterative reconstruction technique were employed. Exam dose: 227.16 mGy-cm to radha exam DLP. COMPARISON: 11/14/2021 portable AP chest 09/29/2021 2 view chest 06/09/2020 CT chest high resolution scan FINDINGS: There are multiple irregular pulmonary opacities, particularly in the right upper lobe, kevin suring 5 mm, 8 mm, 5.5 x 11 mm. Scattered smaller right upper lobe opacities are noted. There is approximately 8 x 15 mm opacity of the middle lobe. Approximately 5.2 x 9.2 mm left upper lobe opacity. Patchy groundglass density of lung pan is noted particularly in the lower lung zones, most promine ntly the lower lobes, also involving the middle lobe, suggesting small airways disease and/or atelect asis. Mild infiltrate or atelectasis particularly in the dependent lingula and lower lobes. The scattered pulmonary nodular densities are somewhat irregular in shape and new since 06/09/2020. T hese are likely inflammatory or infectious in nature. Continued CT follow-up is recommended. Cardiomegaly. Coronary artery calcification. Aortic valve calcification. Thoracic aortic and great vessel calcifications. No thoracic aortic aneur ysm. No hilar or mediastinal mass lesion or lymphadenopathy. Moderate ascites is noted. Normal morphology of the adrenal glands. Extensive calcification of celiac, superior mesenteric and renal arteries as well as abdominal aortic calcification. Splenomegaly. No suspicious osteolytic or osteoblastic lesions are noted. IMPRESSION: Scattered bilateral irregular pulmonary opacities, especially right upper and middle lob es, and patchy groundglass density, particularly lower lobes and middle lobe; infectious or inflammat ory process is likely. Continued CT follow-up is recommended. Cardiomegaly Aortic valve calcification Extensive atherosclerotic disease, including thoracic and abdominal aorta and particularly the celiac and superior mesenteric and renal arteries Ascites Splenomegaly Reviewed, dictated and finalized at [facility]. Reviewed, dictated and finalized at [facility]. IMPRESSION: Scattered bilateral irregular pulmonary opacities, especially righ t upper and middle lobes, and patchy groundglass density, particularly lower lo bes and middle lobe; infectious or inflammatory process is likely. Continued CT follow-up is recommended. Cardiomegaly Aortic valve calcification Extensive atherosclerotic disease, including thoracic and abdominal aorta and p articularly the celiac and superior mesenteric and renal arteries Ascites Splenomegaly
== END 2021-12-18 11:21 | disposition home or self-care (01) ==
PROVIDERS: PCP Internal Medicine; Visit Provider Nurse Practitioner
DX: R91.1 Solitary pulmonary nodule (principal); I51.7 Cardiomegaly; R91.8 Other nonspecific abnormal finding of lung field; R16.1 Splenomegaly, not elsewhere classified; R18.8 Other ascites; I70.0 Atherosclerosis of aorta
CPT/HCPCS: 71250